=== PATIENT | male | born 1955 | race Caucasian/White ===

== ENCOUNTER → 2018-02-26 06:16 | Outpatient (CLI) | payer BC, SELFPAY ==
[2018-02-26 08:04] LABS: ALB/GLOB Ratio 1.1 RATIO (0.9-2.4); AST(SGOT) 101 U/L (15-37); Alanine Aminotransfer ALT/SGPT 134 U/L (16-61); Albumin, Serum 3.7 g/dL (3.2-5.0); Alkaline Phosphatase 145 U/L (45-117); Anion Gap 8 (5-15); BUN 26 mg/dL (7-18); BUN/Creat Ratio 21.5 RATIO (10-20); Calcium,Total 8.5 mg/dL (8.5-10.1); Chloride 105 mmol/L (98-107); Cholesterol 123 mg/dL (200); Creatinine, Serum 1.21 mg/dL (0.70-1.30); EST Glomerular Filtration Rate 64 mL/min (>60); Est Glom Filt Rate - Afr Amer 78 mL/min (>60); Free T3 2.9 pg/mL (2.18-3.98); Globulin 3.3 g/dL (2.2-4.2); Glucose 131 mg/dL (74-106); High Density Lipoprotein 30 mg/dL; Potassium 3.7 mmol/L (3.5-5.1); Sodium Level 140 mmol/L (136-145); T4 Free Direct 0.97 ng/dL (0.76-1.46); Thyroid Stim Hormone (TSH) 6.21 uIU/mL (0.358-3.74); Triglycerides 94 mg/dL; Very Low Density Lipoprotein 19 mg/dL (5-40)
[2018-02-26 10:02] LABS: Hemoglobin A1c 8.6 % (4.2-6.3)
[2018-02-27 15:15] LABS: Thyroid Peroxidase AB 10 IU/mL (0-34)
== END ==
PROVIDERS: Family Provider Family Medicine; PCP Family Medicine; Visit Provider Internal Medicine Endocrinology, Diabetes & Metabolism
DX: E11.65 Type 2 diabetes mellitus with hyperglycemia (principal); R94.6 Abnormal results of thyroid function studies
CPT/HCPCS: 36415; 80053; 80061; 83036; 84439; 84443; 84481; 86376

== ENCOUNTER → 2018-03-03 09:52 | Outpatient (CLI) | payer BC, SELFPAY ==
[2018-03-03 11:04] LABS: AST(SGOT) 95 U/L (15-37); Alanine Aminotransfer ALT/SGPT 141 U/L (16-61); Albumin, Serum 3.7 g/dL (3.2-5.0); Alkaline Phosphatase 139 U/L (45-117); Bilirubin, Direct 0.15 mg/dL (0.00-0.30); GGTP 39 U/L (15-85); Globulin 3.5 g/dL (2.2-4.2); Protein, Total 7.2 g/dL (6.4-8.2)
[2018-03-04 09:36] LABS: HEPATITIS B SURFACE AG Negative (Negative); Hepatitis A AB, Total Positive (Negative); Hepatitis A IgM Antibody Negative (Negative); Hepatitis B Core AB IgM Negative (Negative); Hepatitis B Core Ab Total Negative (Negative); Hepatitis C Ab 0.1 s/co ratio (0.0-0.9)
[2018-03-04 10:15] LABS: Hep B Surface Antibodies Non Reactive (.); Thyroid Peroxidase AB 11 IU/mL (0-34)
== END ==
PROVIDERS: Family Provider Family Medicine; PCP Family Medicine; Visit Provider Internal Medicine Endocrinology, Diabetes & Metabolism
DX: R79.89 Other specified abnormal findings of blood chemistry (principal)
CPT/HCPCS: 36415; 80076; 82977; 86376; 86704; 86705; 86706; 86708; 86709; 86803; 87340

== ENCOUNTER → 2018-04-07 07:37 | Outpatient (CLI) | payer BC, SELFPAY ==
[2018-04-07 08:59] LABS: Free T3 2.7 pg/mL (2.18-3.98); T4 Free Direct 1.13 ng/dL (0.76-1.46); Thyroid Stim Hormone (TSH) 3.15 uIU/mL (0.358-3.74)
== END ==
PROVIDERS: Family Provider Family Medicine; PCP Family Medicine; Visit Provider Internal Medicine Endocrinology, Diabetes & Metabolism
DX: R79.89 Other specified abnormal findings of blood chemistry (principal)
CPT/HCPCS: 36415; 84439; 84443; 84481

== ENCOUNTER → 2018-07-13 07:26 | Outpatient (CLI) | payer BC, SELFPAY ==
[2018-07-13 09:23] LABS: Hemoglobin A1c 6.8 % (4.2-6.3)
[2018-07-13 09:26] LABS: ALB/GLOB Ratio 0.8 RATIO (0.9-2.4); AST(SGOT) 147 U/L (15-37); Alanine Aminotransfer ALT/SGPT 199 U/L (16-61); Albumin, Serum 3.2 g/dL (3.2-5.0); Alkaline Phosphatase 141 U/L (45-117); Anion Gap 7 (5-15); BUN 18 mg/dL (7-18); BUN/Creat Ratio 15.7 RATIO (10-20); Calcium,Total 8.8 mg/dL (8.5-10.1); Chloride 106 mmol/L (98-107); Cholesterol 105 mg/dL (200); Creatinine, Serum 1.15 mg/dL (0.70-1.30); EST Glomerular Filtration Rate 68 mL/min (>60); Est Glom Filt Rate - Afr Amer 83 mL/min (>60); Globulin 4.2 g/dL (2.2-4.2); Glucose 128 mg/dL (74-106); High Density Lipoprotein 25 mg/dL; Protein, Total 7.4 g/dL (6.4-8.2); Sodium Level 142 mmol/L (136-145); Thyroid Stim Hormone (TSH) 2.81 uIU/mL (0.358-3.74); Triglycerides 89 mg/dL; Very Low Density Lipoprotein 18 mg/dL (5-40)
== END ==
PROVIDERS: Family Provider Family Medicine; PCP Family Medicine; Visit Provider Internal Medicine Endocrinology, Diabetes & Metabolism
DX: E11.65 Type 2 diabetes mellitus with hyperglycemia (principal); E03.9 Hypothyroidism, unspecified
CPT/HCPCS: 36415; 80053; 80061; 83036; 84443

== ENCOUNTER → 2018-10-12 07:51 | Outpatient (CLI) | payer BC, SELFPAY ==
[2018-06-11 15:32] VITALS: BMI 31.0
[2018-10-12 08:53] LABS: Microalbumin,Random Urine 12.7 mg/L (NO RANGE EST.); Microalbumin:Creatinine Ratio 9.4 mg/g CRE (<30 mg/g CRE)
[2018-10-12 09:12] LABS: ALB/GLOB Ratio 0.7 RATIO (0.9-2.4); AST(SGOT) 244 U/L (15-37); Alanine Aminotransfer ALT/SGPT 295 U/L (16-61); Albumin, Serum 3.3 g/dL (3.2-5.0); Alkaline Phosphatase 150 U/L (45-117); Anion Gap 7 (5-15); BUN 26 mg/dL (7-18); BUN/Creat Ratio 20.5 RATIO (10-20); Calcium,Total 8.9 mg/dL (8.5-10.1); Chloride 105 mmol/L (98-107); Creatinine, Serum 1.27 mg/dL (0.70-1.30); EST Glomerular Filtration Rate 61 mL/min (>60); Est Glom Filt Rate - Afr Amer 74 mL/min (>60); Globulin 4.8 g/dL (2.2-4.2); Glucose 163 mg/dL (74-106); Hemoglobin A1c 7.6 % (4.2-6.3); Potassium 3.8 mmol/L (3.5-5.1); Protein, Total 8.1 g/dL (6.4-8.2); Sodium Level 141 mmol/L (136-145); Thyroid Stim Hormone (TSH) 1.85 uIU/mL (0.358-3.74)
== END ==
PROVIDERS: Family Provider Family Medicine; PCP Family Medicine; Referring Provider Internal Medicine Endocrinology, Diabetes & Metabolism; Visit Provider Internal Medicine Endocrinology, Diabetes & Metabolism
DX: E11.65 Type 2 diabetes mellitus with hyperglycemia (principal)
CPT/HCPCS: 36415; 80053; 82043; 82570; 83036; 84443

== ENCOUNTER → 2018-12-03 14:15 | Outpatient (CLI) | payer BC, SELFPAY ==
[2018-06-11 15:32] VITALS: BMI 31.0
== END ==
PROVIDERS: Family Provider Family Medicine; PCP Family Medicine; Visit Provider Nurse Practitioner Family
DX: L97.521 Non-pressure chronic ulcer of other part of left foot limited to breakdown of skin (principal)
CPT/HCPCS: 87070; 87077; 87186; 87205

== ENCOUNTER 2018-12-25 09:42 | Inpatient (IN) | payer BC, SELFPAY ==
[2018-12-21 14:10] VITALS: BMI 28.4
[2018-12-25 09:56] VITALS: BMI 28.6; BMI 28.7
[2018-12-25 09:57] VITALS: BP 115/73; PULSE 66; RESP 18; TEMP 36.6
--- NOTE | 2018-12-25 10:15 | PCM.HP.STD ---
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 Arnold: 07/31/2015: CABG X 4: RUIZ to left anterior descending bridge diagonal, SVG to first DX, radial artery to the lateral CX. Done @ [place] per Dr. Randall (5) History of coronary artery bypass graft Status: Chronic Comment: 07/31/2015: CABG X 4: RUIZ to left anterior descending bridge diagonal, SVG to first DX, radial artery to the lateral CX. Done @ [place] per Dr. Randall (6) History of left heart catheterization Status: Chronic Comment: Left heart cath 07/30/2015 @ [facility] per Dr. Arnold (7) Right-sided extracranial carotid artery stenosis Status: Chronic (8) Hypertension Status: Chronic (9) Hyperlipidemia Status: Chronic (10) Diabetes mellitus type II, controlled Status: Chronic (11) Interstitial lung disease Status: Chronic (12) Osteomyelitis of toe of left foot Status: Suspected Comment: left Hallux (13) Left leg cellulitis Status: Acute (14) Hyponatremia Status: Acute (15) Acute renal failure Status: Acute (16) Abnormal LFTs Status: Acute (17) Peripheral neuropathy Status: Chronic (18) Autoimmune disease Status: Chronic Comment: he is followed at the [facility].......not otherwise classified (19) Dropfoot Status: Chronic Qualifiers: Laterality: left Qualified Code(s): M21.372 - Foot drop, left foot (20) History of nonmelanoma skin cancer Status: Chronic History of Present Illness Date of Admission: 12/25/18 Chief Complaint: sent to the hospital by Dr. Castle for cellulitis and suspected osteomyelitis of the left hallux, cellulitis left foot and distal lower extremity The patient is a 63 year old M with a past medical history of diabetes mellitus type 2, hypertension, hyperlipidemia, coronary artery disease with history of CABG in 2014, autoimmune disease-not otherwise classified and followed at [facility], interstitial lung disease, paroxysmal atrial fibrillation, superficial DVT of the lower extremity, nonmelanoma skin cancer, hypothyroidism, peripheral neuropathy and drop foot on the left who was seen in the office by Dr. Castle today and sent to the hospital as a direct admit for cellulitis of the left foot and distal LE and suspected osteomyelitis of the Left hallux. A culture was done in the office of CT from the Wound on the left hallux and will be sent to the lab by Dr. Castle. The wound on the distal left hallux has been present since early October. The patient denies pain but has a history of peripheral neuropathy. Denies fever, chills, sweats. He was being treated by Dr. Goldberg in the office and had been using peroxide and a wrap on his toe. He has no prior history of diabetic foot ulcers. XRAYS at Dr. Castle's office show osteolysis of the distal phalanx of the left hallux. He denies any hx of claudication or PVD. He is being admitted for IV antibiotics, MRI of the left foot. He has a hx of an autoimmune disorder for the past few years and is followed at the [facility]. Initially presented with fatigue and wt loss. Started initially on Prednisone and then transitioned to Cellcept but, LFT's increased with the Cellcept and this was discontinued. He tells me that his blood sugars are controlled at home. 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 Arnold: 07/31/2015: CABG X 4: RUIZ to left anterior descending bridge diagonal, SVG to first DX, radial artery to the lateral CX. Done @ [place] per Dr. Randall History of coronary artery bypass graft (Chronic 07/31/15) 07/31/2015: CABG X 4: RUIZ to left anterior descending bridge diagonal, SVG to first DX, radial artery to the lateral CX. Done @ [place] per Dr. Randall History of left heart catheterization (Chronic 07/30/15) Left heart cath 07/30/2015 @ [facility] per Dr. Arnold Right-sided extracranial carotid artery stenosis (Chronic) Hypertension (Chronic) Hyperlipidemia (Chronic) Diabetes mellitus type II, controlled (Chronic) Interstitial lung disease (Chronic) Medical History: Medical History (Last Updated 12/21/18 @ 14:14 by Melissa Porras) Hypothyroid (Chronic) E03.9 Paroxysmal atrial fibrillation (Chronic) I48.0 detention current use of anticoagulant (Chronic) Z79.01 Atherosclerotic heart disease of [place] coronary artery without angina pectoris (Chronic) I25.10 Left heart cath 07/30/2015 @ [facility] per Dr. Arnold: 07/31/2015: CABG X 4: RUIZ to left anterior descending bridge diagonal, SVG to first DX, radial artery to the lateral CX. Done @ [place] per Dr. 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) Allergies adhesive tape Allergy (Verified 12/19/18 09:55) Rash Home Medications: Ambulatory Orders Medication Instructions Recorded aspirin 81 mg tablet,delayed 81 mg PO QDAY 12/08/17 release metformin 1,000 mg tablet 1,000 mg PO BIDCM 12/08/17 dulaglutide 1.5 mg/0.5 mL 1.5 mg SC QWEEK 12/21/18 subcutaneous pen injector empagliflozin 25 mg tablet 25 mg PO DAILY 12/21/18 levothyroxine 25 mcg tablet 25 mcg PO DAILY 12/21/18 Apixaban [Eliquis] 5 mg PO BID 12/25/18 Atorvastatin Calcium [Lipitor] 40 mg PO QDAY 12/25/18 Cholecalciferol (VIT D3) [Vitamin 1,000 unit PO DAILY 12/25/18 D] Cholecalciferol (Vitamin D3) 5,000 unit PO DAILY 12/25/18 [Vitamin D3] Ferrous Fumarate [Ferretts] 325 mg PO DAILY 12/25/18 Hydrochlorothiazide [Hctz] 25 mg PO QDAY 12/25/18 Insulin Detemir [Levemir Flextouch] 14 unit SQ BID 12/25/18 Insulin Lispro [Humalog KwikPen] 17 units SC DINNER 12/25/18 Insulin Lispro [Humalog Kwikpen] 14 unit SQ BREAKFAST 12/25/18 Losartan Potassium 100 mg PO QDAY 12/25/18 Metoprolol Succinate [Toprol Xl] 100 mg PO DAILY 12/25/18 Mycophenolate Mofetil [Cellcept] 1,000 mg PO BID 12/25/18 Potassium Chloride 10 meq PO QDAY 12/25/18 Smz/Tmp Ds [Bactrim Ds] 1 tablet PO BID 12/25/18 Surgical History: Surgical History (Last Reviewed 12/21/18 @ 14:09 by Melissa Porras) History of coronary artery bypass graft (Chronic) Onset Date: 07/31/15 Z95.1 07/31/2015: CABG X 4: RUIZ to left anterior descending bridge diagonal, SVG to first DX, radial artery to the lateral CX. Done @ [place] per Dr. Randall History of left heart catheterization (Chronic) Onset Date: 07/30/15 Z98.890 Left heart cath 07/30/2015 @ [facility] per Dr. Arnold thoracoscopy with lung biopsy Surgical History: coronary bypass surgery - 2014 0r 2016, - Psychiatric History: No pertinent psych hx Lives: Spouse/ Significant Other - 's name is Tessa Smoking Status: Never smoker Tobacco Use: Non-smoker Alcohol: Rare Drugs: None - *Family History Paternal Family History: Family History (Last Reviewed 12/21/18 @ 14:09 by Melissa Porras) Father Lupus COPD (chronic obstructive pulmonary disease) CAD (coronary artery disease) S/P CABG x 3, Onset Age: 68 Congestive heart failure Mother Alzheimers disease History Items: High Cholesterol, Heart Disease Review of Systems Constitutional: Denies: Anorexia, Chills, Fever, Malaise Eyes: Denies: Blurred vision HEENT: Denies: Head Aches, Sinus Congestion, Sinus Drainage Cardiovascular: Denies: Chest Pain, Light Headedness, Palpitations Respiratory: Denies: Cough, Shortness of breath at rest, Sputum production Gastrointestinal: Denies: Abdominal Pain, Nausea, Vomiting Genitourinary: Denies: Dysuria Musculoskeletal: Denies: Foot Pain, Joint Pain, Joint Tenderness Skin: Reports: Wounds - on the Left Hallux with fat layer exposed. Denies: Rash Neurological: Reports: Numbness - BL feet, - - drop foot on the left - used to wear a brace but he no longer does this although he continues to have persistent foot drop. Denies: Focal weakness, Tingling Psychiatric: Denies: Anxiety, Depression, Homicidal Ideations, Suicidal Ideations Endocrine: Denies: Change in Body Habitus Hematologic/ Lymphatic: Reports: Hx of blood clot - superficial LE. Denies: Easy Bruising, Easy Bleeding VTE Information - Inpt Only VTE Present on Admission: No VTE Mechan Device Prophylaxis: Knee High DENNIS Hose VTE Pharm Prophylaxis ordered?: No Reason prophylaxis not ordered:: Medical Contraindication - he is on Eliquis for AF Patient Problems: Active and Suspected Problems (Last Updated 12/21/18 @ 14:14 by Melissa Porras) Osteomyelitis of toe of left foot (Suspected) left Hallux Left leg cellulitis (Acute) Hyponatremia (Acute) Acute renal failure (Acute) Abnormal LFTs (Acute) - Physical Exam General: Alert, Oriented x3, Cooperative, No apparent distress, Well developed, Well nourished HEENT: Atraumatic, PERRLA, EOMI, Normocephalic Oral: Dry Mucosa Neck: Supple, No JVD, Negative Carotid Bruits, No Nodes, Trachea Midline Lungs: Clear to auscultation, Normal air movement, No rhonchi, No wheeze, No rales Cardiovascular: Regular rate, Regular Rhythm, Normal S1, Normal S2, No murmurs, No rub noted, No Gallop Abdomen: Bowel Sounds Present, Soft, Non Tender, Non-Distended, - - No abdominal bruits Extremities: No clubbing, No cyanosis, Capillary Refill Less than 3 Seconds, No Calf Tenderness, Diminished Peripheral Pulses - The popliteal on the left is decreased as well as the DP and PT. The right popliteal is 3/3 and the DP is 2/3, Edema - mild of the left hallux and the left ankle Skin: No rashes, No breakdown Musculoskeletal: No Tenderness to Palpation of Joints or Extremities, No Muscle Wasting Neurological: Cranial nerves II-XII grossly intact, Neuro grossly intact - except for the Left foot drop and the peripheral neuropathy due to DM II Psych/Mental Status: Normal Affect, Appropriate Vital Signs Temp Pulse Resp BP 97.8 F 66 18 115/73 12/25/18 09:57 12/25/18 09:57 12/25/18 09:57 12/25/18 09:57 Oxygen Delivery Method Room Air Weight: 241 lb 10.026 oz Body Mass Index (BMI) 28.6 Assessment/Plan All Active Problems (Last Updated 12/21/18 @ 14:14 by Melissa Porras) Left leg cellulitis (Acute) Hyponatremia (Acute) Acute renal failure (Acute) Abnormal LFTs (Acute) Abnormal nuclear stress test (Resolved) Unstable angina pectoris (Resolved) Impressions 1. cellulitis of the Left hallux, foot and the distal LE with non-healing diabetic ulcer with fat layer exposed at the tip of the plantar surface of the hallux and the mid toe on the dorsal surface 2. suspected osteomyelitis of the Left hallux - osteolysis on films done at podiatry office 3. drop foot left 4. diabetic peripheral polyneuropathy 5. autoimmune disease - on prednisone and Cellcept in the past - Cellcept stopped due to increased LFT's 6. ARF 7. ILD 8. abnormal LFT's 9. CAD with history of CABG in 2014 or 2015 10. Hypothyroidism 11. Paroxysmal atrial fibrillation 12. Chronic anticoagulation with Eliquis 13. Suspected peripheral vascular disease left lower extremity 14. Diabetes mellitus type 2 15. Hyperlipidemia 16. Hypertension 17. Right-sided extracranial carotid artery stenosis arterial studies LE's DC the Eliquis and start Lovenox - in the event that he needs surgery MRI of the Left foot CMP, CBCD, ESR, CRP, wound culture, HGBA1C Accuchecks and SSI Continue his home insulin regimen Cardiac calorie controlled diet Start Ceftriaxone and Flagyl - no hx of MRSA infection and cultures done as OP 12/04 did not grow MRSA ID consult when MRI is done and the results of the culture are available........whether or not he has an amputation will affect the duration of the treatment and also IV vs PO and how long Recheck the lab in the AM Consult Dr. Castle to participate in management Code Visit Inpatient E&M: [id number] Init Hosp L3
--- NOTE | 2018-12-25 11:42 | ART_ITS ---
Reason For Study: diabetic foot nfection Left Segmental Pressures The left dorsalis pedis waveforms are biphasic. The left posterior tibial artery waveforms are monophasic. Left posterior tibial artery = 98mmHg. Left dorsalis pedis artery = 107mmHg. Right Segmental Pressures The right dorsalis pedis waveforms are triphasic. The right posterior tibial artery waveforms are triphasic. Right brachial= 106mmHg. Right posterior tibial artery = 152mmHg. Right dorsalis pedis artery = 129mmHg. Right digit = 60 mmHg. Indices The right ankle brachial index by the dorsalis pedis is 1.22. The right ankle brachial index by the posterior tibial artery is 1.43. The right digital-brachial index is .57. The left ankle brachial index by the posterior tibial artery is .92. The left ankle brachial index by the dorsalis pedis is 1.01. Interpretation Summary Triphasic Doppler waveforms are noted at ankle level on the right. Biphasic and monophasic Doppler waveforms are noted at ankle level on the left. Pulse-volume recordings demonstrate satisfactory waveform amplitudes at all levels bilaterally, though were not obtained at digital level of the left foot due to the presence of a wound. The resting right ankle-brachial index is supra-normal. The resting left ankle-brachial index is normal. The right digital-brachial index is is mildly diminished. The left digital-brachial index was not obtained due to the presence of a left foot wound. There appears to be relatively normal arterial flow to ankle level bilaterally, though there appears to be evidence of arterial calcification involving the arterial tree at ankle level on the right. There appears to be mild impairment of digital flow at digital level on the right. Left digital flow was not assessed due to the presence of a wound. Ordering Physician: Lisbet Geiger Performed By: LU SIM T
[2018-12-25 12:41] LABS: Erythrocyte Sedimentation Rate 49 mm/hr (0-20)
[2018-12-25 12:43] LABS: Absolute Lymphocyte Count 1.29 X10^3/ul (0.83-4.51); Absolute Neutrophil Count 7.8 X10^3/uL (2.0-7.7); Basophil# 0.03 X10^3/uL; Basophil% 0.3 % (0-1); Eosinophil# 0.35 X10^3/uL; Eosinophils% 3.4 % (0-5); Hematocrit 41.1 % (40-54); Hemoglobin 13.5 g/dl (13.0-16.5); Lymphocyte # 1.29 X10^3/ul (4.0); Lymphocyte % 12.5 % (19-41); Mean Corp Hgb Conc 32.8 g/gl (32-36); Mean Corpuscular Hgb 31.5 pg (27.0-32.0); Mean Platelet Vol. 9.8 fl (6.2-12.0); Monocyte# 0.83 X10^3/uL; Neutrophil # 7.79 X10^3/uL (2.7-7.7); Neutrophil % 75.5 % (47-70); Platelet Count 256 K/mm3 (150-450); RBC Distribution Width CV 13.8 % (11.6-14.6); RBC Distribution Width SD 48.8 fl (35.1-43.9); Red Blood Count 4.28 M/mm3 (4.6-6.2); White Blood Count 10.3 K/mm3 (4.4-11.0)
[2018-12-25 12:45] LABS: POSITIVE COUNT NO; POSITIVE DIFFERENTIAL NO; POSITIVE MORPHOLOGY NO
[2018-12-25 12:50] LABS: Bedside Glucose 92 mg/dL (70-110)
[2018-12-25 12:55] LABS: Hemoglobin A1c 8.3 % (4.2-6.3)
[2018-12-25 13:01] LABS: ALB/GLOB Ratio 0.5 RATIO (0.9-2.4); AST(SGOT) 178 U/L (15-37); Alanine Aminotransfer ALT/SGPT 167 U/L (16-61); Albumin, Serum 2.8 g/dL (3.2-5.0); Alkaline Phosphatase 159 U/L (45-117); Anion Gap 8 (5-15); BUN 29 mg/dL (7-18); BUN/Creat Ratio 18.2 RATIO (10-20); Calcium,Total 8.8 mg/dL (8.5-10.1); Chloride 103 mmol/L (98-107); Creatinine, Serum 1.59 mg/dL (0.70-1.30); EST Glomerular Filtration Rate 47 mL/min (>60); Est Glom Filt Rate - Afr Amer 57 mL/min (>60); Estimated Creatinine Clearance 59.93 ml/min; Globulin 5.7 g/dL (2.2-4.2); Glucose 90 mg/dL (74-106); Phosphorus 3.7 mg/dL (2.5-4.9); Potassium 3.9 mmol/L (3.5-5.1); Protein, Total 8.5 g/dL (6.4-8.2); Sodium Level 134 mmol/L (136-145)
[2018-12-25] MEDS: Docusate Sodium 100 MG Capsule 200 MG PO (13:15)
[2018-12-25] MEDS: Ceftriaxone 1 GM/50 ML BAG IV (13:15)
[2018-12-25 14:22] VITALS: BP 138/99; PULSE 73; RESP 18; TEMP 36.8; O2SAT 98
--- NOTE | 2018-12-25 14:24 | PCM.CONS.GEN ---
Problem List (1) Type 2 diabetes mellitus with diabetic polyneuropathy Status: Chronic (2) Hallux malleus of left foot Status: Chronic (3) Chronic ulcer of left foot with necrosis of bone Status: Chronic (4) Osteomyelitis of toe of left foot Status: Suspected Comment: left Hallux Reason for Consult Date of Consultation: 12/25/18 Reason for Consultation: [facility] for an infected left great toe ulcer with worsening status the past week. Full note will be faxed and placed in the paper chart. 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 Arnold: 07/31/2015: CABG X 4: RUIZ to left anterior descending bridge diagonal, SVG to first DX, radial artery to the lateral CX. Done @ [place] per Dr. Randall History of coronary artery bypass graft (Chronic 07/31/15) 07/31/2015: CABG X 4: RUIZ to left anterior descending bridge diagonal, SVG to first DX, radial artery to the lateral CX. Done @ [place] per Dr. Randall History of left heart catheterization (Chronic 07/30/15) Left heart cath 07/30/2015 @ [facility] per Dr. Arnold Right-sided extracranial carotid artery stenosis (Chronic) Hypertension (Chronic) Hyperlipidemia (Chronic) Diabetes mellitus type II, controlled (Chronic) Interstitial lung disease (Chronic) Medical History: Medical History (Last Updated 12/21/18 @ 14:14 by Melissa Porras) Hypothyroid (Chronic) E03.9 Paroxysmal atrial fibrillation (Chronic) I48.0 alf current use of anticoagulant (Chronic) Z79.01 Atherosclerotic heart disease of [place] coronary artery without angina pectoris (Chronic) I25.10 Left heart cath 07/30/2015 @ [facility] per Dr. Arnold: 07/31/2015: CABG X 4: RUIZ to left anterior descending bridge diagonal, SVG to first DX, radial artery to the lateral CX. Done @ [place] per Dr. 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) Allergies adhesive tape Allergy (Verified 12/19/18 09:55) Rash Home Medications: Ambulatory Orders Medication Instructions Recorded aspirin 81 mg tablet,delayed 81 mg PO QDAY 12/08/17 release metformin 1,000 mg tablet 1,000 mg PO BIDCM 12/08/17 dulaglutide 1.5 mg/0.5 mL 1.5 mg SC QWEEK 12/21/18 subcutaneous pen injector empagliflozin 25 mg tablet 25 mg PO DAILY 12/21/18 levothyroxine 25 mcg tablet 25 mcg PO DAILY 12/21/18 Apixaban [Eliquis] 5 mg PO BID 12/25/18 Atorvastatin Calcium [Lipitor] 40 mg PO QDAY 12/25/18 Cholecalciferol (VIT D3) [Vitamin 1,000 unit PO DAILY 12/25/18 D] Cholecalciferol (Vitamin D3) 5,000 unit PO DAILY 12/25/18 [Vitamin D3] Ferrous Fumarate [Ferretts] 325 mg PO DAILY 12/25/18 Hydrochlorothiazide [Hctz] 25 mg PO QDAY 12/25/18 Insulin Detemir [Levemir Flextouch] 14 unit SQ BID 12/25/18 Insulin Lispro [Humalog KwikPen] 17 units SC DINNER 12/25/18 Insulin Lispro [Humalog Kwikpen] 14 unit SQ BREAKFAST 12/25/18 Losartan Potassium 100 mg PO QDAY 12/25/18 Metoprolol Succinate [Toprol Xl] 100 mg PO DAILY 12/25/18 Mycophenolate Mofetil [Cellcept] 1,000 mg PO BID 12/25/18 Potassium Chloride 10 meq PO QDAY 12/25/18 Smz/Tmp Ds [Bactrim Ds] 1 tablet PO BID 12/25/18 Surgical History: Surgical History (Last Reviewed 12/21/18 @ 14:09 by Melissa Porras) History of coronary artery bypass graft (Chronic) Onset Date: 07/31/15 Z95.1 07/31/2015: CABG X 4: RUIZ to left anterior descending bridge diagonal, SVG to first DX, radial artery to the lateral CX. Done @ [place] per Dr. Randall History of left heart catheterization (Chronic) Onset Date: 07/30/15 Z98.890 Left heart cath 07/30/2015 @ [facility] per Dr. Arnold thoracoscopy with lung biopsy Surgical History: no surgical history, - - CABG first surgery. Smoking Status: Never smoker - *Family History Paternal Family History: Family History (Last Reviewed 12/21/18 @ 14:09 by Melissa Porras) Father Lupus COPD (chronic obstructive pulmonary disease) CAD (coronary artery disease) S/P CABG x 3, Onset Age: 68 Congestive heart failure Mother Alzheimers disease History Items: High Cholesterol, Heart Disease Patient Problems: Active and Suspected Problems (Last Updated 12/21/18 @ 14:14 by Melissa Porras) Osteomyelitis of toe of left foot (Suspected) left Hallux - Physical Exam Vital Signs Temp Pulse Resp BP Pulse Ox 98.2 F 73 18 138/99 H 98 12/25/18 14:22 12/25/18 14:22 12/25/18 14:22 12/25/18 14:22 12/25/18 14:22 Oxygen Delivery Method Room Air Weight: 109.6 kg Body Mass Index (BMI) 28.6 Laboratory Tests Past 24 Hrs 12/25/18 12/25/18 12/25/18 12:20 12:20 12:20 WBC 10.3 RBC 4.28 L Hgb 13.5 Hct 41.1 MCV 96.0 H MCH 31.5 MCHC 32.8 RDW 13.8 RDW Differential 48.8 H Plt Count 256 MPV 9.8 Immature Gran % (Auto) 0.300 Neut % (Auto) 75.5 H Lymph % (Auto) 12.5 L [place] % (Auto) 8.0 Eos % (Auto) 3.4 Baso % (Auto) 0.3 Absolute Neuts (auto) 7.8 H Absolute Lymphs (auto) 1.29 Total Counted Not Reportable ESR 49 H Sodium 134 L Potassium 3.9 Chloride 103 Carbon Dioxide 23.0 Anion Gap 8 BUN 29 H Creatinine 1.59 H Estim Creat Clear Calc 59.93 Est GFR (MDRD) Af Amer 57 L Est GFR (MDRD) Non-Af 47 L BUN/Creatinine Ratio 18.2 Glucose 90 Hemoglobin A1c 8.3 H Calcium 8.8 Phosphorus 3.7 Magnesium 2.0 Total Bilirubin 0.60 AST 178 H ALT 167 H Alkaline Phosphatase 159 H C-React Prot Ext Range 74.90 H Total Protein 8.5 H Albumin 2.8 L Globulin 5.7 H Albumin/Globulin Ratio 0.5 L POC Glucose 12/25/18 12:43 POC Glucose 92 Assessment/Plan All Active Problems (Last Updated 12/21/18 @ 14:14 by Melissa Porras) Abnormal nuclear stress test (Resolved) Unstable angina pectoris (Resolved) I reviewed the condition, etiology, and treatment options with the patient today. We reviewed and discussed the radiographs. Deep wound cultures were taken (and sent to [facility]) after ulcer debridement was performed. I educated the patient on systemic and local signs of infection. I recommend hospital admission due to his streaking and cellulitis extending to the leg level. I recommend broad spectrum antibiotics and an infectious disease consultation. He is moderate risk due to his diabetes status, probe to bone, and foot deformity status. I discussed the case with the admitting hospitalist and recommend antibiotics, noninvasive vascular studies, and labs (CBC, hemoglobin A1C, CMP, ESR, CRP). Xrays were already obtained and [facility]. He understands he may require a hallux amputation pending his response. He is at risk for limb loss due to the noted tissue deterioration, infection, and hallux malleus deformity. An MRI will be considered if this will change his treatment plan. Osteomyelitis is suspected and it is noted there is a significant loss of soft tissue of this hallux regardless. A fifteen blade was used to perform excisional debridement including the subcutaneous layer of the aforementioned ulcer(s) to remove non viable, fibrous, hyperkeratotic, slough, and biofilm tissue. Hemostasis controlled with pressure. This was tolerated.A gauze dressing was applied today. To continue offloading to optimize healing. To monitor for local and systemic signs of illness. To continue with proper nutrition and medical management to further optimize healing. left distal plantar hallux and left dorsal hallux The podiatry team will continue to follow close while in house. Please do not hesitate to call if you have any questions. Renee Sorenson DPM, FACFAS [facility] [phone]
--- NOTE | 2018-12-25 14:28 | CON.PCM_ITS ---
Problem List (1) Type 2 diabetes mellitus with diabetic polyneuropathy Status: Chronic (2) Hallux malleus of left foot Status: Chronic (3) Chronic ulcer of left foot with necrosis of bone Status: Chronic (4) Osteomyelitis of toe of left foot Status: Suspected Comment: left Hallux Reason for Consult Date of Consultation: 12/25/18 Reason for Consultation: [facility] for an infected left great toe ulcer with worsening status the past week. Full note will be faxed and placed in the paper chart. 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 Arnold: 07/31/2015: CABG X 4: RUIZ to left anterior descending bridge diagonal, SVG to first DX, radial artery to the lateral CX. Done @ [facility] per Dr. Randall History of coronary artery bypass graft (Chronic 07/31/15) 07/31/2015: CABG X 4: RUIZ to left anterior descending bridge diagonal, SVG to first DX, radial artery to the lateral CX. Done @ [facility] per Dr. Randall History of left heart catheterization (Chronic 07/30/15) Left heart cath 07/30/2015 @ [facility] per Dr. Arnold Right-sided extracranial carotid artery stenosis (Chronic) Hypertension (Chronic) Hyperlipidemia (Chronic) Diabetes mellitus type II, controlled (Chronic) Interstitial lung disease (Chronic) Medical History: Medical History (Last Updated 12/21/18 @ 14:14 by Melissa Porras) Hypothyroid (Chronic) E03.9 Paroxysmal atrial fibrillation (Chronic) I48.0 long-term current use of anticoagulant (Chronic) Z79.01 Atherosclerotic heart disease of [place] coronary artery without angina pectoris (Chronic) I25.10 Left heart cath 07/30/2015 @ [facility] per Dr. Arnold: 07/31/2015: CABG X 4: RUIZ to left anterior descending bridge diagonal, SVG to first DX, radial artery to the lateral CX. Done @ [facility] per Dr. 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) Allergies adhesive tape Allergy (Verified 12/19/18 09:55) Rash Home Medications: Ambulatory Orders Medication Instructions Recorded aspirin 81 mg tablet,delayed 81 mg PO QDAY 12/08/17 release metformin 1,000 mg tablet 1,000 mg PO BIDCM 12/08/17 dulaglutide 1.5 mg/0.5 mL 1.5 mg SC QWEEK 12/21/18 subcutaneous pen injector empagliflozin 25 mg tablet 25 mg PO DAILY 12/21/18 levothyroxine 25 mcg tablet 25 mcg PO DAILY 12/21/18 Apixaban [Eliquis] 5 mg PO BID 12/25/18 Atorvastatin Calcium [Lipitor] 40 mg PO QDAY 12/25/18 Cholecalciferol (VIT D3) [Vitamin 1,000 unit PO DAILY 12/25/18 D] Cholecalciferol (Vitamin D3) 5,000 unit PO DAILY 12/25/18 [Vitamin D3] Ferrous Fumarate [Ferretts] 325 mg PO DAILY 12/25/18 Hydrochlorothiazide [Hctz] 25 mg PO QDAY 12/25/18 Insulin Detemir [Levemir Flextouch] 14 unit SQ BID 12/25/18 Insulin Lispro [Humalog KwikPen] 17 units SC DINNER 12/25/18 Insulin Lispro [Humalog Kwikpen] 14 unit SQ BREAKFAST 12/25/18 Losartan Potassium 100 mg PO QDAY 12/25/18 Metoprolol Succinate [Toprol Xl] 100 mg PO DAILY 12/25/18 Mycophenolate Mofetil [Cellcept] 1,000 mg PO BID 12/25/18 Potassium Chloride 10 meq PO QDAY 12/25/18 Smz/Tmp Ds [Bactrim Ds] 1 tablet PO BID 12/25/18 Surgical History: Surgical History (Last Reviewed 12/21/18 @ 14:09 by Melissa Porras) History of coronary artery bypass graft (Chronic) Onset Date: 07/31/15 Z95.1 07/31/2015: CABG X 4: RUIZ to left anterior descending bridge diagonal, SVG to first DX, radial artery to the lateral CX. Done @ [facility] per Dr. Randall History of left heart catheterization (Chronic) Onset Date: 07/30/15 Z98.890 Left heart cath 07/30/2015 @ [facility] per Dr. Arnold thoracoscopy with lung biopsy Surgical History: no surgical history, - - CABG first surgery. Smoking Status: Never smoker - *Family History Paternal Family History: Family History (Last Reviewed 12/21/18 @ 14:09 by Melissa Porras) Father Lupus COPD (chronic obstructive pulmonary disease) CAD (coronary artery disease) S/P CABG x 3, Onset Age: 68 Congestive heart failure Mother Alzheimers disease History Items: High Cholesterol, Heart Disease Patient Problems: Active and Suspected Problems (Last Updated 12/21/18 @ 14:14 by Melissa Porras) Osteomyelitis of toe of left foot (Suspected) left Hallux - Physical Exam Vital Signs Temp Pulse Resp BP Pulse Ox 98.2 F 73 18 138/99 H 98 12/25/18 14:22 12/25/18 14:22 12/25/18 14:22 12/25/18 14:22 12/25/18 14:22 Oxygen Delivery Method Room Air Weight: 109.6 kg Body Mass Index (BMI) 28.6 Laboratory Tests Past 24 Hrs 12/25/18 12/25/18 12/25/18 12:20 12:20 12:20 WBC 10.3 RBC 4.28 L Hgb 13.5 Hct 41.1 MCV 96.0 H MCH 31.5 MCHC 32.8 RDW 13.8 RDW Differential 48.8 H Plt Count 256 MPV 9.8 Immature Gran % (Auto) 0.300 Neut % (Auto) 75.5 H Lymph % (Auto) 12.5 L [place] % (Auto) 8.0 Eos % (Auto) 3.4 Baso % (Auto) 0.3 Absolute Neuts (auto) 7.8 H Absolute Lymphs (auto) 1.29 Total Counted Not Reportable ESR 49 H Sodium 134 L Potassium 3.9 Chloride 103 Carbon Dioxide 23.0 Anion Gap 8 BUN 29 H Creatinine 1.59 H Estim Creat Clear Calc 59.93 Est GFR (MDRD) Af Amer 57 L Est GFR (MDRD) Non-Af 47 L BUN/Creatinine Ratio 18.2 Glucose 90 Hemoglobin A1c 8.3 H Calcium 8.8 Phosphorus 3.7 Magnesium 2.0 Total Bilirubin 0.60 AST 178 H ALT 167 H Alkaline Phosphatase 159 H C-React Prot Ext Range 74.90 H Total Protein 8.5 H Albumin 2.8 L Globulin 5.7 H Albumin/Globulin Ratio 0.5 L POC Glucose 12/25/18 12:43 POC Glucose 92 Assessment/Plan All Active Problems (Last Updated 12/21/18 @ 14:14 by Melissa Porras) Abnormal nuclear stress test (Resolved) Unstable angina pectoris (Resolved) I reviewed the condition, etiology, and treatment options with the patient today. We reviewed and discussed the radiographs. Deep wound cultures were taken (and sent to [facility]) after ulcer debridement was performed. I educated the patient on systemic and local signs of infection. I recommend hospital admission due to his streaking and cellulitis extending to the leg level. I recommend broad spectrum antibiotics and an infectious disease con sultation. He is moderate risk due to his diabetes status, probe to bone, and foot deformity status. I discussed the case with the admitting hospitalist and recommend antibiotics, noninvasive vascular studies, and labs (CBC, hemoglobin A1C, CMP, ESR, CRP). Xrays were already obtained and [facility]. He understands he may require a hallux amputation pending his response. He is at risk for limb loss due to the noted tissue deterioration, infection, and hallux malleus deformity. An MRI will be considered if this will change his treatment plan. Osteomyelitis is suspected and it is noted there is a significant loss of soft tissue of this hallux regardless. A fifteen blade was used to perform excisional debridement including the subcutaneous layer of the aforementioned ulcer(s) to remove non viable, fibrous, hyperkeratotic, slough, and biofilm tissue. Hemostasis controlled with pressure. This was tolerated.A gauze dressing was applied today. To continue offloading to optimize healing. To monitor for local and systemic signs of illness. To continue with proper nutrition and medical management to further optimize healing. left distal plantar hallux and left dorsal hallux The podiatry team will continue to follow close while in house. Please do not hesitate to call if you have any questions. Renee Sorenson DPM, [facility] [phone]
[2018-12-25] MEDS: Glucerna Shake 120 ML LIQUID PO (14:30)
[2018-12-25] MEDS: Enoxaparin 100 MG/ML Syringe SC ×2 (14:31→21:43)
--- NOTE | 2018-12-25 14:49 | CASEMGMT ---
RN CM HEADER UP CM to room to meet with patient for initial transition planning/care coordination assessment. RN ZAIN introduced self and role at [facility]. Pt voices understanding and consents to assessment at this time. Pt resting in bed in no distress at this time. Pt is A/O at this time and answers all questions appropriately. Care providers, pharmacy, and demographics verified at this time. PCP: Mk Goldberg Specialists: Dr Youngblood Endocrinology. Dr Rob: [facility]. Dr Arnold Cardiology. Dr Barraza Pulmonology. Preferred Pharmacy: [facility] Insurance: [employer] Prescription Benefit: Yes Living Will/HPOA: does not have LW or HCPOA . Interested in more information but states does not want to talk with SW at this time to complete paperwork. States wants to talk it over with his first. Provided information on advanced directives and given Social Service rac card with number to call if chooses in the future to utilize [facility] social work for advanced directive completion. Educated patient that, if patient so chooses, can come back to [facility] and meet with a SW as an outpatient to complete health care advanced directives. Patient expresses understanding. LNOK: Living Arrangements: Lives at home with his in a 2-story home. First floor set up. 1 step to enter. Independent Transportation: Pt states drives self and states no transportation concerns at this time. DME: Denies using any DME and denies needs. HHC/SNF: Has never been to a SNF or used HHC. States has went to [facility] for therapy in the past. Pt wishes to return home and states has no concerns with going home at time of discharge. CM to follow for any further discharge planning/needs. Pt voices no further concerns/needs at this time. Advised pt to ask for CM if any further questions/concerns/needs arise. Voices understanding. PLAN: Home. CM to follow. Undetermined plan at this time if pt will go home on PO vs IV antibiotics. Keith SCHWAB RN, CM
--- NOTE | 2018-12-25 15:02 | NURSING ---
Wound Consult pt was seen 12/25/18. Dressing was just placed by RN. The dressing was clean, dry and intact. Photo and measurements will be taken 12/26/2018.
[2018-12-25 16:50] LABS: Bedside Glucose 166 mg/dL (70-110)
[2018-12-25] MEDS: Insulin Lispro 100 UNIT/ML INSULN.PEN 17 UNIT SC (16:58)
[2018-12-25] MEDS: Insulin Lispro 100 UNIT/ML INSULN.PEN SC (16:59)
--- NOTE | 2018-12-25 17:45 | MRI_ITS ---
STUDY: MRI LEFT FOREFOOT WITHOUT CONTRAST REASON FOR EXAM: Wound on dorsal and plantar aspects of the great toe for 6 weeks, evaluate osteomyelitis. TECHNIQUE: Standardized fat and water weighted pulse sequences were obtained in all 3 orthogonal planes. COMPARISON: None. FINDINGS: Normal metatarsophalangeal joint of the hallux. There is deformity of the fibular sesamoid suggestive of remote fracture with arthrosis of the fibular sesamoid-first metatarsal articulation (T1 sagittal images 9-11). There is flexion deformity at the interphalangeal joint of the hallux. There is bone edema of the distal and proximal phalanges of the first digit (inversion recovery sagittal images 6-9) with corresponding decreased T1 bone marrow signal in the ungual tuft of the distal phalanx and in the distal half of the proximal phalanx (T1 sagittal image 8) suggestive of osteomyelitis. Normal medial and lateral heads of the flexor hallucis brevis tendons. Normal flexor and extensor hallucis longus tendons. Normal second through fifth metatarsophalangeal (MTP) joints. Normal interphalangeal joints of the second through fifth toes. Normal proximal, middle and distal phalanges of the second through fifth toes. There are hammertoe deformities of the lesser toes. There is soft tissue fullness at the plantar aspect of the second webspace (T1 series 7 image 17) measuring 0.35 cm in AP dimension suggestive of a small intermetatarsal neuroma. Normal flexor and extensor tendons of the second through fifth toes. Normal visualized metatarsi. There is atrophy with fat replacement of the intrinsic muscles of the forefoot (T1 sagittal images 11-25) suggestive of peripheral neuropathy. There are ulcers at the plantar and dorsal aspects of the great toe and mild edema in the subcutis adipose space without demonstrated soft tissue abscess. MRI/Lower Ext/No Jt/w/o IMPRESSION: Osteomyelitis of the proximal and distal phalanges of the great toe. Arthrosis of the fibular sesamoid-first metatarsal articulation. Small intermetatarsal neuroma of the second webspace. Atrophy of the intrinsic muscles of the forefoot suggestive of peripheral neuropathy. Electronically Signed: Leo Momin MD at 8:26 EST Tel , Service support ,
[2018-12-25] MEDS: 0.9% Normal Saline 1,000 ML 100 ML IV (18:38)
[2018-12-25 21:22] VITALS: BP 131/62; PULSE 74; RESP 18; TEMP 37.1; O2SAT 97
[2018-12-25 21:40] LABS: Bedside Glucose 90 mg/dL (70-110)
[2018-12-25] MEDS: Atorvastatin Calcium 40 MG Tablet PO (21:43)
[2018-12-25] MEDS: metFORMIN HCl 1,000 MG Tablet 1000 MG PO (21:43)
[2018-12-26] MEDS: Acetaminophen 325 MG Tablet 650 MG PO (00:13)
[2018-12-26 02:24] VITALS: BP 119/54; PULSE 71; RESP 16; TEMP 36.9; O2SAT 96
[2018-12-26] MEDS: Levothyroxine 25 MCG TABLET PO (05:59)
--- NOTE | 2018-12-26 06:26 | PN_ITS ---
Patient Problems: Active and Suspected Problems (Last Reviewed 12/26/18 @ 12:51 by Suhdir Singh MD) Osteomyelitis of toe of left foot (Suspected) left Hallux Left leg cellulitis (Acute) Hyponatremia (Acute) Acute renal failure (Acute) Abnormal LFTs (Acute) Subjective: Day #2 antibiotics-Rocephin and metronidazole All events the past 24 hours been reviewed. MRI of the left foot was completed but no report yet. ABIs of the lower extremities have been completed but have no report yet. MICHAEL at the left ankle is 0.92 over the posterior tibial and 1.01 at the dorsalis pedis. No digit MICHAEL could be obtained. Posterior tibial wave is monophasic and the dorsalis pedis is biphasic. Afebrile since admission. Vital signs are stable. He is 96-97% saturated on room air. 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 Creatinine has improved with hydration and is down to 1.18 with a BUN of 24. Electrolytes are within normal limits. MRI shows osteomyelitis of the proximal and distal phalanges of the left hallux. Objective: PHYSICAL EXAM: GENERAL: alert, oriented X 3, Cooperative, NAD ORAL: moist mucosa, no mucosal lesions NECK: No JVD, supple, trachea midline LUNGS: CTA, symmetric chest expansion HEART: RRR, Normal S1 and S2, no rub, no gallop ABDOMEN: soft, NT, ND, BS present, no guarding with palpation EXTREMITIES: no edema, no cyanosis, no calf tenderness SKIN: No rashes, pleases see Dr. Estrada's wound description from today.......I did not examine as it was just examined and redressed by Dr. Estrada NEUROLOGIC: Left foot drop PSYCH: appropriate, normal affect, pleasant - Physical Exam Vital Signs Temp Pulse Resp BP Pulse Ox 98.4 F 71 16 119/54 L 96 12/26/18 02:24 12/26/18 02:24 12/26/18 02:24 12/26/18 02:24 12/26/18 02:24 Oxygen Delivery Method Room Air Weight: 241 lb 10.026 oz Body Mass Index (BMI) 28.6 Intake and Output for Last 24 Hours 12/24/18 12/25/18 12/26/18 23:59 23:59 23:59 Intake Total 230 / 230 1427 / 1427 Output Total 700 / 700 800 / 800 Balance -470 / -470 627 / 627 Laboratory Tests Past 24 Hrs 12/25/18 12/25/18 12/25/18 12:20 12:20 12:20 WBC 10.3 RBC 4.28 L Hgb 13.5 Hct 41.1 MCV 96.0 H MCH 31.5 MCHC 32.8 RDW 13.8 RDW Differential 48.8 H Plt Count 256 MPV 9.8 Immature Gran % (Auto) 0.300 Neut % (Auto) 75.5 H Lymph % (Auto) 12.[address] [place] % (Auto) 8.0 Eos % (Auto) 3.4 Baso % (Auto) 0.3 Absolute Neuts (auto) 7.8 H Absolute Lymphs (auto) 1.29 Total Counted Not Reportable ESR 49 H Sodium 134 L Potassium 3.9 Chloride 103 Carbon Dioxide 23.0 Anion Gap 8 BUN 29 H Creatinine 1.59 H Estim Creat Clear Calc 59.93 Est GFR (MDRD) Af Amer 57 L Est GFR (MDRD) Non-Af 47 L BUN/Creatinine Ratio 18.2 Glucose 90 Hemoglobin A1c 8.3 H Calcium 8.8 Phosphorus 3.7 Magnesium 2.0 Total Bilirubin 0.60 AST 178 H ALT 167 H Alkaline Phosphatase 159 H C-React Prot Ext Range 74.90 H Total Protein 8.5 H Albumin 2.8 L Globulin 5.7 H Albumin/Globulin Ratio 0.5 L POC Glucose 12/25/18 12/25/18 12/25/18 21:33 16:46 12:43 POC Glucose 90 166 H 92 Medical Necessity - Tobacco Use Smoking Status: Never smoker Tobacco Use: Non-smoker Assessment/Plan All Active Problems (Last Reviewed 12/26/18 @ 12:51 by Sudhir Singh MD) Left leg cellulitis (Acute) Hyponatremia (Acute) Acute renal failure (Acute) Abnormal LFTs (Acute) Abnormal nuclear stress test (Resolved) Unstable angina pectoris (Resolved) Impressions 1. cellulitis of the Left hallux, foot and the distal LE with non-healing diabetic ulcer with fat layer exposed at the tip of the plantar surface of the hallux and the mid toe on the dorsal surface 2. osteomyelitis of the Left hallux - proximal and distal phalanx 3. drop foot left 4. diabetic peripheral polyneuropathy 5. autoimmune disease - on prednisone and Cellcept in the past - Cellcept stopped in August of 2018 due to elevation in LFT's 6. ARF - resolved with hydration 7. ILD 8. abnormal LFT's - due to autoimmune hepatitis? 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 CAD with history of CABG in 2014 or 2016 10. Hypothyroidism 11. Paroxysmal atrial fibrillation 12. Chronic anticoagulation with Eliquis 13. Suspected peripheral vascular disease left lower extremity - seen by Dr. Singh today in consult and he does not feel there is any need for intervention at this time 14. Diabetes mellitus type 2 - not adequately controlled, HGBA1C is 8.3% 15. Hyperlipidemia 16. Hypertension 17. Right-sided extracranial carotid artery stenosis D/W Dr. Estrada - he plans amputation of the left great toe tomorrow Will be non-weight bearing post-op - will look into a knee walker DC the Rocephin and the Flagyl and start Vanco and Levaquin Consult Dr. Servin Hold Lovenox after midnight tonight Decrease maintenance IV to 75 cc Lipid panel in the a.m. Education regarding diet and blood sugar control.....ideally would like the HGBA1C 7 or less Code Visit Inpatient E&M: 36095 Subs Hosp L2
[2018-12-26 07:24] LABS: Anion Gap 10 (5-15); BUN 24 mg/dL (7-18); BUN/Creat Ratio 20.3 RATIO (10-20); Calcium,Total 8.5 mg/dL (8.5-10.1); Chloride 107 mmol/L (98-107); Creatinine, Serum 1.18 mg/dL (0.70-1.30); EST Glomerular Filtration Rate 66 mL/min (>60); Est Glom Filt Rate - Afr Amer 80 mL/min (>60); Estimated Creatinine Clearance 80.75 ml/min; Glucose 133 mg/dL (74-106); Potassium 3.8 mmol/L (3.5-5.1); Sodium Level 139 mmol/L (136-145)
[2018-12-26] MEDS: 0.9% Normal Saline 1,000 ML 100 ML IV (08:22)
[2018-12-26] MEDS: Insulin Lispro 100 UNIT/ML INSULN.PEN 14 UNIT SC (08:29)
[2018-12-26] MEDS: metFORMIN HCl 1,000 MG Tablet 1000 MG PO ×2 (08:29→17:07)
[2018-12-26 08:30] VITALS: BP 130/75; PULSE 73; RESP 16; TEMP 37.1; O2SAT 96
[2018-12-26] MEDS: Aspirin E.C. 81 MG Tablet PO (08:34)
[2018-12-26] MEDS: Losartan Potassium 100 MG Tablet PO (08:34)
[2018-12-26 08:36] VITALS: BP 130/75; PULSE 73
[2018-12-26] MEDS: Metoprolol(XL)Succ 100 MG Tablet PO (08:36)
[2018-12-26] MEDS: Empagliflozin 25 MG Tablet PO (08:36)
[2018-12-26 08:51] LABS: Bedside Glucose 150 mg/dL (70-110)
[2018-12-26] MEDS: Ceftriaxone 1 GM/50 ML BAG IV (11:41)
[2018-12-26] MEDS: Enoxaparin 100 MG/ML Syringe SC (11:42)
[2018-12-26] MEDS: Glucerna Shake 120 ML LIQUID PO ×2 (11:42→14:05)
[2018-12-26] MEDS: Insulin Lispro 100 UNIT/ML INSULN.PEN SC ×2 (12:03→17:06)
[2018-12-26 12:11] LABS: Bedside Glucose 231 mg/dL (70-110)
--- NOTE | 2018-12-26 12:49 | PCM.CONS.GEN ---
Problem List (1) Osteomyelitis of toe of left foot Status: Suspected Comment: left Hallux Reason for Consult Date of Consultation: 12/26/18 Reason for Consultation: PAD with ulcer left great toe History of Present Illness: The patient is a 63 year old M with hammertoes and ulcer on the left great toe. He had ABIs and some concern about the ability to heal through this ulcer. Looks like he may have some ostial into the great toe as well. Vascular surgery consulted for evaluation of this. He did have ABIs in the posterior tibial was 1.43 on the right 0.92 on the left but appeared more of a monophasic flow. Dorsalis pedis is 1.22 on the right and 1.0 on the left and both these appear to be more triphasic flow. Digit brachial index 0.57 on the right not done on the left. Of note he did have good waveforms and PVRs all the way out through the ankle. Appears he does have adequate flow through here. No significant rest pain prior to this. He does have neuropathy noted. No claudication symptoms noted. No prior peripheral vascular interventions. Patient had a CABG in 2014. Hypertension on meds. Diabetic since 2002. Hyperlipidemia on a statin. Patient is a non-smoker. [] Past Medical History Past Medical History (Chronic Problems): Chronic Problems (Last Updated 12/21/18 @ 14:14 by Melissa Porras) Type 2 diabetes mellitus with diabetic polyneuropathy (Chronic) Hallux malleus of left foot (Chronic) Chronic ulcer of left foot with necrosis of bone (Chronic) Peripheral neuropathy (Chronic) Autoimmune disease (Chronic) he is followed at the [facility].......not otherwise classified Dropfoot (Chronic) History of nonmelanoma skin cancer (Chronic) Hypothyroid (Chronic) Paroxysmal atrial fibrillation (Chronic) [facility] current use of anticoagulant (Chronic) Eliquis Atherosclerotic heart disease of [place] coronary artery without angina pectoris (Chronic) Left heart cath 07/30/2015 @ [facility] per Dr. Arnold: 07/31/2015: CABG X 4: RUIZ to left anterior descending bridge diagonal, SVG to first DX, radial artery to the lateral CX. Done @ [place] per Dr. Randall History of coronary artery bypass graft (Chronic 07/31/15) 07/31/2015: CABG X 4: RUIZ to left anterior descending bridge diagonal, SVG to first DX, radial artery to the lateral CX. Done @ [place] per Dr. Randall History of left heart catheterization (Chronic 07/30/15) Left heart cath 07/30/2015 @ [facility] per Dr. Arnold Right-sided extracranial carotid artery stenosis (Chronic) Hypertension (Chronic) Hyperlipidemia (Chronic) Diabetes mellitus type II, controlled (Chronic) Interstitial lung disease (Chronic) Medical History: Medical History (Last Reviewed 12/26/18 @ 12:51 by Sudhir Singh MD) Hypothyroid (Chronic) E03.9 Paroxysmal atrial fibrillation (Chronic) I48.0 [facility]FP current use of anticoagulant (Chronic) Z79.01 Eliquis Atherosclerotic heart disease of [place] coronary artery without angina pectoris (Chronic) I25.10 Left heart cath 07/30/2015 @ [facility] per Dr. Arnold: 07/31/2015: CABG X 4: RUIZ to left anterior descending bridge diagonal, SVG to first DX, radial artery to the lateral CX. Done @ [place] per Dr. 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) Allergies adhesive tape Allergy (Verified 12/19/18 09:55) Rash Home Medications: Ambulatory Orders Medication Instructions Recorded aspirin 81 mg tablet,delayed 81 mg PO QDAY 12/08/17 release metformin 1,000 mg tablet 1,000 mg PO BIDCM 12/08/17 dulaglutide 1.5 mg/0.5 mL 1.5 mg SC QWEEK 12/21/18 subcutaneous pen injector empagliflozin 25 mg tablet 25 mg PO DAILY 12/21/18 levothyroxine 25 mcg tablet 25 mcg PO DAILY 12/21/18 Apixaban [Eliquis] 5 mg PO BID 12/25/18 Atorvastatin Calcium [Lipitor] 40 mg PO QDAY 12/25/18 Cholecalciferol (VIT D3) [Vitamin 1,000 unit PO DAILY 12/25/18 D] Cholecalciferol (Vitamin D3) 5,000 unit PO DAILY 12/25/18 [Vitamin D3] Ferrous Fumarate [Ferretts] 325 mg PO DAILY 12/25/18 Hydrochlorothiazide [Hctz] 25 mg PO QDAY 12/25/18 Insulin Detemir [Levemir Flextouch] 14 unit SQ BID 12/25/18 Insulin Lispro [Humalog KwikPen] 17 units SC DINNER 12/25/18 Insulin Lispro [Humalog Kwikpen] 14 unit SQ BREAKFAST 12/25/18 Losartan Potassium 100 mg PO QDAY 12/25/18 Metoprolol Succinate [Toprol Xl] 100 mg PO DAILY 12/25/18 Mycophenolate Mofetil [Cellcept] 1,000 mg PO BID 12/25/18 Potassium Chloride 10 meq PO QDAY 12/25/18 Smz/Tmp Ds [Bactrim Ds] 1 tablet PO BID 12/25/18 Surgical History: Surgical History (Last Reviewed 12/26/18 @ 12:51 by Sudhir Singh MD) History of coronary artery bypass graft (Chronic) Onset Date: 07/31/15 Z95.1 07/31/2015: CABG X 4: RUIZ to left anterior descending bridge diagonal, SVG to first DX, radial artery to the lateral CX. Done @ [place] per Dr. Randall History of left heart catheterization (Chronic) Onset Date: 07/30/15 Z98.890 Left heart cath 07/30/2015 @ [facility] per Dr. Arnold thoracoscopy with lung biopsy Surgical History: coronary bypass surgery - 2014 0r 2016, - Psychiatric History: No pertinent psych hx Lives: Spouse/ Significant Other - 's name is Tessa Smoking Status: Never smoker Tobacco Use: Non-smoker Alcohol: Rare Drugs: None - *Family History Paternal Family History: Family History (Last Reviewed 12/26/18 @ 12:51 by Sudhir Singh MD) Father Lupus COPD (chronic obstructive pulmonary disease) CAD (coronary artery disease) S/P CABG x 3, Onset Age: 68 Congestive heart failure Mother Alzheimers disease History Items: High Cholesterol, Heart Disease Review of Systems HEENT: Denies: Head Aches, Sinus Congestion, Sinus Drainage Cardiovascular: Denies: Chest Pain, Palpitations Respiratory: Denies: Cough, Shortness of breath at rest, Sputum production Gastrointestinal: Denies: Abdominal Pain, Nausea, Vomiting Genitourinary: Denies: Dysuria Musculoskeletal: Denies: Joint Pain, Joint Tenderness Skin: Denies: Rash, Wounds - Wounds on the left great toe Patient Problems: Active and Suspected Problems (Last Updated 12/21/18 @ 14:14 by Melissa Porras) Osteomyelitis of toe of left foot (Suspected) left Hallux Left leg cellulitis (Acute) Hyponatremia (Acute) Acute renal failure (Acute) Abnormal LFTs (Acute) - Physical Exam General: Alert, Oriented x3 HEENT: Atraumatic, PERRLA Neck: Supple Lungs: Clear to auscultation Cardiovascular: Regular rate Abdomen: Soft, Non Tender Extremities: - - Strong signals in the posterior tibial and dorsalis pedis. Also has a adequate digital signal noted. Ulceration on the tip of the great toe on the left. 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 Staphylococcus species Laboratory Tests Past 24 Hrs 12/25/18 12/25/18 12/26/18 12:20 12:20 06:28 Sodium 134 L 139 Potassium 3.9 3.8 Chloride 103 107 Carbon Dioxide 23.0 22.0 Anion Gap 8 10 BUN 29 H 24 H Creatinine 1.59 H 1.18 Estim Creat Clear Calc 59.93 80.75 Est GFR (MDRD) Af Amer 57 L 80 Est GFR (MDRD) Non-Af 47 L 66 BUN/Creatinine Ratio 18.2 20.3 H Glucose 90 133 H Hemoglobin A1c 8.3 H Calcium 8.8 8.5 Phosphorus 3.7 Magnesium 2.0 Total Bilirubin 0.60 AST 178 H ALT 167 H Alkaline Phosphatase 159 H C-React Prot Ext Range 74.90 H Total Protein 8.5 H Albumin 2.8 L Globulin 5.7 H Albumin/Globulin Ratio 0.5 L POC Glucose 12/26/18 12/26/18 12/25/18 12:01 08:26 21:33 POC Glucose 231 H 150 H 90 12/25/18 12/25/18 16:46 12:43 POC Glucose 166 H 92 Assessment/Plan All Active Problems (Last Updated 12/21/18 @ 14:14 by Melissa Porras) Left leg cellulitis (Acute) Hyponatremia (Acute) Acute renal failure (Acute) Abnormal LFTs (Acute) Abnormal nuclear stress test (Resolved) Unstable angina pectoris (Resolved) Patient with long-standing diabetes neuropathy hammertoes and now ulceration on the left great toe. PAD. He appears to have adequate perfusion into the foot not through the digital vessel with good signals noted. It appears to be a near triphasic waveform on my review of the dorsalis pedis. He should be able to heal any intervention done to the toe. If there is any difficulty with healing we would then do an angiogram to better evaluate his tibial vessels. Otherwise we will just plan on seeing him back in 1-2 months and proceed from there thank you for the consult
--- NOTE | 2018-12-26 12:53 | CON.PCM_ITS ---
Problem List (1) Osteomyelitis of toe of left foot Status: Suspected Comment: left Hallux Reason for Consult Date of Consultation: 12/26/18 Reason for Consultation: PAD with ulcer left great toe History of Present Illness: The patient is a 63 year old M with hammertoes and ulcer on the left great toe. He had ABIs and some concern about the ability to heal through this ulcer. Looks like he may have some ostial into the great toe as well. Vascular surgery consulted for evaluation of this. He did have ABIs in the posterior tibial was 1.43 on the right 0.92 on the left but appeared more of a monophasic flow. Dorsalis pedis is 1.22 on the right and 1.0 on the left and both these appear to be more triphasic flow. Digit brachial index 0.57 on the right not done on the left. Of note he did have good waveforms and PVRs all the way out through the ankle. Appears he does have adequate flow through here. No significant rest pain prior to this. He does have neuropathy noted. No claudication symptoms noted. No prior peripheral vascular interventions. Patient had a CABG in 2014. Hypertension on meds. Diabetic since 2002. Hyperlipidemia on a statin. Patient is a non-smoker. [] Past Medical History Past Medical History (Chronic Problems): Chronic Problems (Last Updated 12/21/18 @ 14:14 by Melissa Porras) Type 2 diabetes mellitus with diabetic polyneuropathy (Chronic) Hallux malleus of left foot (Chronic) Chronic ulcer of left foot with necrosis of bone (Chronic) Peripheral neuropathy (Chronic) Autoimmune disease (Chronic) he is followed at the [facility].......not otherwise classified Dropfoot (Chronic) History of nonmelanoma skin cancer (Chronic) Hypothyroid (Chronic) Paroxysmal atrial fibrillation (Chronic) retirement current use of anticoagulant (Chronic) Eliquis Atherosclerotic heart disease of [place] coronary artery without angina pectoris (Chronic) Left heart cath 07/30/2015 @ [facility] per Dr. Arnold: 07/31/2015: CABG X 4: RUIZ to left anterior descending bridge diagonal, SVG to first DX, radial artery to the lateral CX. Done @ [place] per Dr. Randall History of coronary artery bypass graft (Chronic 07/31/15) 07/31/2015: CABG X 4: RUIZ to left anterior descending bridge diagonal, SVG to first DX, radial artery to the lateral CX. Done @ [place] per Dr. Randall History of left heart catheterization (Chronic 07/30/15) Left heart cath 07/30/2015 @ [facility] per Dr. Arnold Right-sided extracranial carotid artery stenosis (Chronic) Hypertension (Chronic) Hyperlipidemia (Chronic) Diabetes mellitus type II, controlled (Chronic) Interstitial lung disease (Chronic) Medical History: Medical History (Last Reviewed 12/26/18 @ 12:51 by Sudhir Singh MD) Hypothyroid (Chronic) E03.9 Paroxysmal atrial fibrillation (Chronic) I48.0 retirement current use of anticoagulant (Chronic) Z79.01 Eliquis Atherosclerotic heart disease of [place] coronary artery without angina pectoris (Chronic) I25.10 Left heart cath 07/30/2015 @ [facility] per Dr. Arnold: 07/31/2015: CABG X 4: RUIZ to left anterior descending bridge diagonal, SVG to first DX, radial artery to the lateral CX. Done @ [place] per Dr. 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) Allergies adhesive tape Allergy (Verified 12/19/18 09:55) Rash Home Medications: Ambulatory Orders Medication Instructions Recorded aspirin 81 mg tablet,delayed 81 mg PO QDAY 12/08/17 release metformin 1,000 mg tablet 1,000 mg PO BIDCM 12/08/17 dulaglutide 1.5 mg/0.5 mL 1.5 mg SC QWEEK 12/21/18 subcutaneous pen injector empagliflozin 25 mg tablet 25 mg PO DAILY 12/21/18 levothyroxine 25 mcg tablet 25 mcg PO DAILY 12/21/18 Apixaban [Eliquis] 5 mg PO BID 12/25/18 Atorvastatin Calcium [Lipitor] 40 mg PO QDAY 12/25/18 Cholecalciferol (VIT D3) [Vitamin 1,000 unit PO DAILY 12/25/18 D] Cholecalciferol (Vitamin D3) 5,000 unit PO DAILY 12/25/18 [Vitamin D3] Ferrous Fumarate [Ferretts] 325 mg PO DAILY 12/25/18 Hydrochlorothiazide [Hctz] 25 mg PO QDAY 12/25/18 Insulin Detemir [Levemir Flextouch] 14 unit SQ BID 12/25/18 Insulin Lispro [Humalog KwikPen] 17 units SC DINNER 12/25/18 Insulin Lispro [Humalog Kwikpen] 14 unit SQ BREAKFAST 12/25/18 Losartan Potassium 100 mg PO QDAY 12/25/18 Metoprolol Succinate [Toprol Xl] 100 mg PO DAILY 12/25/18 Mycophenolate Mofetil [Cellcept] 1,000 mg PO BID 12/25/18 Potassium Chloride 10 meq PO QDAY 12/25/18 Smz/Tmp Ds [Bactrim Ds] 1 tablet PO BID 12/25/18 Surgical History: Surgical History (Last Reviewed 12/26/18 @ 12:51 by Sudhir Singh MD) History of coronary artery bypass graft (Chronic) Onset Date: 07/31/15 Z95.1 07/31/2015: CABG X 4: RUIZ to left anterior descending bridge diagonal, SVG to first DX, radial artery to the lateral CX. Done @ [place] per Dr. Randall History of left heart catheterization (Chronic) Onset Date: 07/30/15 Z98.890 Left heart cath 07/30/2015 @ [facility] per Dr. Arnold thoracoscopy with lung biopsy Surgical History: coronary bypass surgery - 2014 0r 2016, - Psychiatric History: No pertinent psych hx Lives: Spouse/ Significant Other - 's name is Tessa Smoking Status: Never smoker Tobacco Use: Non-smoker Alcohol: Rare Drugs: None - *Family History Paternal Family History: Family History (Last Reviewed 12/26/18 @ 12:51 by Sudhir Singh MD) Father Lupus COPD (chronic obstructive pulmonary disease) CAD (coronary artery disease) S/P CABG x 3, Onset Age: 68 Congestive heart failure Mother Alzheimers disease History Items: High Cholesterol, Heart Disease Review of Systems HEENT: Denies: Head Aches, Sinus Congestion, Sinus Drainage Cardiovascular: Denies: Chest Pain, Palpitations Respiratory: Denies: Cough, Shortness of breath at rest, Sputum production Gastrointestinal: Denies: Abdominal Pain, Nausea, Vomiting Genitourinary: Denies: Dysuria Musculoskeletal: Denies: Joint Pain, Joint Tenderness Skin: Denies: Rash, Wounds - Wounds on the left great toe Patient Problems: Active and Suspected Problems (Last Updated 12/21/18 @ 14:14 by Melissa Porras) Osteomyelitis of toe of left foot (Suspected) left Hallux Left leg cellulitis (Acute) Hyponatremia (Acute) Acute renal failure (Acute) Abnormal LFTs (Acute) - Physical Exam General: Alert, Oriented x3 HEENT: Atraumatic, PERRLA Neck: Supple Lungs: Clear to auscultation Cardiovascular: Regular rate Abdomen: Soft, Non Tender Extremities: - - Strong signals in the posterior tibial and dorsalis pedis. Also has a adequate digital signal noted. Ulceration on the tip of the great toe on the left. 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 Staphylococcus species Laboratory Tests Past 24 Hrs 12/25/18 12/25/18 12/26/18 12:20 12:20 06:28 Sodium 134 L 139 Potassium 3.9 3.8 Chloride 103 107 Carbon Dioxide 23.0 22.0 Anion Gap 8 10 BUN 29 H 24 H Creatinine 1.59 H 1.18 Estim Creat Clear Calc 59.93 80.75 Est GFR (MDRD) Af Amer 57 L 80 Est GFR (MDRD) Non-Af 47 L 66 BUN/Creatinine Ratio 18.2 20.3 H Glucose 90 133 H Hemoglobin A1c 8.3 H Calcium 8.8 8.5 Phosphorus 3.7 Magnesium 2.0 Total Bilirubin 0.60 AST 178 H ALT 167 H Alkaline Phosphatase 159 H C-React Prot Ext Range 74.90 H Total Protein 8.5 H Albumin 2.8 L Globulin 5.7 H Albumin/Globulin Ratio 0.5 L POC Glucose 12/26/18 12/26/18 12/25/18 12:01 08:26 21:33 POC Glucose 231 H 150 H 90 12/25/18 12/25/18 16:46 12:43 POC Glucose 166 H 92 Assessment/Plan All Active Problems (Last Updated 12/21/18 @ 14:14 by Melissa Porras) Left leg cellulitis (Acute) Hyponatremia (Acute) Acute renal failure (Acute) Abnormal LFTs (Acute) Abnormal nuclear stress test (Resolved) Unstable angina pectoris (Resolved) Patient with long-standing diabetes neuropathy hammertoes and now ulceration on the left great toe. PAD. He appears to have adequate perfusion into the foot not through the digital vessel with good signals noted. It appears to be a near triphasic waveform on my review of the dorsalis pedis. He should be able to heal any intervention done to the toe. If there is any difficulty with healing we would then do an angiogram to better evaluate his tibial vessels. Otherwise we will just plan on seeing him back in 1-2 months and proceed from there thank you for the consult
--- NOTE | 2018-12-26 13:11 | PCM.PROGNOTE ---
Patient Problems: Active and Suspected Problems (Last Reviewed 12/26/18 @ 12:51 by Sudhir Singh MD) Osteomyelitis of toe of left foot (Suspected) left Hallux Left leg cellulitis (Acute) Hyponatremia (Acute) Acute renal failure (Acute) Abnormal LFTs (Acute) Subjective: 63 year old diabetic male was examined and evaluated this afternoon resting comfortably bedside with his . Patient says he feels well and has an appetite currently. Patient seen again today for necrotic ulcers to dorsal and distoplantar left hallux with suspected osteomyelitis following MRI evaluation. Patient has had the ulcers for approximately two months and they have slowly continued to get worse. Patient denies pain currently due to neuropathy. Patient currently denies any feelings of nausea, vomiting, fever, or chills. - Physical Exam General: Alert, Oriented x3, Cooperative Extremities: Capillary Refill Less than 3 Seconds - less than 3 seconds to all distal digits, No Calf Tenderness - negative cami and rene sign, Diminished Peripheral Pulses - DP faintly palpable and PT non palpable to the left lower extremity, Edema - Edema to left hallux Skin: Ulcer/ Wound - ulcers to distal plantar hallux and dorsal hallux of left foot with fibrous necrotic eschar and postivie probe to bone with peripheral erythema. Erythema improving since yesterday. Skin is atrophic. Ulcer dorsally measured approximately 1.5 x 1.5 x 0.3 cm and Ulcer distoplantar measured approximately 3.0 x 3.0 x 0.3 cm. Serosanguinous drainage appreciated. No purulence expressed. No significant malodor. Musculoskeletal: No Tenderness to Palpation of Joints or Extremities, - - No pain with manipulation of ulcer sites to left hallux. Patient has left hallux malleus deformity as well as hammer toe deformities of digits 2-5. Neurological: - - Decreased epicritic sensation to lower extremity Psych/Mental Status: Normal Affect, Appropriate Vital Signs Temp Pulse Resp BP Pulse Ox 98.7 F 73 16 130/75 H 96 12/26/18 08:30 12/26/18 08:36 12/26/18 08:30 12/26/18 08:36 12/26/18 08:30 Oxygen Delivery Method Room Air Weight: 109.6 kg Body Mass Index (BMI) 28.6 Intake and Output for Last 24 Hours 12/24/18 12/25/18 12/26/18 23:59 23:59 23:59 Intake Total 230 / 230 2288 / 2288 Output Total 700 / 700 1200 / 1200 Balance -470 / -470 1088 / 1088 Microbiology Past 72 Hours 12/25/18 08:45 Gram Stain - Final Wound Abcess - Toe Wound Culture - Preliminary GNR lactose septic tank cleaner Staphylococcus species Laboratory Tests Past 24 Hrs 12/26/18 06:28 Sodium 139 Potassium 3.8 Chloride 107 Carbon Dioxide 22.0 Anion Gap 10 BUN 24 H Creatinine 1.18 Estim Creat Clear Calc 80.75 Est GFR (MDRD) Af Amer 80 Est GFR (MDRD) Non-Af 66 BUN/Creatinine Ratio 20.3 H Glucose 133 H Calcium 8.5 POC Glucose 12/26/18 12/26/18 12/25/18 12:01 08:26 21:33 POC Glucose 231 H 150 H 90 12/25/18 16:46 POC Glucose 166 H Medical Necessity - Tobacco Use Smoking Status: Never smoker Tobacco Use: Non-smoker Assessment/Plan All Active Problems (Last Reviewed 12/26/18 @ 12:51 by Sudhir Singh MD) Left leg cellulitis (Acute) Hyponatremia (Acute) Acute renal failure (Acute) Abnormal LFTs (Acute) Abnormal nuclear stress test (Resolved) Unstable angina pectoris (Resolved) Ulcer to left hallux with osteomyelitis Cellulitis left lower extremity DM with neuropathy Hallux malleus left foot Hammer toes 2-5 left foot Other comorbidities Patient was carefully examined and evaluated in detail this afternoon with his present in the room. Patient's vital signs are currently stable. His wbc yesterday on admission was 10.3. Preliminary wound cultures from left hallux are showing gnr lactose septic tank cleaner and staph species. Will continue to monitor these results. ID will be consulted. [facility] and showed some osteolysis of the hallux suspicious for osteomyelitis. MRI was obtained while at hospital and was read as showing bone edema of the distal and proximal phalanx of the left hallux suggestive of osteomyelitis. There is no abscess noted. Patient's dressing was taken down again today and the foot and hallux were carefully evaluated. Due to the clinical appearance as well as the reports from the MRI, I discussed the patient's options going forward in detail with both he and his . After reviewing all possible options and potential outcomes, the patient agrees to proceed tomorrow with surgical procedure for debridement of all necrotic, non viable, infected soft tissue and bone of the left foot with hallux amputation and possible partial first ray amputation open vs. closed. I again discussed all of the risks, benefits, and possible outcomes of this procedure. No guarantees were given. They agree to proceed with planned procedure. Orders placed to obtain consent for said procedure. Patient will be NPO after 6AM tomorrow. Patient's procedure is scheduled for 3 PM 12/27/18. All questions were carefully answered to the patient's satisfaction. I discussed the case with Dr. Geiger and she is in agreement with the plan. Podiatry will continue to follow the patient closely. Please contact with any questions.
--- NOTE | 2018-12-26 13:37 | NURSING ---
wound photo: Posterior Left Great Toe
--- NOTE | 2018-12-26 13:39 | NURSING ---
Wound Photo: Anterior Left Great Toe
[2018-12-26 13:59] VITALS: BP 101/55; PULSE 69; RESP 18; TEMP 36.7; O2SAT 94
--- NOTE | 2018-12-26 14:15 | PCM.HP.ID ---
Problem List (1) Osteomyelitis of toe of left foot Status: Suspected Comment: left Hallux Reason for Consult: osteo Consulted by: Dr. Geiger History of Present Illness: The patient is a 63 year old M with DM neuropathy who presented with several weeks of worsening L 1st toe swelling, ulceration/necrosis, purulent drainage, and surrounding erythema. Mild pain associated with this. Had a longstanding callus which came off and underlying wound steadily worsened. No fever or chills. Was given 10-14 day course of bactrim after recent cx with CoNS x2, but did not show improvement. Admitted to hospital, started on vanc/ceftriaxone/flagyl. Imaging showed likely osteo. Amputation of toe planned for tomorrow. Full ROS performed and neg except as noted above. - Medical History Past Medical History (Chronic Problems): Chronic Problems (Last Reviewed 12/26/18 @ 12:51 by Sudhir Singh MD) Type 2 diabetes mellitus with diabetic polyneuropathy (Chronic) Hallux malleus of left foot (Chronic) Chronic ulcer of left foot with necrosis of bone (Chronic) Peripheral neuropathy (Chronic) Autoimmune disease (Chronic) he is followed at the [facility].......not otherwise classified Dropfoot (Chronic) History of nonmelanoma skin cancer (Chronic) Hypothyroid (Chronic) Paroxysmal atrial fibrillation (Chronic) care home current use of anticoagulant (Chronic) Eliquis Atherosclerotic heart disease of [place] coronary artery without angina pectoris (Chronic) Left heart cath 07/30/2015 @ [facility] per Dr. Arnold: 07/31/2015: CABG X 4: RUIZ to left anterior descending bridge diagonal, SVG to first DX, radial artery to the lateral CX. Done @ [facility] per Dr. Randall History of coronary artery bypass graft (Chronic 07/31/15) 07/31/2015: CABG X 4: RUIZ to left anterior descending bridge diagonal, SVG to first DX, radial artery to the lateral CX. Done @ [facility] per Dr. Randall History of left heart catheterization (Chronic 07/30/15) Left heart cath 07/30/2015 @ [facility] per Dr. Arnold Right-sided extracranial carotid artery stenosis (Chronic) Hypertension (Chronic) Hyperlipidemia (Chronic) Diabetes mellitus type II, controlled (Chronic) Interstitial lung disease (Chronic) Allergies/Adverse Reactions: Allergies adhesive tape Allergy (Verified 12/19/18 09:55) Rash Home Medications: Ambulatory Orders Medication Instructions Recorded aspirin 81 mg tablet,delayed 81 mg PO QDAY 12/08/17 release metformin 1,000 mg tablet 1,000 mg PO BIDCM 12/08/17 dulaglutide 1.5 mg/0.5 mL 1.5 mg SC QWEEK 12/21/18 subcutaneous pen injector empagliflozin 25 mg tablet 25 mg PO DAILY 12/21/18 levothyroxine 25 mcg tablet 25 mcg PO DAILY 12/21/18 Apixaban [Eliquis] 5 mg PO BID 12/25/18 Atorvastatin Calcium [Lipitor] 40 mg PO QDAY 12/25/18 Cholecalciferol (VIT D3) [Vitamin 1,000 unit PO DAILY 12/25/18 D] Cholecalciferol (Vitamin D3) 5,000 unit PO DAILY 12/25/18 [Vitamin D3] Ferrous Fumarate [Ferretts] 325 mg PO DAILY 12/25/18 Hydrochlorothiazide [Hctz] 25 mg PO QDAY 12/25/18 Insulin Detemir [Levemir Flextouch] 14 unit SQ BID 12/25/18 Insulin Lispro [Humalog KwikPen] 17 units SC DINNER 12/25/18 Insulin Lispro [Humalog Kwikpen] 14 unit SQ BREAKFAST 12/25/18 Losartan Potassium 100 mg PO QDAY 12/25/18 Metoprolol Succinate [Toprol Xl] 100 mg PO DAILY 12/25/18 Mycophenolate Mofetil [Cellcept] 1,000 mg PO BID 12/25/18 Potassium Chloride 10 meq PO QDAY 12/25/18 Smz/Tmp Ds [Bactrim Ds] 1 tablet PO BID 12/25/18 - Social History Tobacco Use: non-smoker Vital Signs Temp Pulse Resp BP Pulse Ox 98.0 F 69 18 101/55 L 94 12/26/18 13:59 12/26/18 13:59 12/26/18 13:59 12/26/18 13:59 12/26/18 13:59 Oxygen Delivery Method Room Air Weight: 109.6 kg Body Mass Index (BMI) 28.6 Microbiology Past 72 Hours 12/25/18 08:45 Gram Stain - Final Wound Abcess - Toe Wound Culture - 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 Staphylococcus species Laboratory Tests Past 24 Hrs 12/26/18 06:28 Sodium 139 Potassium 3.8 Chloride 107 Carbon Dioxide 22.0 Anion Gap 10 BUN 24 H Creatinine 1.18 Estim Creat Clear Calc 80.75 Est GFR (MDRD) Af Amer 80 Est GFR (MDRD) Non-Af 66 BUN/Creatinine Ratio 20.3 H Glucose 133 H Calcium 8.5 - Other Studies Radiology: [] reviewed Other Studies: [] Route of nutrition/ use of supplements: [] Nutritional Intake: [] IV Site: [] Fish Catheter: [] - Physical Exam General: Alert, Oriented x3, Cooperative, No apparent distress HEENT: Atraumatic, PERRLA, EOMI Neck: Supple, No Nodes Lungs: Clear to auscultation, Normal air movement Cardiovascular: Regular rate, Regular Rhythm Abdomen: Soft, Non Tender, Non-Distended Extremities: Edema Skin: Ulcer/ Wound - L 1st toe with necrotic ulcer and surrounding redness, swelling, tenderness IV Site: Peripheral, without redness Musculoskeletal: No Tenderness to Palpation of Joints or Extremities Neurological: Cranial nerves II-XII grossly intact - Assessment/Plan Antibiotics: [] Assessment/Plan: [] Active and Suspected Problems (Last Reviewed 12/26/18 @ 12:51 by Sudhir Singh MD) Osteomyelitis of toe of left foot (Suspected) left Hallux Left leg cellulitis (Acute) Hyponatremia (Acute) Acute renal failure (Acute) Abnormal LFTs (Acute) L 1st toe osteomyelitis with DM neuropathy - cx 12/03/18 with MSSE and MS Staph lugdunensis, he was given bactrim as an outpt but susceptibility to that drug is not listed. Cx here with staph and GNR. Amputation planned; will cover with vanc/zosyn in the meantime, then plan on short course of abx if surgery shows clear margins. Will follow, thank you.
--- NOTE | 2018-12-26 14:22 | CON.PCM_ITS ---
Problem List (1) Osteomyelitis of toe of left foot Status: Suspected Comment: left Hallux Reason for Consult: osteo Consulted by: Dr. Geiger History of Present Illness: The patient is a 63 year old M with DM neuropathy who presented with several weeks of worsening L 1st toe swelling, ulceration/necrosis, purulent drainage, and surrounding erythema. Mild pain associated with this. Had a longstanding callus which came off and underlying wound steadily worsened. No fever or chills. Was given 10-14 day course of bactrim after recent cx with CoNS x2, but did not show improvement. Admitted to hospital, started on vanc/ceftriaxone/flagyl. Imaging showed likely osteo. Amputation of toe planned for tomorrow. Full ROS performed and neg except as noted above. - Medical History Past Medical History (Chronic Problems): Chronic Problems (Last Reviewed 12/26/18 @ 12:51 by Sudhir Singh MD) Type 2 diabetes mellitus with diabetic polyneuropathy (Chronic) Hallux malleus of left foot (Chronic) Chronic ulcer of left foot with necrosis of bone (Chronic) Peripheral neuropathy (Chronic) Autoimmune disease (Chronic) he is followed at the [facility].......not otherwise classified Dropfoot (Chronic) History of nonmelanoma skin cancer (Chronic) Hypothyroid (Chronic) Paroxysmal atrial fibrillation (Chronic) skilled nursing current use of anticoagulant (Chronic) Eliquis Atherosclerotic heart disease of [place] coronary artery without angina pectoris (Chronic) Left heart cath 07/30/2015 @ [facility] per Dr. Arnold: 07/31/2015: CABG X 4: RUIZ to left anterior descending bridge diagonal, SVG to first DX, radial artery to the lateral CX. Done @ [facility] per Dr. Randall History of coronary artery bypass graft (Chronic 07/31/15) 07/31/2015: CABG X 4: RUIZ to left anterior descending bridge diagonal, SVG to first DX, radial artery to the lateral CX. Done @ [facility] per Dr. Randall History of left heart catheterization (Chronic 07/30/15) Left heart cath 07/30/2015 @ [facility] per Dr. Arnold Right-sided extracranial carotid artery stenosis (Chronic) Hypertension (Chronic) Hyperlipidemia (Chronic) Diabetes mellitus type II, controlled (Chronic) Interstitial lung disease (Chronic) Allergies/Adverse Reactions: Allergies adhesive tape Allergy (Verified 12/19/18 09:55) Rash Home Medications: Ambulatory Orders Medication Instructions Recorded aspirin 81 mg tablet,delayed 81 mg PO QDAY 12/08/17 release metformin 1,000 mg tablet 1,000 mg PO BIDCM 12/08/17 dulaglutide 1.5 mg/0.5 mL 1.5 mg SC QWEEK 12/21/18 subcutaneous pen injector empagliflozin 25 mg tablet 25 mg PO DAILY 12/21/18 levothyroxine 25 mcg tablet 25 mcg PO DAILY 12/21/18 Apixaban [Eliquis] 5 mg PO BID 12/25/18 Atorvastatin Calcium [Lipitor] 40 mg PO QDAY 12/25/18 Cholecalciferol (VIT D3) [Vitamin 1,000 unit PO DAILY 12/25/18 D] Cholecalciferol (Vitamin D3) 5,000 unit PO DAILY 12/25/18 [Vitamin D3] Ferrous Fumarate [Ferretts] 325 mg PO DAILY 12/25/18 Hydrochlorothiazide [Hctz] 25 mg PO QDAY 12/25/18 Insulin Detemir [Levemir Flextouch] 14 unit SQ BID 12/25/18 Insulin Lispro [Humalog KwikPen] 17 units SC DINNER 12/25/18 Insulin Lispro [Humalog Kwikpen] 14 unit SQ BREAKFAST 12/25/18 Losartan Potassium 100 mg PO QDAY 12/25/18 Metoprolol Succinate [Toprol Xl] 100 mg PO DAILY 12/25/18 Mycophenolate Mofetil [Cellcept] 1,000 mg PO BID 12/25/18 Potassium Chloride 10 meq PO QDAY 12/25/18 Smz/Tmp Ds [Bactrim Ds] 1 tablet PO BID 12/25/18 - Social History Tobacco Use: non-smoker Vital Signs Temp Pulse Resp BP Pulse Ox 98.0 F 69 18 101/55 L 94 12/26/18 13:59 12/26/18 13:59 12/26/18 13:59 12/26/18 13:59 12/26/18 13:59 Oxygen Delivery Method Room Air Weight: 109.6 kg Body Mass Index (BMI) 28.6 Microbiology Past 72 Hours 12/25/18 08:45 Gram Stain - Final Wound Abcess - Toe Wound Culture - 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 Staphylococcus species Laboratory Tests Past 24 Hrs 12/26/18 06:28 Sodium 139 Potassium 3.8 Chloride 107 Carbon Dioxide 22.0 Anion Gap 10 BUN 24 H Creatinine 1.18 Estim Creat Clear Calc 80.75 Est GFR (MDRD) Af Amer 80 Est GFR (MDRD) Non-Af 66 BUN/Creatinine Ratio 20.3 H Glucose 133 H Calcium 8.5 - Other Studies Radiology: [] reviewed Other Studies: [] Route of nutrition/ use of supplements: [] Nutritional Intake: [] IV Site: [] Fish Catheter: [] - Physical Exam General: Alert, Oriented x3, Cooperative, No apparent distress HEENT: Atraumatic, PERRLA, EOMI Neck: Supple, No Nodes Lungs: Clear to auscultation, Normal air movement Cardiovascular: Regular rate, Regular Rhythm Abdomen: Soft, Non Tender, Non-Distended Extremities: Edema Skin: Ulcer/ Wound - L 1st toe with necrotic ulcer and surrounding redness, swelling, tenderness IV Site: Peripheral, without redness Musculoskeletal: No Tenderness to Palpation of Joints or Extremities Neurological: Cranial nerves II-XII grossly intact - Assessment/Plan Antibiotics: [] Assessment/Plan: [] Active and Suspected Problems (Last Reviewed 12/26/18 @ 12:51 by Sudhir Singh MD) Osteomyelitis of toe of left foot (Suspected) left Hallux Left leg cellulitis (Acute) Hyponatremia (Acute) Acute renal failure (Acute) Abnormal LFTs (Acute) L 1st toe osteomyelitis with DM neuropathy - cx 12/03/18 with MSSE and MS Staph lugdunensis, he was given bactrim as an outpt but susceptibility to that drug is not listed. Cx here with staph and GNR. Amputation planned; will cover with vanc/zosyn in the meantime, then plan on short course of abx if surgery shows clear margins. Will follow, thank you.
--- NOTE | 2018-12-26 14:29 | CASEMGMT ---
LAURA CM NOTE: Per Dr Geiger, pt is requesting a knee walker. LAURA PITTMAN to room to talk with pt. Pt states he would like to get from [facility] if possible. Call placed to [facility] and they state they do not carry knee walkers. Pt made aware and is agreeable to [facility]. Call placed to [facility]. They do carry knee walkers and are able to bill through insurance. Script obtained for knee walker from Dr Geiger and faxed to [employer] @ [phone], along with copy of insurance card and demographics. Keith VARELAN RN CM
--- NOTE | 2018-12-26 16:31 | PCM.RX.CS ---
Consult Pharmacy has been consulted to manage selected antiobiotic: Vancomycin Type of Consult: New start Suspected Infection: Skin/Soft tissue, Osteomyelitis Labs: Sodium 139 mmol/L (136-145) 12/26/18 06:28 Potassium 3.8 mmol/L (3.5-5.1) 12/26/18 06:28 Chloride 107 mmol/L (98-107) 12/26/18 06:28 Carbon Dioxide 22.0 mmol/L (21.0-32.0) 12/26/18 06:28 Anion Gap 10 (5-15) 12/26/18 06:28 BUN 24 mg/dL (7-18) H 12/26/18 06:28 Creatinine 1.18 mg/dL (0.70-1.30) 12/26/18 06:28 Est GFR (MDRD) Af Amer 80 mL/min (>60) 12/26/18 06:28 Est GFR (MDRD) Non-Af 66 mL/min (>60) 12/26/18 06:28 BUN/Creatinine Ratio 20.3 RATIO (10-20) H 12/26/18 06:28 Glucose 133 mg/dL (74-106) H 12/26/18 06:28 Microbiology: Microbiology 12/25/18 08:45 Wound Abcess - Toe Gram Stain - Final 12/25/18 08:45 Wound Abcess - Toe Wound Culture - 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 Obtain a trough before the 4th dose. Pharmacy Service will continue to monitor and adjust dosing as required. Follow-Up Labs: Trough Vancomycin Labs to be done on [date and time ordered]: 12/28/18 at 03:30
--- NOTE | 2018-12-26 16:35 | PHA.PHARE_ITS ---
Consult Pharmacy has been consulted to manage selected antiobiotic: Vancomycin Type of Consult: New start Suspected Infection: Skin/Soft tissue, Osteomyelitis Labs: Sodium 139 mmol/L (136-145) 12/26/18 06:28 Potassium 3.8 mmol/L (3.5-5.1) 12/26/18 06:28 Chloride 107 mmol/L (98-107) 12/26/18 06:28 Carbon Dioxide 22.0 mmol/L (21.0-32.0) 12/26/18 06:28 Anion Gap 10 (5-15) 12/26/18 06:28 BUN 24 mg/dL (7-18) H 12/26/18 06:28 Creatinine 1.18 mg/dL (0.70-1.30) 12/26/18 06:28 Est GFR (MDRD) Af Amer 80 mL/min (>60) 12/26/18 06:28 Est GFR (MDRD) Non-Af 66 mL/min (>60) 12/26/18 06:28 BUN/Creatinine Ratio 20.3 RATIO (10-20) H 12/26/18 06:28 Glucose 133 mg/dL (74-106) H 12/26/18 06:28 Microbiology: Microbiology 12/25/18 08:45 Wound Abcess - Toe Gram Stain - Final 12/25/18 08:45 Wound Abcess - Toe Wound Culture - 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 Obtain a trough before the 4th dose. Pharmacy Service will continue to monitor and adjust dosing as required. Follow-Up Labs: Trough Vancomycin Labs to be done on [date and time ordered]: 12/28/18 at 03:30
[2018-12-26 17:06] LABS: Bedside Glucose 176 mg/dL (70-110)
[2018-12-26] MEDS: Insulin Lispro 100 UNIT/ML INSULN.PEN 17 UNIT SC (17:07)
[2018-12-26] MEDS: DULAGLUTIDE 1.5 MG/0.5 ML PEN.INJCTR SQ (17:28)
[2018-12-26 20:30] VITALS: BP 126/54; PULSE 73; RESP 16; TEMP 37; O2SAT 96
[2018-12-26] MEDS: 0.9% Normal Saline 1,000 ML 75 ML IV (20:41)
[2018-12-26] MEDS: Atorvastatin Calcium 40 MG Tablet PO (21:20)
[2018-12-26] MEDS: Piperacil/Tazobactam 3.375 GM/50 ML ML IV (21:22)
[2018-12-26 21:26] LABS: Bedside Glucose 118 mg/dL (70-110)
[2018-12-27] VITALS (13 sets, daily range): BP systolic 98–139; BP diastolic 56–78; PULSE 60–79; RESP 16–18; TEMP 36.1–37.3; O2SAT 95–99; BMI 28.6
--- NOTE | 2018-12-27 | BON_PTH ---
PATIENT: AZEB BAKER LOC: MS2 U#:[id number] AGE/SX: 63/M ROOM: [id number] RE12/25/[address]: Dr. Danish Mart DO : 1955 BED: 1 DIS: 01/01/2019 SPEC #: [id number] RECD: 12/28/18 07:15 STATUS: LIZZ REQ #: [id number] FLORECITA: 12/27/18 00:[address]: Dwain Estrada DEPT: SURGICAL PATHOLOGY RECD BY: Doug Michel ENTERED: 12/28/18 09:09 SP TYPE: Bone OTHR DR: MD Dr. Cammy Saleh DO Dr. Jeanna Fascione, DPM MD Dr. Juan José Freeman MD John K Miller, MD Tissues: A - Toe, NOS B - Bone of foot, NOS Procedures: Decalcification bone/plaque Special Stain Group I Surgery Specimen Level III Surgery Specimen Level IV AFB Stain (control) GMS Stain (control) Comments: @ Ordering doctor for DEC edited from to @ by KIKE at 12/28/18 1028 @ Ordering doctor for SUIII edited from to @ by KIKE at 12/28/18 1028 @ Ordering doctor for SUIV edited from to @ by KIKE at 12/28/18 1028 @ Submitting doctor edited from to @ by RGOOD at 12/28/18 1028 HEADER OPERATION: Debridement necrotic nonviable infected soft tissue and bone PRE-OP DIAGNOSIS: Suspected osteomyelitis of left hallux TISSUE SUBMITTED: A - Left great toe, B - Clearance fragment left great toe MICROSCOPIC DIAGNOSIS A. Left great toe: Focal area of ulceration, acute and chronic inflammation and abscess formation. Underlying bone with acute osteomyelitis. Special stains for acid fast bacilli and fungi are negative for organisms; matched controls are appropriate. B. Clearance fragment bone, left great toe: Fragments of bone, negative for acute osteomyelitis. SJ:ashly 01/02/19 MICROSCOPIC DESCRIPTION Slides are reviewed. GROSS DESCRIPTION A - Received in fixative is one container labeled with the patient's name and designated left great toe (hallux). The specimen consists of a fragment of distal toe measuring 4.5 cm in length and approximately 3.5 cm in diameter. The nail is present. Three areas of ulcerations/mummification are identified. Lateral to the nailbed is an area of discoloration measuring 1.5 x 1 cm. Proximal to the nail is an area of ulceration measuring 2.2 x 2 x 0.5 cm. The plantar surface contains a firm area of induration that is black-vazquez in color measuring 2.5 x 2.2 cm in greatest dimension. Optomechanical Engineer sections are submitted in three cassettes after decalcification as follows: 1 - bone, skin and soft tissue at discoloration adjacent to nailbed, 2 - bone, skin and soft tissue from discolored area from dorsal of foot, 3 - area of ulcer with skin, soft tissue and underlying bone, proximal to nailbed with bony margin inked. B - Received in fixative is one container labeled with the patient's name and designated clearance fragment left great toe. The specimen consists of multiple minute fragments of light kaminski bony tissue that in aggregate measure 1 x 0.5 x <0.1 cm. The specimen is totally submitted in one cassette after decalcification. / AM:ashly 12/28/18 TC:2 CPT: 87153, 98684, 59893 x2, 92258 x2
--- NOTE | 2018-12-27 06:00 | EKG12_ITS ---
Test Reason : AM EKG Blood Pressure : / mmHG Vent. Rate : 077 BPM Atrial Rate : 077 BPM P-R Int : 176 ms QRS Dur : 136 ms QT Int : 418 ms P-R-T Axes : 027 -58 068 degrees QTc Int : 473 ms Normal sinus rhythm Left axis deviation Left ventricular hypertrophy with QRS widening and repolarization abnormality Abnormal ECG Confirmed by EARLENE KHALIL, BELIA ([id number]), publications editor JOSH HULL ([id number]) on 01/02/2019 2:38:01 PM Referred By: Sanjana Geiger Confirmed By:BELIA HENAO MD
[2018-12-27] MEDS: Levothyroxine 25 MCG TABLET PO (06:41)
[2018-12-27] MEDS: Piperacil/Tazobactam 3.375 GM/50 ML ML IV (06:41)
[2018-12-27 06:42] LABS: ALB/GLOB Ratio 0.4 RATIO (0.9-2.4); AST(SGOT) 137 U/L (15-37); Alanine Aminotransfer ALT/SGPT 114 U/L (16-61); Alkaline Phosphatase 116 U/L (45-117); Anion Gap 10 (5-15); BUN 21 mg/dL (7-18); BUN/Creat Ratio 19.4 RATIO (10-20); Calcium,Total 7.5 mg/dL (8.5-10.1); Chloride 108 mmol/L (98-107); Cholesterol 59 mg/dL (200); Creatinine, Serum 1.08 mg/dL (0.70-1.30); EST Glomerular Filtration Rate 73 mL/min (>60); Est Glom Filt Rate - Afr Amer 89 mL/min (>60); Estimated Creatinine Clearance 88.23 ml/min; Globulin 4.5 g/dL (2.2-4.2); Glucose 115 mg/dL (74-106); High Density Lipoprotein 17 mg/dL; Potassium 3.4 mmol/L (3.5-5.1); Protein, Total 6.5 g/dL (6.4-8.2); Sodium Level 138 mmol/L (136-145); Thyroid Stim Hormone (TSH) 1.24 uIU/mL (0.358-3.74); Triglycerides 80 mg/dL; Very Low Density Lipoprotein 16 mg/dL (5-40)
[2018-12-27 07:00] LABS: Bedside Glucose 117 mg/dL (70-110)
--- NOTE | 2018-12-27 08:57 | PN_ITS ---
Patient Problems: Active and Suspected Problems (Last Reviewed 12/26/18 @ 12:51 by Sudhir Singh MD) Osteomyelitis of toe of left foot (Suspected) left Hallux Left leg cellulitis (Acute) Hyponatremia (Acute) Acute renal failure (Acute) Abnormal LFTs (Acute) Subjective: Day #3 antibiotics-Zosyn/vancomycin All events of the past 24 hours been reviewed. Afebrile since admission. Vital signs stable. All lab was personally reviewed. Potassium is low at 3.4 today and the serum bicarb is 20. BUN is 20 with a stable creatinine at 1.08, down from 1.59 at admission. Blood sugars are well controlled. Transaminases are trending down and bilirubin and alkaline phosphatase are within normal limits. HDL is low at 17 and the LDL is well controlled at 26. TSH is normal at 1.24. Cultures from the left hallux are growing 1+ E. coli and 3+ Staphylococcus epidermidis. E. coli is resistant to ampicillin and Bactrim. Staph epi is also resistant to Bactrim. The staph epi is also resistant to oxacillin and ertapenem. Objective: PHYSICAL EXAM: GENERAL: alert, oriented X 3, Cooperative, NAD ORAL: moist mucosa, no mucosal lesions NECK: No JVD, supple, trachea midline LUNGS: CTA, symmetric chest expansion HEART: RRR, Normal S1 and S2, no rub, no gallop ABDOMEN: soft, NT, ND, BS present, no guarding with palpation EXTREMITIES: no edema For the left hallux., no cyanosis, no calf tenderness SKIN: The redness and warmth over the distal LLE is much better and there is no increased warmth today. Denies pain. Necrotic eschar persists. There is no odor to the wounds on the left hallux. Erythema is improving. Swelling is decreased somewhat. No purulent discharge. NEUROLOGIC: Left foot drop PSYCH: appropriate, normal affect, pleasant - Physical Exam Vital Signs Temp Pulse Resp BP Pulse Ox 98.7 F 79 16 120/59 L 96 12/27/18 02:00 12/27/18 02:00 12/27/18 02:00 12/27/18 02:00 12/27/18 02:00 Oxygen Delivery Method Room Air Weight: 241 lb 10.026 oz Body Mass Index (BMI) 28.6 Intake and Output for Last 24 Hours 0112/26/18 12/27/18 23:59 23:59 23:59 Intake Total 230 / 230 3384 / 3384 2468 / 2468 Output Total 700 / 700 1900 / 1900 650 / 650 Balance -470 / -470 1484 / 1484 1818 / 1818 Microbiology Past 72 Hours 12/25/18 08:45 Gram Stain - Final Wound Abcess - Toe Wound Culture - Final Escherichia coli Staphylococcus epidermidis Laboratory Tests Past 24 Hrs 12/27/18 06:00 Sodium 138 Potassium 3.4 L Chloride 108 H Carbon Dioxide 20.0 L Anion Gap 10 BUN 21 H Creatinine 1.08 Estim Creat Clear Calc 88.23 Est GFR (MDRD) Af Amer 89 Est GFR (MDRD) Non-Af 73 BUN/Creatinine Ratio 19.4 Glucose 115 H Calcium 7.5 L Total Bilirubin 0.60 AST 137 H ALT 114 H Alkaline Phosphatase 116 Total Protein 6.5 Albumin 2.0 L Globulin 4.5 H Albumin/Globulin Ratio 0.4 L Triglycerides 80 Cholesterol 59 LDL Cholesterol 26 VLDL Cholesterol 16 HDL Cholesterol 17 L TSH 1.24 POC Glucose 12/27/18 12/26/18 12/26/18 06:47 21:18 16:54 POC Glucose 117 H 118 H 176 H 12/26/18 12:01 POC Glucose 231 H Medical Necessity - Tobacco Use Smoking Status: Never smoker Tobacco Use: Non-smoker Assessment/Plan All Active Problems (Last Reviewed 12/26/18 @ 12:51 by Sudhir Singh MD) Left leg cellulitis (Acute) Hyponatremia (Acute) Acute renal failure (Acute) Abnormal LFTs (Acute) Abnormal nuclear stress test (Resolved) Unstable angina pectoris (Resolved) Impressions 1. cellulitis of the Left hallux, foot and the distal LE with non-healing diabetic ulcer with fat layer exposed at the tip of the plantar surface of the hallux and the mid toe on the dorsal surface -wound cultures are growing E. coli and methicillin-resistant staph epidermidis. E. coli and staph are both resistant to Bactrim and he has been taking Bactrim as an outpatient. 2. osteomyelitis of the Left hallux - proximal and distal phalanx 3. drop foot left 4. diabetic peripheral polyneuropathy 5. autoimmune disease - on prednisone and Cellcept in the past - Cellcept stopped in August of 2018 due to elevation in LFT's 6. ARF - resolved with hydration 7. ILD 8. abnormal LFT's - due to autoimmune hepatitis? his office support specialist is aware 9. CAD with history of CABG in 2015 or 2016 10. Hypothyroidism 11. Paroxysmal atrial fibrillation 12. Chronic anticoagulation with Eliquis 13. Suspected peripheral vascular disease left lower extremity - seen by Dr. Singh today in consult and he does not feel there is any need for intervention at this time 14. Diabetes mellitus type 2 - not adequately controlled, HGBA1C is 8.3% 15. Hyperlipidemia 16. Hypertension 17. Right-sided extracranial carotid artery stenosis Did not get breakfast this AM.....FBS only 117........will add Dextrose to the IV to prevent hypoglycemia Surgery this afternoon Add a probiotic Continue Levaquin and Zosyn -defer antibiotic management to Dr. Servin and appreciate his input. Recommended he follow-up with the dietitians post discharge for diet education. He tells me he has been to this before and he was real good for a while but he got busy and then fell off the wagon and has been eating out and eating fast food. I re-stressed the need to keep his hemoglobin A1c under 7.5, under 7 if possible, in light of the fact that he is now having an amputation, has peripheral vascular disease and has known coronary disease and right carotid stenosis. He is agreeable SW checking on knee walker Code Visit Inpatient E&M: 91934 Subs Hosp L2
--- NOTE | 2018-12-27 09:23 | CASEMGMT ---
RN ZIAN Note: Call to [facility]. Knee walker has been submitted to insurance. Copay of $60 will be billed to patient. Can be picked up by family by 10:30 am. Intro role of CM to daughter in room. Pt is on phone and daughter able to pick knee walker up and will bring to hospital. Tere SCHWAB RN ACM
[2018-12-27] MEDS: Potassium Chloride 10 MEQ in Dext 5%-0.45% NS 1,000 ML 100 MEQ IV ×2 (10:04→23:42)
[2018-12-27] MEDS: Metoprolol(XL)Succ 100 MG Tablet PO (10:05)
--- NOTE | 2018-12-27 10:35 | PCM.PN.ID ---
Patient Problems: Active and Suspected Problems (Last Reviewed 12/26/18 @ 12:51 by Sudhir Singh MD) Osteomyelitis of toe of left foot (Suspected) left Hallux Left leg cellulitis (Acute) Hyponatremia (Acute) Acute renal failure (Acute) Abnormal LFTs (Acute) Subjective: Feeling ok, OR this afternoon, no fever, no n/v/d on iv abx. - Physical Exam General: Alert, Cooperative, No apparent distress Lungs: Clear to auscultation, Normal air movement Cardiovascular: Regular rate, Regular Rhythm Abdomen: Soft, Non Tender, Non-Distended Skin: Ulcer/ Wound - foot wrapped Vital Signs Temp Pulse Resp BP Pulse Ox 98.3 F 72 18 139/68 H 96 12/27/18 09:46 12/27/18 10:05 12/27/18 09:46 12/27/18 09:46 12/27/18 09:46 Oxygen Delivery Method Room Air Weight: 109.6 kg Body Mass Index (BMI) 28.6 Intake and Output for Last 24 Hours 12/25/18 12/26/18 12/27/18 23:59 23:59 23:59 Intake Total 230 / 230 3384 / 3384 2468 / 2468 Output Total 700 / 700 1900 / 1900 650 / 650 Balance -470 / -470 1484 / 1484 1818 / 1818 Microbiology Past 72 Hours 12/25/18 08:45 Gram Stain - Final Wound Abcess - Toe Wound Culture - Final Escherichia coli Staphylococcus epidermidis Laboratory Tests Past 24 Hrs 12/27/18 06:00 Sodium 138 Potassium 3.4 L Chloride 108 H Carbon Dioxide 20.0 L Anion Gap 10 BUN 21 H Creatinine 1.08 Estim Creat Clear Calc 88.23 Est GFR (MDRD) Af Amer 89 Est GFR (MDRD) Non-Af 73 BUN/Creatinine Ratio 19.4 Glucose 115 H Calcium 7.5 L Total Bilirubin 0.60 AST 137 H ALT 114 H Alkaline Phosphatase 116 Total Protein 6.5 Albumin 2.0 L Globulin 4.5 H Albumin/Globulin Ratio 0.4 L Triglycerides 80 Cholesterol 59 LDL Cholesterol 26 VLDL Cholesterol 16 HDL Cholesterol 17 L TSH 1.24 POC Glucose 12/27/18 12/26/18 12/26/18 06:47 21:18 16:54 POC Glucose 117 H 118 H 176 H 12/26/18 12:01 POC Glucose 231 H Medical Necessity - Tobacco Use Smoking Status: Never smoker Tobacco Use: Non-smoker Route of nutrition/ use of supplements: [] Nutritional Intake: [] IV Site: [] Fish Catheter: [] - Assessment/Plan Antibiotics: [] Assessment/Plan: [] Active and Suspected Problems (Last Reviewed 12/26/18 @ 12:51 by Sudhir Singh MD) Osteomyelitis of toe of left foot (Suspected) left Hallux Left leg cellulitis (Acute) Hyponatremia (Acute) Acute renal failure (Acute) Abnormal LFTs (Acute) L 1st toe osteomyelitis with DM neuropathy - cx 12/03/18 with MSSE and MS Staph lugdunensis, he was given bactrim as an outpt but susceptibility to that drug is not listed. Cx here with MSSE and ecoli. Amputation planned; will narrow vanc/zosyn to unasyn, then plan on short course of abx if surgery shows clear margins. Will follow
[2018-12-27 11:25] LABS: Bedside Glucose 113 mg/dL (70-110)
[2018-12-27 14:10] LABS: Bedside Glucose 149 mg/dL (70-110)
[2018-12-27] MEDS: Bupivacaine Mpf 0.5% 30 ML VIAL (15:03)
--- NOTE | 2018-12-27 17:20 | RAD_ITS ---
STUDY: X-RAY - LEFT FOOT CLINICAL: Male, 63 years old. Postop first toe amputation. TECHNIQUE: 3 view(s) of the foot. COMPARISON: MRI left foot May 25, 2019. FINDINGS: There is a small plantar calcaneal spur. Normal talus and remaining tarsal bones. Normal visualized subtalar, talonavicular, calcaneocuboid, tarsal and tarsometatarsal articulations. Normal metatarsi. Normal metatarsophalangeal joint of the great toe. Normal tibial sesamoid bone. There is stable old healed fracture deformity of the fibular sesamoid. The great toe has been amputated at the metatarsophalangeal joint level. Normal second through fifth metatarsophalangeal joints. Normal interphalangeal joints and phalanges of the lesser toes. Calcification noted in the Achilles tendon of the distal lower leg. Small curvilinear metallic structure is seen in the medial soft tissues of the ankle. There is posterior amputation deformity and overlying dressing at the base of the right toe. RAD/Foot min 3 Views IMPRESSION: Status post amputation of the left great toe. Electronically Signed: Joel Sánchez MD at 19:54 EST , Service support ,
--- NOTE | 2018-12-27 17:51 | PCM.OPRPT ---
Problem List (1) Diabetic ulcer of left foot Status: Acute (2) Type 2 diabetes mellitus with diabetic polyneuropathy Status: Acute (3) Osteomyelitis of left foot Status: Acute (4) Cellulitis of left toe Status: Acute Report of Operation Date of Procedure: 12/27/18 Pre-Operative Diagnosis: Ulcer to dorsal left hallux and distal left hallux with cellulitis and osteomyelitis Post-Operative Diagnosis: same Surgery/Procedure Performed:: Debridement of all necrotic, non-viable, infected soft tissue and bone of the left foot with open hallux amputation Description of Surgical Findings:: Hemostasis: well padded left ankle tourniquet Type of Anesthesia:: Local MAC - Preoperative mark block around proximal 1st metatarsal consisting of 10 mL of 0.5% marcaine plain Specimen's removed: Necrotic and infected soft tissue and bone sent to pathology and microbiology for further evaluation. Clearance fragment from the 1st metatarsal head also sent to pathology and microbiology for further evaluation. Estimated Blood Loss (mL): 20 mL Description of Procedure: Indications: This 63-year-old diabetic male patient with type 2 diabetes with neuropathy, some PAD, as well as other comorbidities was admitted to the hospital earlier this week after seeing Dr. Sorenson at the foot and ankle [facility] earlier that same day. The patient was admitted for ulcers to the distal and dorsal left hallux measuring approximately 3 cm x 3 cm and 1.5 cm x 1.5cm respectively with positive probe to bone and cellulitis. Patient relates that the ulcers started to slowly develop about 2 months ago, and says that they have continued to slowly get worse. He relates that he was originally following his primary care physician before being referred to podiatry. He had been keeping the areas bandaged, but he had not been receiving any significant wound care per patient. The patient has remained afebrile. Upon admission, his WBC was 10.3. ESR was 49. CRP was 74.9. Deep wound cultures taken earlier this week are growing E. coli and staph epidermidis. Patient is currently being followed by ID who has the patient on Unasyn. Three-view x-rays of the patient's left foot were taken at the foot and ankle [facility] on Monday prior to admission and showed some possible ostial lysis of the hallux suspicious for osteomyelitis. An MRI was obtained while at the hospital and was read as showing bone edema of the distal and proximal phalanx of the left hallux suggestive of osteomyelitis. There is no abscess noted. The patient also had LEAS studies performed. I discussed the case with Dr. Singh with vascular surgery, and he stated that in his note that ABIs in the posterior tibial was 1.43 on the right 0.92 on the left but appeared more of a monophasic flow. Digital brachial index of 0.57 on the right and was not done on the left due to ulceration. He goes on to say, of note the patient did have good waveforms and PVRs all the way out through the ankle. He states that the patient appears that he does have adequate flow through here. No significant rest pain. He states the patient should be able to heal any intervention done to the toe and is not planning on any intervention prior to any surgical procedure at this time. He states that if there is any difficulty with healing then he would do an angiogram to better evaluate his tibial vessels. I also discussed this case with Dr. Geiger, the patient's hospitalist, and she agrees with the planned procedure. At this time, the planned surgical procedure was discussed in great detail with the patient as well as the patient's family members with the patient's consent. This was done to the patient and his family's satisfaction. The patient agrees to proceed with the planned procedure and operation at this time. All of the risks and potential complications were reviewed to the patient and his family. They understand the importance of proper compliance following this procedure to optimize the potential for healing, but no guarantees were given. He is advised that the complications and risks include, but are not limited to, further infection, need for further surgeries, recurrence of ulcer, transfer lesions, increased deformity of foot and toes, weakness, loss of strength, loss of function, the potential for further transfer ulcerations or lesions, nonhealing, delayed healing, blood clots, chronic swelling, Charcot foot/ankle, nerve damage, inability to walk, inability to wear shoes, severe pain, complex regional pain syndrome, need for more proximal or extensive amputations such as a TMA or BKA, loss of complete limb, or even loss of life. All of the patient's questions were answered to his satisfaction as well as the satisfaction of his family members. It was then agreed upon to proceed with the debridement of all infected, necrotic, nonviable soft tissue and bone of the left foot with left hallux amputation. The consent form was reviewed with the patient and was freely signed. Again, no guarantees were given. Description of procedure: The patient was brought into the operating room and placed on the table in the supine position. The patient was already on IV antibiotics per hospitalist and ID. The patient received MAC anesthesia with local anesthetic. A local anesthetic block was then performed in Mark block fashion to the proximal first metatarsal consisting of 10 mL of 0.5% Marcaine plain. A well-padded ankle tourniquet was then applied to the patient's left ankle. The left foot and ankle were then scrubbed prepped and draped in the usual aseptic manner. A timeout was then performed and the patient was properly identified and the surgical plan was confirmed. Next attention was directed to the medial aspect of the distal first metatarsal. Using a #15 scalpel blade, a horizontal fishmouth incision was made distal to the 1st MPJ trying to leave enough healthy tissue in order to close the incision in a staged manner at a later date. Due to there being good blood flow, The ankle tourniquet was then inflated to 250 mmHg. The incision and dissection was carefully carried down to the level of bone making sure to avoid any vital neurovascular structures. Next, dissection was carefully carried out, freeing the hallux of any soft tissue attachments and then disarticulating the entire hallux and the 1st MPJ and . No purulence was encountered. The hallux was then passed from the operating table. Part of the hallux bone was then sent to microbiology for aerobic, anaerobic, acid-fast, and fungal evaluation, and then the remaining hallux bone and soft tissue was sent to pathology for further evaluation. All and any visible remaining necrotic, non-viable appearing soft tissue was carefully debrided and passed from the operating table. Any remaining visible tendons were then transected back as far as possible and passed from the operating table. The surgical site was then flushed with copious amounts of normal sterile saline. Once complete, the head of the first metatarsal appeared healthy in appearance. A thomas biopsy needle was then used to biopsy the head of the first metatarsal as a clearance fragment. Half of this sample was sent to microbiology for aerobic, anaerobic, acid-fast, and fungal evaluation and the rest was then sent to pathology for further evaluation. Currently there is just enough skin to close the surgical site without too much tension across the incision site when the area is deemed appropriate for closure in the future. All remaining soft tissue and bone appeared healthy at this time. Surgical site was then again flushed with copious amounts of normal sterile saline. The left ankle tourniquet was then deflated and any significant bleeders were cauterized. Blood flow noted to surgical site upon deflation as well as hyperemic response to remaining digits of the left foot. Once complete, the surgical site was packed with 1/4'' iodoform packing, followed by 4x4's, ABDs, kerlix, and an LUIZA bandage. After Procedure: The patient tolerated the procedure and anesthesia well. He was transferred to PACU with vital signs stable and vascular status intact. He will be transferred back to the medical surgical floor upon continued stability. He and his family members were advised to continue with strict nonweightbearing to left lower extremity and to keep the dressing clean dry and intact. Patient is to continue with IV antibiotics under the management of infectious disease. To continue DVT prophylaxis and medical management per primary team. He is to elevate the left foot for postop pain and inflammation management. Three-view left foot postop x-rays ordered. I will continue to follow this patient while in house.
[2018-12-27 18:06] LABS: Bedside Glucose 112 mg/dL (70-110)
[2018-12-27] MEDS: Glucerna Shake 120 ML LIQUID PO ×2 (18:12→21:53)
[2018-12-27] MEDS: Atorvastatin Calcium 40 MG Tablet PO (21:54)
[2018-12-27 22:11] LABS: Bedside Glucose 147 mg/dL (70-110)
[2018-12-28 02:44] VITALS: BP 144/77; PULSE 88; RESP 18; TEMP 36.8; O2SAT 96
[2018-12-28] MEDS: Levothyroxine 25 MCG TABLET PO (06:04)
--- NOTE | 2018-12-28 06:51 | PN_ITS ---
Patient Problems: Active and Suspected Problems (Last Reviewed 12/26/18 @ 12:51 by Sudhir Singh MD) Osteomyelitis of toe of left foot (Suspected) left Hallux Left leg cellulitis (Acute) Hyponatremia (Acute) Acute renal failure (Acute) Abnormal LFTs (Acute) Diabetic ulcer of left foot (Acute) Type 2 diabetes mellitus with diabetic polyneuropathy (Acute) Osteomyelitis of left foot (Acute) Cellulitis of left toe (Acute) Subjective: Postop day #1 open left hallux amputation Antibiotics day #4-vancomycin was discontinued by Dr. Servin on 12/27/2018 and the patient continues on Unasyn All events of the past 24 hours have been reviewed. Afebrile since admission. Vital signs stable. 96-98% on room air. Blood sugars are well controlled No complaints today Dr. Estrada plans on closing the wound on Monday in the ER. Doxy added by Dr. Servin today to cover the MRSE in the wound Path on the clearance fragment is pending Objective: GENERAL: alert, oriented X 3, Cooperative, NAD ORAL: moist mucosa, no mucosal lesions NECK: No JVD, supple, trachea midline LUNGS: CTA, symmetric chest expansion HEART: RRR, Normal S1 and S2, no rub, no gallop ABDOMEN: soft, NT, ND, BS present, no guarding with palpation EXTREMITIES: there is no increased warmth of the distal LLE today and the erythema is resolved. I did not take the surgical dressing down....please see Dr. Estrada's dictation NEUROLOGIC: Left foot drop PSYCH: appropriate, normal affect, pleasant - Physical Exam Vital Signs Temp Pulse Resp BP Pulse Ox 98.3 F 88 18 144/77 H 96 12/28/18 02:44 12/28/18 02:44 12/28/18 02:44 12/28/18 02:44 12/28/18 02:44 Oxygen Delivery Method Room Air Weight: 241 lb 10.026 oz Body Mass Index (BMI) 28.6 Intake and Output for Last 24 Hours 12/26/18 12/27/18 12/28/18 23:59 23:59 23:59 Intake Total 3384 / 3384 6694 / 6694 695 / 695 Output Total 1900 / 1900 2550 / 2550 775 / 775 Balance 1484 / 1484 4144 / 4144 -80 / -80 Microbiology Past 72 Hours 12/25/18 08:45 Gram Stain - Final Wound Abcess - Toe Wound Culture - Final Escherichia coli Staphylococcus epidermidis POC Glucose 12/27/18 12/27/18 12/27/18 21:51 18:00 13:55 POC Glucose 147 H 112 H 149 H 12/27/18 12/27/18 11:18 06:47 POC Glucose 113 H 117 H Medical Necessity - Tobacco Use Smoking Status: Never smoker Tobacco Use: Non-smoker Assessment/Plan All Active Problems (Last Reviewed 12/26/18 @ 12:51 by Sudhir Singh MD) Left leg cellulitis (Acute) Hyponatremia (Acute) Acute renal failure (Acute) Abnormal LFTs (Acute) Diabetic ulcer of left foot (Acute) Type 2 diabetes mellitus with diabetic polyneuropathy (Acute) Osteomyelitis of left foot (Acute) Cellulitis of left toe (Acute) Abnormal nuclear stress test (Resolved) Unstable angina pectoris (Resolved) POD #1 status post amputation left hallux Antibiotics #4 Unasyn and doxycycline Impressions 1. cellulitis of the Left hallux, foot and the distal LE with non-healing diabetic ulcer with fat layer exposed at the tip of the plantar surface of the hallux and the mid toe on the dorsal surface -wound cultures are growing E. coli and methicillin-resistant staph epidermidis. E. coli and staph are both resistant to Bactrim and he has been taking Bactrim as an outpatient. 2. osteomyelitis of the Left hallux - proximal and distal phalanx 3. drop foot left 4. diabetic peripheral polyneuropathy 5. autoimmune disease - on prednisone and Cellcept in the past - Cellcept stopped in August of 2018 due to elevation in LFT's 6. ARF - resolved with hydration 7. ILD 8. abnormal LFT's - due to autoimmune hepatitis? 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 CAD with history of CABG in 2015 or 2016 10. Hypothyroidism 11. Paroxysmal atrial fibrillation 12. Chronic anticoagulation with Eliquis 13. Suspected peripheral vascular disease left lower extremity - seen by Dr. Singh today in consult and he does not feel there is any need for intervention at this time 14. Diabetes mellitus type 2 - not adequately controlled, HGBA1C is 8.3% 15. Hyperlipidemia 16. Hypertension 17. Right-sided extracranial carotid artery stenosis 18. Status post left hallux amputation on 12/27/2018 D/W Dr. Estrada anticoagulation for hx of PAF....there is a small amount of bleeding today and the Heart is regular so will re-evaluate in the AM.....Lovenox for DVT prophylaxis only for now Blood sugars are very well controlled Recheck CMP in the a.m. And a CBC Code Visit Inpatient E&M: 31253 Subs Hosp L2
[2018-12-28 08:14] VITALS: BP 128/63; PULSE 70; RESP 16; TEMP 36.9; O2SAT 95
[2018-12-28] MEDS: metFORMIN HCl 1,000 MG Tablet 1000 MG PO ×2 (08:29→17:21)
[2018-12-28 08:30] VITALS: PULSE 70
[2018-12-28] MEDS: Metoprolol(XL)Succ 100 MG Tablet PO (08:30)
[2018-12-28] MEDS: Aspirin E.C. 81 MG Tablet PO (08:30)
[2018-12-28] MEDS: Losartan Potassium 100 MG Tablet PO (08:30)
[2018-12-28] MEDS: Insulin Lispro 100 UNIT/ML INSULN.PEN 14 UNIT SC (08:33)
[2018-12-28] MEDS: Empagliflozin 25 MG Tablet PO (08:34)
[2018-12-28 08:51] LABS: Bedside Glucose 139 mg/dL (70-110)
[2018-12-28] MEDS: Glucerna Shake 120 ML LIQUID PO ×4 (11:44→21:26)
[2018-12-28 12:00] LABS: Bedside Glucose 125 mg/dL (70-110)
--- NOTE | 2018-12-28 13:45 | PCM.PN.ID ---
Patient Problems: Active and Suspected Problems (Last Reviewed 12/26/18 @ 12:51 by Sudhir Singh MD) Osteomyelitis of toe of left foot (Suspected) left Hallux Left leg cellulitis (Acute) Hyponatremia (Acute) Acute renal failure (Acute) Abnormal LFTs (Acute) Diabetic ulcer of left foot (Acute) Type 2 diabetes mellitus with diabetic polyneuropathy (Acute) Osteomyelitis of left foot (Acute) Cellulitis of left toe (Acute) Subjective: Feeling well, no fever, no pain in foot. Some loose stool. - Physical Exam General: Alert, Cooperative, No apparent distress Lungs: Clear to auscultation, Normal air movement Cardiovascular: Regular rate, Regular Rhythm Abdomen: Soft, Non Tender, Non-Distended Vital Signs Temp Pulse Resp BP Pulse Ox 98.4 F 70 16 128/63 H 95 12/28/18 08:14 12/28/18 08:30 12/28/18 08:14 12/28/18 08:14 12/28/18 08:14 Oxygen Delivery Method Room Air Weight: 109.6 kg Body Mass Index (BMI) 28.6 Intake and Output for Last 24 Hours 12/26/18 12/27/18 12/28/18 23:59 23:59 23:59 Intake Total 3384 / 3384 6694 / 6694 695 / 695 Output Total 1900 / 1900 2550 / 2550 775 / 775 Balance 1484 / 1484 4144 / 4144 -80 / -80 Microbiology Past 72 Hours 12/27/18 16:45 Gram Stain - Final Tissue - Toe Wound Culture - Preliminary No growth-Final to follow 12/27/18 16:45 Gram Stain - Final Tissue - Left Foot 12/25/18 08:45 Gram Stain - Final Wound Abcess - Toe Wound Culture - Final Escherichia coli Staphylococcus epidermidis POC Glucose 12/28/18 12/28/18 12/27/18 11:43 08:18 21:51 POC Glucose 125 H 139 H 147 H 12/27/18 12/27/18 18:00 13:55 POC Glucose 112 H 149 H Medical Necessity - Tobacco Use Smoking Status: Never smoker Tobacco Use: Non-smoker Route of nutrition/ use of supplements: [] Nutritional Intake: [] IV Site: [] Fish Catheter: [] - Assessment/Plan Antibiotics: [] Assessment/Plan: [] Active and Suspected Problems (Last Reviewed 12/26/18 @ 12:51 by Sudhir Singh MD) Osteomyelitis of toe of left foot (Suspected) left Hallux Left leg cellulitis (Acute) Hyponatremia (Acute) Acute renal failure (Acute) Abnormal LFTs (Acute) L 1st toe osteomyelitis with DM neuropathy - cx 12/03/18 with MSSE and MS Staph lugdunensis, he was given bactrim as an outpt but susceptibility to that drug is not listed. Cx here with MRSE and ecoli. Amputation done 12/27, continue unasyn and po doxy, then plan on short course of abx if surgery shows clear margins. Will follow
[2018-12-28 14:15] VITALS: BP 120/65; PULSE 72; RESP 16; TEMP 36.8; O2SAT 95
[2018-12-28] MEDS: Doxycycline 100 MG CAPSULE PO ×2 (14:55→21:26)
--- NOTE | 2018-12-28 16:17 | PCM.PROGNOTE ---
Patient Problems: Active and Suspected Problems (Last Reviewed 12/26/18 @ 12:51 by Sudhir Singh MD) Osteomyelitis of toe of left foot (Suspected) left Hallux Left leg cellulitis (Acute) Hyponatremia (Acute) Acute renal failure (Acute) Abnormal LFTs (Acute) Diabetic ulcer of left foot (Acute) Type 2 diabetes mellitus with diabetic polyneuropathy (Acute) Osteomyelitis of left foot (Acute) Cellulitis of left toe (Acute) Subjective: Patient was carefully examined and evaluated today POD #1 S/P open left hallux amputation. Patient was resting comfortably bedside with in the room. Patient states he is not having any pain currently and feels well. He has not noticed any bleeding through his post op dressing. He has an appetite and denies any feelings of nausea, vomiting, fever, or chills. - Physical Exam General: Alert, Oriented x3, Cooperative Extremities: Capillary Refill Less than 3 Seconds - to distal digits 2-5 as well as to skin at distal end of amputation site., No Calf Tenderness - negative cami and rene sign, Diminished Peripheral Pulses, Edema - slight lower extremity edema Skin: - - Open surgical site following left hallux amputation. No strikethough post op dressing. No areas of necrosis appreciated at this time. Tissue appears healthy. Some bleeding appreciated. No purulence, malodor, or excessive warmth. Erythema continues to subside. Musculoskeletal: No Tenderness to Palpation of Joints or Extremities, - - Slight left dropfoot deformity. Contracted hammer toes of digits 2-5 of the left foot. Neurological: - - Decreased epicritic sensation to lower extremity Psych/Mental Status: Normal Affect, Appropriate Vital Signs Temp Pulse Resp BP Pulse Ox 98.3 F 72 16 120/65 95 12/28/18 14:15 12/28/18 14:15 12/28/18 14:15 12/28/18 14:15 12/28/18 14:15 Oxygen Delivery Method Room Air Weight: 109.6 kg Body Mass Index (BMI) 28.6 Intake and Output for Last 24 Hours 12/26/18 12/27/18 12/28/18 23:59 23:59 23:59 Intake Total 3384 / 3384 6694 / 6694 1461 / 1461 Output Total 1900 / 1900 2550 / 2550 1175 / 1175 Balance 1484 / 1484 4144 / 4144 286 / 286 Microbiology Past 72 Hours 12/27/18 16:45 Gram Stain - Final Tissue - Toe Wound Culture - Preliminary No growth-Final to follow 12/27/18 16:45 Gram Stain - Final Tissue - Left Foot 12/25/18 08:45 Gram Stain - Final Wound Abcess - Toe Wound Culture - Final Escherichia coli Staphylococcus epidermidis POC Glucose 12/28/18 12/28/18 12/27/18 11:43 08:18 21:51 POC Glucose 125 H 139 H 147 H 12/27/18 18:00 POC Glucose 112 H Medical Necessity - Tobacco Use Smoking Status: Never smoker Tobacco Use: Non-smoker Assessment/Plan All Active Problems (Last Reviewed 12/26/18 @ 12:51 by Sudhir Singh MD) Left leg cellulitis (Acute) Hyponatremia (Acute) Acute renal failure (Acute) Abnormal LFTs (Acute) Diabetic ulcer of left foot (Acute) Type 2 diabetes mellitus with diabetic polyneuropathy (Acute) Osteomyelitis of left foot (Acute) Cellulitis of left toe (Acute) Abnormal nuclear stress test (Resolved) Unstable angina pectoris (Resolved) POD #1 S/P open left hallux amputation Cellulitis left lower extremity-improving DM with neuropathy Hammer toes 2-5 left foot Other comorbidities Patient was carefully examined and evaluated today resting bedside with present in the room. Patient is post op day #1 s/p open left hallux amputation. Patient had no events over night or during the day today. He denies any pain to the area and denies any feelings of nausea, vomiting, fever, or chills. Patient's vital signs are stable. No strikethrough appreciated to post op dressing. Sanguinous drainage to lower dressing levels. Dressing was taken down today and the open surgical site was carefully inspected. No areas of necrosis currently appreciated and tissue is appearing healthy. The surgical site was carefully flushed with sterile saline. Once complete, the surgical site was again packed with 1/4'' iodoform packing, followed by dressing consisting of 4x4s, ABDs, Kerlix and LUIZA bandage. Nursing can reinforce dressing should they notice strikethrough. Micro and path results from surgery are still pending. Will continue to monitor for these. Tentative plan is to take patient for delayed primary closure on Monday morning at approximately 11 am. Appreciate continued care from medical team as well as ID. Podiatry will continue to follow this patient. Please contact with any questions.
[2018-12-28] MEDS: Insulin Lispro 100 UNIT/ML INSULN.PEN 17 UNIT SC (17:19)
[2018-12-28 17:26] LABS: Bedside Glucose 143 mg/dL (70-110)
--- NOTE | 2018-12-28 17:46 | NURSING ---
Sitting in chair, eating dinner. Denies need for pain medication. Recently used urinal.
[2018-12-28] MEDS: Enoxaparin 40 MG/0.4 ML Syringe SC (19:22)
[2018-12-28 20:21] VITALS: BP 102/70; PULSE 78; RESP 16; TEMP 37.4; O2SAT 95
[2018-12-28] MEDS: Atorvastatin Calcium 40 MG Tablet PO (21:26)
[2018-12-28 21:31] LABS: Bedside Glucose 84 mg/dL (70-110)
[2018-12-28] MEDS: 0.9% NaCl Peripheral Flush Adult/Peds IV (23:53)
[2018-12-29 02:25] VITALS: BP 114/71; PULSE 95; RESP 18; TEMP 37.1; O2SAT 95
[2018-12-29] MEDS: Enoxaparin 40 MG/0.4 ML Syringe SC (06:16)
[2018-12-29] MEDS: Levothyroxine 25 MCG TABLET PO (06:16)
[2018-12-29 06:53] LABS: Absolute Lymphocyte Count 1.13 X10^3/ul (0.83-4.51); Absolute Neutrophil Count 4.4 X10^3/uL (2.0-7.7); Basophil# 0.03 X10^3/uL; Basophil% 0.5 % (0-1); Eosinophil# 0.42 X10^3/uL; Eosinophils% 6.5 % (0-5); Hematocrit 36.6 % (40-54); Hemoglobin 11.9 g/dl (13.0-16.5); Lymphocyte # 1.13 X10^3/ul (4.0); Lymphocyte % 17.5 % (19-41); Mean Corp Hgb Conc 32.5 g/gl (32-36); Mean Corpuscular Hgb 31.2 pg (27.0-32.0); Mean Corpuscular Volume 95.8 fL (80-94); Mean Platelet Vol. 9.7 fl (6.2-12.0); Monocyte% 7.7 % (0-10); Neutrophil # 4.35 X10^3/uL (2.7-7.7); Neutrophil % 67.3 % (47-70); Platelet Count 202 K/mm3 (150-450); RBC Distribution Width SD 48.8 fl (35.1-43.9); Red Blood Count 3.82 M/mm3 (4.6-6.2); White Blood Count 6.5 K/mm3 (4.4-11.0)
[2018-12-29 06:57] LABS: POSITIVE COUNT NO; POSITIVE DIFFERENTIAL NO; POSITIVE MORPHOLOGY NO
[2018-12-29 07:31] LABS: ALB/GLOB Ratio 0.4 RATIO (0.9-2.4); AST(SGOT) 100 U/L (15-37); Alanine Aminotransfer ALT/SGPT 85 U/L (16-61); Albumin, Serum 1.9 g/dL (3.2-5.0); Alkaline Phosphatase 117 U/L (45-117); Anion Gap 11 (5-15); BUN 14 mg/dL (7-18); BUN/Creat Ratio 15.9 RATIO (10-20); Calcium,Total 7.8 mg/dL (8.5-10.1); Chloride 110 mmol/L (98-107); Creatinine, Serum 0.88 mg/dL (0.70-1.30); EST Glomerular Filtration Rate 93 mL/min (>60); Est Glom Filt Rate - Afr Amer 112 mL/min (>60); Estimated Creatinine Clearance 108.28 ml/min; Globulin 4.3 g/dL (2.2-4.2); Glucose 117 mg/dL (74-106); Magnesium 1.6 mg/dL (1.6-2.6); Potassium 3.5 mmol/L (3.5-5.1); Protein, Total 6.2 g/dL (6.4-8.2); Sodium Level 142 mmol/L (136-145)
[2018-12-29 08:06] VITALS: BP 119/66; PULSE 82; RESP 16; TEMP 36.9; O2SAT 96
[2018-12-29] MEDS: Doxycycline 100 MG CAPSULE PO ×2 (08:08→21:21)
[2018-12-29] MEDS: Empagliflozin 25 MG Tablet PO (08:08)
[2018-12-29 08:09] VITALS: PULSE 82
[2018-12-29] MEDS: metFORMIN HCl 1,000 MG Tablet 1000 MG PO ×2 (08:09→16:52)
[2018-12-29] MEDS: Aspirin E.C. 81 MG Tablet PO (08:09)
[2018-12-29] MEDS: Metoprolol(XL)Succ 100 MG Tablet PO (08:09)
[2018-12-29] MEDS: Losartan Potassium 100 MG Tablet PO (08:09)
[2018-12-29] MEDS: Glucerna Shake 120 ML LIQUID PO ×3 (08:10→21:21)
[2018-12-29] MEDS: Insulin Lispro 100 UNIT/ML INSULN.PEN 14 UNIT SC (08:13)
[2018-12-29 08:21] LABS: Bedside Glucose 109 mg/dL (70-110)
--- NOTE | 2018-12-29 10:19 | PCM.PROGNOTE ---
Patient Problems: Active and Suspected Problems (Last Reviewed 12/26/18 @ 12:51 by Sudhir Singh MD) Osteomyelitis of toe of left foot (Suspected) left Hallux Left leg cellulitis (Acute) Hyponatremia (Acute) Acute renal failure (Acute) Abnormal LFTs (Acute) Diabetic ulcer of left foot (Acute) Type 2 diabetes mellitus with diabetic polyneuropathy (Acute) Osteomyelitis of left foot (Acute) Cellulitis of left toe (Acute) Subjective: Patient was carefully examined and evaluated today POD #2 S/P open left hallux amputation. Patient was resting comfortably bedside again today. Patient states he is not having any pain currently and feels well. He had no issues through the evening. He has an appetite and continues to deny any feelings of nausea, vomiting, fever, or chills. - Physical Exam General: Alert, Oriented x3, Cooperative Extremities: Capillary Refill Less than 3 Seconds - to distal digits 2-5 as well as to skin at distal end of amputation site., No Calf Tenderness - negative cami and rene sign, Diminished Peripheral Pulses, Edema - slight lower extremity edema Skin: - - Open surgical site following left hallux amputation. No strikethough to outside dressing. No areas of necrosis appreciated at this time. Tissue continues to appear healthy. No purulence, malodor, or excessive warmth. Erythema continues to subside. Musculoskeletal: No Tenderness to Palpation of Joints or Extremities, - - light left dropfoot deformity. Contracted hammer toes of digits 2-5 of the left foot. Neurological: - - Decreased epicritic sensation to lower extremity Psych/Mental Status: Normal Affect, Appropriate Vital Signs Temp Pulse Resp BP Pulse Ox 98.4 F 82 16 119/66 96 12/29/18 08:06 12/29/18 08:09 12/29/18 08:06 12/29/18 08:06 12/29/18 08:06 Oxygen Delivery Method Room Air Weight: 109.6 kg Body Mass Index (BMI) 28.6 Intake and Output for Last 24 Hours 12/27/18 12/28/18 12/29/18 23:59 23:59 23:59 Intake Total 6694 / 6694 1855 / 1855 Output Total 2550 / 2550 1850 / 1850 Balance 4144 / 4144 5 / 5 Microbiology Past 72 Hours 12/27/18 16:45 Gram Stain - Final Tissue - Left Foot Wound Culture - Preliminary No growth-Final to follow 12/27/18 16:45 Gram Stain - Final Tissue - Toe Wound Culture - Preliminary No growth-Final to follow 12/25/18 08:45 Gram Stain - Final Wound Abcess - Toe Wound Culture - Final Escherichia coli Staphylococcus epidermidis Laboratory Tests Past 24 Hrs 12/29/18 12/29/18 06:27 06:27 WBC 6.5 RBC 3.82 L Hgb 11.9 L Hct 36.6 L MCV 95.8 H MCH 31.2 MCHC 32.5 RDW 14.0 RDW Differential 48.8 H Plt Count 202 MPV 9.7 Immature Gran % (Auto) 0.500 Neut % (Auto) 67.3 Lymph % (Auto) 17.5 L [place] % (Auto) 7.7 Eos % (Auto) 6.5 H Baso % (Auto) 0.5 Absolute Neuts (auto) 4.4 Absolute Lymphs (auto) 1.13 Total Counted Not Reportable Sodium 142 Potassium 3.5 Chloride 110 H Carbon Dioxide 21.0 Anion Gap 11 BUN 14 Creatinine 0.88 Estim Creat Clear Calc 108.28 Est GFR (MDRD) Af Amer 112 Est GFR (MDRD) Non-Af 93 BUN/Creatinine Ratio 15.9 Glucose 117 H Calcium 7.8 L Magnesium 1.6 Total Bilirubin 0.50 AST 100 H ALT 85 H Alkaline Phosphatase 117 Total Protein 6.2 L Albumin 1.9 L Globulin 4.3 H Albumin/Globulin Ratio 0.4 L POC Glucose 12/29/18 12/28/18 12/28/18 08:02 21:24 17:16 POC Glucose 109 84 143 H 12/28/18 11:43 POC Glucose 125 H Medical Necessity - Tobacco Use Smoking Status: Never smoker Tobacco Use: Non-smoker Assessment/Plan All Active Problems (Last Reviewed 12/26/18 @ 12:51 by Sudhir Singh MD) Left leg cellulitis (Acute) Hyponatremia (Acute) Acute renal failure (Acute) Abnormal LFTs (Acute) Diabetic ulcer of left foot (Acute) Type 2 diabetes mellitus with diabetic polyneuropathy (Acute) Osteomyelitis of left foot (Acute) Cellulitis of left toe (Acute) Abnormal nuclear stress test (Resolved) Unstable angina pectoris (Resolved) POD #2 S/P open left hallux amputation Cellulitis left lower extremity-improving DM with neuropathy Hammer toes 2-5 left foot Other comorbidities Patient was carefully examined and evaluated today resting bedside with present in the room. Patient is post op day #2 s/p open left hallux amputation. Patient had no events over night again. He denies any pain to the area and denies any feelings of nausea, vomiting, fever, or chills. Patient's vital signs are stable. WBC is 6.5 today. No strikethrough appreciated to outer dressing. Sanguinous drainage to lower dressing levels. Dressing was taken down today and the open surgical site was carefully inspected. No areas of necrosis currently appreciated and tissue is appearing healthy. The surgical site was carefully flushed with sterile saline. Once complete, the surgical site was again packed with saline soaked 2x2, followed by dressing consisting of 4x4s, ABDs, Kerlix and LUIZA bandage. Nursing can reinforce dressing if needed. Following for final micro and path results. Tentative plan is to take patient for delayed primary closure on Monday morning at approximately 11 am. Appreciate continued care from medical team as well as ID. Podiatry will continue to follow this patient. Please contact with any questions.
[2018-12-29 12:41] LABS: Bedside Glucose 124 mg/dL (70-110)
--- NOTE | 2018-12-29 15:28 | PCM.PROGNOTE ---
Patient Problems: Active and Suspected Problems (Last Reviewed 12/26/18 @ 12:51 by Sudhir Singh MD) Osteomyelitis of toe of left foot (Suspected) left Hallux Left leg cellulitis (Acute) Hyponatremia (Acute) Acute renal failure (Acute) Abnormal LFTs (Acute) Diabetic ulcer of left foot (Acute) Type 2 diabetes mellitus with diabetic polyneuropathy (Acute) Osteomyelitis of left foot (Acute) Cellulitis of left toe (Acute) Subjective: Day #5 antibiotics All events of the past 24 hours been reviewed. Patient remains afebrile. Vital signs are stable. Denies pain in his left foot Denies nausea, vomiting, diarrhea All lab was personally reviewed. White blood cell count today is 6.5 with an unremarkable differential other than the eos are increased to 6.5% today. denies rash or pruritus. Creatinine today is 0.88, down from 1.59 at admission. Blood sugars are very well controlled. AST and ALT continue to improve. The AST today is 100 and the ALT is 85. Bilirubin and alkaline phosphatase are within normal limits. Path report on the clearance fragment is still pending - Physical Exam General: Alert, Oriented x3, Cooperative, No apparent distress Oral: Moist Mucosa Lungs: Clear to auscultation Cardiovascular: Regular rate, Regular Rhythm Abdomen: Bowel Sounds Present, Soft, Non Tender, Non-Distended Extremities: - - no bleeding on the outside of the dressing. No edema of the Left ankle and no evidence of cellulitis of the distal LLE Skin: - Vital Signs Temp Pulse Resp BP Pulse Ox 98.4 F 82 16 119/66 96 12/29/18 08:06 12/29/18 08:09 12/29/18 08:06 12/29/18 08:06 12/29/18 08:06 Oxygen Delivery Method Room Air Weight: 241 lb 10.026 oz Body Mass Index (BMI) 28.6 Intake and Output for Last 24 Hours 12/27/18 12/28/18 12/29/18 23:59 23:59 23:59 Intake Total 6694 / 6694 1855 / 1855 Output Total 2550 / 2550 1850 / 1850 Balance 4144 / 4144 Microbiology Past 72 Hours 12/27/18 16:45 Gram Stain - Final Tissue - Left Foot Wound Culture - Preliminary No growth-Final to follow Anaerobic Culture - Preliminary No growth in 48 hours. 12/27/18 16:45 Gram Stain - Final Tissue - Toe Wound Culture - Preliminary No growth-Final to follow Anaerobic Culture - Preliminary No growth in 48 hours. 12/25/18 08:45 Gram Stain - Final Wound Abcess - Toe Wound Culture - Final Escherichia coli Staphylococcus epidermidis Anaerobic Culture - Preliminary Checking for anaerobes, further studies to follow. Laboratory Tests Past 24 Hrs 12/29/18 12/29/18 06:27 06:27 WBC 6.5 RBC 3.82 L Hgb 11.9 L Hct 36.6 L MCV 95.8 H MCH 31.2 MCHC 32.5 RDW 14.0 RDW Differential 48.8 H Plt Count 202 MPV 9.7 Immature Gran % (Auto) 0.500 Neut % (Auto) 67.3 Lymph % (Auto) 17.5 L [place] % (Auto) 7.7 Eos % (Auto) 6.5 H Baso % (Auto) 0.5 Absolute Neuts (auto) 4.4 Absolute Lymphs (auto) 1.13 Total Counted Not Reportable Sodium 142 Potassium 3.5 Chloride 110 H Carbon Dioxide 21.0 Anion Gap 11 BUN 14 Creatinine 0.88 Estim Creat Clear Calc 108.28 Est GFR (MDRD) Af Amer 112 Est GFR (MDRD) Non-Af 93 BUN/Creatinine Ratio 15.9 Glucose 117 H Calcium 7.8 L Magnesium 1.6 Total Bilirubin 0.50 AST 100 H ALT 85 H Alkaline Phosphatase 117 Total Protein 6.2 L Albumin 1.9 L Globulin 4.3 H Albumin/Globulin Ratio 0.4 L POC Glucose 12/29/18 12/29/18 12/28/18 11:28 08:02 21:24 POC Glucose 124 H 109 84 12/28/18 17:16 POC Glucose 143 H Medical Necessity - Tobacco Use Smoking Status: Never smoker Tobacco Use: Non-smoker Assessment/Plan All Active Problems (Last Reviewed 12/26/18 @ 12:51 by Sudhir Singh MD) Left leg cellulitis (Acute) Hyponatremia (Acute) Acute renal failure (Acute) Abnormal LFTs (Acute) Diabetic ulcer of left foot (Acute) Type 2 diabetes mellitus with diabetic polyneuropathy (Acute) Osteomyelitis of left foot (Acute) Cellulitis of left toe (Acute) Abnormal nuclear stress test (Resolved) Unstable angina pectoris (Resolved) POD #2 status post amputation left hallux Antibiotics #4 Unasyn and doxycycline Impressions 1. cellulitis of the Left hallux, foot and the distal LE with non-healing diabetic ulcer with fat layer exposed at the tip of the plantar surface of the hallux and the mid toe on the dorsal surface -wound cultures are growing E. coli and methicillin-resistant staph epidermidis. E. coli and staph are both resistant to Bactrim and he has been taking Bactrim as an outpatient. 2. osteomyelitis of the Left hallux - proximal and distal phalanx 3. drop foot left 4. diabetic peripheral polyneuropathy 5. autoimmune disease - on prednisone and Cellcept in the past - Cellcept stopped in August of 2018 due to elevation in LFT's 6. ARF - resolved with hydration 7. ILD 8. abnormal LFT's - due to autoimmune hepatitis? his aluminum polisher is aware 9. CAD with history of CABG in 2014 or 2015 10. Hypothyroidism 11. Paroxysmal atrial fibrillation 12. Chronic anticoagulation with Eliquis 13. Suspected peripheral vascular disease left lower extremity - seen by Dr. Singh today in consult and he does not feel there is any need for intervention at this time 14. Diabetes mellitus type 2 - not adequately controlled, HGBA1C is 8.3% 15. Hyperlipidemia 16. Hypertension 17. Right-sided extracranial carotid artery stenosis 18. Status post left hallux amputation on 12/27/2018 Continue the Lovenox for DVT prophylaxis Pt is in a regular rhythm Restart Eliquis post op on Monday continue the current antibiotics Code Visit Inpatient E&M: [id number] [facility] L1
[2018-12-29 17:45] VITALS: BP 125/62; PULSE 74; RESP 18; TEMP 36.8; O2SAT 95
[2018-12-29] MEDS: Insulin Lispro 100 UNIT/ML INSULN.PEN 17 UNIT SC (18:01)
[2018-12-29 18:11] LABS: Bedside Glucose 155 mg/dL (70-110)
[2018-12-29 18:16] LABS: Bedside Glucose 128 mg/dL (70-110)
[2018-12-29 20:46] LABS: Bedside Glucose 78 mg/dL (70-110)
[2018-12-29] MEDS: Atorvastatin Calcium 40 MG Tablet PO (21:21)
[2018-12-29 22:24] VITALS: BP 115/67; PULSE 75; RESP 16; TEMP 37; O2SAT 97
[2018-12-30 04:24] VITALS: BP 147/70; PULSE 89; RESP 16; TEMP 37.4; O2SAT 98
[2018-12-30] MEDS: Levothyroxine 25 MCG TABLET PO (05:24)
[2018-12-30] MEDS: Enoxaparin 40 MG/0.4 ML Syringe SC (05:25)
[2018-12-30] MEDS: metFORMIN HCl 1,000 MG Tablet 1000 MG PO ×2 (08:19→17:08)
[2018-12-30] MEDS: Aspirin E.C. 81 MG Tablet PO (08:19)
[2018-12-30] MEDS: Doxycycline 100 MG CAPSULE PO ×2 (08:19→21:17)
[2018-12-30 08:20] VITALS: PULSE 87
[2018-12-30] MEDS: Metoprolol(XL)Succ 100 MG Tablet PO (08:20)
[2018-12-30] MEDS: Empagliflozin 25 MG Tablet PO (08:20)
[2018-12-30] MEDS: Losartan Potassium 100 MG Tablet PO (08:20)
[2018-12-30] MEDS: Glucerna Shake 120 ML LIQUID PO ×3 (08:21→21:17)
[2018-12-30 08:30] VITALS: BP 151/67; PULSE 87; RESP 18; TEMP 37.2; O2SAT 96
[2018-12-30 08:41] LABS: Bedside Glucose 125 mg/dL (70-110)
--- NOTE | 2018-12-30 09:02 | PCM.PROGNOTE ---
Patient Problems: Active and Suspected Problems (Last Reviewed 12/26/18 @ 12:51 by Sudhir Singh MD) Osteomyelitis of toe of left foot (Suspected) left Hallux Left leg cellulitis (Acute) Hyponatremia (Acute) Acute renal failure (Acute) Abnormal LFTs (Acute) Diabetic ulcer of left foot (Acute) Type 2 diabetes mellitus with diabetic polyneuropathy (Acute) Osteomyelitis of left foot (Acute) Cellulitis of left toe (Acute) Subjective: Patient was carefully examined and evaluated today POD #3 S/P open left hallux amputation. Patient was resting comfortably bedside again today with and daughter in room. Patient states he is not having any pain currently and feels well. He had no issues through the evening again. He has an appetite and continues to deny any feelings of nausea, vomiting, fever, or chills. - Physical Exam General: Alert, Oriented x3, Cooperative Extremities: Capillary Refill Less than 3 Seconds - to distal digits 2-5 as well as to skin at distal end of amputation site., No Calf Tenderness - negative cami and rene sign, Diminished Peripheral Pulses, Edema - slight lower extremity edema Skin: - - Open surgical site following left hallux amputation. No strikethough to outside dressing. No areas of necrosis appreciated at this time. Tissue continues to appear healthy. No purulence, malodor, or excessive warmth. Musculoskeletal: No Tenderness to Palpation of Joints or Extremities, - - slight left dropfoot deformity. Contracted hammer toes of digits 2-5 of the left foot. Neurological: - - Decreased epicritic sensation to lower extremity Psych/Mental Status: Normal Affect, Appropriate Vital Signs Temp Pulse Resp BP Pulse Ox 99.0 F 87 18 151/67 H 96 12/30/18 08:30 12/30/18 08:30 12/30/18 08:30 12/30/18 08:30 12/30/18 08:30 Oxygen Delivery Method Room Air Weight: 109.6 kg Body Mass Index (BMI) 28.6 Intake and Output for Last 24 Hours 12/28/18 12/29/18 12/30/18 23:59 23:59 23:59 Intake Total 1855 / 1855 820 / 820 666 / 666 Output Total 1850 / 1850 775 / 775 600 / 600 Balance / 5 45 / 45 66 / 66 Microbiology Past 72 Hours 12/27/18 16:45 Gram Stain - Final Tissue - Toe Wound Culture - Final No growth aerobically. Anaerobic Culture - Preliminary No growth in 48 hours. 12/27/18 16:45 Gram Stain - Final Tissue - Left Foot Wound Culture - Final No growth aerobically. Anaerobic Culture - Preliminary No growth in 48 hours. 12/25/18 08:45 Gram Stain - Final Wound Abcess - Toe Wound Culture - Final Escherichia coli Staphylococcus epidermidis Anaerobic Culture - Preliminary Checking for anaerobes, further studies to follow. POC Glucose 12/30/18 12/29/18 12/29/18 08:11 20:39 17:58 POC Glucose 125 H 78 155 H 12/29/18 12/29/18 16:49 11:28 POC Glucose 128 H 124 H Medical Necessity - Tobacco Use Smoking Status: Never smoker Tobacco Use: Non-smoker Assessment/Plan All Active Problems (Last Reviewed 12/26/18 @ 12:51 by Sudhir Singh MD) Left leg cellulitis (Acute) Hyponatremia (Acute) Acute renal failure (Acute) Abnormal LFTs (Acute) Diabetic ulcer of left foot (Acute) Type 2 diabetes mellitus with diabetic polyneuropathy (Acute) Osteomyelitis of left foot (Acute) Cellulitis of left toe (Acute) Abnormal nuclear stress test (Resolved) Unstable angina pectoris (Resolved) POD #3 S/P open left hallux amputation Cellulitis left lower extremity-improving DM with neuropathy Hammer toes 2-5 left foot Other comorbidities Patient was carefully examined and evaluated today resting bedside with and daughter present in the room. Patient is post op day #3 s/p open left hallux amputation. Patient had no events over night again. He denies any pain to the area and denies any feelings of nausea, vomiting, fever, or chills. Patient's vital signs are stable. Last WBC is 6.5. No strikethrough appreciated to outer dressing. Slight sanguinous drainage to lower dressing levels. Dressing was taken down today and the open surgical site was carefully inspected. No areas of necrosis currently appreciated and tissue is appearing healthy. The surgical site was carefully flushed with sterile saline. Once complete, the surgical site was again packed with saline soaked 2x2, followed by dressing consisting of 4x4s, ABDs, Kerlix and LUIZA bandage. Nursing can reinforce dressing if needed. Following for final micro and path results. Patient to go back for delayed primary closure on Monday at approximately 11 am. Planned procedure was discussed with patient and his family as well as all of the risks, benefits, and alternative options. No guarantees given. All questions answered to patient's satisfaction. Agree to go ahead with planned procedure at this time. Consent orders and NPO orders will be placed. Surgical clearance per primary team appreciated. Appreciate continued care from medical team as well as ID. Podiatry will continue to follow this patient. Please contact with any questions.
[2018-12-30] MEDS: Insulin Lispro 100 UNIT/ML INSULN.PEN 14 UNIT SC (09:23)
[2018-12-30 11:51] LABS: Bedside Glucose 112 mg/dL (70-110)
--- NOTE | 2018-12-30 13:51 | PCM.PROGNOTE ---
Patient Problems: Active and Suspected Problems (Last Reviewed 12/26/18 @ 12:51 by Sudhir Singh MD) Osteomyelitis of toe of left foot (Suspected) left Hallux Left leg cellulitis (Acute) Hyponatremia (Acute) Acute renal failure (Acute) Abnormal LFTs (Acute) Diabetic ulcer of left foot (Acute) Type 2 diabetes mellitus with diabetic polyneuropathy (Acute) Osteomyelitis of left foot (Acute) Cellulitis of left toe (Acute) Subjective: 63-year-old male diabetic admitted to the hospital with osteomyelitis of the left hallux secondary to E. coli and methicillin-resistant staph epidermidis. Underwent amputation of the left hallux and is scheduled for closure of the wound on 12/31/2018. Currently on Unasyn and doxycycline. Being followed by Dr. Servin. All events the past 24 hours been reviewed. Patient is afebrile and vital signs are stable. Blood sugars are very well controlled Objective: - Physical Exam General: Alert, Oriented x3, Cooperative, No apparent distress Oral: Moist Mucosa Lungs: Clear to auscultation Cardiovascular: Regular rate, Regular Rhythm Abdomen: Bowel Sounds Present, Soft, Non Tender, Non-Distended Extremities: - - no bleeding on the outside of the dressing. No edema of the Left ankle and no evidence of cellulitis of the distal LLE has been using the knee walker with PT - Physical Exam Vital Signs Temp Pulse Resp BP Pulse Ox 99.0 F 87 18 151/67 H 96 12/30/18 08:30 12/30/18 08:30 12/30/18 08:30 12/30/18 08:30 12/30/18 08:30 Oxygen Delivery Method Room Air Weight: 241 lb 10.026 oz Body Mass Index (BMI) 28.6 Intake and Output for Last 24 Hours 12/28/18 12/29/18 12/30/18 23:59 23:59 23:59 Intake Total 1855 / 1855 820 / 820 666 / 666 Output Total 1850 / 1850 775 / 775 600 / 600 Balance 5 / 5 45 / 45 66 / 66 Microbiology Past 72 Hours 12/27/18 16:45 Gram Stain - Final Tissue - Toe Wound Culture - Final No growth aerobically. Anaerobic Culture - Preliminary No growth in 48 hours. 12/27/18 16:45 Gram Stain - Final Tissue - Left Foot Wound Culture - Final No growth aerobically. Anaerobic Culture - Preliminary No growth in 48 hours. 12/25/18 08:45 Gram Stain - Final Wound Abcess - Toe Wound Culture - Final Escherichia coli Staphylococcus epidermidis Anaerobic Culture - Preliminary Checking for anaerobes, further studies to follow. POC Glucose 12/30/18 12/30/18 12/29/18 11:45 08:11 20:39 POC Glucose 112 H 125 H 78 12/29/18 12/29/18 17:58 16:49 POC Glucose 155 H 128 H Medical Necessity - Tobacco Use Smoking Status: Never smoker Tobacco Use: Non-smoker Assessment/Plan All Active Problems (Last Reviewed 12/26/18 @ 12:51 by Sudhir Singh MD) Left leg cellulitis (Acute) Hyponatremia (Acute) Acute renal failure (Acute) Abnormal LFTs (Acute) Diabetic ulcer of left foot (Acute) Type 2 diabetes mellitus with diabetic polyneuropathy (Acute) Osteomyelitis of left foot (Acute) Cellulitis of left toe (Acute) Abnormal nuclear stress test (Resolved) Unstable angina pectoris (Resolved) POD #3 status post amputation left hallux Antibiotics #5 Unasyn and doxycycline Impressions 1. cellulitis of the Left hallux, foot and the distal LE with non-healing diabetic ulcer with fat layer exposed at the tip of the plantar surface of the hallux and the mid toe on the dorsal surface -wound cultures are growing E. coli and methicillin-resistant staph epidermidis. E. coli and staph are both resistant to Bactrim and he has been taking Bactrim as an outpatient. 2. osteomyelitis of the Left hallux - proximal and distal phalanx 3. drop foot left 4. diabetic peripheral polyneuropathy 5. autoimmune disease - on prednisone and Cellcept in the past - Cellcept stopped in August of 2018 due to elevation in LFT's 6. ARF - resolved with hydration 7. ILD 8. abnormal LFT's - due to autoimmune hepatitis? his occupational therapy specialist is aware 9. CAD with history of CABG in 2015 or 2016 10. Hypothyroidism 11. Paroxysmal atrial fibrillation 12. Chronic anticoagulation with Eliquis 13. Suspected peripheral vascular disease left lower extremity - seen by Dr. Singh today in consult and he does not feel there is any need for intervention at this time 14. Diabetes mellitus type 2 - not adequately controlled, HGBA1C is 8.3% 15. Hyperlipidemia 16. Hypertension 17. Right-sided extracranial carotid artery stenosis 18. Status post left hallux amputation on 12/27/2018 Continue the Lovenox for DVT prophylaxis Pt is in a regular rhythm Restart Eliquis post op on Monday continue the current antibiotics knee walker at [place] Will follow up with Dr. Estrada Should follow up with Dr. Singh in 1-2 months for PAD LLE Code Visit Inpatient E&M: [id number] [facility] L1
[2018-12-30 17:16] LABS: Bedside Glucose 101 mg/dL (70-110)
[2018-12-30 17:51] VITALS: BP 122/69; PULSE 88; RESP 18; TEMP 36.7; O2SAT 99
[2018-12-30] MEDS: 0.9% NaCl Peripheral Flush Adult/Peds IV (17:54)
[2018-12-30] MEDS: Insulin Lispro 100 UNIT/ML INSULN.PEN 17 UNIT SC (18:12)
[2018-12-30 18:37] LABS: Bedside Glucose 201 mg/dL (70-110)
[2018-12-30 21:12] VITALS: BP 121/71; PULSE 97; RESP 16; TEMP 36.9; O2SAT 98
[2018-12-30] MEDS: Atorvastatin Calcium 40 MG Tablet PO (21:17)
[2018-12-30 21:56] LABS: Bedside Glucose 78 mg/dL (70-110)
[2018-12-30 21:56] LABS: Bedside Glucose 55 mg/dL (70-110)
[2018-12-31] VITALS (12 sets, daily range): BP systolic 81–136; BP diastolic 53–81; PULSE 62–102; RESP 16–18; TEMP 36.2–37.3; O2SAT 92–99; BMI 28.6
[2018-12-31] MEDS: Levothyroxine 25 MCG TABLET PO (06:06)
[2018-12-31 07:11] LABS: Bedside Glucose 121 mg/dL (70-110)
[2018-12-31] MEDS: Metoprolol(XL)Succ 100 MG Tablet PO (09:12)
--- NOTE | 2018-12-31 10:11 | NURSING ---
pt off unit via bed. report called to edie in ac.
--- NOTE | 2018-12-31 10:24 | PCM.PN.HOSP ---
Patient Problems: Active and Suspected Problems (Last Reviewed 12/26/18 @ 12:51 by Sudhir Singh MD) Osteomyelitis of toe of left foot (Suspected) left Hallux Left leg cellulitis (Acute) Hyponatremia (Acute) Acute renal failure (Acute) Abnormal LFTs (Acute) Diabetic ulcer of left foot (Acute) Type 2 diabetes mellitus with diabetic polyneuropathy (Acute) Osteomyelitis of left foot (Acute) Cellulitis of left toe (Acute) Subjective: No new complaints. Plan for closure this AM. Vitals/I&O's: Vital Signs Temp Pulse Resp BP Pulse Ox 36.8 C 98 16 128/81 H 97 12/31/18 09:00 12/31/18 09:12 12/31/18 09:00 12/31/18 09:00 12/31/18 09:00 Oxygen Delivery Method Room Air Weight: 109.6 kg Body Mass Index (BMI) 28.6 Intake and Output for Last 24 Hours 12/29/18 12/30/18 12/31/18 23:59 23:59 23:59 Intake Total 820 / 820 1594 / 1594 873 / 873 Output Total 775 / 775 1300 / 1300 600 / 600 Balance 45 / 45 294 / 294 273 / 273 General: Alert, Cooperative, No apparent distress HEENT: Atraumatic, Normocephalic Oral: Moist Mucosa, No Gingival or Mucosal Lesions/ Ulcerations Neck: No Nodes, Thyroid Normal Size and Texture Lungs: Clear to auscultation, Normal air movement, No rhonchi, No wheeze Cardiovascular: Regular rate, Regular Rhythm, Normal S1, Normal S2, No murmurs Abdomen: Bowel Sounds Present, Soft, Non Tender, Non-Distended Extremities: No edema, No Calf Tenderness Skin: No rashes, No breakdown Psych/Mental Status: Normal Affect, Appropriate Microbiology Past 72 Hours 12/25/18 08:45 Wound Abcess - Toe Gram Stain - Final 12/25/18 08:45 Wound Abcess - Toe Wound Culture - Final Escherichia coli Staphylococcus epidermidis 12/25/18 08:45 Wound Abcess - Toe Anaerobic Culture - Final Anaerobic cocci 12/25/18 12:20 Blood Culture (Wb) - Anticubital Right Blood Culture - Final No growth in 5 days. 12/27/18 16:45 Tissue - Toe Gram Stain - Final 12/27/18 16:45 Tissue - Toe Wound Culture - Final No growth aerobically. 12/27/18 16:45 Tissue - Toe Anaerobic Culture - Preliminary No growth in 48 hours. 12/27/18 16:45 Tissue - Left Foot Gram Stain - Final 12/27/18 16:45 Tissue - Left Foot Wound Culture - Final No growth aerobically. 12/27/18 16:45 Tissue - Left Foot Anaerobic Culture - Preliminary No growth in 48 hours. Laboratory Results 12/30/18 11:45: POC Glucose 112 H 12/30/18 17:03: POC Glucose 101 12/30/18 18:11: POC Glucose 201 H 12/30/18 21:15: POC Glucose 55 L 12/30/18 21:51: POC Glucose 78 12/31/18 06:58: POC Glucose 121 H Current Medications Acetaminophen (Tylenol) 650 mg PO Q6H PRN PRN PRN Reason: Mild Pain (scale 0-3)/T>100.7 Last Admin: 12/26/18 00:13 Dose: 650 mg Aspirin (Ecotrin) 81 mg PO DAILY [facility] Last Admin: 12/30/18 08:19 Dose: 81 mg Atorvastatin Calcium (Lipitor) 40 mg PO QHS [facility] Last Admin: 12/30/18 21:17 Dose: 40 mg Bisacodyl (Dulcolax) 10 mg PO DAILY PRN PRN PRN Reason: Constipation Docusate Sodium (Colace) 200 mg PO BID PRN PRN PRN Reason: Constipation Last Admin: 12/25/18 13:15 Dose: 200 mg Doxycycline Monohydrate (Doxycycline) 100 mg PO BID [facility] Last Admin: 12/30/18 21:17 Dose: 100 mg Enoxaparin Sodium (Lovenox) 40 mg SC DAILY@0600 [facility] Last Admin: 12/30/18 23:02 Dose: Not Given Ampicillin Sodium/Sulbactam (Sodium 3 gm/ Sodium Chloride) 112 mls @ 150 mls/hr IV Q6 [facility] Last Admin: 12/31/18 06:04 Dose: 150 mls/hr Insulin Glargine (Lantus (Bk)) 14 units SC 1100,2200 [facility] Last Admin: 12/30/18 22:32 Dose: Not Given Insulin Human Lispro (Humalog Kwikpen (Bk)) 0 unit SC ACHS [facility]; Protocol Last Admin: 12/31/18 07:07 Dose: Not Given Insulin Human Lispro (Humalog Kwikpen (Bkc)) 17 unit SC DINNER [facility] Last Admin: 12/30/18 18:12 Dose: 17 units Insulin Human Lispro (Humalog Kwikpen (Bkc)) 14 unit SC BREAKFAST [facility] Last Admin: 12/31/18 09:00 Dose: Not Given Levothyroxine Sodium (Synthroid) 25 mcg PO DAILY@0600 [facility] Last Admin: 12/31/18 06:06 Dose: 25 mcg Losartan Potassium (Cozaar) 100 mg PO DAILY [facility] Last Admin: 12/30/18 08:20 Dose: 100 mg Magnesium Hydroxide (Milk Of Magnesia) 30 ml PO DAILY PRN PRN PRN Reason: Constipation Metformin HCl (Glucophage) 1,000 mg PO BIDCM [facility] Last Admin: 12/31/18 09:00 Dose: Not Given Metoprolol Succinate (Toprol Xl (Beta Vel)) 100 mg PO DAILY [facility] Last Admin: 12/31/18 09:12 Dose: 100 mg Nutritional Formula (Lactose Free) (Glucerna Shake) 120 ml PO 4X/DAY [facility] Last Admin: 12/31/18 09:01 Dose: Not Given Oxycodone HCl (Oxyir) 5 mg PO Q4H PRN PRN PRN Reason: Moderate Pain (pain scale 4-5) Potassium Chloride (K-Dur) 10 meq PO DAILY [facility] Last Admin: 12/30/18 08:21 Dose: 10 meq Prochlorperazine Edisylate (Compazine Iv) 10 mg IV Q6H PRN PRN PRN Reason: Nausea/Vomiting Sodium Chloride () 5 - 15 ml IV UD PRN PRN Reason: SALINE FLUSH Last Admin: 12/30/18 17:54 Dose: 10 ml Medical Necessity - Tobacco Use Smoking Status: Never smoker Tobacco Use: Non-smoker Assessment/Plan All Active Problems (Last Reviewed 12/26/18 @ 12:51 by Sudhir Singh MD) Left leg cellulitis (Acute) Hyponatremia (Acute) Acute renal failure (Acute) Abnormal LFTs (Acute) Diabetic ulcer of left foot (Acute) Type 2 diabetes mellitus with diabetic polyneuropathy (Acute) Osteomyelitis of left foot (Acute) Cellulitis of left toe (Acute) Abnormal nuclear stress test (Resolved) Unstable angina pectoris (Resolved) 1. Left great toe osteomyelitis w/p amputation 12/27 Cx positive for E. coli, S. epi, Aneraobic cocci On Doxycycline and Unasyn for delayed closure today 2. Left foot cellulitis as above 3. DM2 fair control continue Basal and prandial insulins 4. DVT proph: LMWH 5. Disposition: anticipate home in 24-48h DW patient's at bedside. Code Visit Inpatient E&M: 22229 Subs Hosp L2
[2018-12-31] MEDS: 0.9% NaCl Peripheral Flush Adult/Peds IV ×2 (10:26→17:37)
--- NOTE | 2018-12-31 10:31 | PN_ITS ---
Patient Problems: Active and Suspected Problems (Last Reviewed 12/26/18 @ 12:51 by Sudhir Singh MD) Osteomyelitis of toe of left foot (Suspected) left Hallux Left leg cellulitis (Acute) Hyponatremia (Acute) Acute renal failure (Acute) Abnormal LFTs (Acute) Diabetic ulcer of left foot (Acute) Type 2 diabetes mellitus with diabetic polyneuropathy (Acute) Osteomyelitis of left foot (Acute) Cellulitis of left toe (Acute) Subjective: No new complaints. Plan for closure this AM. Vitals/I&O's: Vital Signs Temp Pulse Resp BP Pulse Ox 36.8 C 98 16 128/81 H 97 12/31/18 09:00 12/31/18 09:12 12/31/18 09:00 12/31/18 09:00 12/31/18 09:00 Oxygen Delivery Method Room Air Weight: 109.6 kg Body Mass Index (BMI) 28.6 Intake and Output for Last 24 Hours 12/29/18 12/30/18 12/31/18 23:59 23:59 23:59 Intake Total 820 / 820 1594 / 1594 873 / 873 Output Total 775 / 775 1300 / 1300 600 / 600 Balance 45 / 45 294 / 294 273 / 273 General: Alert, Cooperative, No apparent distress HEENT: Atraumatic, Normocephalic Oral: Moist Mucosa, No Gingival or Mucosal Lesions/ Ulcerations Neck: No Nodes, Thyroid Normal Size and Texture Lungs: Clear to auscultation, Normal air movement, No rhonchi, No wheeze Cardiovascular: Regular rate, Regular Rhythm, Normal S1, Normal S2, No murmurs Abdomen: Bowel Sounds Present, Soft, Non Tender, Non-Distended Extremities: No edema, No Calf Tenderness Skin: No rashes, No breakdown Psych/Mental Status: Normal Affect, Appropriate Microbiology Past 72 Hours 12/25/18 08:45 Wound Abcess - Toe Gram Stain - Final 12/25/18 08:45 Wound Abcess - Toe Wound Culture - Final Escherichia coli Staphylococcus epidermidis 12/25/18 08:45 Wound Abcess - Toe Anaerobic Culture - Final Anaerobic cocci 12/25/18 12:20 Blood Culture (Wb) - Anticubital Right Blood Culture - Final No growth in 5 days. 12/27/18 16:45 Tissue - Toe Gram Stain - Final 12/27/18 16:45 Tissue - Toe Wound Culture - Final No growth aerobically. 12/27/18 16:45 Tissue - Toe Anaerobic Culture - Preliminary No growth in 48 hours. 12/27/18 16:45 Tissue - Left Foot Gram Stain - Final 12/27/18 16:45 Tissue - Left Foot Wound Culture - Final No growth aerobically. 12/27/18 16:45 Tissue - Left Foot Anaerobic Culture - Preliminary No growth in 48 hours. Laboratory Results 12/30/18 11:45: POC Glucose 112 H 12/30/18 17:03: POC Glucose 101 12/30/18 18:11: POC Glucose 201 H 12/30/18 21:15: POC Glucose 55 L 12/30/18 21:51: POC Glucose 78 12/31/18 06:58: POC Glucose 121 H Current Medications Acetaminophen (Tylenol) 650 mg PO Q6H PRN PRN PRN Reason: Mild Pain (scale 0-3)/T>100.7 Last Admin: 12/26/18 00:13 Dose: 650 mg Aspirin (Ecotrin) 81 mg PO DAILY [facility] Last Admin: 12/30/18 08:19 Dose: 81 mg Atorvastatin Calcium (Lipitor) 40 mg PO QHS [facility] Last Admin: 12/30/18 21:17 Dose: 40 mg Bisacodyl (Dulcolax) 10 mg PO DAILY PRN PRN PRN Reason: Constipation Docusate Sodium (Colace) 200 mg PO BID PRN PRN PRN Reason: Constipation Last Admin: 12/25/18 13:15 Dose: 200 mg Doxycycline Monohydrate (Doxycycline) 100 mg PO BID [facility] Last Admin: 12/30/18 21:17 Dose: 100 mg Enoxaparin Sodium (Lovenox) 40 mg SC DAILY@0600 [facility] Last Admin: 12/30/18 23:02 Dose: Not Given Ampicillin Sodium/Sulbactam (Sodium 3 gm/ Sodium Chloride) 112 mls @ 150 mls/hr IV Q6 [facility] Last Admin: 12/31/18 06:04 Dose: 150 mls/hr Insulin Glargine (Lantus (Bk)) 14 units SC 1100,2200 [facility] Last Admin: 12/30/18 22:32 Dose: Not Given Insulin Human Lispro (Humalog Kwikpen (Bk)) 0 unit SC ACHS [facility]; Protocol Last Admin: 12/31/18 07:07 Dose: Not Given Insulin Human Lispro (Humalog Kwikpen (Bkc)) 17 unit SC DINNER [facility] Last Admin: 12/30/18 18:12 Dose: 17 units Insulin Human Lispro (Humalog Kwikpen (Bkc)) 14 unit SC BREAKFAST [facility] Last Admin: 12/31/18 09:00 Dose: Not Given Levothyroxine Sodium (Synthroid) 25 mcg PO DAILY@0600 [facility] Last Admin: 12/31/18 06:06 Dose: 25 mcg Losartan Potassium (Cozaar) 100 mg PO DAILY [facility] Last Admin: 12/30/18 08:20 Dose: 100 mg Magnesium Hydroxide (Milk Of Magnesia) 30 ml PO DAILY PRN PRN PRN Reason: Constipation Metformin HCl (Glucophage) 1,000 mg PO BIDCM [facility] Last Admin: 12/31/18 09:00 Dose: Not Given Metoprolol Succinate (Toprol Xl (Beta Vel)) 100 mg PO DAILY [facility] Last Admin: 12/31/18 09:12 Dose: 100 mg Nutritional Formula (Lactose Free) (Glucerna Shake) 120 ml PO 4X/DAY [facility] Last Admin: 12/31/18 09:01 Dose: Not Given Oxycodone HCl (Oxyir) 5 mg PO Q4H PRN PRN PRN Reason: Moderate Pain (pain scale 4-5) Potassium Chloride (K-Dur) 10 meq PO DAILY [facility] Last Admin: 12/30/18 08:21 Dose: 10 meq Prochlorperazine Edisylate (Compazine Iv) 10 mg IV Q6H PRN PRN PRN Reason: Nausea/Vomiting Sodium Chloride () 5 - 15 ml IV UD PRN PRN Reason: SALINE FLUSH Last Admin: 12/30/18 17:54 Dose: 10 ml Medical Necessity - Tobacco Use Smoking Status: Never smoker Tobacco Use: Non-smoker Assessment/Plan All Active Problems (Last Reviewed 12/26/18 @ 12:51 by Sudhir Singh MD) Left leg cellulitis (Acute) Hyponatremia (Acute) Acute renal failure (Acute) Abnormal LFTs (Acute) Diabetic ulcer of left foot (Acute) Type 2 diabetes mellitus with diabetic polyneuropathy (Acute) Osteomyelitis of left foot (Acute) Cellulitis of left toe (Acute) Abnormal nuclear stress test (Resolved) Unstable angina pectoris (Resolved) 1. Left great toe osteomyelitis w/p amputation 12/27 Cx positive for E. coli, S. epi, Aneraobic cocci On Doxycycline and Unasyn for delayed closure today 2. Left foot cellulitis as above 3. DM2 fair control continue Basal and prandial insulins 4. DVT proph: LMWH 5. Disposition: anticipate home in 24-48h DW patient's at bedside. Code Visit Inpatient E&M: 91037 Subs Hosp L2
[2018-12-31 10:47] LABS: Bedside Glucose 121 mg/dL (70-110)
[2018-12-31] MEDS: Bupivacaine Mpf 0.5% 30 ML VIAL (11:15)
--- NOTE | 2018-12-31 12:01 | OP.PCM_ITS ---
Problem List (1) Diabetic ulcer of left foot Status: Acute (2) Type 2 diabetes mellitus with diabetic polyneuropathy Status: Acute (3) Osteomyelitis of left foot Status: Acute (4) Cellulitis of left toe Status: Acute Report of Operation Date of Procedure: 12/31/18 Pre-Operative Diagnosis: Open hallux amputation left foot Post-Operative Diagnosis: same Surgery/Procedure Performed:: Debridement of soft tissue with delayed primary closure of left open hallux amputation site Description of Surgical Findings:: 3-0 Nylon sutures Hemostasis: well padded left ankle tourniquet Type of Anesthesia:: Local MAC - Preoperative wells block around proximal 1st metatarsal consisting of 10 mL of 0.5% marcaine plain Specimen's removed: Small amount of soft tissue while preparing skin edges for reapproximation Estimated Blood Loss (mL): 10 mL Description of Procedure: Indications: This 63 year-old diabetic male with type 2 diabetes with neuropathy, PVD, as well as other comorbidities is currently POD #4 from initial procedure of debridement of all infected, nonviable, necrotic soft tissue and bone of the left foot with open hallux amputation. Patient has shown progress each day since the procedure. Patient's WBC down to 6.5 after procedure and his vital signs have remained stable each day. Clinically, the patient's cellulitis has resolved and the surgical site has shown no new necrotic tissue formation and there continues to be no purulence or any other new signs of infection to the site. Due to the patient's continued improvement since initial procedure, we plan for delayed primary closure of the open hallux amputation site today. At this time, the planned surgical procedure was discussed in great detail with the patient and his again today. The patient agrees to proceed with planned procedure at this time. Again, I discussed all of the risks and potential complications with the patient and his today, as I did prior to his procedure 4 days ago. Patient was again advised that complications and risks include, but are not limited to further infection, need for further surgeries, recurrence of ulcers, transfer lesions/ulcers, increased deformity of foot and toes, weakness, loss of strength, loss of function, non healing, delayed healing, blood clots, chronic swelling, Charcot foot/ankle, nerve damage, inability to walk, inability to wear shoes, severe pain, crps, need for more proximal amputations such as TMA, BKA, loss of complete limb, or even loss of life. All of the patient's questions were answered to his and his 's sati sfaction. It was then agreed upon to proceed with the planned procedure. The consent form was reviewed with the patient and was freely signed. No guarantees were given. Description of procedure: The patient was brought into the operating room and placed on the table in the supine position. The patient was already on IV antibiotics per hospitalist and ID team. The patient received MAC anesthesia w ith local anesthetic. A local anesthetic block was then performed in a wells block fashion to the proximal first metatarsal consisting of 10 mL of 0.5 % marcaine plain. A well padded ankle tourniquet was then applied to the patient's left ankle. The left foot and ankle were then scrubbed, prepped, and draped in the usual aseptic manner. A timeout was then performed and the patient was properly identified and the surgical plan was performed. Next, attention was directed to the open hallux amputation site. Using a #15 scalpel blade, the edges surrounding entire surgical site of open hallux amp utation were carefully freshened in order to stimulate bleeding. Some of the tissue inside of the surgical site was also stimulated as well. There were no new areas of necrotic tissue currently appreciated during this procedure. At this time, the surgical site was again flushed with copious amounts of normal sterile saline. Next, the open surgical site was carefully reapproximated using 3-0 nylon suture in a simple interrupted fashion. Once complete, the left foot was carefully cleansed, and the surgical site was then dressed with betadine soaked adaptic, 4x4s, ABDs, kerlix, and an LUIZA bandage. Ankle tourniquet was never inflated during this procedure. Ankle tourniquet was carefully removed. After procedure: The patient tolerated the procedure and anesthesia well. He was transferred back to PACU with vital signs stable and vascular status intact. He will be transferred back to the medical surgical floor upon continued stability. He and were advised that the patient is to continue strict nonweightbearing to the left lower extremity and to keep the dressing clean dry and intact. Patient is to continue antibiotics as prescribed under the management of infectious disease. To continue DVT prophylaxis and medical management per primary team. He is to elevate the left foot for post op pain and inflammation management. Podiatry will continue to follow this patient while in house. He will follow up with me in office for further management at the [facility] upon discharge.
[2018-12-31 12:06] LABS: Bedside Glucose 97 mg/dL (70-110)
--- NOTE | 2018-12-31 13:45 | PCM.PN.ID ---
Patient Problems: Active and Suspected Problems (Last Reviewed 12/26/18 @ 12:51 by Sudhir Singh MD) Osteomyelitis of toe of left foot (Suspected) left Hallux Left leg cellulitis (Acute) Hyponatremia (Acute) Acute renal failure (Acute) Abnormal LFTs (Acute) Diabetic ulcer of left foot (Acute) Type 2 diabetes mellitus with diabetic polyneuropathy (Acute) Osteomyelitis of left foot (Acute) Cellulitis of left toe (Acute) Subjective: Just got back from OR closure. No pain, no fever, no n/v/d. - Physical Exam General: Alert, Cooperative, No apparent distress Lungs: Clear to auscultation, Normal air movement Cardiovascular: Regular rate, Regular Rhythm Abdomen: Soft, Non Tender, Non-Distended Skin: Ulcer/ Wound - foot wrapped Vital Signs Temp Pulse Resp BP Pulse Ox 98.6 F 69 18 98/57 L 96 12/31/18 13:00 12/31/18 13:00 12/31/18 13:00 12/31/18 13:00 12/31/18 13:00 Oxygen Delivery Method Room Air Weight: 109.6 kg Body Mass Index (BMI) 28.6 Finger Stick Blood Glucose 97 Intake and Output for Last 24 Hours 12/29/18 12/30/18 12/31/18 23:59 23:59 23:59 Intake Total 820 / 820 1594 / 1594 2273 / 2273 Output Total 775 / 775 1300 / 1300 600 / 600 Balance 45 / 45 294 / 294 1673 / 1673 Microbiology Past 72 Hours 12/25/18 08:45 Gram Stain - Final Wound Abcess - Toe Wound Culture - Final Escherichia coli Staphylococcus epidermidis Anaerobic Culture - Final Anaerobic cocci 12/25/18 12:20 Blood Culture - Final Blood Culture (Wb) - Anticubital Right No growth in 5 days. 12/27/18 16:45 Gram Stain - Final Tissue - Toe Wound Culture - Final No growth aerobically. Anaerobic Culture - Preliminary No growth in 48 hours. 12/27/18 16:45 Gram Stain - Final Tissue - Left Foot Wound Culture - Final No growth aerobically. Anaerobic Culture - Preliminary No growth in 48 hours. POC Glucose 12/31/18 12/31/18 12/31/18 12:01 10:38 06:58 POC Glucose 97 121 H 121 H 12/30/18 12/30/18 12/30/18 21:51 21:15 18:11 POC Glucose 78 55 L 201 H 12/30/18 17:03 POC Glucose 101 Medical Necessity - Tobacco Use Smoking Status: Never smoker Tobacco Use: Non-smoker Route of nutrition/ use of supplements: [] Nutritional Intake: [] IV Site: [] Fish Catheter: [] - Assessment/Plan Antibiotics: [] Assessment/Plan: [] Active and Suspected Problems (Last Reviewed 12/26/18 @ 12:51 by Sudhir Singh MD) Osteomyelitis of toe of left foot (Suspected) left Hallux Left leg cellulitis (Acute) Hyponatremia (Acute) Acute renal failure (Acute) Abnormal LFTs (Acute) L 1st toe osteomyelitis with DM neuropathy - cx 12/03/18 with MSSE and MS Staph lugdunensis, he was given bactrim as an outpt but susceptibility to that drug is not listed. Cx here with MRSE and ecoli. Amputation done 12/27, continue unasyn and po doxy, then plan on short course of abx if surgery shows clear margins or be able to stop prior to discharge if he's here much longer. Closure done today 12/31, reportedly no signs of remaining purulence. Will follow
[2018-12-31] MEDS: Doxycycline 100 MG CAPSULE PO ×2 (14:23→21:59)
[2018-12-31] MEDS: Aspirin E.C. 81 MG Tablet PO (14:23)
[2018-12-31] MEDS: DULAGLUTIDE 1.5 MG/0.5 ML PEN.INJCTR SQ (14:24)
[2018-12-31] MEDS: Empagliflozin 25 MG Tablet PO (14:24)
[2018-12-31] MEDS: Glucerna Shake 120 ML LIQUID PO ×3 (14:28→21:59)
[2018-12-31 17:01] LABS: Bedside Glucose 109 mg/dL (70-110)
[2018-12-31] MEDS: Insulin Lispro 100 UNIT/ML INSULN.PEN 17 UNIT SC (17:35)
[2018-12-31] MEDS: metFORMIN HCl 1,000 MG Tablet 1000 MG PO (17:35)
[2018-12-31] MEDS: Atorvastatin Calcium 40 MG Tablet PO (21:59)
[2018-12-31 22:11] LABS: Bedside Glucose 95 mg/dL (70-110)
[2019-01-01 01:55] VITALS: BP 119/61; PULSE 80; RESP 16; TEMP 37.6; O2SAT 96
[2019-01-01] MEDS: Levothyroxine 25 MCG TABLET PO (06:00)
[2019-01-01] MEDS: Enoxaparin 40 MG/0.4 ML Syringe SC (06:00)
[2019-01-01 07:32] VITALS: BP 113/63; PULSE 76; RESP 16; TEMP 36.8; O2SAT 98
[2019-01-01] MEDS: metFORMIN HCl 1,000 MG Tablet 1000 MG PO (07:35)
[2019-01-01 07:41] LABS: Bedside Glucose 90 mg/dL (70-110)
--- NOTE | 2019-01-01 09:00 | PCM.PROGNOTE ---
Subjective: Patient was seen at bedside, s/p amputation of the 1st toe and closure by Dr. Estrada. He relates he is doing well and ready to go home. He has no complaints, no complaints of fever, chills, nausea or vomiting. His is at bedside. - Physical Exam General: Alert, Oriented x3, Cooperative, No apparent distress Extremities: Capillary Refill Less than 3 Seconds, No Calf Tenderness, - - Left foot s/p hallux amputation and closure - site doing very well, sutures intact, no dehiscence, no drainage, no necrosis, no maloder, no visible abscess, no fluctuance, no blistering, no crepitus, no pain - cellulitis to the foot significant improved, no evidence of complications at this time, no evidence of ischemia. Vascular status intact to the left foot. Psych/Mental Status: Normal Affect, Appropriate, Alert and oriented to time, place, person, mood and affect Vital Signs Temp Pulse Resp BP Pulse Ox 98.3 F 68 18 125/64 H 98 01/01/19 13:18 01/01/19 13:18 01/01/19 13:18 01/01/19 13:18 01/01/19 13:18 Oxygen Delivery Method Room Air Weight: 109.6 kg Body Mass Index (BMI) 28.6 Finger Stick Blood Glucose 97 Medical Necessity - Tobacco Use Smoking Status: Never smoker Tobacco Use: Non-smoker Assessment/Plan All Active Problems (Last Reviewed 12/26/18 @ 12:51 by Sudhir Singh MD) Left leg cellulitis (Acute) Hyponatremia (Acute) Acute renal failure (Acute) Abnormal LFTs (Acute) Diabetic ulcer of left foot (Acute) Type 2 diabetes mellitus with diabetic polyneuropathy (Acute) Osteomyelitis of left foot (Acute) Cellulitis of left toe (Acute) Abnormal nuclear stress test (Resolved) Unstable angina pectoris (Resolved) S/P open left hallux amputation, and now s/p closure Cellulitis left lower extremity- practically resolved DM with neuropathy Hammer toes 2-5 left foot Other comorbidities The left foot is doing very well, no evidence of complication at this time. Ok for patient to go home from foot standpoint. Painted incision line with betadine solution and applied gauze, kerlix and darrell dressing. Educated patient and his how to do this, this to be changed daily. Ok to put weight on the left heel only for transitions using surgical shoe, otherwise he is to use his knee walker, and keep foot elevated. Antibiotic per Infectious Disease. Patient to follow up wtih Dr. Estrada this Monday01[facility]04[facility], sooner if needed. Patient and his agreed with this plan. Reviewed with Dr. Mart.
--- NOTE | 2019-01-01 09:13 | PCM.DC.POD ---
Weight Bearing Status: No weight bearing - No weightbearing on left forefoot/toes/ball of foot, ok to put weight on left heel only for transitions. Otherwise use knee walker to stay off of the left foot. Call your doctor if your incision/area has: Continuous Slow Oozing, Sudden Increased Bleeding, Increased Pain/ Swelling, Foul Smelling Discharge Call your doctor if you observe: Fever of 101 or Higher, Shortness of breath, Chest pain, Calf discomfort, Uncontrolled pain Cleanse incision/area with: - - Wound care left foot: Change dressing daily. Cleanse incision site with normal saline solution. [place] incision site with betadine solution. Apply overlying gauze and darrell dressing. Additional Instructions: Medications at discharge per hospitalist/medicine team. Allergies/Adverse Reactions: Allergies adhesive tape Allergy (Verified 12/19/18 09:55) Rash Medications to take at Discharge aspirin 81 mg tablet,delayed release 81 mg PO QDAY 12/08/17 metformin 1,000 mg tablet 1,000 mg PO BIDCM 12/08/17 dulaglutide 1.5 mg/0.5 mL subcutaneous pen injector 1.5 mg SC QWEEK 12/21/18 empagliflozin 25 mg tablet 25 mg PO DAILY 12/21/18 levothyroxine 25 mcg tablet 25 mcg PO DAILY 12/21/18 Apixaban [Eliquis] 5 mg PO BID 12/25/18 Atorvastatin Calcium [Lipitor] 40 mg PO QDAY 12/25/18 Cholecalciferol (VIT D3) [Vitamin D3] 1,000 unit PO DAILY 12/25/18 Cholecalciferol (Vitamin D3) [Vitamin D3] 5,000 unit PO DAILY 12/25/18 Ferrous Fumarate [Ferretts] 325 mg PO DAILY 12/25/18 Hydrochlorothiazide [Hctz] 25 mg PO QDAY 12/25/18 Insulin Detemir [Levemir Flextouch] 14 unit SQ BID 12/25/18 Insulin Lispro [Humalog KwikPen] 17 units SC DINNER 12/25/18 Insulin Lispro [Humalog Kwikpen] 14 unit SQ BREAKFAST 12/25/18 Losartan Potassium 100 mg PO QDAY 12/25/18 Metoprolol Succinate [Toprol Xl] 100 mg PO DAILY 12/25/18 Potassium Chloride 10 meq PO QDAY 12/25/18 Acetaminophen [Tylenol Tablet] 1,000 mg PO TID PRN tablet 02/05/19 Docusate Sodium [Colace] 200 mg PO BID PRN PRN capsule 01/01/19 Mycophenolate Mofetil [Cellcept] 1,000 mg PO BID #0 01/01/19 Primary Care Physician: Mk Goldberg MD [Primary Care Provider] - Test Results: Test results from this visit will be discussed in further detail at your follow-up appointment, if applicable. Please Follow Up With: Dwain Estrada DPM - Office number is [phone]. Address is [address] [place] [address] When: On Monday01/04/19 at [facility]
[2019-01-01] MEDS: Insulin Lispro 100 UNIT/ML INSULN.PEN 14 UNIT SC (09:42)
[2019-01-01 09:43] VITALS: PULSE 88
[2019-01-01] MEDS: Aspirin E.C. 81 MG Tablet PO (09:43)
[2019-01-01] MEDS: Empagliflozin 25 MG Tablet PO (09:43)
[2019-01-01] MEDS: Doxycycline 100 MG CAPSULE PO (09:43)
[2019-01-01] MEDS: Metoprolol(XL)Succ 100 MG Tablet PO (09:43)
[2019-01-01] MEDS: Losartan Potassium 100 MG Tablet PO (09:44)
[2019-01-01] MEDS: Glucerna Shake 120 ML LIQUID PO (09:48)
[2019-01-01 09:51] LABS: Bedside Glucose 175 mg/dL (70-110)
--- NOTE | 2019-01-01 10:07 | PCM.PN.ID ---
Patient Problems: Active and Suspected Problems (Last Reviewed 12/26/18 @ 12:51 by Sudhir Singh MD) Osteomyelitis of toe of left foot (Suspected) left Hallux Left leg cellulitis (Acute) Hyponatremia (Acute) Acute renal failure (Acute) Abnormal LFTs (Acute) Diabetic ulcer of left foot (Acute) Type 2 diabetes mellitus with diabetic polyneuropathy (Acute) Osteomyelitis of left foot (Acute) Cellulitis of left toe (Acute) Subjective: Feeling well, foot is good, no fever. Home today. - Physical Exam General: Alert, Cooperative, No apparent distress Lungs: Clear to auscultation, Normal air movement Cardiovascular: Regular rate, Regular Rhythm Abdomen: Soft, Non Tender, Non-Distended Skin: No rashes, Incision - foot wrapped Vital Signs Temp Pulse Resp BP Pulse Ox 98.2 F 88 16 113/63 98 01/01/19 07:32 01/01/19 09:43 01/01/19 07:32 01/01/19 07:32 01/01/19 07:32 Oxygen Delivery Method Room Air Weight: 109.6 kg Body Mass Index (BMI) 28.6 Finger Stick Blood Glucose 97 Intake and Output for Last 24 Hours 12/30/18 12/31/18 01/01/19 23:59 23:59 23:59 Intake Total 1594 / 1594 3023 / 3023 726 / 726 Output Total 1300 / 1300 1100 / 1100 700 / 700 Balance 294 / 294 1923 / 1923 / Microbiology Past 72 Hours 12/27/18 16:45 Gram Stain - Final Tissue - Toe Wound Culture - Final No growth aerobically. Anaerobic Culture - Final No growth in 5 days. 12/27/18 16:45 Gram Stain - Final Tissue - Left Foot Wound Culture - Final No growth aerobically. Anaerobic Culture - Final No growth in 5 days. 12/25/18 08:45 Gram Stain - Final Wound Abcess - Toe Wound Culture - Final Escherichia coli Staphylococcus epidermidis Anaerobic Culture - Final Anaerobic cocci 12/25/18 12:20 Blood Culture - Final Blood Culture (Wb) - Anticubital Right No growth in 5 days. POC Glucose 01/01/19 01/01/19 12/31/18 09:40 07:28 21:57 POC Glucose 175 H 90 95 02/04/19 02/04/19 02/04/19 16:54 12:01 10:38 POC Glucose 109 97 121 H Medical Necessity - Tobacco Use Smoking Status: Never smoker Tobacco Use: Non-smoker Route of nutrition/ use of supplements: [] Nutritional Intake: [] IV Site: [] Fish Catheter: [] - Assessment/Plan Antibiotics: [] Assessment/Plan: [] Active and Suspected Problems (Last Reviewed 12/26/18 @ 12:51 by Sudhir Singh MD) Osteomyelitis of toe of left foot (Suspected) left Hallux Left leg cellulitis (Acute) Hyponatremia (Acute) Acute renal failure (Acute) Abnormal LFTs (Acute) L 1st toe osteomyelitis with DM neuropathy - cx 12/03/18 with MSSE and MS Staph lugdunensis, he was given bactrim as an outpt but susceptibility to that drug is not listed. Cx here with MRSE and ecoli. Amputation done 12/27, on unasyn and po doxy. Closure done today 12/31, reportedly no signs of remaining purulence. Ok for d/c home off of abx with podiatry followup. Will follow, d/w primary team
--- NOTE | 2019-01-01 10:13 | PCM.DC ---
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) Left leg cellulitis (Acute) Hyponatremia (Acute) Acute renal failure (Acute) Abnormal LFTs (Acute) Peripheral neuropathy (Chronic) Autoimmune disease (Chronic) he is followed at the [facility].......not otherwise classified Dropfoot (Chronic) History of nonmelanoma skin cancer (Chronic) Diabetic ulcer of left foot (Acute) Type 2 diabetes mellitus with diabetic polyneuropathy (Acute) Osteomyelitis of left foot (Acute) Cellulitis of left toe (Acute) You will use the following diet at home:: Calorie/Carbohydrate Controlled (specify 1200, 1400, etc) - 1800 calories/day Your food should be the consistency of: Regular Your liquids should be the consistency of: Regular/Thin Weight Bearing Status: No weight bearing - No weightbearing on left forefoot/toes/ball of foot, ok to put weight on left heel only for transitions. Otherwise use knee walker to stay off of the left foot. Call your doctor if your incision/area has: Continuous Slow Oozing, Sudden Increased Bleeding, Increased Pain/ Swelling, Foul Smelling Discharge Call your doctor if you observe: Fever of 101 or Higher, Shortness of breath, Chest pain, Calf discomfort, Uncontrolled pain Cleanse incision/area with: - - Wound care left foot: Change dressing daily. Cleanse incision site with normal saline solution. [place] incision site with betadine solution. Apply overlying gauze and darrell dressing. Allergies/Adverse Reactions: Allergies adhesive tape Allergy (Verified 12/19/18 09:55) Rash Medications to take at Discharge aspirin 81 mg tablet,delayed release 81 mg PO QDAY 12/08/17 metformin 1,000 mg tablet 1,000 mg PO BIDCM 12/08/17 dulaglutide 1.5 mg/0.5 mL subcutaneous pen injector 1.5 mg SC QWEEK 12/21/18 empagliflozin 25 mg tablet 25 mg PO DAILY 12/21/18 levothyroxine 25 mcg tablet 25 mcg PO DAILY 12/21/18 Apixaban [Eliquis] 5 mg PO BID 12/25/18 Atorvastatin Calcium [Lipitor] 40 mg PO QDAY 12/25/18 Cholecalciferol (VIT D3) [Vitamin D3] 1,000 unit PO DAILY 12/25/18 Cholecalciferol (Vitamin D3) [Vitamin D3] 5,000 unit PO DAILY 12/25/18 Ferrous Fumarate [Ferretts] 325 mg PO DAILY 12/25/18 Hydrochlorothiazide [Hctz] 25 mg PO QDAY 12/25/18 Insulin Detemir [Levemir Flextouch] 14 unit SQ BID 12/25/18 Insulin Lispro [Humalog KwikPen] 17 units SC DINNER 12/25/18 Insulin Lispro [Humalog Kwikpen] 14 unit SQ BREAKFAST 12/25/18 Losartan Potassium 100 mg PO QDAY 12/25/18 Metoprolol Succinate [Toprol Xl] 100 mg PO DAILY 12/25/18 Potassium Chloride 10 meq PO QDAY 12/25/18 Acetaminophen [Tylenol Tablet] 1,000 mg PO TID PRN tablet 01/01/19 Docusate Sodium [Colace] 200 mg PO BID PRN PRN capsule 01/01/19 Mycophenolate Mofetil [Cellcept] 1,000 mg PO BID #0 01/01/19 Oxycodone [Oxyir] 5 mg PO Q6H PRN 3 Days #12 tablet 01/01/19 The following prescriptions were given: Oxycodone [Oxyir] 5 mg PO Q6H PRN 3 Days #12 tablet PRN Reason: Moderate Pain (pain scale 4-5) Primary Care Physician: Mk Goldberg MD [Primary Care Provider] - Test Results: Test results from this visit will be discussed in further detail at your follow-up appointment, if applicable. Please Follow Up With: Dwain Estrada DPM - Office number is [phone]. Address is [address] [place] [address] When: On Monday01/04/19 at [facility] Proposed Discharge Date: 01/01/19
--- NOTE | 2019-01-01 10:14 | PCM.DC.SUM ---
Discharge Date and Diagnosis - Problem List Patient Problems: Active and Suspected Problems (Last Reviewed 12/26/18 @ 12:51 by Sudhir Singh MD) Osteomyelitis of toe of left foot (Suspected) left Hallux Left leg cellulitis (Acute) Hyponatremia (Acute) Acute renal failure (Acute) Abnormal LFTs (Acute) Diabetic ulcer of left foot (Acute) Type 2 diabetes mellitus with diabetic polyneuropathy (Acute) Osteomyelitis of left foot (Acute) Cellulitis of left toe (Acute) Date of Admission: 12/25/18 Date of Discharge: 01/01/19 - Primary Discharge Diagnosis Active and Suspected Problems (Last Reviewed 12/26/18 @ 12:51 by Sudhir Singh MD) Osteomyelitis of toe of left foot (Suspected) left Hallux Left leg cellulitis (Acute) Hyponatremia (Acute) Acute renal failure (Acute) Abnormal LFTs (Acute) Diabetic ulcer of left foot (Acute) Type 2 diabetes mellitus with diabetic polyneuropathy (Acute) Osteomyelitis of left foot (Acute) Cellulitis of left toe (Acute) - Secondary Discharge Diagnosis Chronic Problems (Last Reviewed 12/26/18 @ 12:51 by Sudhir Singh MD) Type 2 diabetes mellitus with diabetic polyneuropathy (Chronic) Hallux malleus of left foot (Chronic) 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 Arnold: 07/31/2015: CABG X 4: RUIZ to left anterior descending bridge diagonal, SVG to first DX, radial artery to the lateral CX. Done @ [facility] per Dr. Randall History of coronary artery bypass graft (Chronic 07/31/15) 07/31/2015: CABG X 4: RUIZ to left anterior descending bridge diagonal, SVG to first DX, radial artery to the lateral CX. Done @ [facility] per Dr. Randall History of left heart catheterization (Chronic 07/30/15) Left heart cath 07/30/2015 @ [facility] per Dr. Arnold Right-sided extracranial carotid artery stenosis (Chronic) Hypertension (Chronic) Hyperlipidemia (Chronic) Diabetes mellitus type II, controlled (Chronic) Interstitial lung disease (Chronic) Hospital Course and Treatment Imaging Results: Clinical Impression(s) from Imaging Studies Lower Extremity MRI 12/25/18 17:45 IMPRESSION: Osteomyelitis of the proximal and distal phalanges of the great toe. Arthrosis of the fibular sesamoid-first metatarsal articulation. Small intermetatarsal neuroma of the second webspace. Atrophy of the intrinsic muscles of the forefoot suggestive of peripheral neuropathy. Electronically Signed: Leo Momin MD at 8:26 EST Tel , Service support , Foot X-Ray 12/27/18 17:20 IMPRESSION: Status post amputation of the left great toe. Electronically Signed: Joel Sánchez MD at 19:54 EST , Service support , Consultations 12/25/18 11:42 Consult: Onc/Wound/size marker Routine Comment: Billy Mcguire DPM: Podiatry Juan José Servin MD: ID Operations: - - 12/27: Debridement of all necrotic, non-viable, infected soft tissue and bone of the left foot with open hallux amputation. 12/31:Debridement of soft tissue with delayed primary closure of left open hallux amputation site Summary of Care Provided: The patient is a 63 year old M was sent to the hospital by podiatry for cellulitis and ice mellitus of the left hallux. Patient also had some acute kidney injury with a creatinine of 1.5, elevated LFTs. Patient was started on ceftriaxone and Flagyl. Diuretics were held given acute kidney injury. Patient's acute kidney injury did resolve. Patient was taken for incision of the left hallux on the and then underwent delayed closure on the . Cultures of the wound showed E. coli as well as Staphylococcus epidermidis. Patient was seen in consultation by infectious disease and continued on antibiotics. Today, the antibiotics are being discontinued at the recommendations of infectious disease. Patient will follow up with podiatry on the eighth. Patient be nonweightbearing to the left lower extremity until further cleared by podiatry. Patient did have some mild hypoglycemia while he was here but patient is on a more strict diet here than he typically does at home. Advised patient continue with his home insulin regimen and continue with his typical diet at home within reason. Kelli with the patient's at bedside. [] Patient Problems: Active and Suspected Problems (Last Reviewed 12/26/18 @ 12:51 by Sudhir Singh MD) Osteomyelitis of toe of left foot (Suspected) left Hallux Left leg cellulitis (Acute) Hyponatremia (Acute) Acute renal failure (Acute) Abnormal LFTs (Acute) Diabetic ulcer of left foot (Acute) Type 2 diabetes mellitus with diabetic polyneuropathy (Acute) Osteomyelitis of left foot (Acute) Cellulitis of left toe (Acute) - Physical Exam General: Alert, No apparent distress HEENT: Atraumatic, Normocephalic Extremities: - - Left foot bandaged, did not remove. Psych/Mental Status: Normal Affect, Appropriate Vital Signs Temp Pulse Resp BP Pulse Ox 36.8 C 88 16 113/63 98 01/01/19 07:32 01/01/19 09:43 01/01/19 07:32 01/01/19 07:32 01/01/19 07:32 Oxygen Delivery Method Room Air Weight: 109.6 kg Body Mass Index (BMI) 28.6 Finger Stick Blood Glucose 97 Intake and Output for Last 24 Hours 12/30/18 12/31/18 01/01/19 23:59 23:59 23:59 Intake Total 1594 / 1594 3023 / 3023 726 / 726 Output Total 1300 / 1300 1100 / 1100 700 / 700 Balance 294 / 294 1923 / 1923 26 / 26 Microbiology Past 72 Hours 12/27/18 16:45 Gram Stain - Final Tissue - Toe Wound Culture - Final No growth aerobically. Anaerobic Culture - Final No growth in 5 days. 12/27/18 16:45 Gram Stain - Final Tissue - Left Foot Wound Culture - Final No growth aerobically. Anaerobic Culture - Final No growth in 5 days. 12/25/18 08:45 Gram Stain - Final Wound Abcess - Toe Wound Culture - Final Escherichia coli Staphylococcus epidermidis Anaerobic Culture - Final Anaerobic cocci 12/25/18 12:20 Blood Culture - Final Blood Culture (Wb) - Anticubital Right No growth in 5 days. POC Glucose 01/01/19 01/01/19 12/31/18 09:40 07:28 21:57 POC Glucose 175 H 90 95 12/31/18 12/31/18 12/31/18 16:54 12:01 10:38 POC Glucose 109 97 121 H Discharge Diet: 1800 Calorie Control Diet Weight Bearing Status: No weight bearing - No weightbearing on left forefoot/toes/ball of foot, ok to put weight on left heel only for transitions. Otherwise use knee walker to stay off of the left foot. Call your doctor if your incision/area has: Continuous Slow Oozing, Sudden Increased Bleeding, Increased Pain/ Swelling, Foul Smelling Discharge Call your doctor if you observe: Fever of 101 or Higher, Shortness of breath, Chest pain, Calf discomfort, Uncontrolled pain Cleanse incision/area with: - - Wound care left foot: Change dressing daily. Cleanse incision site with normal saline solution. [place] incision site with betadine solution. Apply overlying gauze and darrell dressing. Home Medications: Medications to take at Discharge aspirin 81 mg tablet,delayed release 81 mg PO QDAY 12/08/17 metformin 1,000 mg tablet 1,000 mg PO BIDCM 12/08/17 dulaglutide 1.5 mg/0.5 mL subcutaneous pen injector 1.5 mg SC QWEEK 12/21/18 empagliflozin 25 mg tablet 25 mg PO DAILY 12/21/18 levothyroxine 25 mcg tablet 25 mcg PO DAILY 12/21/18 Apixaban [Eliquis] 5 mg PO BID 12/25/18 Atorvastatin Calcium [Lipitor] 40 mg PO QDAY 12/25/18 Cholecalciferol (VIT D3) [Vitamin D3] 1,000 unit PO DAILY 12/25/18 Cholecalciferol (Vitamin D3) [Vitamin D3] 5,000 unit PO DAILY 12/25/18 Ferrous Fumarate [Ferretts] 325 mg PO DAILY 12/25/18 Hydrochlorothiazide [Hctz] 25 mg PO QDAY 12/25/18 Insulin Detemir [Levemir Flextouch] 14 unit SQ BID 12/25/18 Insulin Lispro [Humalog KwikPen] 17 units SC DINNER 12/25/18 Insulin Lispro [Humalog Kwikpen] 14 unit SQ BREAKFAST 12/25/18 Losartan Potassium 100 mg PO QDAY 12/25/18 Metoprolol Succinate [Toprol Xl] 100 mg PO DAILY 12/25/18 Potassium Chloride 10 meq PO QDAY 12/25/18 Acetaminophen [Tylenol Tablet] 1,000 mg PO TID PRN tablet 01/01/19 Docusate Sodium [Colace] 200 mg PO BID PRN PRN capsule 01/01/19 Mycophenolate Mofetil [Cellcept] 1,000 mg PO BID #0 01/01/19 Oxycodone [Oxyir] 5 mg PO Q6H PRN 3 Days #12 tablet 01/01/19 Following Prescrptions Were Given to Patient: Oxycodone [Oxyir] 5 mg PO Q6H PRN 3 Days #12 tablet PRN Reason: Moderate Pain (pain scale 4-5) Primary Care Physician: Mk Goldberg MD [Primary Care Provider] - Please Follow Up With: Dwain Estrada DPM - Office number is [phone]. Address is [address] [place] [address] When: On Monday01/04/19 at [facility] Disposition: Home Minutes spent on discharge:: 35 Patient Condition:: Good Medical Necessity - Tobacco Use Smoking Status: Never smoker Tobacco Use: Non-smoker Meaningful Use Info Meaningful Use Diagnoses (Choose all that apply): None applicable Code Visit Inpatient E&M: 25821 Disch Hosp
--- NOTE | 2019-01-01 10:19 | DS.PCM_ITS ---
Discharge Date and Diagnosis - Problem List Patient Problems: Active and Suspected Problems (Last Reviewed 12/26/18 @ 12:51 by Sudhir Singh MD) Osteomyelitis of toe of left foot (Suspected) left Hallux Left leg cellulitis (Acute) Hyponatremia (Acute) Acute renal failure (Acute) Abnormal LFTs (Acute) Diabetic ulcer of left foot (Acute) Type 2 diabetes mellitus with diabetic polyneuropathy (Acute) Osteomyelitis of left foot (Acute) Cellulitis of left toe (Acute) Date of Admission: 12/25/18 Date of Discharge: 01/01/19 - Primary Discharge Diagnosis Active and Suspected Problems (Last Reviewed 12/26/18 @ 12:51 by Sudhir Singh MD) Osteomyelitis of toe of left foot (Suspected) left Hallux Left leg cellulitis (Acute) Hyponatremia (Acute) Acute renal failure (Acute) Abnormal LFTs (Acute) Diabetic ulcer of left foot (Acute) Type 2 diabetes mellitus with diabetic polyneuropathy (Acute) Osteomyelitis of left foot (Acute) Cellulitis of left toe (Acute) - Secondary Discharge Diagnosis Chronic Problems (Last Reviewed 12/26/18 @ 12:51 by Sudhir Singh MD) Type 2 diabetes mellitus with diabetic polyneuropathy (Chronic) Hallux malleus of left foot (Chronic) Chronic ulcer of left foot with necrosis of bone (Chronic) Peripheral neuropathy (Chronic) Autoimmune disease (Chronic) he is followed at the [facility].......not otherwise classified Dropfoot (Chronic) History of nonmelanoma skin cancer (Chronic) Hypothyroid (Chronic) Paroxysmal atrial fibrillation (Chronic) 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 Arnold: 07/31/2015: CABG X 4: RUIZ to left anterior descending bridge diagonal, SVG to first DX, radial artery to the lateral CX. Done @ [facility] per Dr. Randall History of coronary artery bypass graft (Chronic 07/31/15) 07/31/2015: CABG X 4: RUIZ to left anterior descending bridge diagonal, SVG to first DX, radial artery to the lateral CX. Done @ [facility] per Dr. Randall History of left heart catheterization (Chronic 07/30/15) Left heart cath 07/30/2015 @ [facility] per Dr. Arnold Right-sided extracranial carotid artery stenosis (Chronic) Hypertension (Chronic) Hyperlipidemia (Chronic) Diabetes mellitus type II, controlled (Chronic) Interstitial lung disease (Chronic) Hospital Course and Treatment Imaging Results: Clinical Impression(s) from Imaging Studies Lower Extremity MRI 12/25/18 17:45 IMPRESSION: Osteomyelitis of the proximal and distal phalanges of the great toe. Arthrosis of the fibular sesamoid-first metatarsal articulation. Small intermetatarsal neuroma of the second webspace. Atrophy of the intrinsic muscles of the forefoot suggestive of peripheral neuropathy. Electronically Signed: Leo Momin MD at 8:26 EST Tel , Service support , Foot X-Ray 12/27/18 17:20 IMPRESSION: Status post amputation of the left great toe. Electronically Signed: Joel Sánchez MD at 19:54 EST , Service support , Consultations 12/25/18 11:42 Consult: Onc/Wound/accounts receivable representative Routine Comment: Billy Mcguire DPM: Podiatry Juan José Servin MD: ID Operations: - - 12/27: Debridement of all necrotic, non-viable, infected soft tissue and bone of the left foot with open hallux amputation. 12/31:Debridement of soft tissue with delayed primary closure of left open hallux amputation site Summary of Care Provided: The patient is a 63 year old M was sent to the hospital by podiatry for cellulitis and ice mellitus of the left hallux. Patient also had some acute kidney injury with a creatinine of 1.5, elevated LFTs. Patient was started on ceftriaxone and Flagyl. Diuretics were held given acute kidney injury. Patient's acute kidney injury did resolve. Patient was taken for incision of the left hallux on the and then underwent delayed closure on the . Cultures of the wound showed E. coli as well as Staphylococcus epidermidis. Patient was seen in consultation by infectious disease and continued on antibiotics. Today, the antibiotics are being discontinued at the recommendations of infectious disease. Patient will follow up with podiatry on the eighth. Patient be nonweightbearing to the left lower extremity until further cleared by podiatry. Patient did have some mild hypoglycemia while he was here but patient is on a more strict diet here than he typically does at home. Advised patient continue with his home insulin regimen and continue with his typical diet at home within reason. Kelli with the patient's at bedside. [] Patient Problems: Active and Suspected Problems (Last Reviewed 12/26/18 @ 12:51 by Sudhir Singh MD) Osteomyelitis of toe of left foot (Suspected) left Hallux Left leg cellulitis (Acute) Hyponatremia (Acute) Acute renal failure (Acute) Abnormal LFTs (Acute) Diabetic ulcer of left foot (Acute) Type 2 diabetes mellitus with diabetic polyneuropathy (Acute) Osteomyelitis of left foot (Acute) Cellulitis of left toe (Acute) - Physical Exam General: Alert, No apparent distress HEENT: Atraumatic, Normocephalic Extremities: - - Left foot bandaged, did not remove. Psych/Mental Status: Normal Affect, Appropriate Vital Signs Temp Pulse Resp BP Pulse Ox 36.8 C 88 16 113/63 98 01/01/19 07:32 01/01/19 09:43 01/01/19 07:32 01/01/19 07:32 01/01/19 07:32 Oxygen Delivery Method Room Air Weight: 109.6 kg Body Mass Index (BMI) 28.6 Finger Stick Blood Glucose 97 Intake and Output for Last 24 Hours 12/30/18 12/31/18 01/01/19 23:59 23:59 23:59 Intake Total 1594 / 1594 3023 / 3023 726 / 726 Output Total 1300 / 1300 1100 / 1100 700 / 700 Balance 294 / 294 1923 / 1923 26 / 26 Microbiology Past 72 Hours 12/27/18 16:45 Gram Stain - Final Tissue - Toe Wound Culture - Final No growth aerobically. Anaerobic Culture - Final No growth in 5 days. 12/27/18 16:45 Gram Stain - Final Tissue - Left Foot Wound Culture - Final No growth aerobically. Anaerobic Culture - Final No growth in 5 days. 12/25/18 08:45 Gram Stain - Final Wound Abcess - Toe Wound Culture - Final Escherichia coli Staphylococcus epidermidis Anaerobic Culture - Final Anaerobic cocci 12/25/18 12:20 Blood Culture - Final Blood Culture (Wb) - Anticubital Right No growth in 5 days. POC Glucose 01/01/19 01/01/19 12/31/18 09:40 07:28 21:57 POC Glucose 175 H 90 95 12/31/18 12/31/18 12/31/18 16:54 12:01 10:38 POC Glucose 109 97 121 H Discharge Diet: 1800 Calorie Control Diet Weight Bearing Status: No weight bearing - No weightbearing on left forefoot/toes/ball of foot, ok to put weight on left heel only for transitions. Otherwise use knee walker to stay off of the left foot. Call your doctor if your incision/area has: Continuous Slow Oozing, Sudden Increased Bleeding, Increased Pain/ Swelling, Foul Smelling Discharge Call your doctor if you observe: Fever of 101 or Higher, Shortness of breath, Chest pain, Calf discomfort, Uncontrolled pain Cleanse incision/area with: - - Wound care left foot: Change dressing daily. Cleanse incision site with normal saline solution. [place] incision site with betadine solution. Apply overlying gauze and darrell dressing. Home Medications: Medications to take at Discharge aspirin 81 mg tablet,delayed release 81 mg PO QDAY 12/08/17 metformin 1,000 mg tablet 1,000 mg PO BIDCM 12/08/17 dulaglutide 1.5 mg/0.5 mL subcutaneous pen injector 1.5 mg SC QWEEK 12/21/18 empagliflozin 25 mg tablet 25 mg PO DAILY 12/21/18 levothyroxine 25 mcg tablet 25 mcg PO DAILY 12/21/18 Apixaban [Eliquis] 5 mg PO BID 12/25/18 Atorvastatin Calcium [Lipitor] 40 mg PO QDAY 12/25/18 Cholecalciferol (VIT D3) [Vitamin D3] 1,000 unit PO DAILY 12/25/18 Cholecalciferol (Vitamin D3) [Vitamin D3] 5,000 unit PO DAILY 12/25/18 Ferrous Fumarate [Ferretts] 325 mg PO DAILY 12/25/18 Hydrochlorothiazide [Hctz] 25 mg PO QDAY 12/25/18 Insulin Detemir [Levemir Flextouch] 14 unit SQ BID 12/25/18 Insulin Lispro [Humalog KwikPen] 17 units SC DINNER 12/25/18 Insulin Lispro [Humalog Kwikpen] 14 unit SQ BREAKFAST 12/25/18 Losartan Potassium 100 mg PO QDAY 12/25/18 Metoprolol Succinate [Toprol Xl] 100 mg PO DAILY 12/25/18 Potassium Chloride 10 meq PO QDAY 12/25/18 Acetaminophen [Tylenol Tablet] 1,000 mg PO TID PRN tablet 01/01/19 Docusate Sodium [Colace] 200 mg PO BID PRN PRN capsule 01/01/19 Mycophenolate Mofetil [Cellcept] 1,000 mg PO BID #0 01/01/19 Oxycodone [Oxyir] 5 mg PO Q6H PRN 3 Days #12 tablet 01/01/19 Following Prescrptions Were Given to Patient: Oxycodone [Oxyir] 5 mg PO Q6H PRN 3 Days #12 tablet PRN Reason: Moderate Pain (pain scale 4-5) Primary Care Physician: Mk Goldberg MD [Primary Care Provider] - Please Follow Up With: Dwain Estrada DPM - Office number is [phone]. Address is [address] [place] [address] When: On Monday01/04/19 at [facility] Disposition: Home Minutes spent on discharge:: 35 Patient Condition:: Good Medical Necessity - Tobacco Use Smoking Status: Never smoker Tobacco Use: Non-smoker Meaningful Use Info Meaningful Use Diagnoses (Choose all that apply): None applicable Code Visit Inpatient E&M: 19552 Disch Hosp
[2019-01-01] MEDS: Amox/Clavulanate 875 MG Tablet PO (11:36)
[2019-01-01 11:46] LABS: Bedside Glucose 77 mg/dL (70-110)
[2019-01-01 13:18] VITALS: BP 125/64; PULSE 68; RESP 18; TEMP 36.8; O2SAT 98
--- NOTE | 2019-01-03 17:19 | CASEMGMT ---
LAURA PITTMAN Discharge Follow-up Phone Call: LETTY: Raffi Strata: 3 Call Date: 01/03/19 Discharge Date: 01/01/19 Time of Call: 0839 Duration: 4 minutes ? Admitting Diagnosis: Osteomyelitis of left foot This RN CM contacted pt via phone in regard to discharge follow-up. Pt states he has been doing well and has been staying non-weightbearing to his left foot. States his pain has been controlled. Is aware of his dr's appointment tomorrow with Dr. Estrada. Denies any questions or concerns. Lidia Lin RN
== END 2019-01-01 13:50 | disposition home or self-care (01) | DRG 617 ==
PROVIDERS: Podiatrist; Admitting Provider Internal Medicine; Family Provider Family Medicine; PCP Family Medicine; Referring Provider Internal Medicine
PROC: 0Y6Q0Z0 Detachment at Left 1st Toe, Complete, Open Approach (ICD-10-PCS; principal; 2018-12-27 14:45)
PROC: 0YQN0ZZ Repair Left Foot, Open Approach (ICD-10-PCS; principal; 2018-12-31 10:45)
DX: E11.69 Type 2 diabetes mellitus with other specified complication (principal); E87.1 Hypo-osmolality and hyponatremia; L03.116 Cellulitis of left lower limb; M86.8X7 Other osteomyelitis, ankle and foot; D89.89 Other specified disorders involving the immune mechanism, not elsewhere classified; E11.621 Type 2 diabetes mellitus with foot ulcer; L97.522 Non-pressure chronic ulcer of other part of left foot with fat layer exposed; N17.9 Acute kidney failure, unspecified; E78.5 Hyperlipidemia, unspecified; I25.10 Atherosclerotic heart disease of native coronary artery without angina pectoris; E03.9 Hypothyroidism, unspecified; E11.42 Type 2 diabetes mellitus with diabetic polyneuropathy; M21.372 Foot drop, left foot; I48.0 Paroxysmal atrial fibrillation; I65.21 Occlusion and stenosis of right carotid artery; L03.032 Cellulitis of left toe; M20.42 Other hammer toe(s) (acquired), left foot; B95.7 Other staphylococcus as the cause of diseases classified elsewhere; I10 Essential (primary) hypertension; B96.20 Unspecified Escherichia coli [E. coli] as the cause of diseases classified elsewhere; Z16.11 Resistance to penicillins; Z79.01 Long term (current) use of anticoagulants; Z95.1 Presence of aortocoronary bypass graft; Z79.4 Long term (current) use of insulin; Z85.828 Personal history of other malignant neoplasm of skin
CPT/HCPCS: 36415; 73630; 73718; 80048; 80053; 80061; 82962; 83036; 83735; 84100; 84443; 85025; 85652; 86140; 87015; 87040; 87070; 87075; 87077; 87102; 87116; 87186; 87205; 87206; 88304; 88305; 88311; 88312; 93005; 93923; 97116; 97162; 97530; 97802; J7030; J7040; J7120; A4216; J0295; J2405; J7799

== ENCOUNTER → 2019-01-11 08:06 | Outpatient (CLI) | payer BC, SELFPAY ==
[2018-12-31 10:27] VITALS: BMI 28.6
[2019-01-11 10:01] LABS: ALB/GLOB Ratio 0.5 RATIO (0.9-2.4); AST(SGOT) 190 U/L (15-37); Alanine Aminotransfer ALT/SGPT 120 U/L (16-61); Albumin, Serum 2.7 g/dL (3.2-5.0); Alkaline Phosphatase 127 U/L (45-117); Anion Gap 11 (5-15); BUN 24 mg/dL (7-18); BUN/Creat Ratio 19.7 RATIO (10-20); Calcium,Total 9.2 mg/dL (8.5-10.1); Chloride 99 mmol/L (98-107); Cholesterol 96 mg/dL (200); Creatinine, Serum 1.22 mg/dL (0.70-1.30); EST Glomerular Filtration Rate 64 mL/min (>60); Est Glom Filt Rate - Afr Amer 77 mL/min (>60); Globulin 5.5 g/dL (2.2-4.2); Glucose 136 mg/dL (74-106); High Density Lipoprotein 22 mg/dL; Potassium 3.8 mmol/L (3.5-5.1); Protein, Total 8.2 g/dL (6.4-8.2); Sodium Level 136 mmol/L (136-145); Thyroid Stim Hormone (TSH) 2.46 uIU/mL (0.358-3.74); Triglycerides 132 mg/dL; Very Low Density Lipoprotein 26 mg/dL (5-40)
[2019-01-11 10:25] LABS: Hemoglobin A1c 7.4 % (4.2-6.3)
== END ==
PROVIDERS: Family Provider Family Medicine; PCP Family Medicine; Referring Provider Internal Medicine Endocrinology, Diabetes & Metabolism; Visit Provider Internal Medicine Endocrinology, Diabetes & Metabolism
DX: E11.65 Type 2 diabetes mellitus with hyperglycemia (principal)
CPT/HCPCS: 36415; 80053; 80061; 83036; 84443

== ENCOUNTER → 2019-01-18 14:33 | Outpatient (CLI) | payer BC, SELFPAY ==
[2018-12-31 10:27] VITALS: BMI 28.6
[2019-01-18 14:37] LABS: Bacteria 0 SEEN /hpf (None Seen); Mucous, Urine 0 SEEN /hpf (<or=2+); Squamous Epithelial Cells - UA 0 SEEN /hpf (0-5); White Blood Cells 0 SEEN /hpf (0-5)
[2019-01-18 15:27] LABS: Color, Urine Yellow (Yellow); Glucose, Dipstick 1000 mg/dl (Normal); Ketone-Dipstick 5 mg/dl (Negative); Leukocyte Esterase-Dipstick Negative /ul (Negative); Nitrite-Dipstick Negative (Negative); Occult Blood-Urine 25 /ul (Negative); Protein-Dipstick 15 mg/dl (Negative); Specific Gravity, Urine 1.015 (1.002-1.030); Urine Bilirubin Dipstick Negative (Negative); Urine Clarity Clear (Clear); Urine Urobilinogen Normal (Normal)
[2019-01-18 15:32] LABS: Anion Gap 9 (5-15); BUN 32 mg/dL (7-18); BUN/Creat Ratio 19.6 RATIO (10-20); Calcium,Total 9.5 mg/dL (8.5-10.1); Chloride 100 mmol/L (98-107); Creatinine, Serum 1.63 mg/dL (0.70-1.30); EST Glomerular Filtration Rate 46 mL/min (>60); Est Glom Filt Rate - Afr Amer 55 mL/min (>60); Glucose 226 mg/dL (74-106); Potassium 3.7 mmol/L (3.5-5.1); Sodium Level 133 mmol/L (136-145)
[2019-01-18 15:38] LABS: Red Blood Cells-Urine 0-5 SEEN /hpf (0-5)
[2019-01-20 11:37] LABS: C-Peptide 5.8 ng/mL (1.1-4.4)
== END ==
PROVIDERS: Family Provider Family Medicine; PCP Family Medicine; Referring Provider Internal Medicine Endocrinology, Diabetes & Metabolism; Visit Provider Internal Medicine Endocrinology, Diabetes & Metabolism
DX: R35.0 Frequency of micturition (principal)
CPT/HCPCS: 80048; 81001; 84681

== ENCOUNTER → 2019-02-11 07:59 | Outpatient (CLI) | payer BC, SELFPAY ==
[2018-12-31 10:27] VITALS: BMI 28.6
--- NOTE | 2019-02-11 08:03 | CT_ITS ---
STUDY: CT BRAIN WITHOUT CONTRAST REASON FOR EXAM: Male, 63 years old. HEMORRHAGIC STROKE F/U, PREV IMAGES FROM [facility] ATTACHED, NEW ONSET OF RT DROP FOOT, HX-HTN, DB RADIATION DOSAGE (If Supplied By Facility): CTDIvol = ( 60.81 ) mGy, DLP = ( 1067.08 ) mGycm TECHNIQUE: Transaxial CT imaging of the brain was performed without administration of intravenous contrast material. Individualized dose optimization techniques were used for this CT. COMPARISON: None. FINDINGS: Normal soft tissue structures. Normal calvarium. Normal size ventricles and extra-axial spaces for the patient's age. Normal white matter tracts of the cerebral hemispheres. Normal basal ganglia and thalami. Normal brainstem. Normal cerebellum. Resolving right basal ganglia hemorrhage. There are no findings of an acute ischemic infarction. Normal visualized paranasal sinuses. CT/Brain/Head without Contrast IMPRESSION: Resolving right basal ganglia hemorrhage. Electronically Signed: Eligio Stock, at 12:19 EDT Tel , Service support ,
== END ==
PROVIDERS: Family Provider Family Medicine; PCP Family Medicine
DX: Z86.73 Personal history of transient ischemic attack (TIA), and cerebral infarction without residual deficits (principal)
CPT/HCPCS: 70450

== ENCOUNTER → 2019-02-12 14:56 | Outpatient (CLI) | payer BC, SELFPAY ==
[2018-12-31 10:27] VITALS: BMI 28.6
--- NOTE | 2019-02-12 14:58 | VDLE_ITS ---
Reason For Study: LEG PAIN RIGHT LEFT GSV is normal. CFV is compressible, spontaneous, phasic, CFV is compressible, spontaneous, phasic, competent, and demonstrates normal competent and demonstrates normal augmentation. augmentation. FV is compressible, spontaneous, phasic, competent and demonstrates normal augmentation. POP V is compressible, spontaneous, phasic, competent and demonstrates normal augmentation. T/P Trunk is compressible. PTV is compressible. RT PerV is compressible. Procedure Exam performed in department. A preliminary report was called and/or faxed to Dr. Joaquin Goldberg. Interpretation Summary Deep veins of the right lower extremity are patent and compressible segmentally. There is no evidence of right lower extremity deep vein thrombosis. Valvular competence appears intact within the proximal deep venous system on the right . The right greater saphenous vein appears patent and compressible segmentally. Ordering Physician: Mk Goldberg Referring Physician: Mk Goldberg Performed By: Padmini Buchanan RVT
== END ==
PROVIDERS: Family Provider Family Medicine; PCP Family Medicine; Referring Provider Family Medicine; Visit Provider Family Medicine
DX: M79.604 Pain in right leg (principal)
CPT/HCPCS: 93971

== ENCOUNTER → 2019-03-20 | Outpatient (CLI) | payer BC, SELFPAY ==
[2018-12-31 10:27] VITALS: BMI 28.6
[2019-03-20 09:25] LABS: Hemoglobin A1c 7.1 % (4.2-6.3)
[2019-03-20 09:36] LABS: ALB/GLOB Ratio 0.9 RATIO (0.9-2.4); AST(SGOT) 35 U/L (15-37); Alanine Aminotransfer ALT/SGPT 55 U/L (16-61); Albumin, Serum 3.2 g/dL (3.2-5.0); Alkaline Phosphatase 136 U/L (45-117); Anion Gap 5 (5-15); BUN 30 mg/dL (7-18); BUN/Creat Ratio 25.9 RATIO (10-20); Calcium,Total 8.6 mg/dL (8.5-10.1); Chloride 104 mmol/L (98-107); Cholesterol 159 mg/dL (200); Creatinine, Serum 1.16 mg/dL (0.70-1.30); EST Glomerular Filtration Rate 67 mL/min (>60); Est Glom Filt Rate - Afr Amer 82 mL/min (>60); Globulin 3.4 g/dL (2.2-4.2); Glucose 152 mg/dL (74-106); High Density Lipoprotein 50 mg/dL; Potassium 3.9 mmol/L (3.5-5.1); Protein, Total 6.6 g/dL (6.4-8.2); Sodium Level 138 mmol/L (136-145); Thyroid Stim Hormone (TSH) 2.98 uIU/mL (0.358-3.74); Triglycerides 105 mg/dL; Very Low Density Lipoprotein 21 mg/dL (5-40)
== END | disposition home or self-care (01) ==
PROVIDERS: Family Provider Family Medicine; PCP Family Medicine; Referring Provider Internal Medicine Endocrinology, Diabetes & Metabolism; Visit Provider Internal Medicine Endocrinology, Diabetes & Metabolism
DX: E11.65 Type 2 diabetes mellitus with hyperglycemia (principal)
CPT/HCPCS: 36415; 80053; 80061; 83036; 84443

== ENCOUNTER 2019-05-17 08:00 | Outpatient (RCR) | payer BC, SELFPAY ==
[2018-12-31 10:27] VITALS: BMI 28.6
--- NOTE | 2019-03-04 14:19 | HP.PTEVAL ---
Patient's Visit Information AZEB BAKER is a 63 year old M referred to Physical Therapy by MYRIAM VELOZ with a diagnosis of nontraumatic subcortical hemorrhage of R cerebral hemisphere/stroke. Date of Evaluation: 03/04/19 Physical Therapist: SALENA Michele - Visit Plan Frequency: 2-3x /Week Duration: 6 Weeks Plan: 2-3X/ week for 4-6 weeks for R gastroc and soleus stretching, AROm/PROM, R ankle strengthening, balance activities and progressing to gait training with possible AFO once L foot is cleared by surgeon for great toe amputation with HEP - Subjective Findings: At the end of Nov pt had his L foot big toe amputated and he had an infection due to DM. Four weeks ago last Mon he had a hemorragic stroke while he was at home and was flown to [facility] and released 2 days later without any resuidual effects. It did affected his L side while he was in the hospital. Two to Three days later his R foot dropped and they are not sure why. He knows that he has an autoimmune disease but not sure what. They were not blood clots. He got back into [facility] (Rhumatology Dept) and spent 11 days in [facility]. They did an EMG and skin biopsies and all came back inconclusive. 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 He reports that he is here for 2 reasons.... 1. To walk again withoug his big toe, 2. Get his T drop foot to back to normal, and 3. make sure no residual effects of the stroke. Pt is in his walking boot and has ordered a shoe and pt will bring in an order when he is allowed to walk without his walking boot. Pt is also using a 1 legged scooter. He feels that he has no residual issues from the stroke. He is able to out weight down through the L foot from the surgery with the walking boot so he uses his scooter to get around. He is not stable walking because of the drop foot on the R. ( Dr Nomi Estrada is the surgeon at [facility]). He has a follow up with them this Monday. Pt has had no falls. 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 He lives on the first floor of his home. He has not tried the stairs. He is able to get in and out of the shower as he has grab bars with his helping him. - Objective Gait: Uses a knee support scooter and uses R LE to propel the scooter. LE MMT: B hip flex 4-/5, B knee flex 4-/5, B knee ext 4-/5, R ankle DF 2-/5, R ankle PF, EV and IN 4-/5. Sit to stand: I. L ankle MMT was not tested due to surgical procedure. R ankle AROM: DF - 30 degrees from neutral, PF 40 degrees, INV 10 degrees and EV 3 degrees. L ankle AROM not performed due to surgical procedure. R gastroc extremely tight. B HS extremely tight. Balance was not tested due to walking boot on the L foot and drop foot. - Goals Goal 1:: I HEP Goal Time Frame: 4-6 Weeks Goal 2:: Increase R ankle PROM to neutral DF Goal Time Frame: 4-6 Weeks Goal 3:: Increase R ankle AROM to neutal DF Goal Time Frame: 4-6 Weeks - Rehabilitation Potential Rehabilitation Potential: Good - Anticipated Interventions Patient/Client Instruction: Educate patient on: Condition, Plan of Care For the Purpose of:: To increase ROM, To improve nutrient delivery to tissue, To improve muscle performance and motor function, To improve ability to perform ADL's, To increase tolerance to activity/condition/position, To improve performance and independence with ADL's, To improve ability of physical actions for home/community/work/leisure, To improve gait and locomotor functions, To improve health of tissue, To decrease soft tissue restriction, To increase flexibility/ROM, To improve balance Therapeutic Exercise to Include: Strength training, Balance training, Flexibilty training, Gait and locomotor training, Passive ROM, Active ROM For the Purpose of:: To improve muscle performance and motor function, To improve ability to perform ADL's, To improve performance and independence with ADL's, To improve gait and locomotor functions, To improve health of tissue, To decrease soft tissue restriction, To increase flexibility/ROM, To improve balance Functional Training to Include: Gait training For the Purpose of:: To improve gait and locomotor functions, To improve safety with gait Thank you for the opportunity to evaluate your patient. For Medicare and Medicare HMO plans, please review the plan of care and approve it. It will need to be FAXED BACK to us at [phone] for Medicare purposes. For Medicare only, by signing this I certify the plan of care. Please let me know if there are questions or concerns regarding this plan of care. Physician Signature: Date:
--- NOTE | 2019-03-05 07:55 | HP.OTEVAL ---
Patient's Visit Information AZEB BAKER is a 63 year old M, referred to Occupational Therapy by MYRIAM VELOZ, with a diagnosis of Stroke. Date of Evaluation: 03/04/19 Occupational Therapist: Ernestina Altman, BRUNA/Caitlin, CHT - Subjective Subjective: This 63 year old male had initial stroke in early part of January 30 2019. pt states his left side was affected with curled hand, lip drop. pts felt pt was having a stroke and called EMS. Pt was sent to [facility] for about three days and felt most of his symptoms have been resoloved. pt states he was ind. with fasteners and manipilating zippers. states he can not open a water bottle. - ADLs Kitchen: Open jars, Open bottle caps Miscellaneous: Handle money (change), Hold change Comments: pt states he was ind with using computer mouse without difficulty. pt states he is doing well with his lab top. pt states he is having diffiulty with twisting a bottle cap. - Strength Ammonia Box Operator: right 50# left 45# Lateral Pinch: right 16# left 14# Tripod Pinch: right 16# left 15# - Sensation Thumb: right/left 3.22 Index: right/left 3.22 Middle: right/left 3.22 Ring: right/left 3.22 Little: right/left 3.22 - Nine Hole Peg Right: 26.39 Left: 37.72 - In-Hand Manipulation Finger to Palm Translation: Normal - Right, Mild - Left Palm to Finger Translation: Normal - Right, Mild - Left Shift: Normal - Right, Mild - Left Rotation: Normal - Right, Mild - Left - Quick DASH-Disab of Arm,Shoulder& Hand Quick DASH Score: 41.6650 - Goals Goal:: pt will demo a increase in left regional account director strength by 10# or greater to increase pts ind with IADLs and ADLs. by d/c. pt will demo a increase in left pinch by 2# to increase ind with opening bottle tops by d/c. Goal:: pt will demo a reduction in 9-hole peg test to less than 30 sec. indicating a increase in FMS for ADls and IADLs by d/c - Rehabilitation General Assessment: pt demo a decline in left FMS and strength decreasing pts ind with ADLs and IADLS. pt would benefit from skilled OT services 3x week for 4 weeks to challenge pts FMS and functional strength to return pt to PLOF. Today pt was ed. on distal finger contorl activities and coin manipulation FMS. pt demo understanding and agree to POC. Rehabilitation Potential: Good - Anticipated Interventions Anticipated Interventions: Strengthening, Fine Motor Coord/Juan F - Visit Plan Frequency: 3x /Week Duration: 4 Weeks TEXT: Thank you for the opportunity to evaluate your patient. For Medicare and Medicare HMO plans, please review the plan of care and approve it. It will need to be FAXED BACK to us at [phone] for Medicare purposes. Please let me know if there are questions or concerns regarding this plan of care. Physician Signature: Date:
--- NOTE | 2019-03-18 12:14 | HP.OTDCSUM_ITS ---
HP - OT D/C Summary It has been my pleasure to treat AZEB BAKER under orders from MYRIAM VELOZ, for the diagnosis of Stroke for a total of 4 visit(s). Please see the following information for a summary of their discharge status. - Overall Improvement % Improvement: 90 - Objective Objective/Function: right 60#. left 65#. right lateral pinch 18#. left lateral pinch 18#. right tripod pinch 18#. left tripoid pinch 16#. 9-hole peg test left 34.04. pt demo a increase in overal senior it project manager/pinch strength. - Goals Patient Goals: Regain Strength, Improve Fine Motor Skills, Use Hand/Wrist/Arm Normally Again Goal:: pt will demo a increase in left senior it project manager strength by 10# or greater to increase pts ind with IADLs and ADLs. by d/c. pt will demo a increase in left pinch by 2# to increase ind with opening bottle tops by d/c. Goal:: pt will demo a reduction in 9-hole peg test to less than 30 sec. indicating a increase in FMS for ADls and IADLs by d/c - Plan Plan: D/C - D/C Information Discharge Comments: Pt was seen for 4 OT visits to challenge pts FMS and strength to return pt to PLOF. pt reports he is now IND. with all ADLs and IADLS. Pt has met all OT goals and is now D/C at this time. If there are questions or concerns regarding this patient's occupational therapy, please fell free to call me at [phone]. Thank you for the referral of this patient. Sincerely, Ernestina Altman, OTR/L, CHT
--- NOTE | 2019-05-17 08:33 | HP.PTREVAL ---
MYRIAM VELOZ, It has been my pleasure to treat AZEB BAKER over the last 17 visits for nontraumatic subcortical hemorrhage of R cerebral hemisphere/stroke. Please see the progress note below for an update on the physical therapy plan of care! Subjective: Pt has AFO appointment today at 4:00. He has no pain. Pt will schedule another appointment with us after he actually gets his braces. Pt late for appointment. Objective/Function: R ankle AROM: DF -20 degrees from neutral Plan Plan: Pt will be on hold until after he gets his AFO and then re-check balance and work on walking without the cane with his new brace. Goals Goal 1:: I HEP Goal Time Frame: 4-6 Weeks Goal Progress: Goal Met Goal 2:: Increase R ankle PROM to neutral DF Goal Time Frame: 4-6 Weeks Goal Progress: Progressing Goal 3:: Increase R ankle AROM to neutal DF Goal Time Frame: 4-6 Weeks Anticipated Interventions Patient/Client Instruction: Educate patient on: Condition, Plan of Care For the Purpose of:: To increase ROM, To improve nutrient delivery to tissue, To improve muscle performance and motor function, To improve ability to perform ADL's, To increase tolerance to activity/condition/position, To improve performance and independence with ADL's, To improve ability of physical actions for home/community/work/leisure, To improve gait and locomotor functions, To improve health of tissue, To decrease soft tissue restriction, To increase flexibility/ROM, To improve balance Therapeutic Exercise to Include: Strength training, Balance training, Flexibilty training, Gait and locomotor training, Passive ROM, Active ROM For the Purpose of:: To improve muscle performance and motor function, To improve ability to perform ADL's, To improve performance and independence with ADL's, To improve gait and locomotor functions, To improve health of tissue, To decrease soft tissue restriction, To increase flexibility/ROM, To improve balance Functional Training to Include: Gait training For the Purpose of:: To improve gait and locomotor functions, To improve safety with gait Please do not hesitate to contact me at [phone] by phone or if you have questions or concerns regarding this new plan of care! Sincerely, Promise Adams, MPT
== END 2019-05-17 19:00 | disposition home or self-care (01) ==
LOC: PT 08:00
PROVIDERS: Family Provider Family Medicine; PCP Family Medicine
DX: I61.0 Nontraumatic intracerebral hemorrhage in hemisphere, subcortical (principal); Z86.73 Personal history of transient ischemic attack (TIA), and cerebral infarction without residual deficits
CPT/HCPCS: 97110; 97162; 97166; 97168; 97530

== ENCOUNTER → 2019-06-17 | Outpatient (CLI) | payer BC, SELFPAY ==
[2018-12-31 10:27] VITALS: BMI 28.6
[2019-06-17 09:41] LABS: ALB/GLOB Ratio 1.1 RATIO (0.9-2.4); AST(SGOT) 30 U/L (15-37); Alanine Aminotransfer ALT/SGPT 39 U/L (16-61); Albumin, Serum 3.5 g/dL (3.2-5.0); Alkaline Phosphatase 86 U/L (45-117); Anion Gap 9 (5-15); BUN 21 mg/dL (7-18); BUN/Creat Ratio 19.1 RATIO (10-20); Chloride 104 mmol/L (98-107); Cholesterol 143 mg/dL (200); EST Glomerular Filtration Rate 72 mL/min (>60); Est Glom Filt Rate - Afr Amer 87 mL/min (>60); Globulin 3.2 g/dL (2.2-4.2); Glucose 130 mg/dL (74-106); Hemoglobin A1c 8.1 % (4.2-6.3); High Density Lipoprotein 48 mg/dL; Protein, Total 6.7 g/dL (6.4-8.2); Sodium Level 144 mmol/L (136-145); T4 Free Direct 0.99 ng/dL (0.76-1.46); Thyroid Stim Hormone (TSH) 2.67 uIU/mL (0.358-3.74); Triglycerides 141 mg/dL; Very Low Density Lipoprotein 28 mg/dL (5-40)
== END | disposition home or self-care (01) ==
LOC: LAB 08:02
PROVIDERS: Family Provider Family Medicine; PCP Family Medicine; Referring Provider Internal Medicine Endocrinology, Diabetes & Metabolism; Visit Provider Internal Medicine Endocrinology, Diabetes & Metabolism
DX: E11.65 Type 2 diabetes mellitus with hyperglycemia (principal)
CPT/HCPCS: 36415; 80053; 80061; 83036; 84439; 84443

== ENCOUNTER → 2019-07-17 | Outpatient (CLI) | payer BC, SELFPAY ==
[2019-07-15 14:59] VITALS: BMI 28.7
[2019-07-17 19:01] LABS: M R Staph aureus DNA By PCR Negative (Negative); Probe Check PASS; Specimen Processing Control PASS; Staph aureus DNA By PCR POSITIVE (Negative)
== END | disposition home or self-care (01) ==
PROVIDERS: Family Provider Family Medicine; PCP Family Medicine; Referring Provider Podiatrist; Visit Provider Podiatrist
DX: L97.512 Non-pressure chronic ulcer of other part of right foot with fat layer exposed (principal)
CPT/HCPCS: 87070; 87075; 87077; 87186; 87205; 87640

== ENCOUNTER → 2019-10-05 07:41 | Outpatient (CLI) | payer BC, SELFPAY ==
[2019-07-25 15:04] VITALS: BMI 28.2
[2019-10-05 08:42] LABS: Hemoglobin A1c 7.4 % (4.2-6.3)
[2019-10-05 08:54] LABS: ALB/GLOB Ratio 1.1 RATIO (0.9-2.4); AST(SGOT) 30 U/L (15-37); Alanine Aminotransfer ALT/SGPT 29 U/L (16-61); Albumin, Serum 3.6 g/dL (3.2-5.0); Alkaline Phosphatase 110 U/L (45-117); Anion Gap 7 (5-15); BUN 28 mg/dL (7-18); BUN/Creat Ratio 23.1 RATIO (10-20); Calcium,Total 9.1 mg/dL (8.5-10.1); Chloride 105 mmol/L (98-107); Creatinine, Serum 1.21 mg/dL (0.70-1.30); EST Glomerular Filtration Rate 64 mL/min (>60); Est Glom Filt Rate - Afr Amer 78 mL/min (>60); Globulin 3.4 g/dL (2.2-4.2); Glucose 100 mg/dL (74-106); Potassium 3.6 mmol/L (3.5-5.1); Sodium Level 142 mmol/L (136-145); T4 Free Direct 1.04 ng/dL (0.76-1.46); Thyroid Stim Hormone (TSH) 1.91 uIU/mL (0.358-3.74)
== END ==
PROVIDERS: Family Provider Family Medicine; PCP Family Medicine; Referring Provider Internal Medicine Endocrinology, Diabetes & Metabolism; Visit Provider Internal Medicine Endocrinology, Diabetes & Metabolism
DX: E03.9 Hypothyroidism, unspecified (principal); E11.65 Type 2 diabetes mellitus with hyperglycemia
CPT/HCPCS: 36415; 80053; 83036; 84439; 84443

== ENCOUNTER → 2020-01-13 07:42 | Outpatient (CLI) | payer BC, SELFPAY ==
[2019-07-25 15:04] VITALS: BMI 28.2
[2020-01-13 09:29] LABS: Hemoglobin A1c 6.7 % (4.2-6.3)
[2020-01-13 09:30] LABS: Vitamin D,25 Hydroxy 49.7 ng/mL (29.95-100.01)
[2020-01-13 09:37] LABS: ALB/GLOB Ratio 1.1 RATIO (0.9-2.4); AST(SGOT) 28 U/L (15-37); Alanine Aminotransfer ALT/SGPT 30 U/L (16-61); Albumin, Serum 3.9 g/dL (3.2-5.0); Alkaline Phosphatase 123 U/L (45-117); Anion Gap 6 (5-15); BUN 25 mg/dL (7-18); BUN/Creat Ratio 17.9 RATIO (10-20); Calcium,Total 9.7 mg/dL (8.5-10.1); Chloride 105 mmol/L (98-107); Cholesterol 145 mg/dL (200); EST Glomerular Filtration Rate 54 mL/min (>60); Est Glom Filt Rate - Afr Amer 66 mL/min (>60); Globulin 3.5 g/dL (2.2-4.2); Glucose 127 mg/dL (74-106); High Density Lipoprotein 35 mg/dL; Potassium 3.9 mmol/L (3.5-5.1); Protein, Total 7.4 g/dL (6.4-8.2); Sodium Level 141 mmol/L (136-145); T4 Free Direct 0.93 ng/dL (0.76-1.46); Triglycerides 116 mg/dL; Very Low Density Lipoprotein 23 mg/dL (5-40)
== END ==
PROVIDERS: PCP Family Medicine; Referring Provider Internal Medicine Endocrinology, Diabetes & Metabolism; Visit Provider Internal Medicine Endocrinology, Diabetes & Metabolism
DX: M30.0 Polyarteritis nodosa (principal)
CPT/HCPCS: 36415; 80053; 80061; 82306; 83036; 84439; 84443

== ENCOUNTER → 2020-01-28 | Outpatient (CLI) | payer BC, SELFPAY ==
[2020-01-16 11:09] VITALS: BMI 31.4
[2020-01-28 19:29] LABS: M R Staph aureus DNA By PCR Negative (Negative); Probe Check PASS; Staph aureus DNA By PCR POSITIVE (Negative)
== END | disposition home or self-care (01) ==
LOC: LABSPEC 17:34
PROVIDERS: PCP Family Medicine; Visit Provider Podiatrist
DX: L97.512 Non-pressure chronic ulcer of other part of right foot with fat layer exposed (principal)
CPT/HCPCS: 87070; 87077; 87186; 87205; 87640

== ENCOUNTER → 2020-02-06 10:54 | Outpatient (CLI) | payer BC, SELFPAY ==
[2020-01-16 11:09] VITALS: BMI 31.4
--- NOTE | 2020-02-06 10:56 | ECHOCS_ITS ---
Reason For Study: S/P CABG Procedure This was a 2D Doppler, Color Flow transthoracic echocardiogram. Exam performed in department. Left Ventricle Normal size and thickness. The estimated ejection fraction is 60 %. Stage 1 diastolic dysfunction. Septal motion consistent with IVCD. No regional wall motion abnormalities noted. Right Ventricle Normal size and thickness. Normal systolic function. Atria The left atrium is mildly enlarged. Normal right atrium. Normal atrial septum. Mitral Valve The mitral valve is structurally normal. No prolapse or stenosis seen. Tricuspid Valve Normal tricuspid valve. Trivial tricuspid valve insufficiency. Right ventricular systolic pressure estimated to be 23 mmHg. Aortic Valve Trisinus/trileaflet aortic valve. Mild focal aortic valve thickening. There is no aortic stenosis. Pulmonic Valve Normal pulmonic valve. Great Vessels Normal aortic root. Normal arch. Normal inferior vena cava. Inferior vena cava collapse with sniff. Pericardium/Pleural No pericardial effusion. Medication 22 gauge I.V. with prn adaptor inserted into right arm. Diluted definity 3.0ml given slow IV push to enhance endocardial definition. MMode/2D Measurements & Calculations RVDd: 3.4 cm LVOT diam: 2.0 cm Ao root diam: 3.7 cm LVOT area: 3.2 cm2 LAV(MOD-bp): 57.8 ml SV(MOD-sp4): 74.6 ml LVAd ap4: 35.2 cm2 LAV(MOD-bp) Indexed: 23.1 ml/m2 EDV(MOD-sp4): 108.8 ml LAV(MOD-sp2): 49.1 ml EDV(sp4-el): 115.2 ml LAV(MOD-sp4): 65.2 ml LVAs ap4: 17.6 cm2 ESV(MOD-sp4): 34.2 ml ESV(sp4-el): 35.2 ml EF(MOD-sp4): 68.6 % EF(sp4-el): 69.5 % SV(sp4-el): 80.0 ml LA dimension(2D): 4.2 cm LA A4 area: 22.2 cm2 Time Measurements MV dec time: 0.31 sec Doppler Measurements & Calculations MV E max hans: 63.1 cm/sec Lat Peak E' Hans: 11.2 cm/sec Med Peak E' Hans: 5.2 cm/sec MV A max hans: 87.2 cm/sec E/E' lat: 5.6 E/E' med: 12.1 MV E/A: 0.72 Ao V2 max: 122.6 cm/sec LV V1 max: 107.5 cm/sec PA V2 max: 107.9 cm/sec Ao max P.0 mmHg LV V1 max P.6 mmHg CLIVE(V,D): 2.8 cm2 PI end-d hans: 121.1 cm/sec TR max hans: 211.5 cm/sec TR max P.9 mmHg Interpretation Summary The estimated ejection fraction is 60 %. Stage 1 diastolic dysfunction. The left atrium is mildly enlarged. Trivial tricuspid valve insufficiency. Right ventricular systolic pressure estimated to be 23 mmHg. Compared to echo report dated 04/05/2017, no appreciable changes noted. The study was technically difficult. Contrast injection was performed. Ordering Physician: Zane Arnold Referring Physician: XIOMARA DEY Performed By: Ginette Gtz RDCS, RVT
== END ==
PROVIDERS: PCP Family Medicine; Referring Provider Internal Medicine Cardiovascular Disease; Visit Provider Internal Medicine Cardiovascular Disease
DX: I25.10 Atherosclerotic heart disease of native coronary artery without angina pectoris (principal); Z95.1 Presence of aortocoronary bypass graft; I10 Essential (primary) hypertension; E78.5 Hyperlipidemia, unspecified; E11.9 Type 2 diabetes mellitus without complications; I48.0 Paroxysmal atrial fibrillation
CPT/HCPCS: 93306; Q9957; A4216; C8929

== ENCOUNTER → 2020-03-25 08:36 | Outpatient (CLI) | payer BC, SELFPAY ==
[2020-01-16 11:09] VITALS: BMI 31.4
--- NOTE | 2020-03-25 08:40 | STEWCON_ITS ---
Reason For Study: S/P CABG Stress Results Protocol: Dobutamine Stress Echo With Definiity Maximum Predicted HR: 156 bpm Target HR: 133 bpm % Maximum Predicted HR: 85 % DurationHeart Rate Stage (mm:ss) (bpm) BP Dose Comment BASELINE 72 151/83 1 CC DEFINITY STAGE 1 3:00 80 / 10.000.4 CC DEFINITY STAGE 2 3:00 101 176/7520.00 STAGE 3 3:00 123 176/7330.00 STAGE 4 2:54 132 143/8940.001 CC DEEFINITY RECOVERY 99 134/78 0.6 CC DEFINITY Stress Duration: 11:54 mm:ss Maximum Stress HR: 132 bpm Baseline Echocardiogram Findings The estimated ejection fraction is 65 %. Stress Echo Wall motion Data Resting WM Intermediate WM Stress WM Resting Wall Motion Wall Motion Stress No regional wall motion No regional wall motion abnormalities noted. abnormalities noted. EKG Data The baseline ECG displays normal sinus rhythm. The patient was titrated from 10 mcg to a maximum of 40 mcg of dobutamine during the stress. The maximum heart rate attained was 133 beats per minute. This was 85% of maximum predicted heart rate. During dobutamine infusion, there were no ST or T wave changes noted to suggest ischemia. No clinical angina was noted. No arrhythmias noted. Interpretation Summary The estimated ejection fraction is 65 %. Normal, adequate, dobutamine echocardiogram. Negative for ischemia by EKG and echocardiographic criteria. No anginal symptoms noted. Test terminated due to attainment of target heart rate. No arrhythmias noted. Final LVEF of 75%. Decrease sensitivity due to poor echo windows requiring Definity agent. Patient tolerated the procedure well. No complications. The study was technically difficult. Contrast injection was performed. Ordering Physician: Zane Arnold Referring Physician: Zane Arnold Performed By: Colleen Cunningham, ADRIAN, RVT
== END ==
PROVIDERS: PCP Family Medicine; Referring Provider Internal Medicine Cardiovascular Disease; Visit Provider Internal Medicine Cardiovascular Disease
DX: I25.10 Atherosclerotic heart disease of native coronary artery without angina pectoris (principal); Z95.1 Presence of aortocoronary bypass graft; I48.0 Paroxysmal atrial fibrillation; E78.5 Hyperlipidemia, unspecified; I10 Essential (primary) hypertension; E11.9 Type 2 diabetes mellitus without complications
CPT/HCPCS: 93017; 93350; J7040; Q9957; A4216; C8928

== ENCOUNTER → 2020-04-06 08:29 | Outpatient (CLI) | payer BC, SELFPAY ==
[2020-01-16 11:09] VITALS: BMI 31.4
[2020-04-06 09:41] LABS: ALB/GLOB Ratio 1.2 RATIO (0.9-2.4); AST(SGOT) 24 U/L (15-37); Alanine Aminotransfer ALT/SGPT 27 U/L (16-61); Alkaline Phosphatase 119 U/L (45-117); Anion Gap 7 (5-15); BUN 30 mg/dL (7-18); BUN/Creat Ratio 19.9 RATIO (10-20); Calcium,Total 9.5 mg/dL (8.5-10.1); Chloride 102 mmol/L (98-107); Creatinine, Serum 1.51 mg/dL (0.70-1.30); EST Glomerular Filtration Rate 50 mL/min (>60); Est Glom Filt Rate - Afr Amer 60 mL/min (>60); Globulin 3.3 g/dL (2.2-4.2); Glucose 172 mg/dL (74-106); Potassium 4.1 mmol/L (3.5-5.1); Protein, Total 7.3 g/dL (6.4-8.2); Sodium Level 138 mmol/L (136-145)
[2020-04-06 09:42] LABS: Microalbumin,Random Urine 10.2 mg/L (NO RANGE EST.)
== END ==
PROVIDERS: PCP Family Medicine; Referring Provider Internal Medicine Endocrinology, Diabetes & Metabolism; Visit Provider Internal Medicine Endocrinology, Diabetes & Metabolism
DX: E11.65 Type 2 diabetes mellitus with hyperglycemia (principal)
CPT/HCPCS: 36415; 80053; 82043; 82570; 83036

== ENCOUNTER 2020-04-12 15:06 | Emergency (ER) | payer BC, SELFPAY ==
[2020-01-16 11:09] VITALS: BMI 31.4
[2020-04-12 15:07] VITALS: BP 120/73; PULSE 68; RESP 16; TEMP 35.9; O2SAT 97; BMI 29.9
--- NOTE | 2020-04-12 16:16 | RAD_ITS ---
STUDY: X-RAY - RIGHT FOOT CLINICAL: Male, 64 years old. WOUND BOTTOM OF FOOT TECHNIQUE: 3 view(s) of the foot. COMPARISON: None. FINDINGS: Normal talus, calcaneus, and tarsal bones. Normal visualized subtalar, talonavicular, calcaneocuboid, tarsal and tarsometatarsal articulations. Normal metatarsi. No visualized acute fracture. There is soft tissue prominence in the forefoot region. No demonstrated cortical erosion. Scattered degenerative changes are present. RAD/Foot min 3 Views IMPRESSION: Mild soft tissue swelling of the forefoot Electronically Signed: Jamey Amezcua MD at 17:37 EDT , Service support ,
--- NOTE | 2020-04-12 16:19 | ED.VISSUMM ---
- ER Visit Summary Date of Service: 04/12/20 Chief Complaint: [Wound to right foot] History of Present Illness: The patient is a 64 M [presents the emergency department with a wound to the right foot that has been chronic since last June. Patient states that he has been following up with podiatry and the wound had done really well up until about a week ago he developed a blister to the same area. The blister then deroofed and he developed some erythema around it and today noticed some redness to the dorsum of the foot. He denies any fevers. Patient is a diabetic and also has history of autoimmune disorder and is immune compromised. Patient states that he could not get in last week with podiatry.] Physical Examination: [HEENT-PERRLA, EOMI. Cranial nerves II through XII grossly intact. TMs clear. Mucous membranes moist. No adenopathy. Cardiovascular-regular rate and rhythm without murmur or ectopy Lungs-clear to auscultation, chest wall stable without crepitus or subcu emphysema Abdomen-normoactive bowel sounds, soft, nontender, no rebound or rigidity, no peritoneal signs. Extremities-intact ?4, normal range of motion, normal pulses, atraumatic. Right foot-patient has small deroofed now dry blister to the lateral aspect of the fifth MTP joint with some faint surrounding erythema. Small amount of lymphangitic streaking to the dorsum of the foot noted. The lymphangitis does not reach the ankle. Neurovascularly intact otherwise.] Test Results: [X-rays of the right foot obtained showed some mild soft tissue swelling of the forefoot without any evidence of osteomyelitis or gas in the tissues.] Emergency Department Course and Treatment: [Patient received Unasyn 1 g IV. Patient received a dose of Bactrim p.o.] Treatment Plan: [She will be treated with Keflex and Bactrim. Patient advised to follow-up with his design drafter chief within the next 2 to 3 days. Patient advised return if increasing pain, redness, swelling, fever, or condition should worsen anyway.] Disposition: Discharged home in stable condition [] Impression: [Cellulitis right foot Chronic diabetic foot wound] This note was generated with [employer] software. It may contain incorrect words, spelling, and punctuation that were not noted in review of the chart prior to signing ED Disposition - Plan for ED Patient: Referrals: Mk Ding MD [Primary Care Provider] -
--- NOTE | 2020-04-12 17:40 | ED.DEP ---
ED Disposition - Plan for ED Patient: Instructions: Diabetic Foot Ulcers, ED Cellulitis Prescriptions: Smz/Tmp Ds [Bactrim Ds] 1 tab PO BID #20 tab Prescription Printed Cephalexin [Keflex] 500 mg PO Q6 #40 cap Prescription Printed Referrals: Mk Ding MD [Primary Care Provider] - Renee Sorenson DPM [STAFF PHYSICIAN] - 2 Days for wound check
[2020-04-12 17:46] VITALS: BP 149/89; PULSE 61; RESP 16; O2SAT 99
[2020-04-12] MEDS: Smz/Tmp Ds Tablet 1 TABLET PO (17:46)
== END 2020-04-12 17:50 | disposition home or self-care (01) ==
LOC: ED 17:09
PROVIDERS: Emergency Provider Emergency Medicine; PCP Family Medicine
DX: L03.115 Cellulitis of right lower limb (principal); S90.821A Blister (nonthermal), right foot, initial encounter; X58.XXXA Exposure to other specified factors, initial encounter; Y93.9 Activity, unspecified; Y92.9 Unspecified place or not applicable; E11.9 Type 2 diabetes mellitus without complications; I10 Essential (primary) hypertension; I25.10 Atherosclerotic heart disease of native coronary artery without angina pectoris; M35.9 Systemic involvement of connective tissue, unspecified; Z95.1 Presence of aortocoronary bypass graft; Z79.4 Long term (current) use of insulin; Z79.01 Long term (current) use of anticoagulants; Z79.82 Long term (current) use of aspirin; Z79.84 Long term (current) use of oral hypoglycemic drugs; Z79.899 Other long term (current) drug therapy
CPT/HCPCS: 73630; 96365; 99284; J7050; A4216; J0295

== ENCOUNTER → 2020-07-03 08:00 | Outpatient (CLI) | payer MEDICARE, SELFPAY ==
[2020-07-03 09:37] LABS: ALB/GLOB Ratio 1.2 RATIO (0.9-2.4); AST(SGOT) 21 U/L (15-37); Alanine Aminotransfer ALT/SGPT 23 U/L (16-61); Albumin, Serum 4.2 g/dL (3.2-5.0); Alkaline Phosphatase 132 U/L (45-117); Anion Gap 5 (5-15); BUN 35 mg/dL (7-18); BUN/Creat Ratio 18.7 RATIO (10-20); Calcium,Total 9.6 mg/dL (8.5-10.1); Chloride 106 mmol/L (98-107); Cholesterol 139 mg/dL (200); Creatinine, Serum 1.87 mg/dL (0.70-1.30); EST Glomerular Filtration Rate 39 mL/min (>60); Est Glom Filt Rate - Afr Amer 47 mL/min (>60); Globulin 3.6 g/dL (2.2-4.2); Glucose 129 mg/dL (74-106); High Density Lipoprotein 35 mg/dL; Potassium 4.1 mmol/L (3.5-5.1); Protein, Total 7.8 g/dL (6.4-8.2); Sodium Level 140 mmol/L (136-145); Thyroid Stim Hormone (TSH) 2.31 uIU/mL (0.358-3.74); Triglycerides 135 mg/dL; Very Low Density Lipoprotein 27 mg/dL (5-40)
[2020-07-03 10:12] LABS: Hemoglobin A1c 6.2 % (3.8-5.6); Vitamin D,25 Hydroxy 75.1 ng/mL
== END ==
PROVIDERS: PCP Family Medicine; Visit Provider Internal Medicine Endocrinology, Diabetes & Metabolism
DX: M30.0 Polyarteritis nodosa (principal); E55.9 Vitamin D deficiency, unspecified
CPT/HCPCS: 36415; 80053; 80061; 82306; 83036; 84443

== ENCOUNTER → 2020-10-05 08:14 | Outpatient (CLI) | payer MEDICARE, SELFPAY ==
[2020-07-27 09:17] VITALS: BMI 29.5
[2020-10-05 09:37] LABS: Hemoglobin A1c 6.5 % (3.8-5.6)
[2020-10-05 09:52] LABS: ALB/GLOB Ratio 1.1 RATIO (0.9-2.4); AST(SGOT) 21 U/L (15-37); Alanine Aminotransfer ALT/SGPT 22 U/L (16-61); Albumin, Serum 3.8 g/dL (3.2-5.0); Alkaline Phosphatase 144 U/L (45-117); Anion Gap 8 (5-15); BUN 27 mg/dL (7-18); Calcium,Total 9.6 mg/dL (8.5-10.1); Chloride 106 mmol/L (98-107); Creatinine, Serum 1.42 mg/dL (0.70-1.30); EST Glomerular Filtration Rate 53 mL/min (>60); Est Glom Filt Rate - Afr Amer 64 mL/min (>60); Globulin 3.6 g/dL (2.2-4.2); Glucose 136 mg/dL (74-106); Potassium 4.1 mmol/L (3.5-5.1); Protein, Total 7.4 g/dL (6.4-8.2); Sodium Level 141 mmol/L (136-145); T4 Free Direct 1.03 ng/dL (0.76-1.46); Thyroid Stim Hormone (TSH) 1.35 uIU/mL (0.358-3.74)
== END ==
PROVIDERS: PCP Family Medicine; Referring Provider Internal Medicine Endocrinology, Diabetes & Metabolism; Visit Provider Internal Medicine Endocrinology, Diabetes & Metabolism
DX: E11.65 Type 2 diabetes mellitus with hyperglycemia (principal); E03.9 Hypothyroidism, unspecified; E11.319 Type 2 diabetes mellitus with unspecified diabetic retinopathy without macular edema; I77.6 Arteritis, unspecified; E16.2 Hypoglycemia, unspecified
CPT/HCPCS: 36415; 80053; 82043; 83036; 84439; 84443

== ENCOUNTER → 2020-12-31 18:06 | Outpatient (CLI) | payer MEDICARE, SELFPAY ==
[2020-12-30 10:55] VITALS: BMI 29.9
[2020-12-31 19:41] LABS: M R Staph aureus DNA By PCR Negative (Negative); Staph aureus DNA By PCR NEGATIVE (Negative)
[2020-12-31 19:42] LABS: Probe Check PASS; Specimen Processing Control PASS
== END ==
PROVIDERS: PCP Family Medicine; Referring Provider Podiatrist; Visit Provider Podiatrist
DX: L03.90 Cellulitis, unspecified (principal)
CPT/HCPCS: 87070; 87075; 87077; 87186; 87205; 87640

== ENCOUNTER → 2021-01-08 07:48 | Outpatient (CLI) | payer MEDICARE, SELFPAY ==
[2020-12-30 10:55] VITALS: BMI 29.9
[2021-01-08 09:07] LABS: Hemoglobin A1c 6.4 % (3.8-5.6)
[2021-01-08 09:25] LABS: Vitamin D,25 Hydroxy 64.8 ng/mL
[2021-01-08 09:33] LABS: ALB/GLOB Ratio 1.2 RATIO (0.9-2.4); AST(SGOT) 21 U/L (15-37); Alanine Aminotransfer ALT/SGPT 23 U/L (16-61); Alkaline Phosphatase 152 U/L (45-117); Anion Gap 6 (5-15); BUN 29 mg/dL (7-18); BUN/Creat Ratio 17.8 RATIO (10-20); Calcium,Total 9.3 mg/dL (8.5-10.1); Chloride 101 mmol/L (98-107); Creatinine, Serum 1.63 mg/dL (0.70-1.30); EST Glomerular Filtration Rate 45 mL/min (>60); Est Glom Filt Rate - Afr Amer 55 mL/min (>60); Globulin 3.4 g/dL (2.2-4.2); Glucose 137 mg/dL (74-106); Potassium 4.1 mmol/L (3.5-5.1); Protein, Total 7.4 g/dL (6.4-8.2); Sodium Level 137 mmol/L (136-145)
== END ==
PROVIDERS: PCP Family Medicine; Referring Provider Internal Medicine Endocrinology, Diabetes & Metabolism; Visit Provider Internal Medicine Endocrinology, Diabetes & Metabolism
DX: E11.319 Type 2 diabetes mellitus with unspecified diabetic retinopathy without macular edema (principal); I77.6 Arteritis, unspecified; E03.9 Hypothyroidism, unspecified; E16.2 Hypoglycemia, unspecified; E11.65 Type 2 diabetes mellitus with hyperglycemia
CPT/HCPCS: 36415; 80053; 82306; 83036; 84439; 84443

== ENCOUNTER 2021-01-18 18:01 | Emergency (ER) | payer MEDICARE, SELFPAY ==
[2020-12-30 10:55] VITALS: BMI 29.9
[2021-01-18 18:02] VITALS: BP 152/83; PULSE 71; RESP 18; TEMP 36; O2SAT 96; BMI 29.0
--- NOTE | 2021-01-18 18:34 | ED.DCSUM_ITS ---
History of Present Illness Chief Complaint: Wound Check Informant: Patient, Significant Other Onset: Weeks - 1 Context: Gradual Onset - Gradually worse in the past week, the wound has been present for about 1 month Timing: Continuous Quality: Red, swollen, draining Location: Left second toe Current Severity: Moderate Maximum Severity: Moderate Worsened by: Nothing in particular Relieved by: Improved with antibiotics, but they ran out about a week ago Associated Symptoms: Chronic numbness in both feet/toes, no acute symptoms otherwise Narrative: Patient has been following with podiatry Dr. Dobson on for the past month for an infected hammertoe on his left foot, he was on a couple rounds of antibiotics and finished those about a week ago, he did help some of the redness and swelling which is gradually been worsening but being limited to the toe still since then. Today, he noticed a significant increased amount of drainage from the wound and became concerned so he called his aerial photogrammetrist who referred him to the emergency department since he called as the office was closing. He denies any fevers, chills, or any other new systemic symptoms. Patient had a remote similar infection of his left great toe which developed osteomyelitis and required amputation. - Past Medical History (1) History of coronary artery bypass graft Status: Chronic Comment: 07/31/2015: CABG X 4: RUIZ to left anterior descending bridge diagonal, SVG to first DX, radial artery to the lateral CX. Done @ [place] per Dr. Randall (2) History of nonmelanoma skin cancer Status: Chronic (3) Hyperlipidemia Status: Chronic (4) Hypertension Status: Chronic (5) Hypothyroid Status: Chronic (6) Interstitial lung disease Status: Chronic (7) Paroxysmal atrial fibrillation Status: Chronic (8) Right-sided extracranial carotid artery stenosis Status: Chronic (9) Type 2 diabetes mellitus with diabetic polyneuropathy Status: Chronic (10) Vasculitis Status: Chronic (11) Intracerebral hemorrhage Status: Resolved Past Medical History - Allergies and Home Meds Allergies/Adverse Reactions: Allergies adhesive tape Allergy (Verified 01/18/21 18:01) Rash mycophenolate mofetil [From CellCept] Adverse Reaction (Severe, Verified 01/18/21 18:01) elevated liver enzymes Primary Care Physician: Mk Ding MD [Primary Care Provider] - Surgical History: coronary bypass surgery - 2014 0r 2015, - Lives: Spouse/ Significant Other Smoking Status: Never smoker - Family History Paternal Family History: Family History (Last Reviewed 07/27/20 @ 09:51 by Ernestina Parra PA, PA) Father Lupus COPD (chronic obstructive pulmonary disease) CAD (coronary artery disease) S/P CABG x 3, Onset Age: 68 Congestive heart failure Mother Alzheimers disease Family History: Reports: High Cholesterol, Heart Disease Review of Systems General: Denies: Chills, Fever, Sweats Eyes: Denies: Visual changes - bilaterally, Diplopia ENT: Denies: Rhinorrhea, Sore throat Cardiovascular: Denies: Chest pain, Palpitations Respiratory: Denies: Dyspnea, Cough, Dyspnea on exertion Gastrointestinal: Denies: Abdominal pain, Nausea, Vomiting, Diarrhea, Melena, Hematochezia Genitourinary: Denies: Dysuria, Hematuria, Frequency Musculoskeletal: Denies: Back pain, Extremity Pain Skin: Reports: Wounds. Denies: Rash Neurological: Reports: Numbness - Both feet, chronic. Denies: Headache, Weakness Physical Exam Vital Signs/Narrative: Vital Signs Temp Pulse Resp BP Pulse Ox 01/18/21 18:02 96.8 F L 71 18 152/83 H 96 Inital Vital Signs reviewed: Yes General: Well nourished, Well developed, No Acute Distress - Well-appearing no distress Head: Normocephalic, Atraumatic Eyes: Perrl, EOMI ENT: Moist mucous membranes, No rhinorrhea Neck: Supple, Nontender Cardiovascular: Regular rate, Regular rhythm, No murmurs. Negative for: Tachycardia Respiratory: No distress, CTA bilaterally, Chest nontender Abdomen: Soft, Nontender, Nondistended, Normal bowel sounds Back: Nontender, Normal Inspection Extremities: Nontender - Left infected toe is nontender due to peripheral neuropathy, the rest of his foot is benign and nontender without lymphangitis, No edema Skin: Normal color, Rash - Erythematous swollen left second toe with dorsal DIPJ ulcerative wound with a scant amount of discharge, and scab overlying. Nail is intact. Deformity consistent with hammertoe. Neurological: Alert, Oriented x3, Cranial nerves II-XII grossly intact, Normal Strength, Parasthesia - Numbness throughout both forefeet Psychological: Normal affect, Normal Mood Diagnostic/Tx/Re-eval Impressions Foot X-Ray 01/18/21 19:23 IMPRESSION: No acute findings. Electronically Signed: Tiffany Davila MD at 20:03 EST Tel , Service support , 01/18/21 19:23 Foot min 3 Views [RAD] Stat Laboratory Results 01/18/21 01/18/21 18:50 18:50 WBC 12.5 H RBC 5.36 Hgb 17.1 H Hct 50.7 MCV 94.6 H MCH 31.9 MCHC 33.7 RDW Std Deviation 43.9 RDW Coeff of Nenita 12.6 Plt Count 202 MPV 10.3 Immature Gran % (Auto) 0.500 Neut % (Auto) 83.3 H Lymph % (Auto) 6.5 L [place] % (Auto) 8.6 Eos % (Auto) 0.8 Baso % (Auto) 0.3 Absolute Neuts (auto) 10.4 H Absolute Lymphs (auto) 0.82 L Nucleated RBC % 0 ESR 9 Sodium 136 Potassium 3.9 Chloride 100 Carbon Dioxide 30.0 Anion Gap 6 BUN 28 H Creatinine 1.58 H Estim Creat Clear Calc 58.74 Est GFR (MDRD) Af Amer 57 L Est GFR (MDRD) Non-Af 47 L BUN/Creatinine Ratio 17.7 Glucose 165 H Calcium 9.6 C-React Prot Ext Range 54.00 H - Medical Decision Making Patient has an elevated CRP but negative ESR, his x-ray shows no evidence of acute osteomyelitis, and he has a mild leukocytosis. Discussed these findings in the clinical findings with Dr. Dobson, she agrees with the IV vancomycin that we gave him, and advised that he would be stable for discharge home and close outpatient follow-up this week with an antibiotic. We reviewed his culture together that was from the beginning of this month and decided in addition to the Vanco dose, he will be placed on Augmentin at home, I did have a repeat culture done as well. ED Disposition - Plan for ED Patient: Disposition: Home or Assisted Living Diagnosis: Infection of toe, Diabetic ulcer of left foot Instructions: ED Wound Check (Infection) Prescriptions: Amox/Clavulanate Tablet [Augmentin Tablet] 1 tab PO Q8H #30 tab Transmission Status: Pending to [facility]/pharmacy #[id number] Referrals: Fascione,Renee, DPM [STAFF PHYSICIAN] - (this week -- you should get a call)
[2021-01-18 19:06] LABS: Absolute Lymphocyte Count 0.82 X10^3/uL (0.83-4.51); Absolute Neutrophil Count 10.4 X10^3/uL (2.0-7.7); Basophil# 0.04 X10^3/uL; Basophil% 0.3 % (0-1); Eosinophils% 0.8 % (0-5); Hematocrit 50.7 % (40-54); Hemoglobin 17.1 g/dL (13.0-16.5); Lymphocyte # 0.82 X10^3/ul (4.0); Lymphocyte % 6.5 % (19-41); Mean Corp Hgb Conc 33.7 g/dL (32-36); Mean Corpuscular Hgb 31.9 pg (27.0-32.0); Mean Corpuscular Volume 94.6 fL (80-94); Mean Platelet Vol. 10.3 fl (6.2-12.0); Monocyte# 1.08 X10^3/uL; Monocyte% 8.6 % (0-10); NRBC Flagged by Analyzer 0 % (0-5); Neutrophil # 10.43 X10^3/uL (2.7-7.7); Neutrophil % 83.3 % (47-70); Platelet Count 202 K/mm3 (150-450); RBC Distribution Width CV 12.6 % (11.6-14.6); RBC Distribution Width SD 43.9 fl (35.1-43.9); Red Blood Count 5.36 M/mm3 (4.6-6.2); White Blood Count 12.5 K/mm3 (4.4-11.0)
[2021-01-18 19:11] LABS: Erythrocyte Sedimentation Rate 9 mm/hr (0-20)
[2021-01-18 19:21] LABS: Anion Gap 6 (5-15); BUN 28 mg/dL (7-18); BUN/Creat Ratio 17.7 RATIO (10-20); Calcium,Total 9.6 mg/dL (8.5-10.1); Chloride 100 mmol/L (98-107); Creatinine, Serum 1.58 mg/dL (0.70-1.30); EST Glomerular Filtration Rate 47 mL/min (>60); Est Glom Filt Rate - Afr Amer 57 mL/min (>60); Estimated Creatinine Clearance 58.74 ml/min; Glucose 165 mg/dL (74-106); Potassium 3.9 mmol/L (3.5-5.1); Sodium Level 136 mmol/L (136-145)
--- NOTE | 2021-01-18 19:23 | RAD_ITS ---
STUDY: X-RAY - LEFT FOOT CLINICAL: Male, 65 years old. PT WITH LEFT FOOT WOUND. CONCERNED FOR INCREASED DRAINAGE FROM WOUND TODAY. REDNESS/SWELLING OVER DISTAL 1ST AND 2ND METATRSALS AND 2ND TOE AREA TECHNIQUE: 3 view(s) of the foot. COMPARISON: 12/27/2018. FINDINGS: Prior amputation of the first digit at the metatarsophalangeal joint. No acute fracture or dislocation. No destructive bone changes. Narrowing of the first through third tarsometatarsal joints. Hammertoe deformities of the second through fourth digits. Soft tissues and bony structures are otherwise unremarkable. RAD/Foot min 3 Views IMPRESSION: No acute findings. Electronically Signed: Tiffany Davila MD at 20:03 EST Tel , Service support ,
[2021-01-18] MEDS: Amox/Clavulanate 875 MG Tablet PO (21:30)
[2021-01-18 21:32] VITALS: BP 123/80; PULSE 67; RESP 18; O2SAT 94
== END 2021-01-18 22:00 | disposition home or self-care (01) ==
PROVIDERS: Emergency Provider Emergency Medicine; PCP Family Medicine
DX: E11.621 Type 2 diabetes mellitus with foot ulcer (principal); L97.529 Non-pressure chronic ulcer of other part of left foot with unspecified severity; L08.9 Local infection of the skin and subcutaneous tissue, unspecified; I10 Essential (primary) hypertension; E03.9 Hypothyroidism, unspecified; E78.5 Hyperlipidemia, unspecified; I48.0 Paroxysmal atrial fibrillation; E11.42 Type 2 diabetes mellitus with diabetic polyneuropathy; Z85.828 Personal history of other malignant neoplasm of skin; Z95.1 Presence of aortocoronary bypass graft; Z79.4 Long term (current) use of insulin; Z79.01 Long term (current) use of anticoagulants; Z79.899 Other long term (current) drug therapy
CPT/HCPCS: 73630; 80048; 85025; 85652; 86140; 87070; 87077; 87186; 87205; 96365; 96366; 99284; J7030; J7040; A4216

== ENCOUNTER 2021-01-21 10:49 | Inpatient (IN) | payer MEDICARE, SELFPAY ==
[2021-01-21 09:37] VITALS: BMI 28.9
[2021-01-21 10:03] VITALS: BMI 28.9
[2021-01-21 10:10] VITALS: BP 112/63; PULSE 69; RESP 14; TEMP 36.7; O2SAT 97
--- NOTE | 2021-01-21 10:50 | RAD_ITS ---
STUDY: X-RAY - LEFT FOOT CLINICAL: Infection of the second toe. TECHNIQUE: 3 view(s) of the foot. COMPARISON: Radiographs 02/15/2021. FINDINGS: There is a small plantar calcaneal enthesophyte. Otherwise, unremarkable talus, calcaneus, and tarsal bones. Normal visualized subtalar, talonavicular, calcaneocuboid, tarsal and tarsometatarsal articulations. Normal metatarsi. There is amputation of the first digit at the level of the metatarsophalangeal joint. Normal second through fifth metatarsophalangeal joints. Normal phalanges of the lesser toes. There are claw deformities of the lesser toes. There is an ossification in the distal Achilles tendon. RAD/Foot min 3 Views IMPRESSION: Amputation of the first digit. No demonstrated active bone destruction. Electronically Signed: Leo Momin MD at 14:38 EST Tel , Service support ,
--- NOTE | 2021-01-21 10:50 | ART_ITS ---
Reason For Study: Ulcer Procedure A bilateral lower extremity continuous wave Doppler with analog waveform analysis,segmental pressures,and ankle brachial indexes without exercise. Left Segmental Pressures Left brachial= 118mmHg. Left posterior tibial artery = 128mmHg. Left dorsalis pedis artery = 127mmHg. The left dorsalis pedis waveforms are biphasic. The left posterior tibial artery waveforms are biphasic. Right Segmental Pressures Right posterior tibial artery = 158mmHg. Right dorsalis pedis artery = 144mmHg. Right digit = 70 mmHg. The right dorsalis pedis waveforms are triphasic. The right posterior tibial artery waveforms are triphasic. Indices The right ankle brachial index by the dorsalis pedis is 1.22. The right ankle brachial index by the posterior tibial artery is 1.34. The right digital-brachial index is 0.59. The left ankle brachial index by the dorsalis pedis is 1.08. The left ankle brachial index by the posterior tibial artery is 1.08. Interpretation Summary Triphasic Doppler waveforms are noted at ankle level on the right. Biphasic Doppler waveforms are noted at ankle level on the left. Pulse-volume recordings appear satisfactory at all levels bilaterally, though not obtained at digital level on the left due to the presence of bandages. Resting ankle-brachial indices are normal bilaterally. The right digital-brachial index is mildly diminished. The left digital-brachial index was not determined due to the presence of bandages. Arterial flow appears normal at ankle level bilaterally. There is evidence of mild, distal, small- vessel arterial occlusive disease at digital level on the right. Arterial flow at digital level on the left was not assessed due to the presence of bandages. Clinical correlation is advised. Ordering Physician: Renee Sorenson Referring Physician: Mk Ding Performed By: Renita Singleton RVT
--- NOTE | 2021-01-21 10:50 | EKG12_ITS ---
Test Reason : UNKNOWN Blood Pressure : / mmHG Vent. Rate : 078 BPM Atrial Rate : 394 BPM P-R Int : 000 ms QRS Dur : 132 ms QT Int : 404 ms P-R-T Axes : 000 -62 047 degrees QTc Int : 460 ms Atrial fibrillation Left axis deviation Left ventricular hypertrophy with QRS widening Abnormal ECG When compared with ECG of 27-DEC-2018 04:59, Atrial fibrillation has replaced Sinus rhythm Confirmed by EARLENE KHALIL, BELIA ([id number]), design editor RICH AMATO ([id number]) on 01/26/2021 1:11:54 PM Referred By: Son DAMON Confirmed By:BELIA HENAO MD
--- NOTE | 2021-01-21 10:57 | HP.PCM_ITS ---
Problem List (1) Cellulitis of left lower limb Status: Acute (2) Ulcer of left foot with necrosis of muscle Status: Acute (3) Osteomyelitis of left foot Status: Suspected (4) Hammer toe of left foot Status: Chronic (5) Other specified peripheral vascular diseases Status: Suspected (6) Type 2 diabetes mellitus with diabetic polyneuropathy Status: Chronic History of Present Illness Date of Admission: 01/21/21 Chief Complaint: Left foot infection with ulcer The patient is a 65 year old M with significant past medical history of diabetes with neuropathy, foot deformities, prior left foot hallux amputation, renal disease, hypothyroidism, atrial fibrillation on long-term anticoagulation, coronary artery disease, hypertension, hyperlipidemia has worsening status of left foot second toe ulcer. The onset of this ulcer was a little over 1 month ago and has been treated in outpatient setting with local wound care, offloading, and glycemic management. He also subsequently developed an infection approximately 2 weeks ago which did improve on a course of oral antibiotics (Augmentin). After this session was completed his infection returned and he was recently seen in the emergency room in which screening labs and x-rays were performed and he was restarted on oral antibiotics. He presented to the clinic this morning for follow-up and noted his foot status has significantly worsened the past day now with redness extending onto the foot and devitalized ulcer appearance. He denies fever, chill, nausea, vomiting, or foot odor. He was with his and was prepared for hospital admission due to the worsening status. Past Medical History Past Medical History (Chronic Problems): Chronic Problems (Last Reviewed 07/27/20 @ 09:51 by Ernestina SEXTON, PA) Hammer toe of left foot (Chronic) Vasculitis (Chronic) Type 2 diabetes mellitus with diabetic polyneuropathy (Chronic) Hallux malleus of left foot (Chronic) Chronic ulcer of left foot with necrosis of bone (Chronic) Peripheral neuropathy (Chronic) Autoimmune disease (Chronic) he is followed at the [facility].......not otherwise classified Dropfoot (Chronic) History of nonmelanoma skin cancer (Chronic) Hypothyroid (Chronic) Paroxysmal atrial fibrillation (Chronic) jail current use of anticoagulant (Chronic) Eliquis Atherosclerotic heart disease of [place] coronary artery without angina pectoris (Chronic) Left heart cath 07/30/2015 @ [facility] per Dr. Arnold: 07/31/2015: CABG X 4: RUIZ to left anterior descending bridge diagonal, SVG to first DX, radial artery to the lateral CX. Done @ [facility] per Dr. Randall History of coronary artery bypass graft (Chronic 07/31/15) 07/31/2015: CABG X 4: RUIZ to left anterior descending bridge diagonal, SVG to first DX, radial artery to the lateral CX. Done @ [place] per Dr. Randall History of left heart catheterization (Chronic 07/30/15) Left heart cath 07/30/2015 @ [facility] per Dr. Arnold Right-sided extracranial carotid artery stenosis (Chronic) Hypertension (Chronic) Hyperlipidemia (Chronic) Diabetes mellitus type II, controlled (Chronic) Interstitial lung disease (Chronic) Medical History: Medical History (Last Reviewed 07/27/20 @ 09:51 by Ernestina Parra PA, PA) Vasculitis (Chronic) I77.6 Intracerebral hemorrhage (Resolved) Onset Date: 01/30/19 I61.9 Type 2 diabetes mellitus with diabetic polyneuropathy (Chronic) E11.42 Hypothyroid (Chronic) E03.9 Paroxysmal atrial fibrillation (Chronic) I48.0 jail current use of anticoagulant (Chronic) Z79.01 Eliquis Atherosclerotic heart disease of [place] coronary artery without angina pectoris (Chronic) I25.10 Left heart cath 07/30/2015 @ [facility] per Dr. Arnold: 07/31/2015: CABG X 4: RUIZ to left anterior descending bridge diagonal, SVG to first DX, radial artery to the lateral CX. Done @ [facility] per Dr. 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) Allergies adhesive tape Allergy (Verified 01/18/21 18:01) Rash mycophenolate mofetil [From CellCept] Adverse Reaction (Severe, Verified 01/18/21 18:01) elevated liver enzymes Home Medications: Ambulatory Orders Medication Instructions Recorded aspirin 81 mg tablet,delayed 81 mg PO QDAY 12/08/17 release dulaglutide 1.5 mg/0.5 mL 1.5 mg SC SA 12/21/18 subcutaneous pen injector levothyroxine 25 mcg tablet 25 mcg PO DAILY 12/21/18 Ferrous Fumarate [Ferretts] 325 mg PO DAILY 12/25/18 Potassium Chloride 10 meq PO QDAY 12/25/18 cholecalciferol (vitamin D3) 1,250 25 mcg PO DAILY 07/15/19 mcg (50,000 unit) capsule apixaban 2.5 mg tablet 2.5 mg PO BID #60 tab 07/27/20 insulin lispro 100 unit/mL See Rx Instructions SC .COMPLEX 07/27/20 subcutaneous pen losartan 100 mg tablet 100 mg PO QDAY #30 tab 07/27/20 metformin 1,000 mg tablet 500 mg PO BIDCM tab 07/27/20 metoprolol succinate 100 mg 150 mg PO DAILY #45 tab 07/27/20 tablet,extended release 24 hr hydrochlorothiazide 25 mg tablet 25 mg PO QDAY #90 tab 12/30/20 Amox/Clavulanate Tablet [Augmentin 1 tab PO Q8H #30 tab 01/18/21 Tablet] Atorvastatin Calcium [Lipitor] 40 mg PO QHS 01/21/21 Rituximab-Arrx [Riabni] 10 mg IV QMONTH 01/21/21 Tylenol Pm Ex-Strength Caplet 2 tab PO QHS 01/21/21 Surgical History: Surgical History (Last Reviewed 07/27/20 @ 09:51 by Ernestina SEXTON, PA) History of coronary artery bypass graft (Chronic) Onset Date: 07/31/15 Z95.1 07/31/2015: CABG X 4: RUIZ to left anterior descending bridge diagonal, SVG to first DX, radial artery to the lateral CX. Done @ [place] per Dr. Randall History of left heart catheterization (Chronic) Onset Date: 07/30/15 Z98.890 Left heart cath 07/30/2015 @ [facility] per Dr. Arnold thoracoscopy with lung biopsy Surgical History: coronary bypass surgery - 2014 0r 2016, - Psychiatric History: No pertinent psych hx Smoking Status: Never smoker - *Family History Paternal Family History: Family History (Last Reviewed 07/27/20 @ 09:51 by Ernestina SEXTON, PA) Father Lupus COPD (chronic obstructive pulmonary disease) CAD (coronary artery disease) S/P CABG x 3, Onset Age: 68 Congestive heart failure Mother Alzheimers disease History Items: High Cholesterol, Heart Disease Review of Systems Constitutional: Denies: Chills, Fever, Fatigue Cardiovascular: Reports: Edema. Denies: Chest Pain, Claudication Respiratory: Denies: Cough, Shortness of Breath Gastrointestinal: Denies: Diarrhea, Nausea, Vomiting Musculoskeletal: Denies: Foot Pain, Leg Pain Skin: Reports: Skin Changes, Wounds Neurological: Reports: Numbness Psychiatric: Denies: Anxiety Endocrine: Denies: Change in Body Habitus VTE Information - Inpt Only VTE Present on Admission: No VTE Mechan Device Prophylaxis: SCD's VTE Pharm Prophylaxis ordered?: Yes Patient Problems: Active and Suspected Problems (Last Reviewed 07/27/20 @ 09:51 by Ernestina Parra PA, PA) Cellulitis of left lower limb (Acute) Ulcer of left foot with necrosis of muscle (Acute) Osteomyelitis of left foot (Suspected) Other specified peripheral vascular diseases (Suspected) Objective: [facility] - Physical Exam Vitals/I&O's: Vital Signs Temp Pulse Resp BP Pulse Ox 98.1 F 69 14 112/63 97 01/21/21 10:10 01/21/21 10:10 01/21/21 10:10 01/21/21 10:10 01/21/21 10:10 Oxygen Delivery Method Room Air Weight: 110.7 kg Body Mass Index (BMI) 28.9 Finger Stick Blood Glucose 97 General: Alert, Oriented x3, Cooperative HEENT: Atraumatic Extremities: No cyanosis, Capillary Refill Less than 3 Seconds - Digits 3, 4, 5 left foot and difficult to evaluate capillary refill time to distal second toe due to tissue devitalized status, No Calf Tenderness - Negative Ron and Jacobo sign bilateral, Diminished Peripheral Pulses, Edema - Left second toe and fo refoot, - - Hallux amputation left with rigid dorsal contraction of digits 2, 3, 4, 5 Skin: Ulcer/ Wound - Dorsal second toe ulcer with exposed tendon and intense erythema to the entire second toe with diffuse erythema extending to the dorsal midfoot (marked), - - His skin is hairless and atrophic. There is no purulence on expression or odor. The adjacent ulcer skin also appears to be devitalized skin peeling discoloration Musculoskeletal: No Tenderness to Palpation of Joints or Extremities, Muscle Wasting, - - No bogginess or fluctuance on palpation to the second toe or forefoot. Compartments remain soft to palpate left foot Neurological: - - Lack of epicritic sensation is consistent with neuropathic status Psych/Mental Status: Normal Affect, Appropriate Current Medications Docusate Sodium (Docusate Sodium 100 Mg Capsule) 100 mg PO BID PRN PRN PRN Reason: Constipation Melatonin (Melatonin 3 Mg Tablet) 3 mg PO QHS PRN PRN PRN Reason: INSOMNIA Morphine Sulfate (Morphine 2 Mg/Ml Syringe) 2 mg IV Q3H PRN PRN PRN Reason: Pain Score 6-10 Ondansetron HCl (Ondansetron 4 Mg/2 Ml Vial) 4 mg IV Q8H PRN PRN PRN Reason: NAUSEA/VOMITING Oxycodone HCl (Oxycodone 5 Mg Tablet) 5 mg PO Q4H PRN PRN PRN Reason: Pain Score 4-5 Sodium Chloride (0.9% Saline Lock 10 Ml Syringe) 10 - 40 ml IV UD PRN PRN Reason: SALINE FLUSH Assessment/Plan All Active Problems (Last Reviewed 07/27/20 @ 09:51 by Ernestina SEXTON, PA) Cellulitis of left lower limb (Acute) Ulcer of left foot with necrosis of muscle (Acute) Intracerebral hemorrhage (Resolved 01/30/19) Left leg cellulitis (Acute) Hyponatremia (Acute) Acute renal failure (Acute) Abnormal LFTs (Acute) Diabetic ulcer of left foot (Acute) Osteomyelitis of left foot (Acute) Cellulitis of left toe (Acute) Abnormal nuclear stress test (Resolved) Unstable angina pectoris (Resolved) Left second toe ulcer with necrotic tendon Osteomyelitis is suspected Cellulitis left foot Diabetes with neuropathy 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 [facility]. He has failed outpatient ulcer and infection management including oral antibiotics and local wound care. He was advised to come for admission for improved antibiotic management and surgical intervention. Due to the amount of tissue loss and rapid deterioration of his left second toe I recommend an amputation. This will also address his chronic deformity. We discussed surgical options including second toe amputation versus more curative type transmetatarsal amputation. It is pertinent to proceed forward with the toe amputation at this time to address infection at that level. A TMA will be considered if he has additional transfer lesions ulcers or infections to give him a more functional foot shape. The preoperative indication, planned procedure, possible benefits, risk, complications, anticipated healing time and management were reviewed in detail. He understands elects to proceed with surgery at this time. He understands risk and complications include but are not limited to following: pain, swelling, scarring, transfer lesion or ulcer, delayed or nonhealing, continued infection, further limb loss, allergic reaction, blood clot, loss of limb, function, life. Informed surgical consent will be obtained. Preoperative orders will be electronically entered. The anticipated surgery is scheduled for tomorrow at 9:00 under MAC and local anesthesia. Betadine dry dressing was applied. Continue surgical shoe to offload. It is noted he had recent cultures done in outpatient setting including labs and foot x-rays. These were reviewed. Updated labs were ordered at the time of admission including CBC, CMP, ESR, C- reactive protein, foot updated x-ray. WBC 9.3. Other data pending. He was started on renally dosed vancomycin based off of his prior culture results. His previous cultures from 12/31 were MRSA PCR negative however his final culture and sensitivities from earlier this month suggest MRSA. This should also cover his Enterococcus. Updated cultures from ER visit on 01/18 w/ staph growth so far. Infectious disease was asked to be in consultation and input is greatly appreciated. He is high risk for continued infection and further limb loss. Kidney function is noted and monitored close with serial labs. He was previously scheduled for outpatient lower extremity arterial studies given his recent ulcer finding. This was not completed yet and will be ordered for in house including segmental leg and thigh pressures, MICHAEL and waveforms. I discussed this case with hospitalist Dr. Delarosa who is consultation for medical management and preoperative screening. Management is greatly appreciated. Please not hesitate to call if you have any questions. Renee Sorenson DPM, [facility] [phone] Procedure Criteria COVID Risk Discussion: Non elective surgery for infection treatment and limb salvage: The surgeon and patient have discussed in detail the risk of exposure to and/or potential harm posed by the COVID-19 virus with having a surgery/procedure at this time versus the risk of delaying the surgery/procedure. It is not possible to know either the risk of delaying the surgery or procedure or chance of getting an infection with perfect accuracy, but a joint decision was made between the patient and the surgeon to proceed at this time with the scheduled surgery/procedure as indicated on the consent form.
[2021-01-21 11:16] LABS: Absolute Lymphocyte Count 0.78 X10^3/uL (0.83-4.51); Absolute Neutrophil Count 7.5 X10^3/uL (2.0-7.7); Basophil# 0.03 X10^3/uL; Basophil% 0.3 % (0-1); Eosinophil# 0.11 X10^3/uL; Eosinophils% 1.2 % (0-5); Hemoglobin 15.9 g/dL (13.0-16.5); Lymphocyte # 0.78 X10^3/ul (4.0); Lymphocyte % 8.4 % (19-41); Mean Corp Hgb Conc 33.8 g/dL (32-36); Mean Corpuscular Hgb 32.1 pg (27.0-32.0); Mean Corpuscular Volume 94.8 fL (80-94); Monocyte% 8.6 % (0-10); NRBC Flagged by Analyzer 0 % (0-5); Neutrophil # 7.51 X10^3/uL (2.7-7.7); Neutrophil % 81.2 % (47-70); Platelet Count 207 K/mm3 (150-450); RBC Distribution Width CV 12.4 % (11.6-14.6); RBC Distribution Width SD 42.6 fl (35.1-43.9); Red Blood Count 4.96 M/mm3 (4.6-6.2); White Blood Count 9.3 K/mm3 (4.4-11.0)
[2021-01-21 11:33] LABS: ALB/GLOB Ratio 0.9 RATIO (0.9-2.4); AST(SGOT) 15 U/L (15-37); Alanine Aminotransfer ALT/SGPT 16 U/L (16-61); Albumin, Serum 3.4 g/dL (3.2-5.0); Alkaline Phosphatase 159 U/L (45-117); Anion Gap 6 (5-15); BUN 31 mg/dL (7-18); BUN/Creat Ratio 19.1 RATIO (10-20); Calcium,Total 9.4 mg/dL (8.5-10.1); Chloride 105 mmol/L (98-107); Creatinine, Serum 1.62 mg/dL (0.70-1.30); EST Glomerular Filtration Rate 46 mL/min (>60); Est Glom Filt Rate - Afr Amer 55 mL/min (>60); Estimated Creatinine Clearance 57.29 ml/min; Globulin 3.9 g/dL (2.2-4.2); Glucose 139 mg/dL (74-106); Potassium 3.9 mmol/L (3.5-5.1); Protein, Total 7.3 g/dL (6.4-8.2); Sodium Level 138 mmol/L (136-145)
--- NOTE | 2021-01-21 11:50 | PCM.CONS.GEN ---
Reason for Consult Date of Consultation: 01/21/21 Reason for Consultation: Left foot ulcer with cellulitis History of Present Illness: The patient is a 65 year old M with history of diabetic neuropathy, left foot hallux amputation is being admitted for left foot infection. Patient developed left second toe ulcer about a month ago. He developed infection about 2 weeks ago which improved course of oral antibiotic Augmentin. After that, infection return upon completion of antibiotic and he came to ED where he was given a dose of vancomycin and restarted on Augmentin. At that time x-ray did not show osteomyelitis. 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 Patient was seen in the clinic of flooring machine feeder where infection was found to have worsened with redness and subsequently got admitted directly in PCU. Patient got 1 dose of IV vancomycin. Afebrile in ED and now. Vitals shows heart rate and blood pressure are in normal range. Basic lab does not show leukocytosis. BUN/creatinine elevated 31/1.62. It was normal 1.2 in July 2015 but elevated 28/1.58 on 01/18/2021. Patient history of coronary artery disease status post four-vessel CABG in 2014 in [facility]. Patient also on Eliquis, baby aspirin, metoprolol and losartan as he has history of A. fib. Patient stated he also has UIP/interstitial lung disease and follows Dr. Serna in [facility]. 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 Arnold: 07/31/2015: CABG X 4: RUIZ to left anterior descending bridge diagonal, SVG to first DX, radial artery to the lateral CX. Done @ [facility] per Dr. Randall History of coronary artery bypass graft (Chronic 07/31/15) 07/31/2015: CABG X 4: RUIZ to left anterior descending bridge diagonal, SVG to first DX, radial artery to the lateral CX. Done @ [place] per Dr. Randall History of left heart catheterization (Chronic 07/30/15) Left heart cath 07/30/2015 @ [facility] per Dr. Arnold Right-sided extracranial carotid artery stenosis (Chronic) Hypertension (Chronic) Hyperlipidemia (Chronic) Diabetes mellitus type II, controlled (Chronic) Interstitial lung disease (Chronic) Medical History: Medical History (Last Reviewed 07/27/20 @ 09:51 by Ernestina Parra PA, PA) Vasculitis (Chronic) I77.6 Intracerebral hemorrhage (Resolved) Onset Date: 01/30/19 I61.9 Type 2 diabetes mellitus with diabetic polyneuropathy (Chronic) E11.42 Hypothyroid (Chronic) E03.9 Paroxysmal atrial fibrillation (Chronic) I48.0 [facility] current use of anticoagulant (Chronic) Z79.01 Eliquis Atherosclerotic heart disease of blackfeet coronary artery without angina pectoris (Chronic) I25.10 Left heart cath 07/30/2015 @ [facility] per Dr. Arnold: 07/31/2015: CABG X 4: RUIZ to left anterior descending bridge diagonal, SVG to first DX, radial artery to the lateral CX. Done @ [facility] per Dr. 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) Allergies adhesive tape Allergy (Verified 01/18/21 18:01) Rash mycophenolate mofetil [From CellCept] Adverse Reaction (Severe, Verified 01/18/21 18:01) elevated liver enzymes Home Medications: Ambulatory Orders Medication Instructions Recorded aspirin 81 mg tablet,delayed 81 mg PO QDAY 12/08/17 release dulaglutide 1.5 mg/0.5 mL 1.5 mg SC SA 12/21/18 subcutaneous pen injector levothyroxine 25 mcg tablet 25 mcg PO DAILY 12/21/18 Ferrous Fumarate [Ferretts] 325 mg PO DAILY 12/25/18 Potassium Chloride 10 meq PO QDAY 12/25/18 cholecalciferol (vitamin D3) 1,250 25 mcg PO DAILY 07/15/19 mcg (50,000 unit) capsule apixaban 2.5 mg tablet 2.5 mg PO BID #60 tab 07/27/20 insulin lispro 100 unit/mL See Rx Instructions SC .COMPLEX 07/27/20 subcutaneous pen losartan 100 mg tablet 100 mg PO QDAY #30 tab 07/27/20 metformin 1,000 mg tablet 500 mg PO BIDCM tab 07/27/20 metoprolol succinate 100 mg 150 mg PO DAILY #45 tab 07/27/20 tablet,extended release 24 hr hydrochlorothiazide 25 mg tablet 25 mg PO QDAY #90 tab 12/30/20 Amox/Clavulanate Tablet [Augmentin 1 tab PO Q8H #30 tab 01/18/21 Tablet] Atorvastatin Calcium [Lipitor] 40 mg PO QHS 01/21/21 Rituximab-Arrx [Riabni] 10 mg IV QMONTH 01/21/21 Tylenol Pm Ex-Strength Caplet 2 tab PO QHS 01/21/21 Surgical History: Surgical History (Last Reviewed 07/27/20 @ 09:51 by Ernestina Parra PA, PA) History of coronary artery bypass graft (Chronic) Onset Date: 07/31/15 Z95.1 07/31/2015: CABG X 4: RUIZ to left anterior descending bridge diagonal, SVG to first DX, radial artery to the lateral CX. Done @ [facility] per Dr. Randall History of left heart catheterization (Chronic) Onset Date: 07/30/15 Z98.890 Left heart cath 07/30/2015 @ [facility] per Dr. Arnold thoracoscopy with lung biopsy Surgical History: coronary bypass surgery - 2014 0r 2016, - Psychiatric History: No pertinent psych hx Smoking Status: Never smoker - *Family History Paternal Family History: Family History (Last Reviewed 07/27/20 @ 09:51 by Ernestina Parra PA, PA) Father Lupus COPD (chronic obstructive pulmonary disease) CAD (coronary artery disease) S/P CABG x 3, Onset Age: 68 Congestive heart failure Mother Alzheimers disease History Items: High Cholesterol, Heart Disease Review of Systems Constitutional: Denies: Chills, Fever, Weight Change HEENT: Denies: Head Aches, Sinus Congestion, Sinus Drainage Cardiovascular: Denies: Chest Pain, Palpitations Respiratory: Denies: Cough, Shortness of breath at rest, Sputum production Gastrointestinal: Denies: Abdominal Pain, Nausea, Vomiting Genitourinary: Denies: Dysuria, Frequency, Hematuria, Retention, Urgency Musculoskeletal: Reports: Joint Pain. Denies: Joint Tenderness Skin: Denies: Rash, Wounds Neurological: Denies: Focal weakness, Numbness, Tingling Psychiatric: Denies: Anxiety, Depression, Homicidal Ideations, Suicidal Ideations Hematologic/ Lymphatic: Denies: Easy Bruising, Easy Bleeding Patient Problems: Active and Suspected Problems (Last Reviewed 07/27/20 @ 09:51 by Ernestina Parra PA, PA) Cellulitis of left lower limb (Acute) Ulcer of left foot with necrosis of muscle (Acute) Osteomyelitis of left foot (Suspected) Other specified peripheral vascular diseases (Suspected) Objective: Physical exam General: Alert, Oriented x3, Cooperative HEENT: Atraumatic, PERRLA, EOMI, Normocephalic Oral: No Gingival or Mucosal Lesions/ Ulcerations Neck: Supple, No JVD, Negative Carotid Bruits Lungs: Air entry diminished in bilateral lung bases. No crepitation/rhonchi/crepitations Cardiovascular: A. fib, Normal S1, Normal S2, No murmurs, four-vessel CABG scar Abdomen: Bowel Sounds Present, Soft, Non Tender, Non-Distended : No renal angle tenderness. No suprapubic tenderness. Extremities: No edema, Capillary Refill Less than 3 Seconds Skin: Ulcer over left second toe. Dressing is dry. Mild localized redness and edema in left foot. Musculoskeletal: No Tenderness to Palpation of Joints or Extremities Neurological: Cranial nerves II-XII grossly intact, Deep Tendon Reflexes 2+/4 and Symmetrical, Neuro grossly intact Psych/Mental Status: Normal Affect, Appropriate. - Physical Exam Vitals/I&O's: Vital Signs Temp Pulse Resp BP Pulse Ox 98.1 F 69 14 112/63 97 01/21/21 10:10 01/21/21 10:10 01/21/21 10:10 01/21/21 10:10 01/21/21 10:10 Oxygen Delivery Method Room Air Weight: 244 lb 0.827 oz Body Mass Index (BMI) 28.9 Finger Stick Blood Glucose 97 Laboratory Results 01/21/21 11:08: WBC 9.3, RBC 4.96, Hgb 15.9, Hct 47.0, MCV 94.8 H, MCH 32.1 H, MCHC 33.8, RDW Std Deviation 42.6, RDW Coeff of Nenita 12.4, Plt Count 207, MPV 10.0, Immature Gran % (Auto) 0.300, Neut % (Auto) 81.2 H, Lymph % (Auto) 8.4 L, Price % (Auto) 8.6, Eos % (Auto) 1.2, Baso % (Auto) 0.3, Absolute Neuts (auto) 7.5, Absolute Lymphs (auto) 0.78 L, Nucleated RBC % 0 01/21/21 11:08: Sodium 138, Potassium 3.9, Chloride 105, Carbon Dioxide 27.0, Anion Gap 6, BUN 31 H, Creatinine 1.62 H, Estim Creat Clear Calc 57.29, Est GFR (MDRD) Af Amer 55 L, Est GFR (MDRD) Non-Af 46 L, BUN/Creatinine Ratio 19.1, Glucose 139 H, Calcium 9.4, Total Bilirubin 0.50, AST 15, ALT 16, Alkaline Phosphatase 159 H, Total Protein 7.3, Albumin 3.4, Globulin 3.9, Albumin/Globulin Ratio 0.9 Current Medications Docusate Sodium (Docusate Sodium 100 Mg Capsule) 100 mg PO BID PRN PRN PRN Reason: Constipation Melatonin (Melatonin 3 Mg Tablet) 3 mg PO QHS PRN PRN PRN Reason: INSOMNIA Morphine Sulfate (Morphine 2 Mg/Ml Syringe) 2 mg IV Q3H PRN PRN PRN Reason: Pain Score 6-10 Ondansetron HCl (Ondansetron 4 Mg/2 Ml Vial) 4 mg IV Q8H PRN PRN PRN Reason: NAUSEA/VOMITING Oxycodone HCl (Oxycodone 5 Mg Tablet) 5 mg PO Q4H PRN PRN PRN Reason: Pain Score 4-5 Sodium Chloride (0.9% Saline Lock 10 Ml Syringe) 10 - 40 ml IV UD PRN PRN Reason: SALINE FLUSH Assessment/Plan All Active Problems (Last Reviewed 07/27/20 @ 09:51 by Ernestina Parra PA, PA) Cellulitis of left lower limb (Acute) Ulcer of left foot with necrosis of muscle (Acute) Intracerebral hemorrhage (Resolved 01/30/19) Left leg cellulitis (Acute) Hyponatremia (Acute) Acute renal failure (Acute) Abnormal LFTs (Acute) Diabetic ulcer of left foot (Acute) Osteomyelitis of left foot (Acute) Cellulitis of left toe (Acute) Abnormal nuclear stress test (Resolved) Unstable angina pectoris (Resolved) This 65-year-old gentleman with history of diabetic neuropathy admitted from podiatry clinic for left second toe ulcer with cellulitis. 1. Left second toe ulcer with localized cellulitis: Patient is being admitted in PCU. Initial Gram stain of wound culture shows 3+ staph aureus, MSSA. Patient started on Levaquin 750 mg IV every 48 hour as per sensitivity of MSSA. Patient patient did not had significant improvement with Augmentin 2 times, benzylpenicillin therefore started on fluoroquinolone. ID has been consulted. CRP and lactic acid ordered. Alkaline phosphatase 159. 2. 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 TSH 2.4. Free T4 1.1. Glucose 139. Patient on Trulicity 1.5 mcg subcutaneous on Monday weekly at home and lispro insulin scheduled at home. Home dose of insulin continued. Continue Accu-Chek insulin coverage with Humalog sliding scale. Continue home dose of levothyroxine. 3. CKD stage III due to diuretic/medication: Patient creatinine was normal 1.2 in July 2019. After that his creatinine has been elevated since December 2019 1.4 which gradually increased to 1.87 in June 2020 but he stays at 1.6. Continue losartan but hold HCTZ. 4. Coronary artery disease status post four-vessel CABG, chronic A. fib on Eliquis, hypertension and dyslipidemia: Patient on baby aspirin, Eliquis, metoprolol succinate and atorvastatin continued. Patient had last stress echo in February 2020 reported as normal, adequate and negative for ischemia. EF 75%. 5. Interstitial lung disease: Patient on 6 monthly rituximab infusion in pulmonary clinic in [facility]. Currently does not have acute cough or pulmonary symptoms. VTE prophylaxis: On Eliquis 2.5 mg twice daily. Total time of the visit including total time spent in counseling or coordination of care, (more than 50% of the total time, spent in obtaining medical information from nurses and other ancillary care providers,explaining to the patient about labs, imaging, diagnosis and management), discussion with attending, review of labs and imaging is 30 minutes. Inpatient E&M: 91589 Init Hosp L3
[2021-01-21 13:04] LABS: Erythrocyte Sedimentation Rate 27 mm/hr (0-20)
[2021-01-21] MEDS: Lactated Ringers 1,000 ML 100 ML IV (13:25)
[2021-01-21 13:34] LABS: Lactic Acid 1.8 mmol/L (0.4-1.9)
--- NOTE | 2021-01-21 13:50 | CASEMGMT ---
LAURA PITTMAN assessment: Face to Face with patient for initial transition planning/care coordination assessment. LAURA PITTMAN introduced self and role at [facility], pt voices understanding and consents to assessment. Pt is sitting up in bed in no distress. Pt is A/Ox4 and answers all questions appropriately. is at bedside during assessment. Care providers, pharmacy, and demographics verified. Presentation: Direct admit from wound center for left foot infection Admitting dx: Left foot infection PCP: [facility] Specialists: Delta, podiatry; Rylie, endocrinology; Buzz Serna, [facility]ology; [facility] Preferred Pharmacy: [facility] Insurance: AeR Prescription Benefit: AeR Living Will/HPOA: Pt states has LW/HPOA and is aware that they are not on file at [facility] at this time. Pt states his , Tessa Foreman, is HPOA. LNOK: Tessa Workman, /HPOA Living Arrangements: Pt states lives with in 1 story home and states no concerns at home. Pt states is independent with ADL's. Transportation: Pt states does most of driving and states no transportation concerns. DME/HHC: Pt states has the following DME: cane, grab bars, and knee walker. Pt states no need for any further DME. Pt states no hx of HHC or SNF in the past. Pt states no concerns with going home at time of discharge. Pt states is retired. Pt states does not smoke cigarettes but does drink ETOH, very minimally per pt. Pt states no further concerns/needs at this time. CM to follow for PT/OT evals and any further discharge planning/needs. Advised pt to ask for CM if any further questions/concerns/needs arise, voices understanding. Pt Goal: Home Plan[place] LAURA PITTMAN
[2021-01-21] MEDS: levoFLOXacin IV 750 MG/150 ML BAG 100 MG IV (14:14)
--- NOTE | 2021-01-21 14:50 | NURSING ---
wound photo: left 2nd toe
--- NOTE | 2021-01-21 14:51 | NURSING ---
skin photo: left foot/leg
[2021-01-21 15:56] LABS: M R Staph aureus DNA By PCR Negative (Negative); Probe Check PASS; Specimen Processing Control PASS; Staph aureus DNA By PCR POSITIVE (Negative)
[2021-01-21] MEDS: APIXABAN 2.5 MG TABLET PO ×2 (16:19→22:53)
[2021-01-21 16:30] VITALS: BP 147/94; PULSE 55; RESP 12; TEMP 36.3; O2SAT 99
[2021-01-21] MEDS: Insulin Lispro 100 UNIT/ML INSULN.PEN 22 UNIT SC (17:21)
[2021-01-21 17:30] LABS: Bedside Glucose 188 mg/dL (70-110)
[2021-01-21 19:26] LABS: M R Staph aureus DNA By PCR Negative (Negative); Probe Check PASS; Specimen Processing Control PASS
[2021-01-21 22:50] VITALS: BP 138/78; PULSE 71; RESP 18; TEMP 36.6; O2SAT 98
[2021-01-21] MEDS: Atorvastatin Calcium 40 MG Tablet PO (22:53)
[2021-01-21 23:20] LABS: Bedside Glucose 147 mg/dL (70-110)
[2021-01-22] VITALS (16 sets, daily range): BP systolic 93–125; BP diastolic 47–77; PULSE 60–78; RESP 14–16; TEMP 36.3–36.8; O2SAT 94–97; BMI 28.9
--- NOTE | 2021-01-22 | BON_PTH ---
PATIENT: AZEB BAKER LOC: [facility] U#:[id number] AGE/SX: 65/M ROOM: [facility] RE01/21/[address]: Dr. Gato Chowdhury MD : 1955 BED: 1 DIS: 01/25/2021 SPEC #: [id number] RECD: 01/22/21 12:35 STATUS: LIZZ MALLOY #: [id number] FLORECITA: 01/22/21 00:[address]: Renee Sorenson DEPT: SURGICAL PATHOLOGY RECD BY: Doug Michel ENTERED: 01/22/21 12:36 SP TYPE: Bone OTHR DR: MD Dr. Jesse Landa MD Dr. Robert Leininger, MD Tissues: A - Bone of foot, NOS B - Bone of foot, NOS Procedures: Decalcification bone/plaque Special Stain Group I Surgery Specimen Level III Surgery Specimen Level IV AFB Stain (control) GMS Stain (control) HEADER OPERATION: Amputation second toe PRE-OP DIAGNOSIS: Cellulitis of left lower limb, ulcer of left foot with necrosis of muscle, osteomyelitis left foot TISSUE SUBMITTED: A - Clearance fragment left second toe, B - Left second toe soft tissue and bone MICROSCOPIC DIAGNOSIS A. Clearance fragment left second toe: A piece of bone, negative for acute osteomyelitis. B. Left second toe soft tissue and bone: Focal ulceration, necrosis, associated acute inflammation and abscess formation. Underlying bone with acute osteomyelitis. See comment. SJ:ashly 01/27/2021 COMMENT B. Special stains for acid fast bacilli and fungi are negative for organisms; matched controls are appropriate. MICROSCOPIC DESCRIPTION Slides are reviewed. GROSS DESCRIPTION A - Received in fixative is one container labeled with the patient's name and designated second toe clearance fragment. The specimen consists of a piece of kaminski bone measuring 1.3 x 1 x 0.7 cm. The entire specimen is submitted in one cassette after decalcification. B - Received in fixative is one container labeled with the patient's name and designated second toe left foot. The specimen consists of a portion of toe measuring 2.5 x 1.5 x 1 cm. The skin surface shows an area of ulceration, congestion and hemorrhage. The entire specimen is submitted in two cassettes as follows: 1 - area of ulceration, 2 - area of underlying bone with adjacent portion of skin submitted after decalcification. / TALYA:rg 01/22/21 TC:2 CPT: 51255, 53037, 83421 x2, 86028 x2
[2021-01-22 06:23] LABS: Absolute Lymphocyte Count 1.03 X10^3/uL (0.83-4.51); Basophil# 0.02 X10^3/uL; Basophil% 0.2 % (0-1); Eosinophil# 0.11 X10^3/uL; Eosinophils% 1.4 % (0-5); Hematocrit 44.4 % (40-54); Lymphocyte # 1.03 X10^3/ul (4.0); Lymphocyte % 12.9 % (19-41); Mean Corp Hgb Conc 33.8 g/dL (32-36); Mean Corpuscular Hgb 32.1 pg (27.0-32.0); Mean Corpuscular Volume 95.1 fL (80-94); Mean Platelet Vol. 10.5 fl (6.2-12.0); NRBC Flagged by Analyzer 0 % (0-5); Neutrophil # 6.03 X10^3/uL (2.7-7.7); Neutrophil % 75.3 % (47-70); Platelet Count 178 K/mm3 (150-450); RBC Distribution Width CV 12.5 % (11.6-14.6); RBC Distribution Width SD 43.7 fl (35.1-43.9); Red Blood Count 4.67 M/mm3 (4.6-6.2)
[2021-01-22 07:04] LABS: ALB/GLOB Ratio 0.8 RATIO (0.9-2.4); AST(SGOT) 13 U/L (15-37); Alanine Aminotransfer ALT/SGPT 15 U/L (16-61); Alkaline Phosphatase 142 U/L (45-117); Anion Gap 8 (5-15); BUN 29 mg/dL (7-18); BUN/Creat Ratio 22.3 RATIO (10-20); Calcium,Total 8.9 mg/dL (8.5-10.1); Chloride 103 mmol/L (98-107); EST Glomerular Filtration Rate 59 mL/min (>60); Est Glom Filt Rate - Afr Amer 71 mL/min (>60); Estimated Creatinine Clearance 71.39 ml/min; Globulin 3.6 g/dL (2.2-4.2); Glucose 188 mg/dL (74-106); Potassium 3.7 mmol/L (3.5-5.1); Protein, Total 6.6 g/dL (6.4-8.2); Sodium Level 136 mmol/L (136-145); T4 Free Direct 1.19 ng/dL (0.76-1.46); Thyroid Stim Hormone (TSH) 1.38 uIU/mL (0.358-3.74)
[2021-01-22 07:27] LABS: Hemoglobin A1c 6.7 % (3.8-5.6)
--- NOTE | 2021-01-22 07:57 | PCM.PN.HOSP ---
Patient Problems: Active and Suspected Problems (Last Reviewed 07/27/20 @ 09:51 by Ernestina Parra PA, PA) Cellulitis of left lower limb (Acute) Ulcer of left foot with necrosis of muscle (Acute) Osteomyelitis of left foot (Suspected) Other specified peripheral vascular diseases (Suspected) Osteomyelitis of toe of left foot (Suspected) left Hallux Objective: No fever or chills. Heart rate and blood pressure in normal range. Patient had partial left second toe amputation for infected second toe ulcer. Vitals/I&O's: Vital Signs Temp Pulse Resp BP Pulse Ox 97.3 F L 78 16 125/77 H 94 01/22/21 02:36 01/22/21 02:36 01/22/21 02:36 01/22/21 02:36 01/22/21 02:36 Oxygen Delivery Method Room Air Weight: 244 lb 0.827 oz Body Mass Index (BMI) 28.9 Finger Stick Blood Glucose 97 Intake and Output for Last 24 Hours 01/20/21 01/21/21 01/22/21 23:59 23:59 23:59 Intake Total 1510 / 1510 856.67 / 856.67 Balance 1510 / 1510 856.67 / 856.67 Microbiology Past 72 Hours 01/21/21 16:20 Mucosa - Nose SARS-CoV-2 Antigen (Rapid) - Final 01/21/21 12:50 Wound - Left Foot Gram Stain - Final Laboratory Results 01/21/21 11:08: WBC 9.3, RBC 4.96, Hgb 15.9, Hct 47.0, MCV 94.8 H, MCH 32.1 H, MCHC 33.8, RDW Std Deviation 42.6, RDW Coeff of Nenita 12.4, Plt Count 207, MPV 10.0, Immature Gran % (Auto) 0.300, Neut % (Auto) 81.2 H, Lymph % (Auto) 8.4 L, [place] % (Auto) 8.6, Eos % (Auto) 1.2, Baso % (Auto) 0.3, Absolute Neuts (auto) 7.5, Absolute Lymphs (auto) 0.78 L, Nucleated RBC % 0 01/21/21 11:08: Sodium 138, Potassium 3.9, Chloride 105, Carbon Dioxide 27.0, Anion Gap 6, BUN 31 H, Creatinine 1.62 H, Estim Creat Clear Calc 57.29, Est GFR (MDRD) Af Amer 55 L, Est GFR (MDRD) Non-Af 46 L, BUN/Creatinine Ratio 19.1, Glucose 139 H, Calcium 9.4, Total Bilirubin 0.50, AST 15, ALT 16, Alkaline Phosphatase 159 H, Total Protein 7.3, Albumin 3.4, Globulin 3.9, Albumin/Globulin Ratio 0.9 01/21/21 11:08: ESR 27 H 01/21/21 11:08: C-React Prot Ext Range 43.60 H 01/21/21 12:50: S.aureus Protein A PCR POSITIVE H, MRSA (PCR) Negative 01/21/21 12:55: Lactic Acid 1.8 01/21/21 17:16: POC Glucose 188 H 01/21/21 17:30: MRSA (PCR) Negative 01/21/21 23:16: POC Glucose 147 H 01/22/21 05:19: WBC 8.0, RBC 4.67, Hgb 15.0, Hct 44.4, MCV 95.1 H, MCH 32.1 H, MCHC 33.8, RDW Std Deviation 43.7, RDW Coeff of Nenita 12.5, Plt Count 178, MPV 10.5, Immature Gran % (Auto) 0.200, Neut % (Auto) 75.3 H, Lymph % (Auto) 12.9 L, [place] % (Auto) 10.0, Eos % (Auto) 1.4, Baso % (Auto) 0.2, Absolute Neuts (auto) 6.0, Absolute Lymphs (auto) 1.03, Nucleated RBC % 0 01/22/21 05:19: Sodium 136, Potassium 3.7, Chloride 103, Carbon Dioxide 25.0, Anion Gap 8, BUN 29 H, Creatinine 1.30, Estim Creat Clear Calc 71.39, Est GFR (MDRD) Af Amer 71, Est GFR (MDRD) Non-Af 59 L, BUN/Creatinine Ratio 22.3 H, Glucose 188 H, Calcium 8.9, Total Bilirubin 0.60, AST 13 L, ALT 15 L, Alkaline Phosphatase 142 H, Total Protein 6.6, Albumin 3.0 L, Globulin 3.6, Albumin/Globulin Ratio 0.8 L, TSH 1.38, Free T4 1.19 01/22/21 05:19: Hemoglobin A1c 6.7 H Current Medications Acetaminophen (Acetaminophen 325 Mg Tablet) 650 mg PO Q6H PRN PRN PRN Reason: Pain Score 1-3 /Temp>100.7 Apixaban (Apixaban 2.5 Mg Tablet) 2.5 mg PO BID [facility] Last Admin: 01/21/21 22:53 Dose: 2.5 mg Documented by: Aspirin (Aspirin E.C. 81 Mg Tablet) 81 mg PO DAILY@0800 [facility] Atorvastatin Calcium (Atorvastatin Calcium 40 Mg Tablet) 40 mg PO QHS [facility] Last Admin: 01/21/21 22:53 Dose: 40 mg Documented by: Docusate Sodium (Docusate Sodium 100 Mg Capsule) 100 mg PO BID PRN PRN PRN Reason: Constipation Ferrous Sulfate (Ferrous Sulfate 325 Mg Tablet) 325 mg PO DAILY@1200 [facility] Levofloxacin (Levaquin Iv) 750 mg in 150 mls @ 100 mls/hr IV DAILY [facility] Last Infusion: 01/21/21 15:45 Dose: Infused Documented by: Insulin Human Lispro (Insulin Lispro 100 Unit/Ml Insuln.Pen) 28 unit SC BREAKFAST [facility] Insulin Human Lispro (Insulin Lispro 100 Unit/Ml Insuln.Pen) 20 unit SC LUNCH [facility] Insulin Human Lispro (Insulin Lispro 100 Unit/Ml Insuln.Pen) 22 unit SC DINNER [facility] Last Admin: 01/21/21 17:21 Dose: 22 units Documented by: Levothyroxine Sodium (Levothyroxine 25 Mcg Tablet) 25 mcg PO DAILY@0600 [facility] Last Admin: 01/22/21 04:42 Dose: Not Given Documented by: Losartan Potassium (Losartan Potassium 100 Mg Tablet) 100 mg PO DAILY [facility] Melatonin (Melatonin 3 Mg Tablet) 3 mg PO QHS PRN PRN PRN Reason: INSOMNIA Metoprolol Succinate (Metoprolol(Xl)Succ 50 Mg Tablet) 150 mg PO DAILY [facility] Morphine Sulfate (Morphine 2 Mg/Ml Syringe) 2 mg IV Q3H PRN PRN PRN Reason: Pain Score 6-10 Ondansetron HCl (Ondansetron 4 Mg/2 Ml Vial) 4 mg IV Q8H PRN PRN PRN Reason: NAUSEA/VOMITING Oxycodone HCl (Oxycodone 5 Mg Tablet) 5 mg PO Q4H PRN PRN PRN Reason: Pain Score 4-5 Polyethylene Glycol (Polyethylene Glycol 3350 17 Gm Packet) 17 gm PO DAILY PRN PRN PRN Reason: constipation Sodium Chloride (0.9% Saline Lock 10 Ml Syringe) 10 - 40 ml IV UD PRN PRN Reason: SALINE FLUSH Medical Necessity - Tobacco Use Smoking Status: Never smoker Assessment/Plan All Active Problems (Last Reviewed 07/27/20 @ 09:51 by Ernestina Parra PA, PA) Cellulitis of left lower limb (Acute) Ulcer of left foot with necrosis of muscle (Acute) Intracerebral hemorrhage (Resolved 01/30/19) Left leg cellulitis (Acute) Hyponatremia (Acute) Acute renal failure (Acute) Abnormal LFTs (Acute) Diabetic ulcer of left foot (Acute) Osteomyelitis of left foot (Acute) Cellulitis of left toe (Acute) Abnormal nuclear stress test (Resolved) Unstable angina pectoris (Resolved) This 65-year-old gentleman with history of diabetic neuropathy admitted from podiatry clinic for left second toe ulcer with cellulitis. 1. Left second toe ulcer with localized cellulitis and suspected osteomyelitis: Patient is being admitted in PCU. Initial Gram stain of wound culture shows 3+ staph aureus, MSSA. Patient started on Levaquin 750 mg IV every 48 hour as per sensitivity of MSSA. Had previous cultures which shows MSSA, staph hemolyticus, Enterococcus faecalis, Pseudomonas aeruginosa, E. coli and Enterobacter cloacae. Seen by ID and antibiotic changed to Unasyn and doxycycline. Levaquin discontinued. Lactic acid 1.8. A1c 6.7. Alkaline phosphatase 142. MRSA nasal screen negative. 2. 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 TSH 2.4. Free T4 1.1. Glucose 139. Patient on Trulicity 1.5 mcg subcutaneous on Monday weekly at home and lispro insulin scheduled at home. Home dose of insulin continued. Continue Accu-Chek insulin coverage with Humalog sliding scale. Continue home dose of levothyroxine. Glucose is between 142 220. Started on Lantus 10 units subcutaneous at bedtime daily. 3. CKD stage III due to diuretic/medication: Patient creatinine was normal 1.2 in July 2019. After that his creatinine has been elevated since December 2019 1.4 which gradually increased to 1.87 in June 2020 but he stays at 1.6. Continue losartan but hold HCTZ. 01/22: BUN/creatinine 29/1.3. 4. Coronary artery disease status post four-vessel CABG, chronic A. fib on Eliquis, hypertension and dyslipidemia: Patient on baby aspirin, Eliquis, metoprolol succinate and atorvastatin continued. Patient had last stress echo in February 2020 reported as normal, adequate and negative for ischemia. EF 75%. 5. Interstitial lung disease: Patient on 6 monthly rituximab infusion in pulmonary clinic in [facility]. Currently does not have acute cough or pulmonary symptoms. VTE prophylaxis: On Eliquis 2.5 mg twice daily. Total time of the visit including total time spent in counseling or coordination of care, (more than 50% of the total time, spent in obtaining medical information from nurses and other ancillary care providers,explaining to the patient about labs, imaging, diagnosis and management), discussion with attending, review of labs and imaging is 30 minutes. Inpatient E&M: 51822 [facility] L2
[2021-01-22] MEDS: Metoprolol(XL)Succ 50 MG Tablet 150 MG PO (07:59)
[2021-01-22] MEDS: Losartan Potassium 100 MG Tablet PO (07:59)
[2021-01-22 08:21] LABS: Bedside Glucose 220 mg/dL (70-110)
[2021-01-22] MEDS: Lactated Ringers 1,000 ML 100 ML IV ×2 (08:27→13:35)
--- NOTE | 2021-01-22 08:54 | RAD_ITS ---
STUDY: X-RAY LEFT FOOT, SECOND TOE REASON FOR EXAM: Amputation of left second toe. TECHNIQUE: 3 fluoroscopic images of the toe were obtained. COMPARISON: Radiographs 01/21/2021. FINDINGS: There is amputation of the second toe at the level of the proximal phalangeal diaphysis without evidence of complication. 4 seconds of fluoroscopy time was used. Electronically Signed: Leo Momin MD at 11:18 EST Tel , Service support , RAD/Toe(s) Min 2 Views
[2021-01-22] MEDS: levoFLOXacin IV 750 MG/150 ML BAG 100 MG IV (09:02)
--- NOTE | 2021-01-22 09:44 | OP.PCM_ITS ---
Problem List (1) Cellulitis of left lower limb Status: Acute (2) Ulcer of left foot with necrosis of muscle Status: Acute (3) Osteomyelitis of left foot Status: Suspected (4) Hammer toe of left foot Status: Chronic (5) Other specified peripheral vascular diseases Status: Suspected (6) Type 2 diabetes mellitus with diabetic polyneuropathy Status: Chronic Report of Operation Date of Procedure: 01/22/21 Pre-Operative Diagnosis: infected left second toe with devitalized tendon and osteomyelitis suspected. hammer toe deformity Post-Operative Diagnosis: infected left toe with infected tendon and suspected osteomyelitis. hammer toe deformity Surgery/Procedure Performed:: partial left second toe amputation Description of Surgical Findings:: Hemostasis: No tourniquet utilized. Anatomic dissection performed Materials: 3-0 Vicryl, 3-0 and 2-0 Prolene Specimens were sent Complications: None The patient tolerated the procedure anesthesia well. He was transferred to the PACU with vital signs stable and vascular status intact to the left lower extremity. Postoperative x-rays were reviewed prior to leaving the operating room which demonstrated adequate resection of the left second toe without any additional injuries, foreign body, or soft tissue emphysema. Postoperative orders were entered electronically. I will continue to follow him while in house. 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 Left second toe soft tissue and bone sent to pathology. 2. Left second toe soft tissue and bone sent to microbiology for aerobic, anaerobic, acid-fast, fungal. 3. Left second toe clearance fragment bone sent to pathology. 4. Left second toe clearance fragment bone sent to microbiology for aerobic, anaerobic, acid-fast, fungal Drains: none Estimated Blood Loss (mL): <150 mL Description of Procedure: Indications: This 63-year-old male with significant past medical history of diabetes with peripheral neuropathy (A1C 6.7%), hypertension, h/o kidney disease, atrial fibrillation, hyperlipidemia, interstitial lung disease, coronary artery disease (EF 75%), and suspected small vessel vascular disease has been managed in the outpatient setting for left second toe ulcer with rapid deterioration of the skin envelope. He was previously treated with offloading, serial debridements, home wound care, and recently oral antibiotics. His infection resolved and then further returned with worsening status after the antibiotic course was completed. He was advised to come for admission due to failure of outpatient treatment, and for surgical amputation of the toe which is now compromised from a soft tissue and bone standpoint. There is a dorsal second toe ulcer at the level of the distal interphalangeal joint with exposed devitalized necrotic tendon and now an eschar extending peripherally over 1 cm also encompassing the nail unit. He has a rigid contraction of both interphalangeal joints of this second toe which is consistent with a nonreducible hammertoe deformity. He is essentially walking with pressure to the dorsal aspect of his toe. Within the last 2 days he has developed bright erythema to the second toe that is now extending to the dorsal foot. As of this morning erythema is now noted to the anterior lower leg. There is no bogginess or fluctuance on palpation of the toe or forefoot. Three standard left x-rays demonstrated significant hammertoe deformity without soft tissue emphysema, osseous destruction, foreign body, fracture dislocation or Charcot. He does not have any areas of additional clinical bogginess or fluctuance on palpation to the left lower extremity. He also had a recent updated noninvasive vascular study in which normal perfusion to the ankle level suspected. He does have evidence of small vessel disease on the contralateral right limb and a systolic toe pressure was not obtained in the left lower extremity due to his prior hallux amputation. The preoperative indications, planned procedure, possible benefits, risks, anticipated healing time and management were discussed in detail with the patient. No guarantees were made. He understands complications and risks may include but are not limited to the following: delayed or nonhealing, pain, scarring, infection, need for revisional surgery, allergy, blood clot, loss of l imb, function, life, transfer lesion or new ulcer formation. This is a limb salvage case and is not an elective procedure. He understands COVID-19 is a current situation. He understands the inherent risks with the virus being present in the community and understands significant precautions are being taken to prevent communicable spread during her hospital session. He understands waiting to treat this condition is limb and life-threatening and I recommend he proceed forward with the hospital admission and surgery. He therefore elects to proceed forward with the procedure at this time. I answered all of his questions. The surgical consent and the surgical limb were signed. His preoperative history and physical exam was reviewed. His preoperative medical management was reviewed with hospitalist, Dr. Delarosa. The preoperative diagnostic data was also reviewed including labs, ekg, and echo from 06/2020. His admission WBC was 9.3, ESR 27, CRP 43.6. Procedure in detail: The patient was transferred to the operating room via cart and placed on the operating table in the supine position. Final verification of the patient, surgery, and limb designation were performed via the timeout procedure. Local anesthetic was administered by the anesthesia team prior to transport back to the operating room. A tourniquet was placed however was not utilized. He has continued on Eliquis due to low risk of bleeding with this procedure and also his higher risk of thromboembolic events. The left lower extremity was prepped and draped in the usual aseptic manner. Surgery began as a following: Attention was first directed to the left second toe in which a fishmouth incision was made to allow for removal of the devitalized ulcer with nonviable skin and bone of the third toe. The toe was disarticulated at the proximal interphalangeal joint level. This was removed from the table and sent to pathology and microbiology as noted. The tissues were devitalized with soft bone and purulence. After the resection was performed there was no additional purulence, necrosis or devitalized tissue. The tissues were bleeding and healthy however this was not in a pulsatile manner. This was copiously irrigated with normal saline. At this time clean instrumentation, gloves, and surrounding drapes were applied. A sagittal saw was next used to resect the head and part of the diaphysis of the proximal phalanx in which this was sent as a clearance fragment to both microbiology and pathology. The resected tissue appeared healthy. Saline irrigation was performed again. Next, gentle no touch technique closure was performed to reapproximate the surgical wound with deep tissue 3-0 Vicryl. Next, the skin was gently reapproximated utilizing 3-0 and 2-0 Prolene with simple suture techniques bleeding part of the dorsal aspect open to allow continued drainage. A postoperative dressing was applied with Betadine soaked Adaptic, gauze, Kerlix, and an Sunny wrap (applied in a noncompressive manner). A postoperative x-ray was obtained with the mini C arm demonstrating adequate resection of part of the third toe. No acute injuries or foreign bodies were identified. After procedure: The patient tolerated the procedure and anesthesia well. He was transported to the PACU with vital signs stable and vascular status intact to left lower extremity. He was advised to keep his dressing clean, dry, and intact. He was advised to only put weight on his heel with a surgical shoe and with the use of an assistive device. He has significant peripheral neuropathy. Pain medication will be ordered if needed. Postoperative x-ray was reviewed as noted. He will be transferred back to the medical surgical floor for continued IV antibiotics and medical management. I will continue to follow him closely while in house. He is on IV antibiotics at this time. Infectious diseases is on consultation and input will be greatly appreciated. Microbiology and pathology specimen results are pending. His postoperative orders were entered electronically. Renee Sorenson DPM, [facility] Grafts/Implants Used: none - Complications none - Admit VTE Documentation VTE Present on Admission: No VTE Mechan Device Prophylaxis: SCD's VTE Pharm Prophylaxis ordered?: Yes
[2021-01-22] MEDS: Levothyroxine 25 MCG TABLET PO (11:05)
[2021-01-22] MEDS: APIXABAN 2.5 MG TABLET PO ×2 (11:06→21:11)
[2021-01-22] MEDS: Ferrous Sulfate 325 MG Tablet PO (11:06)
[2021-01-22] MEDS: Aspirin E.C. 81 MG Tablet PO (11:06)
[2021-01-22] MEDS: Insulin Lispro 100 UNIT/ML INSULN.PEN 20 UNIT SC (11:07)
[2021-01-22 11:45] LABS: Bedside Glucose 188 mg/dL (70-110)
--- NOTE | 2021-01-22 12:12 | CASEMGMT ---
This RN CM to room to discuss d/c with pt/ at this time. Per pt/, surgery went well and they state no concerns with going home at time of discharge. Pt aware that therapy to follow and to ask for CM if any further questions/concerns/needs arise, voices understanding. [place] RN CM
--- NOTE | 2021-01-22 13:14 | CON.PCM_ITS ---
Problem List (1) Osteomyelitis of toe of left foot Status: Suspected Comment: left Hallux Reason for Consult: toe osteo Consulted by: Dr. Sorenson History of Present Illness: The patient is a 65 year old M with DM neuropathy, prior toe amputation, presented with about 4 weeks of L 2nd toe swelling. Developed redness, started on augmentin about 2 weeks ago. Sx worsened, restarted augmentin, saw Dr. Sorenson, sent to hospital. Started on levaquin, now s/p partial toe amp today. Feeling ok, no fever, no pain. Full ROS performed and neg except as noted above. - Medical History Past Medical History (Chronic Problems): Chronic Problems (Last Reviewed 07/27/20 @ 09:51 by Ernestina Parra PA, PA) Hammer toe of left foot (Chronic) Vasculitis (Chronic) Type 2 diabetes mellitus with diabetic polyneuropathy (Chronic) Hallux malleus of left foot (Chronic) Chronic ulcer of left foot with necrosis of bone (Chronic) Peripheral neuropathy (Chronic) Autoimmune disease (Chronic) he is followed at the [facility].......not otherwise classified Dropfoot (Chronic) History of nonmelanoma skin cancer (Chronic) Hypothyroid (Chronic) Paroxysmal atrial fibrillation (Chronic) skilled nursing current use of anticoagulant (Chronic) Eliquis Atherosclerotic heart disease of [place] coronary artery without angina pectoris (Chronic) Left heart cath 07/30/2015 @ [facility] per Dr. Arnold: 07/31/2015: CABG X 4: RUIZ to left anterior descending bridge diagonal, SVG to first DX, radial artery to the lateral CX. Done @ [facility] per Dr. Randall History of coronary artery bypass graft (Chronic 07/31/15) 07/31/2015: CABG X 4: RUIZ to left anterior descending bridge diagonal, SVG to first DX, radial artery to the lateral CX. Done @ [facility] per Dr. Randall History of left heart catheterization (Chronic 07/30/15) Left heart cath 07/30/2015 @ [facility] per Dr. Arnold Right-sided extracranial carotid artery stenosis (Chronic) Hypertension (Chronic) Hyperlipidemia (Chronic) Diabetes mellitus type II, controlled (Chronic) Interstitial lung disease (Chronic) Allergies/Adverse Reactions: Allergies adhesive tape Allergy (Verified 01/18/21 18:01) Rash mycophenolate mofetil [From CellCept] Adverse Reaction (Severe, Verified 01/18/21 18:01) elevated liver enzymes Home Medications: Ambulatory Orders Medication Instructions Recorded aspirin 81 mg tablet,delayed 81 mg PO QDAY 12/08/17 release dulaglutide 1.5 mg/0.5 mL 1.5 mg SC SA 12/21/18 subcutaneous pen injector levothyroxine 25 mcg tablet 25 mcg PO DAILY 12/21/18 Ferrous Fumarate [Ferretts] 325 mg PO DAILY 12/25/18 Potassium Chloride 10 meq PO QDAY 12/25/18 cholecalciferol (vitamin D3) 1,250 25 mcg PO DAILY 07/15/19 mcg (50,000 unit) capsule apixaban 2.5 mg tablet 2.5 mg PO BID #60 tab 07/27/20 insulin lispro 100 unit/mL See Rx Instructions SC .COMPLEX 07/27/20 subcutaneous pen losartan 100 mg tablet 100 mg PO QDAY #30 tab 07/27/20 metformin 1,000 mg tablet 500 mg PO BIDCM tab 07/27/20 metoprolol succinate 100 mg 150 mg PO DAILY #45 tab 07/27/20 tablet,extended release 24 hr hydrochlorothiazide 25 mg tablet 25 mg PO QDAY #90 tab 12/30/20 Amox/Clavulanate Tablet [Augmentin 1 tab PO Q8H #30 tab 01/18/21 Tablet] Atorvastatin Calcium [Lipitor] 40 mg PO QHS 01/21/21 Rituximab-Arrx [Riabni] 10 mg IV QMONTH 01/21/21 Tylenol Pm Ex-Strength Caplet 2 tab PO QHS 01/21/21 - Social History Tobacco Use: non-smoker Vital Signs Temp Pulse Resp BP Pulse Ox 97.9 F 68 15 98/47 L 97 01/22/21 12:46 01/22/21 12:46 01/22/21 12:46 01/22/21 12:46 01/22/21 12:46 Oxygen Delivery Method Room Air Weight: 110.7 kg Body Mass Index (BMI) 28.9 Finger Stick Blood Glucose 97 Microbiology Past 72 Hours 01/21/21 12:50 Gram Stain - Final Wound - Left Foot Wound Culture - Preliminary Staphylococcus aureus 01/21/21 16:20 SARS-CoV-2 Antigen (Rapid) - Final Mucosa - Nose Laboratory Tests Past 24 Hrs 01/21/21 01/21/21 01/21/21 11:08 12:50 12:55 WBC RBC Hgb Hct MCV MCH MCHC RDW Std Deviation RDW Coeff of Nenita Plt Count MPV Immature Gran % (Auto) Neut % (Auto) Lymph % (Auto) [place] % (Auto) Eos % (Auto) Baso % (Auto) Absolute Neuts (auto) Absolute Lymphs (auto) Nucleated RBC % Sodium Potassium Chloride Carbon Dioxide Anion Gap BUN Creatinine Estim Creat Clear Calc Est GFR (MDRD) Af Amer Est GFR (MDRD) Non-Af BUN/Creatinine Ratio Glucose Hemoglobin A1c Lactic Acid 1.8 Calcium Total Bilirubin AST ALT Alkaline Phosphatase C-React Prot Ext Range 43.60 H Total Protein Albumin Globulin Albumin/Globulin Ratio TSH Free T4 S.aureus Protein A PCR POSITIVE H MRSA (PCR) Negative 01/21/21 01/22/21 01/22/21 17:30 05:19 05:19 WBC 8.0 RBC 4.67 Hgb 15.0 Hct 44.4 MCV 95.1 H MCH 32.1 H MCHC 33.8 RDW Std Deviation 43.7 RDW Coeff of Nenita 12.5 Plt Count 178 MPV 10.5 Immature Gran % (Auto) 0.200 Neut % (Auto) 75.3 H Lymph % (Auto) 12.9 L Town[place] % (Auto) 10.0 Eos % (Auto) 1.4 Baso % (Auto) 0.2 Absolute Neuts (auto) 6.0 Absolute Lymphs (auto) 1.03 Nucleated RBC % 0 Sodium 136 Potassium 3.7 Chloride 103 Carbon Dioxide 25.0 Anion Gap 8 BUN 29 H Creatinine 1.30 Estim Creat Clear Calc 71.39 Est GFR (MDRD) Af Amer 71 Est GFR (MDRD) Non-Af 59 L BUN/Creatinine Ratio 22.3 H Glucose 188 H Hemoglobin A1c Lactic Acid Calcium 8.9 Total Bilirubin 0.60 AST 13 L ALT 15 L Alkaline Phosphatase 142 H C-React Prot Ext Range Total Protein 6.6 Albumin 3.0 L Globulin 3.6 Albumin/Globulin Ratio 0.8 L TSH 1.38 Free T4 1.19 S.aureus Protein A PCR MRSA (PCR) Negative 01/22/21 05:19 WBC RBC Hgb Hct MCV MCH MCHC RDW Std Deviation RDW Coeff of Nenita Plt Count MPV Immature Gran % (Auto) Neut % (Auto) Lymph % (Auto) [place] % (Auto) Eos % (Auto) Baso % (Auto) Absolute Neuts (auto) Absolute Lymphs (auto) Nucleated RBC % Sodium Potassium Chloride Carbon Dioxide Anion Gap BUN Creatinine Estim Creat Clear Calc Est GFR (MDRD) Af Amer Est GFR (MDRD) Non-Af BUN/Creatinine Ratio Glucose Hemoglobin A1c 6.7 H Lactic Acid Calcium Total Bilirubin AST ALT Alkaline Phosphatase C-React Prot Ext Range Total Protein Albumin Globulin Albumin/Globulin Ratio TSH Free T4 S.aureus Protein A PCR MRSA (PCR) - Other Studies Radiology: [] reviewed Other Studies: [] Route of nutrition/ use of supplements: [] Nutritional Intake: [] IV Site: [] Fish Catheter: [] - Physical Exam General: Alert, Oriented x3, Cooperative, No apparent distress HEENT: Atraumatic, PERRLA, EOMI Neck: Supple, No Nodes Lungs: Clear to auscultation, Normal air movement Cardiovascular: Regular rate, Regular Rhythm Abdomen: Non-Distended Extremities: No edema Skin: Ulcer/ Wound - reviewed photos IV Site: Peripheral Musculoskeletal: No Tenderness to Palpation of Joints or Extremities Neurological: Cranial nerves II-XII grossly intact - Assessment/Plan Antibiotics: [] Assessment/Plan: [] Active and Suspected Problems (Last Reviewed 07/27/20 @ 09:51 by Ernestina Parra PA, PA) Cellulitis of left lower limb (Acute) Ulcer of left foot with necrosis of muscle (Acute) Osteomyelitis of left foot (Suspected) Other specified peripheral vascular diseases (Suspected) L 2nd toe osteo - recent cxs with mssa, MR-CoNS, and enterococcus. Now s/p partial toe amp 01/[address] Sorenson. Will cover empirically with doxy and unasyn. Will follow, thank you
[2021-01-22] MEDS: Doxycycline 100 MG CAPSULE PO ×2 (15:06→21:12)
[2021-01-22 16:50] LABS: Bedside Glucose 114 mg/dL (70-110)
[2021-01-22] MEDS: Insulin Lispro 100 UNIT/ML INSULN.PEN 22 UNIT SC (18:51)
[2021-01-22 21:00] LABS: Bedside Glucose 145 mg/dL (70-110)
[2021-01-22] MEDS: Atorvastatin Calcium 40 MG Tablet PO (21:12)
[2021-01-23 01:30] VITALS: BP 103/61; PULSE 74; RESP 16; TEMP 36.7; O2SAT 94
[2021-01-23] MEDS: Lactated Ringers 1,000 ML 100 ML IV ×2 (01:51→12:15)
[2021-01-23 02:56] VITALS: BMI 28.9
[2021-01-23 05:59] LABS: Absolute Lymphocyte Count 1.04 X10^3/uL (0.83-4.51); Absolute Neutrophil Count 3.5 X10^3/uL (2.0-7.7); Basophil# 0.02 X10^3/uL; Basophil% 0.4 % (0-1); Eosinophil# 0.13 X10^3/uL; Eosinophils% 2.5 % (0-5); Hematocrit 44.5 % (40-54); Hemoglobin 14.7 g/dL (13.0-16.5); Lymphocyte # 1.04 X10^3/ul (4.0); Lymphocyte % 19.8 % (19-41); Mean Corpuscular Hgb 31.2 pg (27.0-32.0); Mean Corpuscular Volume 94.5 fL (80-94); Mean Platelet Vol. 10.2 fl (6.2-12.0); Monocyte# 0.51 X10^3/uL; Monocyte% 9.7 % (0-10); NRBC Flagged by Analyzer 0 % (0-5); Neutrophil # 3.52 X10^3/uL (2.7-7.7); Neutrophil % 67.2 % (47-70); Platelet Count 179 K/mm3 (150-450); RBC Distribution Width SD 42.5 fl (35.1-43.9); Red Blood Count 4.71 M/mm3 (4.6-6.2); White Blood Count 5.2 K/mm3 (4.4-11.0)
[2021-01-23] MEDS: Levothyroxine 25 MCG TABLET PO (06:21)
[2021-01-23 06:30] VITALS: BP 113/60; PULSE 61; RESP 12; TEMP 36.6; O2SAT 98
[2021-01-23 06:31] VITALS: BMI 28.9
[2021-01-23 06:40] LABS: ALB/GLOB Ratio 0.9 RATIO (0.9-2.4); AST(SGOT) 12 U/L (15-37); Alanine Aminotransfer ALT/SGPT 14 U/L (16-61); Albumin, Serum 2.9 g/dL (3.2-5.0); Alkaline Phosphatase 134 U/L (45-117); Anion Gap 7 (5-15); BUN 24 mg/dL (7-18); BUN/Creat Ratio 17.9 RATIO (10-20); Calcium,Total 8.9 mg/dL (8.5-10.1); Chloride 105 mmol/L (98-107); Creatinine, Serum 1.34 mg/dL (0.70-1.30); EST Glomerular Filtration Rate 57 mL/min (>60); Est Glom Filt Rate - Afr Amer 69 mL/min (>60); Estimated Creatinine Clearance 69.26 ml/min; Globulin 3.4 g/dL (2.2-4.2); Glucose 176 mg/dL (74-106); Potassium 3.9 mmol/L (3.5-5.1); Protein, Total 6.3 g/dL (6.4-8.2); Sodium Level 139 mmol/L (136-145)
[2021-01-23] MEDS: Insulin Lispro 100 UNIT/ML INSULN.PEN 28 UNIT SC (07:58)
[2021-01-23] MEDS: Aspirin E.C. 81 MG Tablet PO (07:58)
[2021-01-23 08:16] LABS: Bedside Glucose 183 mg/dL (70-110)
--- NOTE | 2021-01-23 08:36 | PN_ITS ---
Patient Problems: Active and Suspected Problems (Last Reviewed 07/27/20 @ 09:51 by Ernestina Parra PA, PA) Cellulitis of left lower limb (Acute) Ulcer of left foot with necrosis of muscle (Acute) Osteomyelitis of left foot (Suspected) Other specified peripheral vascular diseases (Suspected) Osteomyelitis of toe of left foot (Suspected) left Hallux Subjective: This 65-year-old male with multiple comorbidities was seen bedside this morning postoperative day #1 left partial second toe amputation for treatment of deep tissue infection. He denies fever, chill, nausea, vomiting, calf pain, shortness of breath, chest pain. He had one episode of diarrhea last night and that has since resolved. - Physical Exam Vitals/I&O's: Vital Signs Temp Pulse Resp BP Pulse Ox 97.9 F 61 12 113/60 98 01/23/21 06:30 01/23/21 06:30 01/23/21 06:30 01/23/21 06:30 01/23/21 06:30 Oxygen Delivery Method Room Air Weight: 110.7 kg Body Mass Index (BMI) 28.9 Finger Stick Blood Glucose 97 Intake and Output for Last 24 Hours 01/21/21 01/22/21 01/23/21 23:59 23:59 23:59 Intake Total 1510 / 1510 3224.00 / 3224.00 857 / 857 Output Total 1200 / 1200 Balance 1510 / 1510 2024.00 / 2024.00 857 / 857 General: Alert, Oriented x3, Cooperative Extremities: No cyanosis, No Calf Tenderness - Negative Ron and Jacobo signs bilateral, Diminished Peripheral Pulses, Edema - Decreased to left foot with in creased skin wrinkles noted Skin: Incision - Well aligned and coapted without necrosis, purulence or odor. The erythema that extends to the dorsal foot is more violaceous in appearance today appears to be starting to fade. There is also decreased intensity to the erythema to the anterior lower leg, - - His skin is hairless and atrophic Musculoskeletal: No Tenderness to Palpation of Joints or Extremities, Muscle Wasting, - - Hallux amputation and recent partial second toe amputation left foot. Compartments remain soft to palpate to the left lower extremity Neurological: - - Lack of epicritic sensation is consistent with neuropathic status Psych/Mental Status: Normal Affect, Appropriate Microbiology Past 72 Hours 01/22/21 09:35 Wound - Toe Gram Stain - Final 01/22/21 09:35 Wound - Toe Gram Stain - Final 01/21/21 12:50 Wound - Left Foot Gram Stain - Final 01/21/21 12:50 Wound - Left Foot Wound Culture - Preliminary Staphylococcus aureus 01/21/21 16:20 Mucosa - Nose SARS-CoV-2 Antigen (Rapid) - Final Laboratory Results 01/22/21 10:56: POC Glucose 188 H 01/22/21 16:24: POC Glucose 114 H 01/22/21 20:56: POC Glucose 145 H 01/23/21 05:30: WBC 5.2, RBC 4.71, Hgb 14.7, Hct 44.5, MCV 94.5 H, MCH 31.2, MCHC 33.0, RDW Std Deviation 42.5, RDW Coeff of Nenita 12.0, Plt Count 179, MPV 10.2, Immature Gran % (Auto) 0.400, Neut % (Auto) 67.2, Lymph % (Auto) 19.8, [place] % (Auto) 9.7, Eos % (Auto) 2.5, Baso % (Auto) 0.4, Absolute Neuts (auto) 3.5, Absolute Lymphs (auto) 1.04, Nucleated RBC % 0 01/23/21 05:30: Sodium 139, Potassium 3.9, Chloride 105, Carbon Dioxide 27.0, Anion Gap 7, BUN 24 H, Creatinine 1.34 H, Estim Creat Clear Calc 69.26, Est GFR (MDRD) Af Amer 69, Est GFR (MDRD) Non-Af 57 L, BUN/Creatinine Ratio 17.9, Glucose 176 H, Calcium 8.9, Total Bilirubin 0.40, AST 12 L, ALT 14 L, Alkaline Phosphatase 134 H, Total Protein 6.3 L, Albumin 2.9 L, Globulin 3.4, Albumin/Globulin Ratio 0.9 01/23/21 07:57: POC Glucose 183 H Current Medications Acetaminophen (Acetaminophen 325 Mg Tablet) 650 mg PO Q6H PRN PRN PRN Reason: Pain Score 1-3 /Temp>100.7 Apixaban (Apixaban 2.5 Mg Tablet) 2.5 mg PO BID ANNE Last Admin: 01/22/21 21:11 Dose: 2.5 mg Documented by: Aspirin (Aspirin E.C. 81 Mg Tablet) 81 mg PO DAILY@0800 [facility] Last Admin: 01/23/21 07:58 Dose: 81 mg Documented by: Atorvastatin Calcium (Atorvastatin Calcium 40 Mg Tablet) 40 mg PO QHS [facility] Last Admin: 01/22/21 21:12 Dose: 40 mg Documented by: Docusate Sodium (Docusate Sodium 100 Mg Capsule) 100 mg PO BID PRN PRN PRN Reason: Constipation Doxycycline Monohydrate (Doxycycline 100 Mg Capsule) 100 mg PO BID [facility] Last Admin: 01/22/21 21:12 Dose: 100 mg Documented by: Ferrous Sulfate (Ferrous Sulfate 325 Mg Tablet) 325 mg PO DAILY@1200 [facility] Last Admin: 01/22/21 11:06 Dose: 325 mg Documented by: Lactated Ringer's () 1,000 mls @ 100 mls/hr IV .Q10H [facility] Last Infusion: 01/23/21 07:06 Dose: 100 mls/hr Documented by: Ampicillin Sodium/Sulbactam (Sodium 3 gm/ Sodium Chloride) 112 mls @ 150 mls/hr IV Q8 [facility] Last Infusion: 01/23/21 07:06 Dose: Infused Documented by: Insulin Glargine (Insulin Glargine 100 Units/Ml Pen) 10 units SC QHS [facility] Last Admin: 01/22/21 21:53 Dose: 10 units Documented by: Insulin Human Lispro (Insulin Lispro 100 Unit/Ml Insuln.Pen) 28 unit SC BREAKFAST [facility] Last Admin: 01/23/21 07:58 Dose: 28 units Documented by: Insulin Human Lispro (Insulin Lispro 100 Unit/Ml Insuln.Pen) 20 unit SC LUNCH [facility] Last Admin: 01/22/21 11:07 Dose: 20 units Documented by: Insulin Human Lispro (Insulin Lispro 100 Unit/Ml Insuln.Pen) 22 unit SC DINNER [facility] Last Admin: 01/22/21 18:51 Dose: 22 units Documented by: Levothyroxine Sodium (Levothyroxine 25 Mcg Tablet) 25 mcg PO DAILY@0600 [facility] Last Admin: 01/23/21 06:21 Dose: 25 mcg Documented by: Losartan Potassium (Losartan Potassium 100 Mg Tablet) 100 mg PO DAILY [facility] Last Admin: 01/22/21 07:59 Dose: 100 mg Documented by: Melatonin (Melatonin 3 Mg Tablet) 3 mg PO QHS PRN PRN PRN Reason: INSOMNIA Metoprolol Succinate (Metoprolol(Xl)Succ 50 Mg Tablet) 150 mg PO DAILY [facility] Last Admin: 01/22/21 07:59 Dose: 150 mg Documented by: Morphine Sulfate (Morphine 2 Mg/Ml Syringe) 2 mg IV Q3H PRN PRN PRN Reason: Pain Score 6-10 Ondansetron HCl (Ondansetron 4 Mg/2 Ml Vial) 4 mg IV Q8H PRN PRN PRN Reason: NAUSEA/VOMITING Oxycodone HCl (Oxycodone 5 Mg Tablet) 5 mg PO Q4H PRN PRN PRN Reason: Pain Score 4-5 Polyethylene Glycol (Polyethylene Glycol 3350 17 Gm Packet) 17 gm PO DAILY PRN PRN PRN Reason: constipation Sodium Chloride (0.9% Saline Lock 10 Ml Syringe) 10 - 40 ml IV UD PRN PRN Reason: SALINE FLUSH Medical Necessity - Tobacco Use Smoking Status: Never smoker Assessment/Plan All Active Problems (Last Reviewed 07/27/20 @ 09:51 by Ernestina Parra PA, PA) Cellulitis of left lower limb (Acute) Ulcer of left foot with necrosis of muscle (Acute) Intracerebral hemorrhage (Resolved 01/30/19) Left leg cellulitis (Acute) Hyponatremia (Acute) Acute renal failure (Acute) Abnormal LFTs (Acute) Diabetic ulcer of left foot (Acute) Osteomyelitis of left foot (Acute) Cellulitis of left toe (Acute) Abnormal nuclear stress test (Resolved) Unstable angina pectoris (Resolved) s/p left partial second toe amputation secondary to toe ulcer with necrotic tendon and suspected osteomyelitis (DOS 01/22/21) Cellulitis left foot Diabetes with neuropathy 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 He is afebrile and his vital signs are stable. His white blood cell count is downtrending to 5.2. His foot is stabi lizing and there is no purulence or necrosis at his recent surgical site. A Betadine wet-to-dry dressing was applied with a small wicked packed area to the dorsal aspect. Microbiology and pathology specimens were sent from surgery yesterday including clearance fragments the bone resection site. These are still pending. Other recent cultures were reviewed as the following: MSSA, MR-CoNS, and enterococcus. He is covered at this time with Unasyn and doxycycline. Infectious disease on consult. To heel weight-bear and surgical shoe to keep the site offloaded. His blood flow studies were reviewed with normal perfusion to the ankle level. Small vessel disease is suspected on the right limb and the left limb was not evaluated due to his current wound and infection at that exact testing level. There is no evidence of critical limb ischemia. I offered him an outpatient vascular specialist referral due to his recurrent ulcer status and these findings. Medical management per hospitalist physician is greatly appreciated. He continues on Eliquis. Discharge planning: additional improvement in cellulitis status will be needed prior to discharge home. He plans to return home with his . Please not hesitate to call if you have any questions. Renee Sorenson DPM, F[facility] [phone]
[2021-01-23 10:15] VITALS: BP 116/62; PULSE 62; RESP 16; TEMP 36.4; O2SAT 95
[2021-01-23 10:19] VITALS: BP 116/62; PULSE 62
[2021-01-23] MEDS: Doxycycline 100 MG CAPSULE PO ×2 (10:19→21:28)
[2021-01-23] MEDS: Metoprolol(XL)Succ 50 MG Tablet 150 MG PO (10:19)
[2021-01-23] MEDS: APIXABAN 2.5 MG TABLET PO ×2 (10:19→21:28)
[2021-01-23 10:20] VITALS: BMI 28.9
[2021-01-23] MEDS: Ferrous Sulfate 325 MG Tablet PO (10:20)
[2021-01-23] MEDS: Insulin Lispro 100 UNIT/ML INSULN.PEN 20 UNIT SC (12:04)
[2021-01-23 12:10] LABS: Bedside Glucose 143 mg/dL (70-110)
--- NOTE | 2021-01-23 12:35 | PN_ITS ---
Patient Problems: Active and Suspected Problems (Last Reviewed 07/27/20 @ 09:51 by Ernestina Parra PA, PA) Cellulitis of left lower limb (Acute) Ulcer of left foot with necrosis of muscle (Acute) Osteomyelitis of left foot (Suspected) Other specified peripheral vascular diseases (Suspected) Osteomyelitis of toe of left foot (Suspected) left Hallux Reason for Visit: Follow-up for left second toe diabetic ulcer with suspicion of osteomyelitis and localized cellulitis. Objective: Heart rate and blood pressure is controlled. No fever. Physical exam General: Alert, Oriented x3, Cooperative HEENT: Atraumatic, PERRLA, EOMI, Normocephalic Oral: No Gingival or Mucosal Lesions/ Ulcerations Neck: Supple, No JVD, Negative Carotid Bruits Lungs: Air entry diminished in bilateral lung bases. No crepitation/rhonchi/crepitations Cardiovascular: A. fib, Normal S1, Normal S2, No murmurs, four-vessel CABG scar Abdomen: Bowel Sounds Present, Soft, Non Tender, Non-Distended : No renal angle tenderness. No suprapubic tenderness. Extremities: No ankle edema, Capillary Refill Less than 3 Seconds Skin: Left foot Sunny wrap bandage. Dressing is dry. Status post left partial second toe amputation. Distal left leg and proximal left foot cellulitis is almost resolved. Musculoskeletal: No Tenderness to Palpation of Joints or Extremities Neurological: Cranial nerves II-XII grossly intact, Deep Tendon Reflexes 2+/4 and Symmetrical. Psych/Mental Status: Normal Affect, Appropriate. Vitals/I&O's: Vital Signs Temp Pulse Resp BP Pulse Ox 97.6 F L 62 16 116/62 95 01/23/21 10:15 01/23/21 10:19 01/23/21 10:15 01/23/21 10:19 01/23/21 10:15 Oxygen Delivery Method Room Air Weight: 244 lb 0.827 oz Body Mass Index (BMI) 28.9 Finger Stick Blood Glucose 97 Intake and Output for Last 24 Hours 01/21/21 01/22/21 01/23/21 23:59 23:59 23:59 Intake Total 1510 / 1510 3224.00 / 3224.00 1732 / 1732 Output Total 1200 / 1200 450 / 450 Balance 1510 / 1510 2024.00 / 2024.00 1282 / 1282 Microbiology Past 72 Hours 01/22/21 09:35 Wound - Toe Gram Stain - Final 01/22/21 09:35 Wound - Toe Wound Culture - Preliminary Staphylococcus aureus 01/22/21 09:35 Wound - Toe Gram Stain - Final 01/22/21 09:35 Wound - Toe Wound Culture - Preliminary No growth-Final to follow 01/21/21 12:50 Wound - Left Foot Gram Stain - Final 01/21/21 12:50 Wound - Left Foot Wound Culture - Final Staphylococcus aureus 01/21/21 16:20 Mucosa - Nose SARS-CoV-2 Antigen (Rapid) - Final Laboratory Results 01/22/21 16:24: POC Glucose 114 H 01/22/21 20:56: POC Glucose 145 H 01/23/21 05:30: WBC 5.2, RBC 4.71, Hgb 14.7, Hct 44.5, MCV 94.5 H, MCH 31.2, MCHC 33.0, RDW Std Deviation 42.5, RDW Coeff of Nenita 12.0, Plt Count 179, MPV 10.2, Immature Gran % (Auto) 0.400, Neut % (Auto) 67.2, Lymph % (Auto) 19.8, [place] % (Auto) 9.7, Eos % (Auto) 2.5, Baso % (Auto) 0.4, Absolute Neuts (auto) 3.5, Absolute Lymphs (auto) 1.04, Nucleated RBC % 0 01/23/21 05:30: Sodium 139, Potassium 3.9, Chloride 105, Carbon Dioxide 27.0, Anion Gap 7, BUN 24 H, Creatinine 1.34 H, Estim Creat Clear Calc 69.26, Est GFR (MDRD) Af Amer 69, Est GFR (MDRD) Non-Af 57 L, BUN/Creatinine Ratio 17.9, Glucose 176 H, Calcium 8.9, Total Bilirubin 0.40, AST 12 L, ALT 14 L, Alkaline Phosphatase 134 H, Total Protein 6.3 L, Albumin 2.9 L, Globulin 3.4, Albumin/Globulin Ratio 0.9 01/23/21 07:57: POC Glucose 183 H 01/23/21 12:03: POC Glucose 143 H Current Medications Acetaminophen (Acetaminophen 325 Mg Tablet) 650 mg PO Q6H PRN PRN PRN Reason: Pain Score 1-3 /Temp>100.7 Apixaban (Apixaban 2.5 Mg Tablet) 2.5 mg PO BID [facility] Last Admin: 01/23/21 10:19 Dose: 2.5 mg Documented by: Aspirin (Aspirin E.C. 81 Mg Tablet) 81 mg PO DAILY@0800 [facility] Last Admin: 01/23/21 07:58 Dose: 81 mg Documented by: Atorvastatin Calcium (Atorvastatin Calcium 40 Mg Tablet) 40 mg PO QHS [facility] Last Admin: 01/22/21 21:12 Dose: 40 mg Documented by: Docusate Sodium (Docusate Sodium 100 Mg Capsule) 100 mg PO BID PRN PRN PRN Reason: Constipation Doxycycline Monohydrate (Doxycycline 100 Mg Capsule) 100 mg PO BID [facility] Last Admin: 01/23/21 10:19 Dose: 100 mg Documented by: Ferrous Sulfate (Ferrous Sulfate 325 Mg Tablet) 325 mg PO DAILY@1200 [facility] Last Admin: 01/23/21 10:20 Dose: 325 mg Documented by: Ampicillin Sodium/Sulbactam (Sodium 3 gm/ Sodium Chloride) 112 mls @ 150 mls/hr IV Q8 [facility] Last Infusion: 01/23/21 07:06 Dose: Infused Documented by: Insulin Human Lispro (Insulin Lispro 100 Unit/Ml Insuln.Pen) 28 unit SC BREAKFAST [facility] Last Admin: 01/23/21 07:58 Dose: 28 units Documented by: Insulin Human Lispro (Insulin Lispro 100 Unit/Ml Insuln.Pen) 20 unit SC LUNCH [facility] Last Admin: 01/23/21 12:04 Dose: 20 units Documented by: Insulin Human Lispro (Insulin Lispro 100 Unit/Ml Insuln.Pen) 22 unit SC DINNER [facility] Last Admin: 01/22/21 18:51 Dose: 22 units Documented by: Levothyroxine Sodium (Levothyroxine 25 Mcg Tablet) 25 mcg PO DAILY@0600 [facility] Last Admin: 01/23/21 06:21 Dose: 25 mcg Documented by: Losartan Potassium (Losartan Potassium 100 Mg Tablet) 100 mg PO DAILY [facility] Last Admin: 01/23/21 10:19 Dose: Not Given Documented by: Melatonin (Melatonin 3 Mg Tablet) 3 mg PO QHS PRN PRN PRN Reason: INSOMNIA Metoprolol Succinate (Metoprolol(Xl)Succ 50 Mg Tablet) 150 mg PO DAILY [facility] Last Admin: 01/23/21 10:19 Dose: 150 mg Documented by: Non-Formulary Medication (Dulaglutide [Trulicity]) 1.5 mg SC SA [facility] Ondansetron HCl (Ondansetron 4 Mg/2 Ml Vial) 4 mg IV Q8H PRN PRN PRN Reason: NAUSEA/VOMITING Oxycodone HCl (Oxycodone 5 Mg Tablet) 5 mg PO Q4H PRN PRN PRN Reason: Pain Score 4-5 Polyethylene Glycol (Polyethylene Glycol 3350 17 Gm Packet) 17 gm PO DAILY PRN PRN PRN Reason: constipation Sodium Chloride (0.9% Saline Lock 10 Ml Syringe) 10 - 40 ml IV UD PRN PRN Reason: SALINE FLUSH STROKE Vital Signs/Narrative: Vital Signs Temp Pulse Resp BP Pulse Ox 01/23/21 10:19 62 116/62 01/23/21 10:15 97.6 F L 62 16 116/62 95 Medical Necessity - Tobacco Use Smoking Status: Never smoker Assessment/Plan All Active Problems (Last Reviewed 07/27/20 @ 09:51 by Ernestina Parra PA, PA) Cellulitis of left lower limb (Acute) Ulcer of left foot with necrosis of muscle (Acute) Intracerebral hemorrhage (Resolved 01/30/19) Left leg cellulitis (Acute) Hyponatremia (Acute) Acute renal failure (Acute) Abnormal LFTs (Acute) Diabetic ulcer of left foot (Acute) Osteomyelitis of left foot (Acute) Cellulitis of left toe (Acute) Abnormal nuclear stress test (Resolved) Unstable angina pectoris (Resolved) This 65-year-old gentleman with history of diabetic neuropathy admitted from podiatry clinic for left second toe ulcer with cellulitis. 1. Left second toe ulcer with localized cellulitis and suspected osteomyelitis: Patient is being admitted in PCU. Initial Gram stain of wound culture shows 3+ staph aureus, MSSA. Patient started on Levaquin 750 mg IV every 48 hour as per sensitivity of MSSA. Had previous cultures which shows MSSA, staph hemolyticus, Enterococcus faecalis, Pseudomonas aeruginosa, E. coli and Enterobacter cloacae. Seen by ID and antibiotic changed to Unasyn and doxycycline. Levaquin discontinued. Lactic acid 1.8. A1c 6.7. Alkaline phosphatase 142. MRSA nasal screen negative. 01/23: Patient had partial left second toe amputation on 01/22. Dressing is dry. Cellulitis has almost resolved. Preliminary wound culture shows staph aureus, most likely MSSA. 2. 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 TSH 2.4. Free T4 1.1. Glucose 139. Patient on Trulicity 1.5 mcg subcutaneous on Monday weekly at home and lispro insulin scheduled at home. Home dose of insulin continued. Continue Accu-Chek insulin coverage with Humalog sliding scale. Continue home dose of levothyrox ine. Glucose is between 142 220. Started on Lantus 10 units subcutaneous at bedtime daily. 01/23: Glucose is well controlled, between 114 to 180 mg/dL. Patient's brought Trulicity and is continued. Discontinue Lantus. 3. CKD stage III due to diuretic/medication: Patient creatinine was normal 1.2 in July 2019. After that his creatinine has been elevated since December 2019 1.4 which gradually increased to 1.87 in June 2020 but he stays at 1.6. Continue losartan but hold HCTZ. 01/22: BUN/creatinine 29/1.3. 01/23: Discontinue IV fluid 4. Coronary artery disease status post four-vessel CABG, chronic A. fib on Eliquis, hypertension and dyslipidemia: Patient on baby aspirin, Eliquis, metoprolol succinate and atorvastatin continued. Patient had last stress echo in February 2020 reported as normal, adequate and negative for ischemia. EF 75%. 5. Interstitial lung disease: Patient on 6 monthly rituximab infusion in pulmonary clinic in [facility]. Currently does not have acute cough or pulmonary symptoms. VTE prophylaxis: On Eliquis 2.5 mg twice daily. Total time of the visit including total time spent in counseling or coordination of care, (more than 50% of the total time, spent in obtaining medical information from nurses and other ancillary care providers,explaining to the patient about labs, imaging, diagnosis and management), discussion with attending, review of labs and imaging is 30 minutes. Inpatient E&M: [id number] [facility] L2
[2021-01-23] MEDS: 0.9% Saline Lock 10 ML Syringe IV ×2 (13:19→21:29)
[2021-01-23] MEDS: DULAGLUTIDE 1.5 MG/0.5 ML PEN.INJCTR SQ (14:06)
[2021-01-23 14:10] VITALS: BMI 28.9
[2021-01-23 14:10] LABS: Bedside Glucose 151 mg/dL (70-110)
[2021-01-23 15:45] VITALS: BP 136/70; PULSE 64; RESP 16; TEMP 36.9; O2SAT 97
[2021-01-23] MEDS: Insulin Lispro 100 UNIT/ML INSULN.PEN 22 UNIT SC (16:54)
[2021-01-23 20:55] LABS: Bedside Glucose 150 mg/dL (70-110)
[2021-01-23 21:23] VITALS: BP 138/69; PULSE 64; RESP 18; TEMP 36.6; O2SAT 94
[2021-01-23] MEDS: Atorvastatin Calcium 40 MG Tablet PO (21:28)
[2021-01-23 22:10] LABS: Bedside Glucose 205 mg/dL (70-110)
[2021-01-24 03:10] VITALS: BP 124/72; PULSE 71; RESP 18; TEMP 36.3; O2SAT 94
[2021-01-24] MEDS: 0.9% Saline Lock 10 ML Syringe IV ×4 (05:05→21:09)
[2021-01-24] MEDS: Levothyroxine 25 MCG TABLET PO (05:06)
[2021-01-24 06:37] LABS: Absolute Lymphocyte Count 1.24 X10^3/uL (0.83-4.51); Absolute Neutrophil Count 4.1 X10^3/uL (2.0-7.7); Basophil# 0.04 X10^3/uL; Basophil% 0.7 % (0-1); Eosinophils% 3.3 % (0-5); Hemoglobin 15.1 g/dL (13.0-16.5); Lymphocyte # 1.24 X10^3/ul (4.0); Lymphocyte % 20.5 % (19-41); Mean Corp Hgb Conc 34.3 g/dL (32-36); Mean Corpuscular Hgb 32.7 pg (27.0-32.0); Mean Corpuscular Volume 95.2 fL (80-94); Mean Platelet Vol. 10.1 fl (6.2-12.0); Monocyte# 0.48 X10^3/uL; Monocyte% 7.9 % (0-10); NRBC Flagged by Analyzer 0 % (0-5); Neutrophil # 4.07 X10^3/uL (2.7-7.7); Neutrophil % 67.3 % (47-70); Platelet Count 200 K/mm3 (150-450); RBC Distribution Width SD 42.3 fl (35.1-43.9); Red Blood Count 4.62 M/mm3 (4.6-6.2); White Blood Count 6.1 K/mm3 (4.4-11.0)
[2021-01-24 07:02] LABS: ALB/GLOB Ratio 0.8 RATIO (0.9-2.4); AST(SGOT) 14 U/L (15-37); Alanine Aminotransfer ALT/SGPT 12 U/L (16-61); Albumin, Serum 2.7 g/dL (3.2-5.0); Alkaline Phosphatase 127 U/L (45-117); Anion Gap 10 (5-15); BUN 26 mg/dL (7-18); BUN/Creat Ratio 22.8 RATIO (10-20); Calcium,Total 8.7 mg/dL (8.5-10.1); Chloride 105 mmol/L (98-107); Creatinine, Serum 1.14 mg/dL (0.70-1.30); EST Glomerular Filtration Rate 68 mL/min (>60); Est Glom Filt Rate - Afr Amer 83 mL/min (>60); Estimated Creatinine Clearance 81.41 ml/min; Globulin 3.3 g/dL (2.2-4.2); Glucose 179 mg/dL (74-106); Potassium 3.5 mmol/L (3.5-5.1); Sodium Level 141 mmol/L (136-145)
[2021-01-24] MEDS: Insulin Lispro 100 UNIT/ML INSULN.PEN 28 UNIT SC (07:49)
[2021-01-24] MEDS: Aspirin E.C. 81 MG Tablet PO (07:49)
[2021-01-24 07:56] LABS: Bedside Glucose 199 mg/dL (70-110)
[2021-01-24 08:40] VITALS: BP 116/70; PULSE 63; RESP 16; TEMP 36.6; O2SAT 97
[2021-01-24 08:43] VITALS: BP 116/70; PULSE 63
[2021-01-24] MEDS: APIXABAN 2.5 MG TABLET PO ×2 (08:43→21:09)
[2021-01-24] MEDS: Potassium Chloride Oral Tablet 20 MEQ 40 MEQ PO (08:43)
[2021-01-24] MEDS: Metoprolol(XL)Succ 50 MG Tablet 150 MG PO (08:43)
[2021-01-24] MEDS: Doxycycline 100 MG CAPSULE PO ×2 (08:43→21:09)
--- NOTE | 2021-01-24 09:18 | PCM.PROGNOTE ---
Patient Problems: Active and Suspected Problems (Last Reviewed 07/27/20 @ 09:51 by Ernestina SEXTON, PA) Cellulitis of left lower limb (Acute) Ulcer of left foot with necrosis of muscle (Acute) Osteomyelitis of left foot (Suspected) Other specified peripheral vascular diseases (Suspected) Osteomyelitis of toe of left foot (Suspected) left Hallux Subjective: This 65-year-old male with multiple comorbidities was seen bedside this morning postoperative day #2 left partial second toe amputation for treatment of deep tissue infection. He denies fever, chill, nausea, vomiting, diarrhea, calf pain, shortness of breath, chest pain. He plans to return home with his after discharge. - Physical Exam Vitals/I&O's: Vital Signs Temp Pulse Resp BP Pulse Ox 97.8 F 63 16 116/70 97 01/24/21 08:40 01/24/21 08:43 01/24/21 08:40 01/24/21 08:43 01/24/21 08:40 Oxygen Delivery Method Room Air Weight: 110.7 kg Body Mass Index (BMI) 28.9 Finger Stick Blood Glucose 97 Intake and Output for Last 24 Hours 01/22/21 01/23/21 01/24/21 23:59 23:59 23:59 Intake Total 3224.00 / 3224.00 2602.67 / 2602.67 172 / 172 Output Total 1200 / 1200 1450 / 1450 225 / 225 Balance 2024.00 / 202.00 1152.67 / 1152.67 -53 / -53 General: Alert, Oriented x3, Cooperative HEENT: Atraumatic Extremities: No cyanosis, Capillary Refill Less than 3 Seconds - Digits 3, 4, 5 left foot, No Calf Tenderness - Negative Ron and Jacobo sign bilateral, Diminished Peripheral Pulses, Edema - Decreased Skin: Incision - Well aligned and coapted to partial second toe amputation. There is no, purulence on expression, or necrosis. There is erythema that is starting to fade adjacent to the second toe and dorsal midfoot; this is more violaceous in appearance today. Erythema to anterior leg has resolved in intensity, - - His skin is hairless and atrophic. He does not have any other skin discontinuity left lower extremity Musculoskeletal: No Tenderness to Palpation of Joints or Extremities, Muscle Wasting, - - Dorsal contraction of lesser toes 3, 4, 5 and rectus position of partial second toe remaining will function as a buttress Neurological: - - Lack of epicritic sensation light touch is consistent with neuropathic status Psych/Mental Status: Normal Affect, Appropriate Microbiology Past 72 Hours 01/22/21 09:35 Wound - Toe Gram Stain - Final 01/22/21 09:35 Wound - Toe Wound Culture - Final Staphylococcus aureus 01/22/21 09:35 Wound - Toe Gram Stain - Final 01/22/21 09:35 Wound - Toe Wound Culture - Preliminary No growth-Final to follow 01/21/21 12:50 Wound - Left Foot Gram Stain - Final 01/21/21 12:50 Wound - Left Foot Wound Culture - Final Staphylococcus aureus 01/21/21 16:20 Mucosa - Nose SARS-CoV-2 Antigen (Rapid) - Final Laboratory Results 01/23/21 12:03: POC Glucose 143 H 01/23/21 14:04: POC Glucose 151 H 01/23/21 16:53: POC Glucose 150 H 01/23/21 21:26: POC Glucose 205 H 01/24/21 05:42: WBC 6.1, RBC 4.62, Hgb 15.1, Hct 44.0, MCV 95.2 H, MCH 32.7 H, MCHC 34.3, RDW Std Deviation 42.3, RDW Coeff of Nenita 12.0, Plt Count 200, MPV 10.1, Immature Gran % (Auto) 0.300, Neut % (Auto) 67.3, Lymph % (Auto) 20.5, [place] % (Auto) 7.9, Eos % (Auto) 3.3, Baso % (Auto) 0.7, Absolute Neuts (auto) 4.1, Absolute Lymphs (auto) 1.24, Nucleated RBC % 0 01/24/21 05:42: Sodium 141, Potassium 3.5, Chloride 105, Carbon Dioxide 26.0, Anion Gap 10, BUN 26 H, Creatinine 1.14, Estim Creat Clear Calc 81.41, Est GFR (MDRD) Af Amer 83, Est GFR (MDRD) Non-Af 68, BUN/Creatinine Ratio 22.8 H, Glucose 179 H, Calcium 8.7, Total Bilirubin 0.30, AST 14 L, ALT 12 L, Alkaline Phosphatase 127 H, Total Protein 6.0 L, Albumin 2.7 L, Globulin 3.3, Albumin/Globulin Ratio 0.8 L 01/24/21 07:47: POC Glucose 199 H Current Medications Acetaminophen (Acetaminophen 325 Mg Tablet) 650 mg PO Q6H PRN PRN PRN Reason: Pain Score 1-3 /Temp>100.7 Apixaban (Apixaban 2.5 Mg Tablet) 2.5 mg PO BID [facility] Last Admin: 01/24/21 08:43 Dose: 2.5 mg Documented by: Aspirin (Aspirin E.C. 81 Mg Tablet) 81 mg PO DAILY@0800 [facility] Last Admin: 01/24/21 07:49 Dose: 81 mg Documented by: Atorvastatin Calcium (Atorvastatin Calcium 40 Mg Tablet) 40 mg PO QHS [facility] Last Admin: 01/23/21 21:28 Dose: 40 mg Documented by: Docusate Sodium (Docusate Sodium 100 Mg Capsule) 100 mg PO BID PRN PRN PRN Reason: Constipation Doxycycline Monohydrate (Doxycycline 100 Mg Capsule) 100 mg PO BID [facility] Last Admin: 01/24/21 08:43 Dose: 100 mg Documented by: Ferrous Sulfate (Ferrous Sulfate 325 Mg Tablet) 325 mg PO DAILY@1200 [facility] Last Admin: 01/23/21 10:20 Dose: 325 mg Documented by: Ampicillin Sodium/Sulbactam (Sodium 3 gm/ Sodium Chloride) 112 mls @ 150 mls/hr IV Q8 [facility] Last Infusion: 01/24/21 05:51 Dose: Infused Documented by: Insulin Human Lispro (Insulin Lispro 100 Unit/Ml Insuln.Pen) 28 unit SC BREAKFAST [facility] Last Admin: 01/24/21 07:49 Dose: 28 units Documented by: Insulin Human Lispro (Insulin Lispro 100 Unit/Ml Insuln.Pen) 20 unit SC LUNCH [facility] Last Admin: 01/23/21 12:04 Dose: 20 units Documented by: Insulin Human Lispro (Insulin Lispro 100 Unit/Ml Insuln.Pen) 22 unit SC DINNER [facility] Last Admin: 01/23/21 16:54 Dose: 22 units Documented by: Levothyroxine Sodium (Levothyroxine 25 Mcg Tablet) 25 mcg PO DAILY@0600 [facility] Last Admin: 01/24/21 05:06 Dose: 25 mcg Documented by: Losartan Potassium (Losartan Potassium 100 Mg Tablet) 100 mg PO DAILY [facility] Last Admin: 01/24/21 08:43 Dose: Not Given Documented by: Melatonin (Melatonin 3 Mg Tablet) 3 mg PO QHS PRN PRN PRN Reason: INSOMNIA Metoprolol Succinate (Metoprolol(Xl)Succ 50 Mg Tablet) 150 mg PO DAILY [facility] Last Admin: 01/24/21 08:43 Dose: 150 mg Documented by: Ondansetron HCl (Ondansetron 4 Mg/2 Ml Vial) 4 mg IV Q8H PRN PRN PRN Reason: NAUSEA/VOMITING Oxycodone HCl (Oxycodone 5 Mg Tablet) 5 mg PO Q4H PRN PRN PRN Reason: Pain Score 4-5 Polyethylene Glycol (Polyethylene Glycol 3350 17 Gm Packet) 17 gm PO DAILY PRN PRN PRN Reason: constipation Sodium Chloride (0.9% Saline Lock 10 Ml Syringe) 10 - 40 ml IV UD PRN PRN Reason: SALINE FLUSH Last Admin: 01/24/21 08:44 Dose: 10 ml Documented by: Medical Necessity - Tobacco Use Smoking Status: Never smoker Assessment/Plan All Active Problems (Last Reviewed 07/27/20 @ 09:51 by Ernestina SEXTON, PA) Cellulitis of left lower limb (Acute) Ulcer of left foot with necrosis of muscle (Acute) Intracerebral hemorrhage (Resolved 01/30/19) Left leg cellulitis (Acute) Hyponatremia (Acute) Acute renal failure (Acute) Abnormal LFTs (Acute) Diabetic ulcer of left foot (Acute) Osteomyelitis of left foot (Acute) Cellulitis of left toe (Acute) Abnormal nuclear stress test (Resolved) Unstable angina pectoris (Resolved) s/p left partial second toe amputation secondary to toe ulcer with necrotic tendon and suspected osteomyelitis (DOS 01/22/21) Cellulitis left foot Diabetes with neuropathy 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 He is afebrile and his vital signs are stable. His white blood cell count is 6.1. His foot is stabilizing and there is no purulence or necrosis at his recent surgical site. Erythema is resolved to leg and fading to foot. A Betadine wet-to-dry dressing was applied with a small wicked packed area to the dorsal aspect. I recommend reevaluation tomorrow prior to discharge home. Microbiology and pathology specimens were sent from surgery including clearance fragments from the bone resection site. One is without growth and the other has staph growth so far. These are not labeled as sent from surgery and I am working with the lab with this issue at this time to get each specimen labeled properly. Pathology specimen results are pending. Other recent preoperative wound cultures were reviewed as the following: MSSA, MR-CoNS, and enterococcus. He is covered at this time with Unasyn and doxycycline. Infectious disease on consult. To heel weight-bear and surgical shoe to keep the site offloaded. Medical management per hospitalist physician is greatly appreciated. He continues on Eliquis. Kidney function stable; cr 1.14 today. Discharge planning: additional improvement in cellulitis status will be needed prior to discharge home. He plans to return home with his . Please not hesitate to call if you have any questions. Renee Sorenson DPM, [facility] [phone]
[2021-01-24 11:35] VITALS: BP 128/69; PULSE 60; RESP 16; TEMP 36.6; O2SAT 96
[2021-01-24] MEDS: Insulin Lispro 100 UNIT/ML INSULN.PEN 20 UNIT SC (11:36)
[2021-01-24] MEDS: Ferrous Sulfate 325 MG Tablet PO (11:36)
--- NOTE | 2021-01-24 11:37 | PN_ITS ---
Patient Problems: Active and Suspected Problems (Last Reviewed 07/27/20 @ 09:51 by Ernestina Parra PA, PA) Cellulitis of left lower limb (Acute) Ulcer of left foot with necrosis of muscle (Acute) Osteomyelitis of left foot (Suspected) Other specified peripheral vascular diseases (Suspected) Osteomyelitis of toe of left foot (Suspected) left Hallux Reason for Visit: Follow-up for left second toe diabetic ulcer and localized cellulitis. Objective: Afebrile. Heart rate and blood pressure in normal range. Cellulitis is getting better. Physical exam General: Alert, Oriented x3, Cooperative HEENT: Atraumatic, PERRLA, EOMI, Normocephalic Oral: No Gingival or Mucosal Lesions/ Ulcerations Neck: Supple, No JVD, Negative Carotid Bruits Lungs: Air entry diminished in bilateral lung bases. No crepitation/rhonchi/crepitations Cardiovascular: A. fib, Normal S1, Normal S2, No murmurs, four-vessel CABG scar Abdomen: Bowel Sounds Present, Soft, Non Tender, Non-Distended : No renal angle tenderness. No suprapubic tenderness. Extremities: No ankle edema, Capillary Refill Less than 3 Seconds Skin: Left foot Sunny wrap bandage. Dressing is dry. Status post left partial second toe amputation. Distal left leg and proximal left foot cellulitis has much improved. Musculoskeletal: No Tenderness to Palpation of Joints or Extremities Neurological: Cranial nerves II-XII grossly intact, Deep Tendon Reflexes 2+/4 and Symmetrical. Psych/Mental Status: Normal Affect, Appropriate. Vitals/I&O's: Vital Signs Temp Pulse Resp BP Pulse Ox 97.8 F 60 16 128/69 H 96 01/24/21 11:35 01/24/21 11:35 01/24/21 11:35 01/24/21 11:35 01/24/21 11:35 Oxygen Delivery Method Room Air Weight: 244 lb 0.827 oz Body Mass Index (BMI) 28.9 Finger Stick Blood Glucose 97 Intake and Output for Last 24 Hours 01/22/21 01/23/21 01/24/21 23:59 23:59 23:59 Intake Total 3224.00 / 3224.00 2602.67 / 2602.67 172 / 172 Output Total 1200 / 1200 1450 / 1450 225 / 225 Balance 2023. 1152.67 / 1152.67 -53 / -53 Microbiology Past 72 Hours 01/22/21 09:35 Wound - Toe Gram Stain - Final 01/22/21 09:35 Wound - Toe Wound Culture - Preliminary 01/22/21 09:35 Wound - Toe Anaerobic Culture - Preliminary 01/22/21 09:35 Wound - Toe Gram Stain - Final 01/22/21 09:35 Wound - Toe Wound Culture - Final Staphylococcus aureus 01/22/21 09:35 Wound - Toe Anaerobic Culture - Final 01/21/21 12:50 Wound - Left Foot Gram Stain - Final 01/21/21 12:50 Wound - Left Foot Wound Culture - Final Staphylococcus aureus 01/21/21 16:20 Mucosa - Nose SARS-CoV-2 Antigen (Rapid) - Final Laboratory Results 01/23/21 12:03: POC Glucose 143 H 01/23/21 14:04: POC Glucose 151 H 01/23/21 16:53: POC Glucose 150 H 01/23/21 21:26: POC Glucose 205 H 01/24/21 05:42: WBC 6.1, RBC 4.62, Hgb 15.1, Hct 44.0, MCV 95.2 H, MCH 32.7 H, MCHC 34.3, RDW Std Deviation 42.3, RDW Coeff of Nenita 12.0, Plt Count 200, MPV 10.1, Immature Gran % (Auto) 0.300, Neut % (Auto) 67.3, Lymph % (Auto) 20.5, Ocean % (Auto) 7.9, Eos % (Auto) 3.3, Baso % (Auto) 0.7, Absolute Neuts (auto) 4.1, Absolute Lymphs (auto) 1.24, Nucleated RBC % 0 01/24/21 05:42: Sodium 141, Potassium 3.5, Chloride 105, Carbon Dioxide 26.0, Anion Gap 10, BUN 26 H, Creatinine 1.14, Estim Creat Clear Calc 81.41, Est GFR (MDRD) Af Amer 83, Est GFR (MDRD) Non-Af 68, BUN/Creatinine Ratio 22.8 H, Glucose 179 H, Calcium 8.7, Total Bilirubin 0.30, AST 14 L, ALT 12 L, Alkaline Phosphatase 127 H, Total Protein 6.0 L, Albumin 2.7 L, Globulin 3.3, Albumin/Globulin Ratio 0.8 L 01/24/21 07:47: POC Glucose 199 H Current Medications Acetaminophen (Acetaminophen 325 Mg Tablet) 650 mg PO Q6H PRN PRN PRN Reason: Pain Score 1-3 /Temp>100.7 Apixaban (Apixaban 2.5 Mg Tablet) 2.5 mg PO BID [facility] Last Admin: 01/24/21 08:43 Dose: 2.5 mg Documented by: Aspirin (Aspirin E.C. 81 Mg Tablet) 81 mg PO DAILY@0800 [facility] Last Admin: 01/24/21 07:49 Dose: 81 mg Documented by: Atorvastatin Calcium (Atorvastatin Calcium 40 Mg Tablet) 40 mg PO QHS [facility] Last Admin: 01/23/21 21:28 Dose: 40 mg Documented by: Docusate Sodium (Docusate Sodium 100 Mg Capsule) 100 mg PO BID PRN PRN PRN Reason: Constipation Doxycycline Monohydrate (Doxycycline 100 Mg Capsule) 100 mg PO BID [facility] Last Admin: 01/24/21 08:43 Dose: 100 mg Documented by: Ferrous Sulfate (Ferrous Sulfate 325 Mg Tablet) 325 mg PO DAILY@1200 [facility] Last Admin: 01/23/21 10:20 Dose: 325 mg Documented by: Ampicillin Sodium/Sulbactam (Sodium 3 gm/ Sodium Chloride) 112 mls @ 150 mls/hr IV Q8 [facility] Last Infusion: 01/24/21 05:51 Dose: Infused Documented by: Insulin Human Lispro (Insulin Lispro 100 Unit/Ml Insuln.Pen) 28 unit SC BREAKFAST [facility] Last Admin: 01/24/21 07:49 Dose: 28 units Documented by: Insulin Human Lispro (Insulin Lispro 100 Unit/Ml Insuln.Pen) 20 unit SC LUNCH [facility] Last Admin: 01/23/21 12:04 Dose: 20 units Documented by: Insulin Human Lispro (Insulin Lispro 100 Unit/Ml Insuln.Pen) 22 unit SC DINNER [facility] Last Admin: 01/23/21 16:54 Dose: 22 units Documented by: Levothyroxine Sodium (Levothyroxine 25 Mcg Tablet) 25 mcg PO DAILY@0600 [facility] Last Admin: 01/24/21 05:06 Dose: 25 mcg Documented by: Losartan Potassium (Losartan Potassium 100 Mg Tablet) 100 mg PO DAILY [facility] Last Admin: 01/24/21 08:43 Dose: Not Given Documented by: Melatonin (Melatonin 3 Mg Tablet) 3 mg PO QHS PRN PRN PRN Reason: INSOMNIA Metoprolol Succinate (Metoprolol(Xl)Succ 50 Mg Tablet) 150 mg PO DAILY [facility] Last Admin: 01/24/21 08:43 Dose: 150 mg Documented by: Ondansetron HCl (Ondansetron 4 Mg/2 Ml Vial) 4 mg IV Q8H PRN PRN PRN Reason: NAUSEA/VOMITING Oxycodone HCl (Oxycodone 5 Mg Tablet) 5 mg PO Q4H PRN PRN PRN Reason: Pain Score 4-5 Polyethylene Glycol (Polyethylene Glycol 3350 17 Gm Packet) 17 gm PO DAILY PRN PRN PRN Reason: constipation Sodium Chloride (0.9% Saline Lock 10 Ml Syringe) 10 - 40 ml IV UD PRN PRN Reason: SALINE FLUSH Last Admin: 01/24/21 08:44 Dose: 10 ml Documented by: STROKE Vital Signs/Narrative: Vital Signs Temp Pulse Resp BP Pulse Ox 01/24/21 11:35 97.8 F 60 16 128/69 H 96 01/24/21 08:43 63 116/70 01/24/21 08:40 97.8 F 63 16 116/70 97 Medical Necessity - Tobacco Use Smoking Status: Never smoker Assessment/Plan All Active Problems (Last Reviewed 07/27/20 @ 09:51 by Ernestina Parra PA, PA) Cellulitis of left lower limb (Acute) Ulcer of left foot with necrosis of muscle (Acute) Intracerebral hemorrhage (Resolved 01/30/19) Left leg cellulitis (Acute) Hyponatremia (Acute) Acute renal failure (Acute) Abnormal LFTs (Acute) Diabetic ulcer of left foot (Acute) Osteomyelitis of left foot (Acute) Cellulitis of left toe (Acute) Abnormal nuclear stress test (Resolved) Unstable angina pectoris (Resolved) This 65-year-old gentleman with history of diabetic neuropathy admitted from podiatry clinic for left second toe ulcer with cellulitis. 1. Left second toe ulcer with localized cellulitis and suspected osteomyelitis: Patient is being admitted in PCU. Initial Gram stain of wound culture shows 3+ staph aureus, MSSA. Patient started on Levaquin 750 mg IV every 48 hour as per sensitivity of MSSA. Had previous cultures which shows MSSA, staph hemolyticus, Enterococcus faecalis, Pseudomonas aeruginosa, E. coli and Enterobacter cloacae. Seen by ID and antibiotic changed to Unasyn and doxycycline. Levaquin discontinued. Lactic acid 1.8. A1c 6.7. Alkaline phosphatase 142. MRSA nasal screen negative. 01/23: Patient had partial left second toe amputation on 01/22. Dressing is dry. Cellulitis has almost resolved. Preliminary wound culture shows staph aureus, most likely MSSA. 01/24: Culture shows MSSA. Patient currently on Unasyn can be discharged on Augmentin. 2. 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 TSH 2.4. Free T4 1.1. Glucose 139. Patient on Trulicity 1.5 mcg subcutaneous on Monday weekly at home and lispro insulin scheduled at home. Home dose of insulin continued. Continue Accu-Chek insulin coverage with Humalog sliding scale. Continue home dose of levothyroxine. Glucose is between 142 220. Started on Lantus 10 units subcutaneous at bedtime daily. 01/23: Glucose is well controlled, between 140 to 180 mg/dL. Patient's brought Trulicity and is continued. Discontinue Lantus. 01/24: Glucose is in acceptable limit. 3. CKD stage III due to diuretic/medication: Patient creatinine was normal 1.2 in July 2019. After that his creatinine has been elevated since December 2019 1.4 which gradually increased to 1.87 in June 2020 but he stays at 1.6. Continue losartan but hold HCTZ. 01/22: BUN/creatinine 29/1.3. 01/23: Discontinue IV fluid 4. Coronary artery disease status post four-vessel CABG, chronic A. fib on Eliquis, hypertension and dyslipidemia: Patient on baby aspirin, Eliquis, metoprolol succinate and atorvastatin continued. Patient had last stress echo in February 2020 reported as normal, adequate and negative for ischemia. EF 75%. 5. Interstitial lung disease: Patient on 6 monthly rituximab infusion in pulmonary clinic in [facility]. Currently does not have acute cough or pulmonary symptoms. VTE prophylaxis: On Eliquis 2.5 mg twice daily. Total time of the visit including total time spent in counseling or coordination of care, (more than 50% of the total time, spent in obtaining medical information from nurses and other ancillary care providers,explaining to the patient about labs, imaging, diagnosis and management), discussion with attending, review of labs and imaging is 30 minutes. Inpatient E&M: 55649 Subs Hosp L2
[2021-01-24 11:45] LABS: Bedside Glucose 157 mg/dL (70-110)
[2021-01-24] MEDS: Insulin Lispro 100 UNIT/ML INSULN.PEN 22 UNIT SC (16:51)
[2021-01-24 17:00] VITALS: BP 141/72; PULSE 62; RESP 16; TEMP 36.7; O2SAT 98
[2021-01-24 17:00] LABS: Bedside Glucose 108 mg/dL (70-110)
[2021-01-24] MEDS: Atorvastatin Calcium 40 MG Tablet PO (21:09)
[2021-01-24 21:10] VITALS: BP 146/78; PULSE 62; RESP 16; TEMP 36.6; O2SAT 95
[2021-01-24 21:50] LABS: Bedside Glucose 121 mg/dL (70-110)
[2021-01-25 03:10] VITALS: BP 135/79; PULSE 77; RESP 18; TEMP 36.3; O2SAT 96
[2021-01-25] MEDS: Levothyroxine 25 MCG TABLET PO (05:05)
[2021-01-25 05:52] LABS: Absolute Lymphocyte Count 1.37 X10^3/uL (0.83-4.51); Absolute Neutrophil Count 4.1 X10^3/uL (2.0-7.7); Basophil# 0.03 X10^3/uL; Basophil% 0.5 % (0-1); Eosinophil# 0.21 X10^3/uL; Eosinophils% 3.4 % (0-5); Hematocrit 44.3 % (40-54); Hemoglobin 14.8 g/dL (13.0-16.5); Lymphocyte # 1.37 X10^3/ul (4.0); Mean Corp Hgb Conc 33.4 g/dL (32-36); Mean Corpuscular Hgb 31.6 pg (27.0-32.0); Mean Corpuscular Volume 94.5 fL (80-94); Mean Platelet Vol. 9.8 fl (6.2-12.0); Monocyte# 0.52 X10^3/uL; Monocyte% 8.3 % (0-10); NRBC Flagged by Analyzer 0 % (0-5); Neutrophil % 65.6 % (47-70); Platelet Count 199 K/mm3 (150-450); RBC Distribution Width CV 11.9 % (11.6-14.6); RBC Distribution Width SD 41.6 fl (35.1-43.9); Red Blood Count 4.69 M/mm3 (4.6-6.2); White Blood Count 6.2 K/mm3 (4.4-11.0)
[2021-01-25 06:28] LABS: ALB/GLOB Ratio 0.9 RATIO (0.9-2.4); AST(SGOT) 17 U/L (15-37); Alanine Aminotransfer ALT/SGPT 14 U/L (16-61); Albumin, Serum 2.9 g/dL (3.2-5.0); Alkaline Phosphatase 131 U/L (45-117); Anion Gap 8 (5-15); BUN 29 mg/dL (7-18); Calcium,Total 8.6 mg/dL (8.5-10.1); Chloride 107 mmol/L (98-107); Creatinine, Serum 1.21 mg/dL (0.70-1.30); EST Glomerular Filtration Rate 64 mL/min (>60); Est Glom Filt Rate - Afr Amer 77 mL/min (>60); Globulin 3.2 g/dL (2.2-4.2); Glucose 149 mg/dL (74-106); Potassium 3.5 mmol/L (3.5-5.1); Protein, Total 6.1 g/dL (6.4-8.2); Sodium Level 140 mmol/L (136-145)
[2021-01-25 07:41] LABS: Bedside Glucose 151 mg/dL (70-110)
[2021-01-25] MEDS: Insulin Lispro 100 UNIT/ML INSULN.PEN 28 UNIT SC (07:50)
[2021-01-25] MEDS: Aspirin E.C. 81 MG Tablet PO (07:51)
[2021-01-25 08:00] VITALS: PULSE 61
[2021-01-25] MEDS: Metoprolol(XL)Succ 50 MG Tablet 150 MG PO (08:00)
[2021-01-25] MEDS: APIXABAN 2.5 MG TABLET PO (08:00)
[2021-01-25] MEDS: Doxycycline 100 MG CAPSULE PO (08:00)
[2021-01-25] MEDS: Losartan Potassium 100 MG Tablet PO (08:00)
[2021-01-25] MEDS: Ferrous Sulfate 325 MG Tablet PO (11:27)
[2021-01-25] MEDS: Insulin Lispro 100 UNIT/ML INSULN.PEN 20 UNIT SC (11:29)
[2021-01-25 11:50] LABS: Bedside Glucose 169 mg/dL (70-110)
--- NOTE | 2021-01-25 13:39 | DS.PCM_ITS ---
Discharge Date and Diagnosis - Problem List Patient Problems: Active and Suspected Problems (Last Reviewed 07/27/20 @ 09:51 by Ernestina SEXTON PA) Cellulitis of left lower limb (Acute) Ulcer of left foot with necrosis of muscle (Acute) Osteomyelitis of left foot (Suspected) Other specified peripheral vascular diseases (Suspected) Osteomyelitis of toe of left foot (Suspected) left Hallux Date of Admission: 01/21/21 Date of Discharge: 01/25/21 - Primary Discharge Diagnosis Acute Problems: Active Problems (Last Reviewed 07/27/20 @ 09:51 by Ernestina SEXTON PA) Cellulitis of left lower limb (Acute) Ulcer of left foot with necrosis of muscle (Acute) Suspected Problems: Suspected Problems (Last Reviewed 07/27/20 @ 09:51 by Ernestina SEXTON PA) Osteomyelitis of left foot (Suspected) Other specified peripheral vascular diseases (Suspected) Osteomyelitis of toe of left foot (Suspected) left Hallux - Secondary Discharge Diagnosis Chronic Problems: Chronic Problems (Last Reviewed 07/27/20 @ 09:51 by Ernestina SEXTON PA) Hammer toe of left foot (Chronic) Vasculitis (Chronic) Type 2 diabetes mellitus with diabetic polyneuropathy (Chronic) Hallux malleus of left foot (Chronic) Chronic ulcer of left foot with necrosis of bone (Chronic) Peripheral neuropathy (Chronic) Autoimmune disease (Chronic) he is followed at the [facility].......not otherwise classified Dropfoot (Chronic) History of nonmelanoma skin cancer (Chronic) Hypothyroid (Chronic) Paroxysmal atrial fibrillation (Chronic) [facility] current use of anticoagulant (Chronic) Eliquis Atherosclerotic heart disease of [place] coronary artery without angina pectoris (Chronic) Left heart cath 07/30/2015 @ [facility] per Dr. Arnold: 07/31/2015: CABG X 4: RUIZ to left anterior descending bridge diagonal, SVG to first DX, radial artery to the lateral CX. Done @ [facility] per Dr. Randall History of coronary artery bypass graft (Chronic 07/31/15) 07/31/2015: CABG X 4: RUIZ to left anterior descending bridge diagonal, SVG to first DX, radial artery to the lateral CX. Done @ [facility] per Dr. Randall History of left heart catheterization (Chronic 07/30/15) Left heart cath 07/30/2015 @ [facility] per Dr. Arnold Right-sided extracranial carotid artery stenosis (Chronic) Hypertension (Chronic) Hyperlipidemia (Chronic) Diabetes mellitus type II, controlled (Chronic) Interstitial lung disease (Chronic) Hospital Course and Treatment Operations: - - 12/27: Debridement of all necrotic, non-viable, infected soft tissue and bone of the left foot with open hallux amputation. 12/31:Debridement of soft tissue with delayed primary closure of left open hallux amputation site Summary of Care Provided: The patient is a 65 year old gentleman with diabetes and multiple medical problems was admitted last week for left 2nd toe infection/osteomyelitis, patient underwent debridement/amputation on Monday01/22/[address] Sorenson. Foot significantly improved with surgery as well as antibiotic therapy. Infectious Disease and Medicine teams on consultation. Patient will discharged home in stable and good condition. Patient Problems: Active and Suspected Problems (Last Reviewed 07/27/20 @ 09:51 by Ernestina Parra PA, PA) Cellulitis of left lower limb (Acute) Ulcer of left foot with necrosis of muscle (Acute) Osteomyelitis of left foot (Suspected) Other specified peripheral vascular diseases (Suspected) Osteomyelitis of toe of left foot (Suspected) left Hallux Subjective: Patient was seen today for follow up on left foot s/p partial 2nd toe amputation. Patient is doing well, no complaints, foot looking significantly better. Patient ready to go home today. - Physical Exam Vitals/I&O's: Vital Signs Temp Pulse Resp BP Pulse Ox 97.3 F L 61 18 135/79 H 96 01/25/21 03:10 01/25/21 08:00 01/25/21 03:10 01/25/21 03:10 01/25/21 03:10 Oxygen Delivery Method Room Air Weight: 110.7 kg Body Mass Index (BMI) 28.9 Finger Stick Blood Glucose 97 Intake and Output for Last 24 Hours 01/23/21 01/24/21 01/25/21 23:59 23:59 23:59 Intake Total 2602.67 / 2602.67 1116 / 1116 112 / 112 Output Total 1450 / 1450 825 / 825 Balance 1152.67 / 1152.67 291 / 291 112 / 112 General: Alert, Oriented x3, Cooperative, No apparent distress Extremities: Capillary Refill Less than 3 Seconds, No Calf Tenderness, - - Left foot s/p partial 2nd toe amp w/ sutures intact, healing well, foot significantly improved, significanly less cellulitis, minimal to no edema, no abscess, no fluctuance, no necrosis, no drainage, no maloder - tissues are healthy and viable Musculoskeletal: No Tenderness to Palpation of Joints or Extremities - to the left foot or ankle Psych/Mental Status: Normal Affect, Appropriate, Alert and oriented to time, place, person, mood and affect Microbiology Past 72 Hours 01/22/21 09:35 Wound - Toe Gram Stain - Final 01/22/21 09:35 Wound - Toe Wound Culture - Final No growth aerobically. 01/22/21 09:35 Wound - Toe Anaerobic Culture - Preliminary 01/22/21 09:35 Wound - Toe Gram Stain - Final 01/22/21 09:35 Wound - Toe Wound Culture - Final Staphylococcus aureus 01/22/21 09:35 Wound - Toe Anaerobic Culture - Final 01/21/21 12:50 Wound - Left Foot Gram Stain - Final 01/21/21 12:50 Wound - Left Foot Wound Culture - Final Staphylococcus aureus Laboratory Results 01/24/21 16:50: POC Glucose 108 01/24/21 21:29: POC Glucose 121 H 01/25/21 05:34: WBC 6.2, RBC 4.69, Hgb 14.8, Hct 44.3, MCV 94.5 H, MCH 31.6, MCHC 33.4, RDW Std Deviation 41.6, RDW Coeff of Nenita 11.9, Plt Count 199, MPV 9.8, Immature Gran % (Auto) 0.200, Neut % (Auto) 65.6, Lymph % (Auto) 22.0, [place] % (Auto) 8.3, Eos % (Auto) 3.4, Baso % (Auto) 0.5, Absolute Neuts (auto) 4.1, Absolute Lymphs (auto) 1.37, Nucleated RBC % 0 01/25/21 05:34: Sodium 140, Potassium 3.5, Chloride 107, Carbon Dioxide 25.0, Anion Gap 8, BUN 29 H, Creatinine 1.21, Estim Creat Clear Calc 76.70, Est GFR (MDRD) Af Amer 77, Est GFR (MDRD) Non-Af 64, BUN/Creatinine Ratio 24.0 H, Glucose 149 H, Calcium 8.6, Total Bilirubin 0.30, AST 17, ALT 14 L, Alkaline Phosphatase 131 H, Total Protein 6.1 L, Albumin 2.9 L, Globulin 3.2, Albumin/Globulin Ratio 0.9 01/25/21 07:33: POC Glucose 151 H 01/25/21 11:23: POC Glucose 169 H Current Medications Acetaminophen (Acetaminophen 325 Mg Tablet) 650 mg PO Q6H PRN PRN PRN Reason: Pain Score 1-3 /Temp>100.7 Apixaban (Apixaban 2.5 Mg Tablet) 2.5 mg PO BID [facility] Last Admin: 01/25/21 08:00 Dose: 2.5 mg Documented by: Aspirin (Aspirin E.C. 81 Mg Tablet) 81 mg PO DAILY@0800 [facility] Last Admin: 01/25/21 07:51 Dose: 81 mg Documented by: Atorvastatin Calcium (Atorvastatin Calcium 40 Mg Tablet) 40 mg PO QHS [facility] Last Admin: 01/24/21 21:09 Dose: 40 mg Documented by: Docusate Sodium (Docusate Sodium 100 Mg Capsule) 100 mg PO BID PRN PRN PRN Reason: Constipation Doxycycline Monohydrate (Doxycycline 100 Mg Capsule) 100 mg PO BID [facility] Last Admin: 01/25/21 08:00 Dose: 100 mg Documented by: Ferrous Sulfate (Ferrous Sulfate 325 Mg Tablet) 325 mg PO DAILY@1200 [facility] Last Admin: 01/25/21 11:27 Dose: 325 mg Documented by: Ampicillin Sodium/Sulbactam (Sodium 3 gm/ Sodium Chloride) 112 mls @ 150 mls/hr IV Q8 [facility] Last Infusion: 01/25/21 05:50 Dose: Infused Documented by: Insulin Human Lispro (Insulin Lispro 100 Unit/Ml Insuln.Pen) 28 unit SC BREAKFAST [facility] Last Admin: 01/25/21 07:50 Dose: 28 units Documented by: Insulin Human Lispro (Insulin Lispro 100 Unit/Ml Insuln.Pen) 20 unit SC LUNCH [facility] Last Admin: 01/25/21 11:29 Dose: 20 units Documented by: Insulin Human Lispro (Insulin Lispro 100 Unit/Ml Insuln.Pen) 22 unit SC DINNER [facility] Last Admin: 01/24/21 16:51 Dose: 22 units Documented by: Levothyroxine Sodium (Levothyroxine 25 Mcg Tablet) 25 mcg PO DAILY@0600 [facility] Last Admin: 01/25/21 05:05 Dose: 25 mcg Documented by: Losartan Potassium (Losartan Potassium 100 Mg Tablet) 100 mg PO DAILY [facility] Last Admin: 01/25/21 08:00 Dose: 100 mg Documented by: Melatonin (Melatonin 3 Mg Tablet) 3 mg PO QHS PRN PRN PRN Reason: INSOMNIA Metoprolol Succinate (Metoprolol(Xl)Succ 50 Mg Tablet) 150 mg PO DAILY [facility] Last Admin: 01/25/21 08:00 Dose: 150 mg Documented by: Ondansetron HCl (Ondansetron 4 Mg/2 Ml Vial) 4 mg IV Q8H PRN PRN PRN Reason: NAUSEA/VOMITING Oxycodone HCl (Oxycodone 5 Mg Tablet) 5 mg PO Q4H PRN PRN PRN Reason: Pain Score 4-5 Polyethylene Glycol (Polyethylene Glycol 3350 17 Gm Packet) 17 gm PO DAILY PRN PRN PRN Reason: constipation Sodium Chloride (0.9% Saline Lock 10 Ml Syringe) 10 - 40 ml IV UD PRN PRN Reason: SALINE FLUSH Last Admin: 01/24/21 21:09 Dose: 20 ml Documented by: Discharge Activity: Use Walker Weight Bearing Status: No weight bearing - No weightbearing left foot. Keep extremity elevated above heart level: Left Leg - Keep left foot elevated with pillows. Call your doctor if your incision/area has: Continuous Slow Oozing, Sudden Increased Bleeding, Increased Pain/ Swelling, Foul Smelling Discharge Call your doctor if you observe: Fever of 101 or Higher, Shortness of breath, Chest pain, Calf discomfort, Uncontrolled pain Cleanse incision/area with: - - Keep dressing left foot clean, dry and intact until Monday01/27/2021, then change dressing - paint incision site with betadine soln, applied overlying gauze, gauze roll and darrell dressing. Home Medications: Medications to take at Discharge aspirin 81 mg tablet,delayed release 81 mg PO QDAY 12/08/17 dulaglutide 1.5 mg/0.5 mL subcutaneous pen injector 1.5 mg SC SA 12/21/18 levothyroxine 25 mcg tablet 25 mcg PO DAILY 12/21/18 Ferrous Fumarate [Ferretts] 325 mg PO DAILY 12/25/18 Potassium Chloride 10 meq PO QDAY 12/25/18 cholecalciferol (vitamin D3) 1,250 mcg (50,000 unit) capsule 25 mcg PO DAILY 07/15/19 apixaban 2.5 mg tablet 2.5 mg PO BID #60 tab 07/27/20 losartan 100 mg tablet 100 mg PO QDAY #30 tab 07/27/20 metformin 1,000 mg tablet 500 mg PO BIDCM tab 07/27/20 metoprolol succinate 100 mg tablet,extended release 24 hr 150 mg PO DAILY #45 tab 07/27/20 hydrochlorothiazide 25 mg tablet 25 mg PO QDAY #90 tab 12/30/20 Atorvastatin Calcium [Lipitor] 40 mg PO QHS 01/21/21 Rituximab-Arrx [Riabni] 10 mg IV QMONTH 01/21/21 Tylenol Pm Ex-Strength Caplet 2 tab PO QHS 01/21/21 Insulin Lispro [Insulin Lispro Kwikpen U-100] See Rx Instructions SC .COMPLEX #0 01/25/21 Povidone-Iodine [Betadine] 473 ml TOPICAL X1 #1 bottle 01/25/21 Following Prescriptions Were Given to Patient: Povidone-Iodine [Betadine] 473 ml TOPICAL X1 #1 bottle Transmission Status: Received by [facility] Primary Care Physician: Mk Ding MD [Primary Care Provider] - Please follow up with your Primary Care Physician in: within 1 week Please Follow Up With: Renee Sorenson DPM - Call office to schedule appointment [phone], follow up sooner if needed. When: 01/28/2021 or Monday01/29/2021 @ [facility] Medical Necessity - Tobacco Use Smoking Status: Never smoker Meaningful Use Info Meaningful Use Diagnoses (Choose all that apply): None applicable
[2021-01-25] MEDS: 0.9% Saline Lock 10 ML Syringe IV (14:07)
--- NOTE | 2021-01-25 15:12 | PN.ID_ITS ---
Patient Problems: Active and Suspected Problems (Last Reviewed 07/27/20 @ 09:51 by Ernestina Parra PA, PA) Cellulitis of left lower limb (Acute) Ulcer of left foot with necrosis of muscle (Acute) Osteomyelitis of left foot (Suspected) Other specified peripheral vascular diseases (Suspected) Osteomyelitis of toe of left foot (Suspected) left Hallux Subjective: Feeling much better, no fever, no n/v/d. - Physical Exam Vitals/I&O's: Vital Signs Temp Pulse Resp BP Pulse Ox 97.3 F L 61 18 135/79 H 96 01/25/21 03:10 01/25/21 08:00 01/25/21 03:10 01/25/21 03:10 01/25/21 03:10 Oxygen Delivery Method Room Air Weight: 110.7 kg Body Mass Index (BMI) 28.9 Finger Stick Blood Glucose 97 Intake and Output for Last 24 Hours 01/23/21 01/24/21 01/25/21 23:59 23:59 23:59 Intake Total 2602.67 / 2602.67 1116 / 1116 224 / 224 Output Total 1450 / 1450 825 / 825 Balance 1152.67 / 1152.67 291 / 291 224 / 224 General: Alert, Cooperative, No apparent distress Lungs: Clear to auscultation, Normal air movement Cardiovascular: Regular rate, Regular Rhythm Abdomen: Soft, Non Tender, Non-Distended Skin: No rashes Microbiology Past 72 Hours 01/22/21 09:35 Wound - Toe Gram Stain - Final 01/22/21 09:35 Wound - Toe Wound Culture - Final No growth aerobically. 01/22/21 09:35 Wound - Toe Anaerobic Culture - Preliminary 01/22/21 09:35 Wound - Toe Gram Stain - Final 01/22/21 09:35 Wound - Toe Wound Culture - Final Staphylococcus aureus 01/22/21 09:35 Wound - Toe Anaerobic Culture - Final 01/21/21 12:50 Wound - Left Foot Gram Stain - Final 01/21/21 12:50 Wound - Left Foot Wound Culture - Final Staphylococcus aureus Laboratory Results 01/24/21 16:50: POC Glucose 108 01/24/21 21:29: POC Glucose 121 H 01/25/21 05:34: WBC 6.2, RBC 4.69, Hgb 14.8, Hct 44.3, MCV 94.5 H, MCH 31.6, MCHC 33.4, RDW Std Deviation 41.6, RDW Coeff of Nenita 11.9, Plt Count 199, MPV 9.8, Immature Gran % (Auto) 0.200, Neut % (Auto) 65.6, Lymph % (Auto) 22.0, Garden % (Auto) 8.3, Eos % (Auto) 3.4, Baso % (Auto) 0.5, Absolute Neuts (auto) 4.1, Absolute Lymphs (auto) 1.37, Nucleated RBC % 0 01/25/21 05:34: Sodium 140, Potassium 3.5, Chloride 107, Carbon Dioxide 25.0, Anion Gap 8, BUN 29 H, Creatinine 1.21, Estim Creat Clear Calc 76.70, Est GFR (MDRD) Af Amer 77, Est GFR (MDRD) Non-Af 64, BUN/Creatinine Ratio 24.0 H, Glucose 149 H, Calcium 8.6, Total Bilirubin 0.30, AST 17, ALT 14 L, Alkaline Phosphatase 131 H, Total Protein 6.1 L, Albumin 2.9 L, Globulin 3.2, Albumin/Globulin Ratio 0.9 01/25/21 07:33: POC Glucose 151 H 01/25/21 11:23: POC Glucose 169 H Current Medications Acetaminophen (Acetaminophen 325 Mg Tablet) 650 mg PO Q6H PRN PRN PRN Reason: Pain Score 1-3 /Temp>100.7 Apixaban (Apixaban 2.5 Mg Tablet) 2.5 mg PO BID [facility] Last Admin: 01/25/21 08:00 Dose: 2.5 mg Documented by: Aspirin (Aspirin E.C. 81 Mg Tablet) 81 mg PO DAILY@0800 [facility] Last Admin: 01/25/21 07:51 Dose: 81 mg Documented by: Atorvastatin Calcium (Atorvastatin Calcium 40 Mg Tablet) 40 mg PO QHS [facility] Last Admin: 01/24/21 21:09 Dose: 40 mg Documented by: Docusate Sodium (Docusate Sodium 100 Mg Capsule) 100 mg PO BID PRN PRN PRN Reason: Constipation Doxycycline Monohydrate (Doxycycline 100 Mg Capsule) 100 mg PO BID [facility] Last Admin: 01/25/21 08:00 Dose: 100 mg Documented by: Ferrous Sulfate (Ferrous Sulfate 325 Mg Tablet) 325 mg PO DAILY@1200 [facility] Last Admin: 01/25/21 11:27 Dose: 325 mg Documented by: Ampicillin Sodium/Sulbactam (Sodium 3 gm/ Sodium Chloride) 112 mls @ 150 mls/hr IV Q8 [facility] Last Infusion: 01/25/21 14:52 Dose: Infused Documented by: Insulin Human Lispro (Insulin Lispro 100 Unit/Ml Insuln.Pen) 28 unit SC BREAKFAST [facility] Last Admin: 01/25/21 07:50 Dose: 28 units Documented by: Insulin Human Lispro (Insulin Lispro 100 Unit/Ml Insuln.Pen) 20 unit SC LUNCH [facility] Last Admin: 01/25/21 11:29 Dose: 20 units Documented by: Insulin Human Lispro (Insulin Lispro 100 Unit/Ml Insuln.Pen) 22 unit SC DINNER [facility] Last Admin: 01/24/21 16:51 Dose: 22 units Documented by: Levothyroxine Sodium (Levothyroxine 25 Mcg Tablet) 25 mcg PO DAILY@0600 [facility] Last Admin: 01/25/21 05:05 Dose: 25 mcg Documented by: Losartan Potassium (Losartan Potassium 100 Mg Tablet) 100 mg PO DAILY [facility] Last Admin: 01/25/21 08:00 Dose: 100 mg Documented by: Melatonin (Melatonin 3 Mg Tablet) 3 mg PO QHS PRN PRN PRN Reason: INSOMNIA Metoprolol Succinate (Metoprolol(Xl)Succ 50 Mg Tablet) 150 mg PO DAILY [facility] Last Admin: 01/25/21 08:00 Dose: 150 mg Documented by: Ondansetron HCl (Ondansetron 4 Mg/2 Ml Vial) 4 mg IV Q8H PRN PRN PRN Reason: NAUSEA/VOMITING Oxycodone HCl (Oxycodone 5 Mg Tablet) 5 mg PO Q4H PRN PRN PRN Reason: Pain Score 4-5 Polyethylene Glycol (Polyethylene Glycol 3350 17 Gm Packet) 17 gm PO DAILY PRN PRN PRN Reason: constipation Sodium Chloride (0.9% Saline Lock 10 Ml Syringe) 10 - 40 ml IV UD PRN PRN Reason: SALINE FLUSH Last Admin: 01/25/21 14:07 Dose: 10 ml Documented by: Medical Necessity - Tobacco Use Smoking Status: Never smoker Route of nutrition/ use of supplements: [] Nutritional Intake: [] IV Site: [] Fish Catheter: [] - Assessment/Plan Antibiotics: [] Assessment/Plan: [] Active and Suspected Problems (Last Reviewed 07/27/20 @ 09:51 by Ernestina Parra PA, PA) Cellulitis of left lower limb (Acute) Ulcer of left foot with necrosis of muscle (Acute) Osteomyelitis of left foot (Suspected) Other specified peripheral vascular diseases (Suspected) L 2nd toe osteo - recent cxs with mssa, MR-CoNS, and enterococcus. Now s/p partial toe amp 01/[address] Sorenson. Clearance cx neg, but GPC seen on gram stain. He is to finish 3 days of augmentin, and 6 weeks of doxy after discharge. Will follow as needed, d/w Dr. Awan
--- NOTE | 2021-01-25 15:33 | DCINST_ITS ---
Discharge Activity: Use Walker Weight Bearing Status: No weight bearing - No weightbearing left foot. Keep extremity elevated above heart level: Left Leg - Keep left foot elevated with pillows. Call your doctor if your incision/area has: Continuous Slow Oozing, Sudden Increased Bleeding, Increased Pain/ Swelling, Foul Smelling Discharge Call your doctor if you observe: Fever of 101 or Higher, Shortness of breath, Chest pain, Calf discomfort, Uncontrolled pain Cleanse incision/area with: - - Keep dressing left foot clean, dry and intact until Monday01/27/2021, then change dressing - paint incision site with betadine soln, applied overlying gauze, gauze roll and darrell dressing. Allergies/Adverse Reactions: Allergies adhesive tape Allergy (Verified 01/18/21 18:01) Rash mycophenolate mofetil [From CellCept] Adverse Reaction (Severe, Verified 01/18/21 18:01) elevated liver enzymes Medications to take at Discharge aspirin 81 mg tablet,delayed release 81 mg PO QDAY 12/08/17 dulaglutide 1.5 mg/0.5 mL subcutaneous pen injector 1.5 mg SC SA 12/21/18 levothyroxine 25 mcg tablet 25 mcg PO DAILY 12/21/18 Ferrous Fumarate [Ferretts] 325 mg PO DAILY 12/25/18 Potassium Chloride 10 meq PO QDAY 12/25/18 apixaban 2.5 mg tablet 2.5 mg PO BID #60 tab 07/27/20 losartan 100 mg tablet 100 mg PO QDAY #30 tab 07/27/20 metformin 1,000 mg tablet 500 mg PO BIDCM tab 07/27/20 metoprolol succinate 100 mg tablet,extended release 24 hr 150 mg PO DAILY #45 tab 07/27/20 hydrochlorothiazide 25 mg tablet 25 mg PO QDAY #90 tab 12/30/20 Atorvastatin Calcium [Lipitor] 40 mg PO QHS 01/21/21 Rituximab-Arrx [Riabni] 10 mg IV QMONTH 01/21/21 Tylenol Pm Ex-Strength Caplet 2 tab PO QHS 01/21/21 Cholecalciferol (VIT D3) [Vitamin D] 25 mcg PO DAILY 01/25/21 Doxycycline 100 mg PO BID #80 cap 01/25/21 Insulin Lispro [Insulin Lispro Kwikpen U-100] See Rx Instructions SC .COMPLEX #0 01/25/21 Povidone-Iodine [Betadine] 473 ml TOPICAL X1 #1 bottle 01/25/21 The following prescriptions were given: Povidone-Iodine [Betadine] 473 ml TOPICAL X1 #1 bottle Transmission Status: Received by [facility] Doxycycline 100 mg PO BID #80 cap Transmission Status: Received by [facility]/pharmacy #[id number] Primary Care Physician: Mk Ding MD [Primary Care Provider] - Please follow up with your Primary Care Physician in: within 1 week Test Results: Test results from this visit will be discussed in further detail at your follow- up appointment, if applicable. Please Follow Up With: Renee Sorenson DPM - Call office to schedule appointment [phone], follow up sooner if needed. When: 01/28/2021 or Monday01/29/2021 @ [facility]
--- NOTE | 2021-01-25 15:39 | PCM.DC ---
- Discharge Diagnoses Current Active Problems: Current Active and Chronic Problems (Last Reviewed 07/27/20 @ 09:51 by Ernestina Parra PA, PA) Cellulitis of left lower limb (Acute) Ulcer of left foot with necrosis of muscle (Acute) Hammer toe of left foot (Chronic) Type 2 diabetes mellitus with diabetic polyneuropathy (Chronic) You will use the following diet at home:: Calorie/Carbohydrate Controlled (specify 1200, 1400, etc) Your food should be the consistency of: Regular Your liquids should be the consistency of: Regular/Thin Discharge Activity: Use Walker Weight Bearing Status: No weight bearing - No weightbearing left foot. Keep extremity elevated above heart level: Left Leg - Keep left foot elevated with pillows. Call your doctor if your incision/area has: Continuous Slow Oozing, Sudden Increased Bleeding, Increased Pain/ Swelling, Foul Smelling Discharge Call your doctor if you observe: Fever of 101 or Higher, Shortness of breath, Chest pain, Calf discomfort, Uncontrolled pain Cleanse incision/area with: - - Keep dressing left foot clean, dry and intact until Monday01/27/2021, then change dressing - paint incision site with betadine soln, applied overlying gauze, gauze roll and darrell dressing. Allergies/Adverse Reactions: Allergies adhesive tape Allergy (Verified 01/18/21 18:01) Rash mycophenolate mofetil [From CellCept] Adverse Reaction (Severe, Verified 01/18/21 18:01) elevated liver enzymes Medications to take at Discharge aspirin 81 mg tablet,delayed release 81 mg PO QDAY 12/08/17 dulaglutide 1.5 mg/0.5 mL subcutaneous pen injector 1.5 mg SC 12/21/18 levothyroxine 25 mcg tablet 25 mcg PO DAILY 12/21/18 Ferrous Fumarate [Ferretts] 325 mg PO DAILY 12/25/18 Potassium Chloride 10 meq PO QDAY 12/25/18 cholecalciferol (vitamin D3) 1,250 mcg (50,000 unit) capsule 25 mcg PO DAILY 07/15/19 apixaban 2.5 mg tablet 2.5 mg PO BID #60 tab 07/27/20 losartan 100 mg tablet 100 mg PO QDAY #30 tab 07/27/20 metformin 1,000 mg tablet 500 mg PO BIDCM tab 07/27/20 metoprolol succinate 100 mg tablet,extended release 24 hr 150 mg PO DAILY #45 tab 07/27/20 hydrochlorothiazide 25 mg tablet 25 mg PO QDAY #90 tab 12/30/20 Atorvastatin Calcium [Lipitor] 40 mg PO QHS 01/21/21 Rituximab-Arrx [Riabni] 10 mg IV QMONTH 01/21/21 Tylenol Pm Ex-Strength Caplet 2 tab PO QHS 01/21/21 Doxycycline 100 mg PO BID #80 cap 01/25/21 Insulin Lispro [Insulin Lispro Kwikpen U-100] See Rx Instructions SC .COMPLEX #0 01/25/21 Povidone-Iodine [Betadine] 473 ml TOPICAL X1 #1 bottle 01/25/21 The following prescriptions were given: Povidone-Iodine [Betadine] 473 ml TOPICAL X1 #1 bottle Transmission Status: Received by [facility] Doxycycline 100 mg PO BID #80 cap Transmission Status: Received by [facility]/pharmacy #[id number] Primary Care Physician: Mk Ding MD [Primary Care Provider] - Please follow up with your Primary Care Physician in: within 1 week Test Results: Test results from this visit will be discussed in further detail at your follow-up appointment, if applicable. Please Follow Up With: Renee Sorenson DPM - Call office to schedule appointment [phone], follow up sooner if needed. When: 01/28/2021 or Monday01/29/2021 @ [facility]
--- NOTE | 2021-01-25 15:40 | PN_ITS ---
Patient Problems: Active and Suspected Problems (Last Reviewed 07/27/20 @ 09:51 by Ernestina Parra PA, PA) Cellulitis of left lower limb (Acute) Ulcer of left foot with necrosis of muscle (Acute) Osteomyelitis of left foot (Suspected) Other specified peripheral vascular diseases (Suspected) Osteomyelitis of toe of left foot (Suspected) left Hallux Subjective: Doing well, no issues overnight. Left foot seems significantly improved today Vitals/I&O's: Vital Signs Temp Pulse Resp BP Pulse Ox 97.3 F L 61 18 135/79 H 96 01/25/21 03:10 01/25/21 08:00 01/25/21 03:10 01/25/21 03:10 01/25/21 03:10 Oxygen Delivery Method Room Air Weight: 244 lb 0.827 oz Body Mass Index (BMI) 28.9 Finger Stick Blood Glucose 97 Intake and Output for Last 24 Hours 01/23/21 01/24/21 01/25/21 23:59 23:59 23:59 Intake Total 2602.67 / 2602.67 1116 / 1116 224 / 224 Output Total 1450 / 1450 825 / 825 Balance 1152.67 / 1152.67 291 / 291 224 / 224 General: Alert, Oriented x3, Cooperative, No apparent distress HEENT: Atraumatic, PERRLA, EOMI, Normocephalic Oral: Moist Mucosa Neck: Supple, No JVD Lungs: Clear to auscultation, Normal air movement, No rhonchi, No wheeze, No rales Cardiovascular: Regular rate, Regular Rhythm, Normal S1, Normal S2, No murmurs Abdomen: Soft, Non Tender, Non-Distended, No Hepato-splenomegaly Extremities: No edema, Capillary Refill Less than 3 Seconds Skin: No rashes, No breakdown, Ulcer/ Wound - Dressing intact on the left lower extremity Neurological: Neuro grossly intact, Sensory exam intact to light touch and pain Psych/Mental Status: Normal Affect, Appropriate Microbiology Past 72 Hours 01/22/21 09:35 Wound - Toe Gram Stain - Final 01/22/21 09:35 Wound - Toe Wound Culture - Final No growth aerobically. 01/22/21 09:35 Wound - Toe Anaerobic Culture - Preliminary 01/22/21 09:35 Wound - Toe Gram Stain - Final 01/22/21 09:35 Wound - Toe Wound Culture - Final Staphylococcus aureus 01/22/21 09:35 Wound - Toe Anaerobic Culture - Final 01/21/21 12:50 Wound - Left Foot Gram Stain - Final 01/21/21 12:50 Wound - Left Foot Wound Culture - Final Staphylococcus aureus Laboratory Results 01/24/21 16:50: POC Glucose 108 01/24/21 21:29: POC Glucose 121 H 01/25/21 05:34: WBC 6.2, RBC 4.69, Hgb 14.8, Hct 44.3, MCV 94.5 H, MCH 31.6, MCHC 33.4, RDW Std Deviation 41.6, RDW Coeff of Nenita 11.9, Plt Count 199, MPV 9.8, Immature Gran % (Auto) 0.200, Neut % (Auto) 65.6, Lymph % (Auto) 22.0, Rutherford % (Auto) 8.3, Eos % (Auto) 3.4, Baso % (Auto) 0.5, Absolute Neuts (auto) 4.1, Absolute Lymphs (auto) 1.37, Nucleated RBC % 0 01/25/21 05:34: Sodium 140, Potassium 3.5, Chloride 107, Carbon Dioxide 25.0, Anion Gap 8, BUN 29 H, Creatinine 1.21, Estim Creat Clear Calc 76.70, Est GFR (MDRD) Af Amer 77, Est GFR (MDRD) Non-Af 64, BUN/Creatinine Ratio 24.0 H, Glucose 149 H, Calcium 8.6, Total Bilirubin 0.30, AST 17, ALT 14 L, Alkaline Phosphatase 131 H, Total Protein 6.1 L, Albumin 2.9 L, Globulin 3.2, Albumin/Globulin Ratio 0.9 01/25/21 07:33: POC Glucose 151 H 01/25/21 11:23: POC Glucose 169 H Current Medications Acetaminophen (Acetaminophen 325 Mg Tablet) 650 mg PO Q6H PRN PRN PRN Reason: Pain Score 1-3 /Temp>100.7 Apixaban (Apixaban 2.5 Mg Tablet) 2.5 mg PO BID [facility] Last Admin: 01/25/21 08:00 Dose: 2.5 mg Documented by: Aspirin (Aspirin E.C. 81 Mg Tablet) 81 mg PO DAILY@0800 [facility] Last Admin: 01/25/21 07:51 Dose: 81 mg Documented by: Atorvastatin Calcium (Atorvastatin Calcium 40 Mg Tablet) 40 mg PO QHS [facility] Last Admin: 01/24/21 21:09 Dose: 40 mg Documented by: Docusate Sodium (Docusate Sodium 100 Mg Capsule) 100 mg PO BID PRN PRN PRN Reason: Constipation Doxycycline Monohydrate (Doxycycline 100 Mg Capsule) 100 mg PO BID [facility] Last Admin: 01/25/21 08:00 Dose: 100 mg Documented by: Ferrous Sulfate (Ferrous Sulfate 325 Mg Tablet) 325 mg PO DAILY@1200 [facility] Last Admin: 01/25/21 11:27 Dose: 325 mg Documented by: Ampicillin Sodium/Sulbactam (Sodium 3 gm/ Sodium Chloride) 112 mls @ 150 mls/hr IV Q8 [facility] Last Infusion: 01/25/21 14:52 Dose: Infused Documented by: Insulin Human Lispro (Insulin Lispro 100 Unit/Ml Insuln.Pen) 28 unit SC BREAKFAST [facility] Last Admin: 01/25/21 07:50 Dose: 28 units Documented by: Insulin Human Lispro (Insulin Lispro 100 Unit/Ml Insuln.Pen) 20 unit SC LUNCH [facility] Last Admin: 01/25/21 11:29 Dose: 20 units Documented by: Insulin Human Lispro (Insulin Lispro 100 Unit/Ml Insuln.Pen) 22 unit SC DINNER [facility] Last Admin: 01/24/21 16:51 Dose: 22 units Documented by: Levothyroxine Sodium (Levothyroxine 25 Mcg Tablet) 25 mcg PO DAILY@0600 [facility] Last Admin: 01/25/21 05:05 Dose: 25 mcg Documented by: Losartan Potassium (Losartan Potassium 100 Mg Tablet) 100 mg PO DAILY [facility] Last Admin: 01/25/21 08:00 Dose: 100 mg Documented by: Melatonin (Melatonin 3 Mg Tablet) 3 mg PO QHS PRN PRN PRN Reason: INSOMNIA Metoprolol Succinate (Metoprolol(Xl)Succ 50 Mg Tablet) 150 mg PO DAILY [facility] Last Admin: 01/25/21 08:00 Dose: 150 mg Documented by: Ondansetron HCl (Ondansetron 4 Mg/2 Ml Vial) 4 mg IV Q8H PRN PRN PRN Reason: NAUSEA/VOMITING Oxycodone HCl (Oxycodone 5 Mg Tablet) 5 mg PO Q4H PRN PRN PRN Reason: Pain Score 4-5 Polyethylene Glycol (Polyethylene Glycol 3350 17 Gm Packet) 17 gm PO DAILY PRN PRN PRN Reason: constipation Sodium Chloride (0.9% Saline Lock 10 Ml Syringe) 10 - 40 ml IV UD PRN PRN Reason: SALINE FLUSH Last Admin: 01/25/21 14:07 Dose: 10 ml Documented by: Medical Necessity - Tobacco Use Smoking Status: Never smoker Assessment/Plan All Active Problems (Last Reviewed 07/27/20 @ 09:51 by Ernestina Parra PA, PA) Cellulitis of left lower limb (Acute) Ulcer of left foot with necrosis of muscle (Acute) Intracerebral hemorrhage (Resolved 01/30/19) Left leg cellulitis (Acute) Hyponatremia (Acute) Acute renal failure (Acute) Abnormal LFTs (Acute) Diabetic ulcer of left foot (Acute) Osteomyelitis of left foot (Acute) Cellulitis of left toe (Acute) Abnormal nuclear stress test (Resolved) Unstable angina pectoris (Resolved) 1. Left second toe ulcer with localized cellulitis and suspected osteomyelitis/IDDM 2 with neuropathy -Appreciate IDs assistance with antibiotics. We will continue Augmentin and doxycycline on discharge -Cultures were MSSA on this admission however on 31 December he did have an Enterococcus as well -Currently on Trulicity, mealtime insulin, and Metformin. He has lost weight therefore his PCP has decreased his Metformin by half -Encouraged continued lifestyle modification -Follow-up with PCP as well as endocrinology 2. HTN/HLD/paroxysmal A. fib -Blood pressure is stable -Blood pressure has been well controlled here without his hydrochlorothiazide, in light of his recent weight loss may benefit from outpatient monitoring and discontinuing his hydrochlorothiazide -Continue with losartan -Continue with metoprolol -Continue with Eliquis and Lipitor as well as aspirin 3. CKD 3 -Creatinine is stable 4. Hypothyroidism -Stable -Continue with Synthroid 5. 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
== END 2021-01-25 16:20 | disposition home or self-care (01) | DRG 617 ==
PROVIDERS: Internal Medicine; Admitting Provider Podiatrist; PCP Family Medicine; Visit Provider Family Medicine
DX: E11.621 Type 2 diabetes mellitus with foot ulcer (principal); M86.9 Osteomyelitis, unspecified; E87.1 Hypo-osmolality and hyponatremia; L03.116 Cellulitis of left lower limb; J84.9 Interstitial pulmonary disease, unspecified; E11.69 Type 2 diabetes mellitus with other specified complication; N17.9 Acute kidney failure, unspecified; M65.18 Other infective (teno)synovitis, other site; L97.523 Non-pressure chronic ulcer of other part of left foot with necrosis of muscle; L03.032 Cellulitis of left toe; B95.61 Methicillin susceptible Staphylococcus aureus infection as the cause of diseases classified elsewhere; R19.7 Diarrhea, unspecified; E11.22 Type 2 diabetes mellitus with diabetic chronic kidney disease; E11.42 Type 2 diabetes mellitus with diabetic polyneuropathy; E11.51 Type 2 diabetes mellitus with diabetic peripheral angiopathy without gangrene; E78.5 Hyperlipidemia, unspecified; E03.9 Hypothyroidism, unspecified; I77.6 Arteritis, unspecified; I12.9 Hypertensive chronic kidney disease with stage 1 through stage 4 chronic kidney disease, or unspecified chronic kidney disease; N18.31 Chronic kidney disease, stage 3a; T50.2X5A Adverse effect of carbonic-anhydrase inhibitors, benzothiadiazides and other diuretics, initial encounter; Y92.9 Unspecified place or not applicable; I25.10 Atherosclerotic heart disease of native coronary artery without angina pectoris; I48.0 Paroxysmal atrial fibrillation; M20.42 Other hammer toe(s) (acquired), left foot; I65.21 Occlusion and stenosis of right carotid artery; Z79.01 Long term (current) use of anticoagulants; Z79.4 Long term (current) use of insulin; Z95.1 Presence of aortocoronary bypass graft; Z85.828 Personal history of other malignant neoplasm of skin; Z79.82 Long term (current) use of aspirin; Z79.899 Other long term (current) drug therapy
CPT/HCPCS: 36415; 73630; 73660; 76000; 80048; 80053; 82962; 83036; 83605; 84439; 84443; 85025; 85652; 86140; 87070; 87075; 87077; 87102; 87176; 87186; 87205; 87206; 87426; 87640; 87641; 88304; 88305; 88311; 88312; 93005; 93923; 96365; 96366; 99284; J7030; J7040; J7120; A4216; J0295; J2405

== ENCOUNTER → 2021-04-09 07:55 | Outpatient (CLI) | payer MEDICARE, SELFPAY ==
[2021-01-22 07:38] VITALS: BMI 28.9
[2021-04-09 09:39] LABS: Hemoglobin A1c 6.7 % (3.8-5.6)
[2021-04-09 09:54] LABS: Microalbumin,Random Urine 14.4 mg/L (NO RANGE EST.)
[2021-04-09 10:10] LABS: ALB/GLOB Ratio 1.1 RATIO (0.9-2.4); AST(SGOT) 21 U/L (15-37); Alanine Aminotransfer ALT/SGPT 25 U/L (16-61); Albumin, Serum 3.9 g/dL (3.2-5.0); Alkaline Phosphatase 155 U/L (45-117); Anion Gap 6 (5-15); BUN 24 mg/dL (7-18); BUN/Creat Ratio 18.2 RATIO (10-20); Calcium,Total 9.1 mg/dL (8.5-10.1); Chloride 104 mmol/L (98-107); Cholesterol 127 mg/dL (200); Creatinine, Serum 1.32 mg/dL (0.70-1.30); EST Glomerular Filtration Rate 58 mL/min (>60); Est Glom Filt Rate - Afr Amer 70 mL/min (>60); Globulin 3.4 g/dL (2.2-4.2); Glucose 143 mg/dL (74-106); High Density Lipoprotein 39 mg/dL; Potassium 3.8 mmol/L (3.5-5.1); Protein, Total 7.3 g/dL (6.4-8.2); Sodium Level 137 mmol/L (136-145); T4 Free Direct 0.99 ng/dL (0.76-1.46); Triglycerides 103 mg/dL; Very Low Density Lipoprotein 21 mg/dL (5-40)
[2021-04-09 18:55] LABS: M R Staph aureus DNA By PCR Negative (Negative); Probe Check PASS; Specimen Processing Control PASS; Staph aureus DNA By PCR NEGATIVE (Negative)
== END ==
PROVIDERS: PCP Family Medicine; Referring Provider Internal Medicine Endocrinology, Diabetes & Metabolism; Visit Provider Internal Medicine Endocrinology, Diabetes & Metabolism
DX: E11.65 Type 2 diabetes mellitus with hyperglycemia (principal); E03.9 Hypothyroidism, unspecified; I12.9 Hypertensive chronic kidney disease with stage 1 through stage 4 chronic kidney disease, or unspecified chronic kidney disease; N18.30 Chronic kidney disease, stage 3 unspecified; E78.5 Hyperlipidemia, unspecified
CPT/HCPCS: 36415; 80053; 80061; 82043; 83036; 84439; 87070; 87205; 87640

== ENCOUNTER → 2021-04-09 | Outpatient (CLI) | payer MEDICARE, SELFPAY ==
[2021-01-22 07:38] VITALS: BMI 28.9
== END | disposition home or self-care (01) ==
LOC: LABSPEC 15:38
PROVIDERS: PCP Family Medicine; Visit Provider Podiatrist Foot & Ankle Surgery
DX: L03.032 Cellulitis of left toe (principal)

== ENCOUNTER → 2021-05-07 | Outpatient (CLI) | payer MEDICARE, SELFPAY ==
[2021-01-22 07:38] VITALS: BMI 28.9
[2021-05-07 17:36] LABS: M R Staph aureus DNA By PCR Negative (Negative); Probe Check PASS; Specimen Processing Control PASS; Staph aureus DNA By PCR NEGATIVE (Negative)
== END | disposition home or self-care (01) ==
LOC: LABSPEC 15:08
PROVIDERS: PCP Family Medicine; Referring Provider Podiatrist Foot & Ankle Surgery; Visit Provider Podiatrist Foot & Ankle Surgery
DX: L03.032 Cellulitis of left toe (principal); L97.529 Non-pressure chronic ulcer of other part of left foot with unspecified severity
CPT/HCPCS: 87070; 87077; 87186; 87205; 87640

== ENCOUNTER → 2021-05-20 15:47 | Outpatient (CLI) | payer MEDICARE, SELFPAY ==
[2021-01-22 07:38] VITALS: BMI 28.9
--- NOTE | 2021-05-20 15:52 | MRI_ITS ---
STUDY: MRI BRAIN WITH AND WITHOUT CONTRAST REASON FOR EXAM: Male, 65 years old. DIPLOPIA TECHNIQUE: Standardized multiplanar fat and water weighted pulse sequences were obtained. IV Yes YES was administered for the contrast portion of the examination. COMPARISON: CT 02/11/2019 FINDINGS: There is mild cerebral atrophy with widening of the extra-axial spaces and ventricular dilatation. There are a limited number of small white matter hyperintensities, distributed throughout the deep white matter tracts of the cerebral hemispheres, consistent with mild chronic white matter ischemic changes. There is no evidence for recent intracranial ischemia or other cause of cytotoxic edema on diffusion weighted imaging (DWI). Triangular area of hemosiderin staining within the right putamen corresponds to the site of prior hemorrhage. Normal bilateral basal ganglia. Normal thalami. There is no extra-axial fluid accumulation. Normal flow voids within the major intracranial circulation suggesting patency by spin echo criteria. Normal venous enhancement. There is no enhancing intra-axial or extra-axial abnormality. Normal sella turcica, pituitary gland, infundibular stalk, optic chiasm and hypothalamus. Normal tectal plate and pineal gland. Normal midbrain, barry and medulla. Normal cerebellum. Normal basal cisterns. Normal bilateral temporal bones. Normal bilateral internal auditory canals. No demonstrated orbital abnormality, within the constraints of a routine brain study. Normal visualized paranasal sinuses. Normal calvarium and skull base. Normal visualized soft tissue structures. Normal visualized upper cervical spine. MRI/Brain W/WO Contrast IMPRESSION: Involutional changes of the brain, as described above. No acute infarct. Electronically Signed: Gómez Piper MD at 18:36 EDT Tel , Service support ,
[2021-05-20 16:30] LABS: CREATININE FINGERSTICK 1.3 mg/dL (0.70-1.30)
== END ==
PROVIDERS: PCP Family Medicine; Referring Provider Ophthalmology; Visit Provider Ophthalmology
DX: H53.2 Diplopia (principal)
CPT/HCPCS: 70553; A9575

== ENCOUNTER → 2021-07-14 08:51 | Outpatient (CLI) | payer MEDICARE, SELFPAY ==
[2021-01-22 07:38] VITALS: BMI 28.9
[2021-07-14 10:10] LABS: ALB/GLOB Ratio 1.2 RATIO (0.9-2.4); AST(SGOT) 17 U/L (15-37); Alanine Aminotransfer ALT/SGPT 26 U/L (16-61); Albumin, Serum 4.2 g/dL (3.2-5.0); Alkaline Phosphatase 142 U/L (45-117); Anion Gap 6 (5-15); BUN 28 mg/dL (7-18); BUN/Creat Ratio 19.9 RATIO (10-20); Calcium,Total 9.2 mg/dL (8.5-10.1); Chloride 102 mmol/L (98-107); Creatinine, Serum 1.41 mg/dL (0.70-1.30); EST Glomerular Filtration Rate 53 mL/min (>60); Est Glom Filt Rate - Afr Amer 65 mL/min (>60); Globulin 3.6 g/dL (2.2-4.2); Glucose 156 mg/dL (74-106); Hemoglobin A1c 6.6 % (3.8-5.6); Potassium 3.9 mmol/L (3.5-5.1); Protein, Total 7.8 g/dL (6.4-8.2); Sodium Level 138 mmol/L (136-145)
== END ==
PROVIDERS: PCP Family Medicine; Referring Provider Internal Medicine Endocrinology, Diabetes & Metabolism; Visit Provider Internal Medicine Endocrinology, Diabetes & Metabolism
DX: E11.65 Type 2 diabetes mellitus with hyperglycemia (principal); E11.22 Type 2 diabetes mellitus with diabetic chronic kidney disease; I12.9 Hypertensive chronic kidney disease with stage 1 through stage 4 chronic kidney disease, or unspecified chronic kidney disease; N18.30 Chronic kidney disease, stage 3 unspecified; E78.5 Hyperlipidemia, unspecified
CPT/HCPCS: 36415; 80053; 82306; 83036; 84439; 84443

== ENCOUNTER 2021-09-08 12:56 | Outpatient (CLI) | payer MEDICARE, SELFPAY ==
[2021-09-08] MEDS: 0.9% Saline Lock 10 ML Syringe IV (13:22)
[2021-09-08 13:25] VITALS: BP 119/63; PULSE 74; RESP 16; TEMP 37.7; O2SAT 96; BMI 29.6
[2021-09-08 13:55] VITALS: BP 111/59; PULSE 70; RESP 16; TEMP 37.7; O2SAT 97
[2021-09-08 14:47] VITALS: BP 125/62; PULSE 71; RESP 16; TEMP 37.2; O2SAT 98
== END 2021-09-08 14:55 | disposition home or self-care (01) ==
LOC: MS3OUT 12:57 → MS3 12:57
PROVIDERS: PCP Family Medicine; Referring Provider Nurse Practitioner Adult Health; Visit Provider Nurse Practitioner Adult Health
DX: Z23 Encounter for immunization (principal); U07.1 COVID-19
CPT/HCPCS: J7050; M0243; A4216; Q0240

== ENCOUNTER → 2021-10-14 12:06 | Outpatient (CLI) | payer MEDICARE, SELFPAY ==
--- NOTE | 2021-10-14 12:09 | RAD_ITS ---
STUDY: X-RAY - ABDOMEN/PELVIS REASON FOR EXAM: Male, 66 years old. Lower abdominal pain. No bowel movements for 4 days. TECHNIQUE: AP supine and upright views of the abdomen and pelvis. COMPARISON: None. FINDINGS: There is an abundance of fecal material is seen in the right hemicolon as well as in the rectosigmoid colon. Gaseous distention of the transverse colon. There is no demonstrated free abdominal air. The visualized liver, spleen and kidneys are grossly normal in size and morphology. There are calcified phleboliths in the pelvis. There are diffuse degenerative changes of the visualized lumbar spine. RAD/Abd Inc Decub and/or Erect IMPRESSION: Large amount of fecal material in the right hemicolon as well as the rectosigmoid colon. Dilated transverse colon. Electronically Signed: Pedro Rogers MD at 13:36 EST , Service support ,
== END ==
PROVIDERS: PCP Family Medicine; Referring Provider Family Medicine; Visit Provider Family Medicine
DX: R10.9 Unspecified abdominal pain (principal)
CPT/HCPCS: 74019

== ENCOUNTER 2021-12-07 17:02 | Outpatient (CLI) | payer MEDICARE, SELFPAY | END 2021-12-07 23:59 | disposition short-term general hospital (02) | PROVIDERS: PCP Family Medicine; Referring Provider Family Medicine; Visit Provider Registered Nurse | DX: U07.1 COVID-19 (principal) | CPT/HCPCS: 87635; U0003; U0005 ==

== ENCOUNTER 2021-12-13 13:21 | Outpatient (CLI) | payer MEDICARE, SELFPAY ==
[2021-12-13] MEDS: 0.9% Saline Lock 10 ML Syringe IV (13:44)
[2021-12-13 13:47] VITALS: BP 149/78; PULSE 71; RESP 18; TEMP 36.9; O2SAT 95; BMI 29.6
[2021-12-13 14:22] VITALS: BP 114/63; PULSE 64; RESP 16; TEMP 37; O2SAT 97
[2021-12-13 15:20] VITALS: BP 120/71; PULSE 67; RESP 16; TEMP 36.9; O2SAT 98
== END 2021-12-13 23:59 | disposition home or self-care (01) ==
LOC: MS3OUT 13:21 → MS3 13:22
PROVIDERS: PCP Family Medicine; Referring Provider Nurse Practitioner Adult Health; Visit Provider Nurse Practitioner Adult Health
DX: Z23 Encounter for immunization (principal); U07.1 COVID-19
CPT/HCPCS: J7050; M0245; Q0245; A4216

== ENCOUNTER 2021-12-16 08:20 | Outpatient (CLI) | payer MEDICARE, SELFPAY ==
[2021-12-16 09:34] LABS: Hemoglobin A1c 6.9 % (3.8-5.6)
[2021-12-16 09:53] LABS: ALB/GLOB Ratio 0.8 RATIO (0.9-2.4); AST(SGOT) 23 U/L (15-37); Alanine Aminotransfer ALT/SGPT 17 U/L (16-61); Albumin, Serum 3.6 g/dL (3.2-5.0); Alkaline Phosphatase 162 U/L (45-117); Anion Gap 7 (5-15); BUN 31 mg/dL (7-18); BUN/Creat Ratio 19.3 RATIO (10-20); Calcium,Total 9.5 mg/dL (8.5-10.1); Chloride 104 mmol/L (98-107); Cholesterol 144 mg/dL (200); Creatinine, Serum 1.61 mg/dL (0.70-1.30); EST Glomerular Filtration Rate 46 mL/min (>60); Est Glom Filt Rate - Afr Amer 55 mL/min (>60); Free T3 2.3 pg/mL (2.18-3.98); Globulin 4.3 g/dL (2.2-4.2); Glucose 156 mg/dL (74-106); High Density Lipoprotein 29 mg/dL; Potassium 4.3 mmol/L (3.5-5.1); Protein, Total 7.9 g/dL (6.4-8.2); Sodium Level 137 mmol/L (136-145); T4 Free Direct 1.19 ng/dL (0.76-1.46); Thyroid Stim Hormone (TSH) 2.36 uIU/mL (0.358-3.74); Triglycerides 137 mg/dL; Very Low Density Lipoprotein 27 mg/dL (5-40)
== END 2021-12-16 23:59 | disposition short-term general hospital (02) ==
LOC: LAB 08:24
PROVIDERS: PCP Family Medicine; Referring Provider Internal Medicine Endocrinology, Diabetes & Metabolism; Visit Provider Internal Medicine Endocrinology, Diabetes & Metabolism
DX: I12.9 Hypertensive chronic kidney disease with stage 1 through stage 4 chronic kidney disease, or unspecified chronic kidney disease (principal); E11.22 Type 2 diabetes mellitus with diabetic chronic kidney disease; I77.6 Arteritis, unspecified; N18.30 Chronic kidney disease, stage 3 unspecified; E78.5 Hyperlipidemia, unspecified
CPT/HCPCS: 36415; 80053; 80061; 82043; 83036; 84439; 84443; 84481

== ENCOUNTER 2021-12-28 15:21 | Outpatient (CLI) | payer MEDICARE, SELFPAY ==
--- NOTE | 2021-12-28 15:29 | RAD_ITS ---
History: SOB EXAMINATION/TECHNIQUE: XR Chest 2 Views: COMPARISON: April 10, 2017 FINDINGS: LINES/DEVICES: None. LUNGS: The airspace opacification of the lower lobes and right upper lobe suggestive of pneumonia. No pneumothorax. MEDIASTINUM AND CARDIOVASCULAR STRUCTURES: Cardiac silhouette not enlarged. Central airways and mediastinal contour are unremarkable. BONES AND SOFT TISSUES: Sternotomy wires are in place. RAD/Chest PA and Lateral IMPRESSION: Bilateral pneumonia. at 1547 Reported and signed by: Saeed Schmid MD Electronically Signed: Saeed Schmid MD at 15:45 EST ,
[2021-12-28 18:29] LABS: PSA,Total - Annual Screen 1.61 ng/mL (0.00-4.00)
== END 2021-12-28 23:59 | disposition short-term general hospital (02) ==
PROVIDERS: PCP Family Medicine; Referring Provider Family Medicine; Visit Provider Family Medicine
DX: Z12.5 Encounter for screening for malignant neoplasm of prostate (principal); R06.02 Shortness of breath
CPT/HCPCS: 36415; 71046; 84153; G0103

== ENCOUNTER 2022-02-17 14:37 | Outpatient (CLI) | payer MEDICARE, SELFPAY ==
[2022-02-17 14:54] LABS: Bacteria 0 SEEN /hpf (None Seen); Mucous, Urine 0 SEEN /hpf (<or=2+); White Blood Cells 0 SEEN /hpf (0-5)
[2022-02-17 17:34] LABS: Absolute Neutrophil Count 5.9 X10^3/uL (2.0-7.7); Basophil# 0.04 X10^3/uL; Basophil% 0.5 % (0-1); Eosinophil# 0.37 X10^3/uL; Eosinophils% 4.5 % (0-5); Hematocrit 43.5 % (40-54); Lymphocyte % 13.4 % (19-41); Mean Corp Hgb Conc 34.5 g/dL (32-36); Mean Corpuscular Volume 95.8 fL (80-94); Mean Platelet Vol. 10.4 fl (6.2-12.0); Monocyte# 0.74 X10^3/uL; NRBC Flagged by Analyzer 0 % (0-5); Neutrophil # 5.89 X10^3/uL (2.7-7.7); Platelet Count 253 K/mm3 (150-450); RBC Distribution Width CV 13.8 % (11.6-14.6); Red Blood Count 4.54 M/mm3 (4.6-6.2); White Blood Count 8.2 K/mm3 (4.4-11.0)
[2022-02-17 17:47] LABS: Color, Urine Yellow (Yellow); Glucose, Dipstick Normal (Normal); Ketone-Dipstick Negative (Negative); Leukocyte Esterase-Dipstick Negative /ul (Negative); Nitrite-Dipstick Negative (Negative); Occult Blood-Urine 10 /ul (Negative); Protein-Dipstick 15 mg/dl (Negative); Urine Bilirubin Dipstick Negative (Negative); Urine Clarity Clear (Clear); Urine Urobilinogen Normal (Normal)
[2022-02-17 17:53] LABS: Vitamin B12 306 pg/mL (211-911); Vitamin D,25 Hydroxy 84.6 ng/mL
[2022-02-17 18:06] LABS: Protein, Urine (Random) 34.2 mg/dL (<11.9); Protein:Creat Ratio 234 mg/g CRE (0-200); Red Blood Cells-Urine 0-5 SEEN /hpf (0-5); Squamous Epithelial Cells - UA 0-5 SEEN /hpf (0-5)
[2022-02-17 18:08] LABS: ALB/GLOB Ratio 1.1 RATIO (0.9-2.4); AST(SGOT) 19 U/L (15-37); Alanine Aminotransfer ALT/SGPT 18 U/L (16-61); Albumin, Serum 3.8 g/dL (3.2-5.0); Alkaline Phosphatase 154 U/L (45-117); Anion Gap 8 (5-15); BUN 26 mg/dL (7-18); BUN/Creat Ratio 11.8 RATIO (10-20); Calcium,Total 9.8 mg/dL (8.5-10.1); Chloride 104 mmol/L (98-107); Cholesterol 156 mg/dL (200); Creatinine, Serum 2.21 mg/dL (0.70-1.30); EST Glomerular Filtration Rate 32 mL/min (>60); Est Glom Filt Rate - Afr Amer 38 mL/min (>60); Ferritin 254 ng/mL (26-388); Globulin 3.6 g/dL (2.2-4.2); Glucose 160 mg/dL (74-106); High Density Lipoprotein 34 mg/dL; Iron 115 ug/dL (65-175); Iron Binding Capacity,Total 295 ug/dL (250-450); Magnesium 1.8 mg/dL (1.6-2.6); Phosphorus 3.2 mg/dL (2.5-4.9); Potassium 4.1 mmol/L (3.5-5.1); Protein, Total 7.4 g/dL (6.4-8.2); Sodium Level 138 mmol/L (136-145); T4 Free Direct 0.99 ng/dL (0.76-1.46); Thyroid Stim Hormone (TSH) 2.05 uIU/mL (0.358-3.74); Triglycerides 171 mg/dL; Very Low Density Lipoprotein 34 mg/dL (5-40)
[2022-02-18 07:41] LABS: PTHIN 21.6 pg/mL (18.4-80.1)
[2022-02-22 09:05] LABS: Anti-Thyroglobulin AB < 1.0 IU/mL (0.0-0.9); Thyroglobulin, Serum Qt. 6.4 ng/mL (1.4-29.2); Thyroid Peroxidase AB < 8 IU/mL (0-34)
== END 2022-02-17 23:59 | disposition home or self-care (01) ==
LOC: MFPLAB 14:38
PROVIDERS: PCP Family Medicine; Referring Provider Family Medicine; Visit Provider Family Medicine
DX: D50.9 Iron deficiency anemia, unspecified (principal); E11.69 Type 2 diabetes mellitus with other specified complication; E11.22 Type 2 diabetes mellitus with diabetic chronic kidney disease; I48.0 Paroxysmal atrial fibrillation; N18.30 Chronic kidney disease, stage 3 unspecified; E55.9 Vitamin D deficiency, unspecified; E78.5 Hyperlipidemia, unspecified; E04.1 Nontoxic single thyroid nodule
CPT/HCPCS: 36415; 80053; 80061; 81001; 82306; 82570; 82607; 82728; 82746; 83540; 83550; 83735; 83970; 84100; 84156; 84432; 84439; 84443; 85025; 86376; 86800

== ENCOUNTER 2022-02-22 10:18 | Outpatient (CLI) | payer MEDICARE, SELFPAY ==
--- NOTE | 2022-02-22 10:22 | US_ITS ---
STUDY: THYROID ULTRASOUND REASON FOR EXAM: Male, 66 years old. Palpable nodule TECHNIQUE: Ultrasound evaluation of the thyroid was performed with real-time and static vazquez-scale imaging. COMPARISON: None. FINDINGS: RIGHT LOBE: The right lobe of the thyroid gland measures 4.7 x 2.0 x 1.4 cm. There is a homogeneous echotexture. There is a simple 2 mm cyst in the upper pole LEFT LOBE: The left lobe of the thyroid gland measures 4.8 x 1.7 x 1.9 cm. There is a homogeneous echotexture. There is a simple 6 mm cyst in the lower pole ISTHMUS: The isthmus measures . The regional lymph nodes are normal. US/Thyroid IMPRESSION: Borderline enlargement of the thyroid gland. No suspicious solid nodules, there are simple cysts in both lobes. No specific follow-up needed Electronically Signed: Joel Escamilla MD at 16:48 EDT ,
== END 2022-02-22 23:59 | disposition home or self-care (01) ==
LOC: US 10:20
PROVIDERS: PCP Family Medicine; Referring Provider Family Medicine; Visit Provider Family Medicine
DX: E04.1 Nontoxic single thyroid nodule (principal)
CPT/HCPCS: 76536

== ENCOUNTER 2022-02-25 11:00 | Outpatient (CLI) | payer MEDICARE, SELFPAY ==
[2022-02-25 12:48] LABS: Anion Gap 5 (5-15); BUN 26 mg/dL (7-18); BUN/Creat Ratio 19.3 RATIO (10-20); Calcium,Total 9.7 mg/dL (8.5-10.1); Chloride 105 mmol/L (98-107); Creatinine, Serum 1.35 mg/dL (0.70-1.30); EST Glomerular Filtration Rate 56 mL/min (>60); Est Glom Filt Rate - Afr Amer 68 mL/min (>60); Glucose 98 mg/dL (74-106); Sodium Level 139 mmol/L (136-145)
== END 2022-02-25 23:59 | disposition home or self-care (01) ==
LOC: MTLAB 11:03
PROVIDERS: PCP Family Medicine; Referring Provider Family Medicine; Visit Provider Family Medicine
DX: N18.30 Chronic kidney disease, stage 3 unspecified (principal)
CPT/HCPCS: 36415; 80048

== ENCOUNTER → 2022-03-21 | Outpatient (CLI) | payer MEDICARE, SELFPAY ==
[2022-03-21 09:46] LABS: Hemoglobin A1c 6.3 % (3.8-5.6)
[2022-03-21 10:00] LABS: ALB/GLOB Ratio 1.2 RATIO (0.9-2.4); AST(SGOT) 22 U/L (15-37); Alanine Aminotransfer ALT/SGPT 19 U/L (16-61); Alkaline Phosphatase 131 U/L (45-117); Anion Gap 5 (5-15); BUN 25 mg/dL (7-18); BUN/Creat Ratio 18.8 RATIO (10-20); Calcium,Total 8.9 mg/dL (8.5-10.1); Chloride 106 mmol/L (98-107); Cholesterol 144 mg/dL (200); Creatinine, Serum 1.33 mg/dL (0.70-1.30); EST Glomerular Filtration Rate 57 mL/min (>60); Est Glom Filt Rate - Afr Amer 69 mL/min (>60); Free T3 3.1 pg/mL (2.18-3.98); Globulin 3.3 g/dL (2.2-4.2); Glucose 125 mg/dL (74-106); High Density Lipoprotein 34 mg/dL; Potassium 3.6 mmol/L (3.5-5.1); Protein, Total 7.3 g/dL (6.4-8.2); Sodium Level 139 mmol/L (136-145); T4 Free Direct 0.91 ng/dL (0.76-1.46); Thyroid Stim Hormone (TSH) 2.09 uIU/mL (0.358-3.74); Triglycerides 104 mg/dL; Very Low Density Lipoprotein 21 mg/dL (5-40)
== END | disposition home or self-care (01) ==
LOC: LAB 07:46
PROVIDERS: PCP Family Medicine; Referring Provider Internal Medicine Endocrinology, Diabetes & Metabolism; Visit Provider Internal Medicine Endocrinology, Diabetes & Metabolism
DX: E11.65 Type 2 diabetes mellitus with hyperglycemia (principal); E11.22 Type 2 diabetes mellitus with diabetic chronic kidney disease; I77.6 Arteritis, unspecified; N18.30 Chronic kidney disease, stage 3 unspecified; I12.9 Hypertensive chronic kidney disease with stage 1 through stage 4 chronic kidney disease, or unspecified chronic kidney disease; E78.5 Hyperlipidemia, unspecified
CPT/HCPCS: 80053; 80061; 83036; 84439; 84443; 84481

== ENCOUNTER → 2022-04-12 | Outpatient (CLI) | payer MEDICARE, SELFPAY ==
--- NOTE | 2022-04-12 11:44 | RAD_ITS ---
STUDY: X-RAY - LEFT ELBOW REASON FOR EXAM: Male, 66 years old. INJURY TECHNIQUE: 3 view(s) of the elbow. COMPARISON: None. FINDINGS: Normal visualized humerus, radius and ulna. Normal radiocapitellar and ulnotrochlear articulations. The soft tissue structures are unremarkable. RAD/Elbow min 3 Views IMPRESSION: Normal x-ray examination of the elbow. Electronically Signed: Gómez Piper MD at 16:51 EDT ,
== END | disposition home or self-care (01) ==
LOC: MTRAD 11:43
PROVIDERS: PCP Family Medicine; Referring Provider Family Medicine; Visit Provider Family Medicine
DX: S59.902A Unspecified injury of left elbow, initial encounter (principal)
CPT/HCPCS: 73080

== ENCOUNTER → 2022-07-08 | Outpatient (CLI) | payer MEDICARE, SELFPAY ==
[2022-07-08 09:56] LABS: Microalbumin,Random Urine 30.2 mg/L (NO RANGE EST.)
[2022-07-08 10:16] LABS: Vitamin D,25 Hydroxy 77.9 ng/mL
[2022-07-08 10:17] LABS: Hemoglobin A1c 6.9 % (3.8-5.6)
[2022-07-08 10:29] LABS: ALB/GLOB Ratio 1.2 RATIO (0.9-2.4); AST(SGOT) 22 U/L (15-37); Alanine Aminotransfer ALT/SGPT 23 U/L (16-61); Albumin, Serum 3.8 g/dL (3.2-5.0); Alkaline Phosphatase 156 U/L (45-117); Anion Gap 5 (5-15); BUN 25 mg/dL (7-18); Calcium,Total 9.3 mg/dL (8.5-10.1); Chloride 105 mmol/L (98-107); Creatinine, Serum 1.56 mg/dL (0.70-1.30); EST Glomerular Filtration Rate 47 mL/min (>60); Est Glom Filt Rate - Afr Amer 57 mL/min (>60); Free T3 2.7 pg/mL (2.18-3.98); Globulin 3.2 g/dL (2.2-4.2); Glucose 186 mg/dL (74-106); Sodium Level 139 mmol/L (136-145); T4 Free Direct 0.86 ng/dL (0.76-1.46); Thyroid Stim Hormone (TSH) 2.39 uIU/mL (0.358-3.74)
== END | disposition home or self-care (01) ==
LOC: LAB 08:51
PROVIDERS: PCP Family Medicine; Visit Provider Internal Medicine Endocrinology, Diabetes & Metabolism
DX: E11.22 Type 2 diabetes mellitus with diabetic chronic kidney disease (principal); N18.30 Chronic kidney disease, stage 3 unspecified; I12.9 Hypertensive chronic kidney disease with stage 1 through stage 4 chronic kidney disease, or unspecified chronic kidney disease; E03.9 Hypothyroidism, unspecified; E78.5 Hyperlipidemia, unspecified
CPT/HCPCS: 36415; 80053; 82043; 82306; 83036; 84439; 84443; 84481

== ENCOUNTER → 2022-08-16 | Outpatient (CLI) | payer MEDICARE, SELFPAY ==
[2022-08-16 11:57] LABS: Absolute Neutrophil Count 4.1 X10^3/uL (2.0-7.7); Basophil# 0.04 X10^3/uL; Basophil% 0.6 % (0-1); Eosinophil# 0.17 X10^3/uL; Eosinophils% 2.7 % (0-5); Hematocrit 43.9 % (40-54); Hemoglobin 15.1 g/dL (13.0-16.5); Lymphocyte % 20.6 % (19-41); Mean Corp Hgb Conc 34.4 g/dL (32-36); Mean Corpuscular Hgb 32.3 pg (27.0-32.0); Mean Corpuscular Volume 93.8 fL (80-94); Mean Platelet Vol. 10.4 fl (6.2-12.0); Monocyte# 0.63 X10^3/uL; NRBC Flagged by Analyzer 0 % (0-5); Neutrophil # 4.14 X10^3/uL (2.7-7.7); Neutrophil % 65.8 % (47-70); Platelet Count 198 K/mm3 (150-450); RBC Distribution Width CV 12.7 % (11.6-14.6); RBC Distribution Width SD 43.6 fl (35.1-43.9); Red Blood Count 4.68 M/mm3 (4.6-6.2); White Blood Count 6.3 K/mm3 (4.4-11.0)
[2022-08-16 12:36] LABS: Ferritin 149 ng/mL (26-388); Iron 106 ug/dL (65-175); Iron Binding Capacity,Total 289 ug/dL (250-450); Phosphorus 2.4 mg/dL (2.5-4.9)
[2022-08-16 15:42] LABS: Protein, Urine (Random) 23.1 mg/dL (<11.9); Protein:Creat Ratio 296 mg/g CRE (0-200)
== END | disposition home or self-care (01) ==
LOC: MFPLAB 11:06
PROVIDERS: PCP Family Medicine; Referring Provider Family Medicine; Visit Provider Family Medicine
DX: D50.9 Iron deficiency anemia, unspecified (principal); E11.22 Type 2 diabetes mellitus with diabetic chronic kidney disease; N18.9 Chronic kidney disease, unspecified
CPT/HCPCS: 36415; 82570; 82728; 83540; 83550; 84100; 84156; 85025

== ENCOUNTER → 2022-11-04 | Outpatient (CLI) | payer MEDICARE, SELFPAY ==
[2022-11-04 10:58] LABS: Vitamin D,25 Hydroxy 63.9 ng/mL
[2022-11-04 11:02] LABS: Hemoglobin A1c 6.8 % (3.8-5.6)
[2022-11-04 11:10] LABS: ALB/GLOB Ratio 1.3 RATIO (0.9-2.4); AST(SGOT) 20 U/L (15-37); Alanine Aminotransfer ALT/SGPT 28 U/L (16-61); Albumin, Serum 4.3 g/dL (3.2-5.0); Alkaline Phosphatase 131 U/L (45-117); Anion Gap 5 (5-15); BUN 24 mg/dL (7-18); BUN/Creat Ratio 15.7 RATIO (10-20); Calcium,Total 9.5 mg/dL (8.5-10.1); Chloride 105 mmol/L (98-107); Cholesterol 147 mg/dL (200); Creatinine, Serum 1.53 mg/dL (0.70-1.30); EST Glomerular Filtration Rate 48 mL/min (>60); Est Glom Filt Rate - Afr Amer 59 mL/min (>60); Free T3 2.8 pg/mL (2.18-3.98); Globulin 3.4 g/dL (2.2-4.2); Glucose 174 mg/dL (74-106); High Density Lipoprotein 36 mg/dL; Potassium 4.3 mmol/L (3.5-5.1); Protein, Total 7.7 g/dL (6.4-8.2); Sodium Level 139 mmol/L (136-145); T4 Free Direct 0.84 ng/dL (0.76-1.46); Thyroid Stim Hormone (TSH) 3.15 uIU/mL (0.358-3.74); Triglycerides 176 mg/dL; Very Low Density Lipoprotein 35 mg/dL (5-40)
== END | disposition home or self-care (01) ==
LOC: LAB 08:28
PROVIDERS: PCP Family Medicine; Visit Provider Internal Medicine Endocrinology, Diabetes & Metabolism
DX: E11.22 Type 2 diabetes mellitus with diabetic chronic kidney disease (principal); N18.30 Chronic kidney disease, stage 3 unspecified; E78.5 Hyperlipidemia, unspecified; E03.9 Hypothyroidism, unspecified; I12.9 Hypertensive chronic kidney disease with stage 1 through stage 4 chronic kidney disease, or unspecified chronic kidney disease
CPT/HCPCS: 36415; 80053; 80061; 82306; 83036; 84439; 84443; 84481

== ENCOUNTER → 2022-11-15 | Outpatient (CLI) | payer MEDICARE, SELFPAY ==
[2022-11-15 12:51] LABS: PTHIN 76.6 pg/mL (18.4-80.1)
[2022-11-15 13:02] LABS: Protein, Urine (Random) 24.3 mg/dL (<11.9); Protein:Creat Ratio 186 mg/g CRE (0-200)
[2022-11-15 13:04] LABS: Ferritin 163 ng/mL (26-388); Iron 118 ug/dL (65-175); Iron Binding Capacity,Total 273 ug/dL (250-450); PERCENT IRON SATURATION 43.2 % (15.0-55.0)
== END | disposition home or self-care (01) ==
LOC: MFPLAB 11:05
PROVIDERS: PCP Family Medicine; Referring Provider Family Medicine; Visit Provider Family Medicine
DX: E11.22 Type 2 diabetes mellitus with diabetic chronic kidney disease (principal); D50.9 Iron deficiency anemia, unspecified
CPT/HCPCS: 36415; 82570; 82728; 83540; 83550; 83970; 84156

== ENCOUNTER → 2023-01-18 | Outpatient (CLI) | payer MEDICARE, SELFPAY ==
--- NOTE | 2023-01-18 09:47 | ART_ITS ---
Reason For Study: PVD Procedure A bilateral lower extremity continuous wave Doppler with analog waveform analysis,segmental pressures,and ankle brachial indexes with exercise. Left Segmental Pressures Left brachial= 120mmHg. Left posterior tibial artery = 131mmHg. Left dorsalis pedis artery = 140mmHg. The left dorsalis pedis waveforms are triphasic. The left posterior tibial artery waveforms are biphasic. Right Segmental Pressures Right brachial= 122mmHg. Right posterior tibial artery = 141mmHg. Right dorsalis pedis artery = 139mmHg. The right dorsalis pedis waveforms are triphasic. The right posterior tibial artery waveforms are triphasic. Indices The right ankle brachial index by the dorsalis pedis is 1.14. The right ankle brachial index by the posterior tibial artery is 1.16. The right post exercise ankle brachial index is 1.33. The left ankle brachial index by the dorsalis pedis is 1.15. The left ankle brachial index by the posterior tibial artery is 1.07. The left post exercise ankle brachial index is 1.24. VL/Lower Ext Art Exam w/ Exercise Interpretation Summary Triphasic Doppler waveforms are noted at ankle level on the right. Biphasic and triphasic Doppler waveforms are noted at ankle level on the left. Pulse-volume recordings appear satisfactory at low thigh, calf, and ankle levels bilaterally. Resting ankle-brachial indices are n ormal bilaterally. The patient ambulated on a treadmill for 5 minutes at 1.2 MPH and a 5% grade, f ollowing which ankle pressures and ankle-brachial indices augmented bilaterally, a normal physiologi lavelle response. There is no evidence of significant arterial occlusive disease in the lower ext remities bilaterally. Ordering Physician: Zane Hebert Referring Physician: Mk Carpenter Performed By: Renita Singleton RVT
== END | disposition home or self-care (01) ==
LOC: CVS 09:44
PROVIDERS: PCP Family Medicine; Visit Provider Podiatrist
DX: I73.9 Peripheral vascular disease, unspecified (principal)
CPT/HCPCS: 93924

== ENCOUNTER → 2023-03-03 | Outpatient (CLI) | payer MEDICARE, SELFPAY ==
[2023-03-03 10:03] LABS: Hemoglobin A1c 7.3 % (3.8-5.6)
[2023-03-03 10:08] LABS: Microalbumin,Random Urine 15.5 mg/L (NO RANGE EST.)
[2023-03-03 10:11] LABS: Vitamin D,25 Hydroxy 73.5 ng/mL
[2023-03-03 10:20] LABS: ALB/GLOB Ratio 1.1 RATIO (0.9-2.4); AST(SGOT) 20 U/L (15-37); Alanine Aminotransfer ALT/SGPT 23 U/L (16-61); Albumin, Serum 3.9 g/dL (3.2-5.0); Alkaline Phosphatase 165 U/L (45-117); Anion Gap 6 (5-15); BUN 31 mg/dL (7-18); BUN/Creat Ratio 18.7 RATIO (10-20); Calcium,Total 9.3 mg/dL (8.5-10.1); Chloride 102 mmol/L (98-107); Creatinine, Serum 1.66 mg/dL (0.70-1.30); EST Glomerular Filtration Rate 44 mL/min (>60); Est Glom Filt Rate - Afr Amer 53 mL/min (>60); Free T3 2.9 pg/mL (2.18-3.98); Globulin 3.5 g/dL (2.2-4.2); Glucose 188 mg/dL (74-106); Potassium 4.1 mmol/L (3.5-5.1); Protein, Total 7.4 g/dL (6.4-8.2); Sodium Level 137 mmol/L (136-145); T4 Free Direct 0.95 ng/dL (0.76-1.46); Thyroid Stim Hormone (TSH) 2.25 uIU/mL (0.358-3.74)
== END | disposition home or self-care (01) ==
PROVIDERS: PCP Family Medicine; Referring Provider Internal Medicine Endocrinology, Diabetes & Metabolism; Visit Provider Internal Medicine Endocrinology, Diabetes & Metabolism
DX: I12.9 Hypertensive chronic kidney disease with stage 1 through stage 4 chronic kidney disease, or unspecified chronic kidney disease (principal); E11.22 Type 2 diabetes mellitus with diabetic chronic kidney disease; N18.30 Chronic kidney disease, stage 3 unspecified; E78.5 Hyperlipidemia, unspecified; E03.9 Hypothyroidism, unspecified
CPT/HCPCS: 36415; 80053; 82043; 82306; 83036; 84439; 84443; 84481

== ENCOUNTER → 2023-03-14 | Outpatient (CLI) | payer MEDICARE, SELFPAY ==
[2023-03-14 13:35] LABS: PSA,Total - Annual Screen 1.11 ng/mL (0.00-4.00)
== END | disposition home or self-care (01) ==
LOC: MFPLAB 11:13
PROVIDERS: PCP Family Medicine; Referring Provider Family Medicine; Visit Provider Family Medicine
DX: Z12.5 Encounter for screening for malignant neoplasm of prostate (principal)
CPT/HCPCS: 36415; 84153; G0103

== ENCOUNTER → 2023-06-23 | Outpatient (CLI) | payer MEDICARE, SELFPAY ==
[2023-06-23 12:24] LABS: Absolute Lymphocyte Count 1.78 X10^3/uL (0.83-4.51); Absolute Neutrophil Count 4.8 X10^3/uL (2.0-7.7); Basophil# 0.05 X10^3/uL; Basophil% 0.7 % (0-1); Eosinophil# 0.22 X10^3/uL; Eosinophils% 2.9 % (0-5); Hematocrit 46.4 % (40-54); Hemoglobin 15.2 g/dL (13.0-16.5); Lymphocyte # 1.78 X10^3/ul (0.83-4.51); Lymphocyte % 23.4 % (19-41); Mean Corp Hgb Conc 32.8 g/dL (32-36); Mean Corpuscular Hgb 31.1 pg (27.0-32.0); Mean Corpuscular Volume 95.1 fL (80-94); Mean Platelet Vol. 10.7 fl (6.2-12.0); Monocyte# 0.72 X10^3/uL; Monocyte% 9.5 % (0-10); NRBC Flagged by Analyzer 0 % (0-5); Neutrophil # 4.81 X10^3/uL (2.7-7.7); Neutrophil % 63.2 % (47-70); Platelet Count 214 K/mm3 (150-450); RBC Distribution Width CV 12.6 % (11.6-14.6); RBC Distribution Width SD 43.9 fl (35.1-43.9); Red Blood Count 4.88 M/mm3 (4.6-6.2); White Blood Count 7.6 K/mm3 (4.4-11.0)
[2023-06-23 12:54] LABS: Vitamin D,25 Hydroxy 74.4 ng/mL
[2023-06-23 12:57] LABS: Hemoglobin A1c 7.2 % (3.8-5.6)
[2023-06-23 12:59] LABS: ALB/GLOB Ratio 1.1 RATIO (0.9-2.4); AST(SGOT) 21 U/L (15-37); Alanine Aminotransfer ALT/SGPT 23 U/L (16-61); Alkaline Phosphatase 151 U/L (45-117); Anion Gap 6 (5-15); BUN 29 mg/dL (7-18); BUN/Creat Ratio 18.4 RATIO (10-20); Calcium,Total 9.4 mg/dL (8.5-10.1); Chloride 104 mmol/L (98-107); Cholesterol 151 mg/dL (200); Creatinine, Serum 1.58 mg/dL (0.70-1.30); EST Glomerular Filtration Rate 47 mL/min (>60); Est Glom Filt Rate - Afr Amer 56 mL/min (>60); Globulin 3.6 g/dL (2.2-4.2); Glucose 133 mg/dL (74-106); High Density Lipoprotein 36 mg/dL; Magnesium 2.3 mg/dL (1.6-2.6); Phosphorus 2.4 mg/dL (2.5-4.9); Potassium 3.9 mmol/L (3.5-5.1); Protein, Total 7.6 g/dL (6.4-8.2); Sodium Level 137 mmol/L (136-145); Thyroid Stim Hormone (TSH) 1.43 uIU/mL (0.358-3.74); Triglycerides 174 mg/dL; Very Low Density Lipoprotein 35 mg/dL (5-40)
== END | disposition home or self-care (01) ==
LOC: MFPLAB 10:49
PROVIDERS: PCP Family Medicine; Visit Provider Family Medicine
DX: I48.0 Paroxysmal atrial fibrillation (principal); E11.69 Type 2 diabetes mellitus with other specified complication; E11.22 Type 2 diabetes mellitus with diabetic chronic kidney disease; E55.9 Vitamin D deficiency, unspecified
CPT/HCPCS: 36415; 80053; 80061; 82306; 83036; 83735; 84100; 84443; 85025

== ENCOUNTER 2023-07-01 16:42 | Inpatient (IN) | payer MEDICARE, SELFPAY ==
[2023-07-01] VITALS (9 sets, daily range): BP systolic 104–149; BP diastolic 64–88; PULSE 59–94; RESP 16–18; TEMP 36.3–37.2; O2SAT 94–100; BMI 29.5
--- NOTE | 2023-07-01 16:58 | CT_ITS ---
We are attempting to reach an attending provider to discuss findings. An addendum with communication details will be sent when the communication is complete. EXAM: CT ABDOMEN AND PELVIS WITH INTRAVENOUS CONTRAST CLINICAL INDICATION: abd pain and distention. Constipation. TECHNIQUE: Helically acquired images were obtained of the abdomen and pelvis with intravenous contrast. This CT exam was performed using one or more of the following dose reduction techniques: automated exposure control, adjustment of the mA and/or kV according to patient size, and/or use of iterative reconstruction technique. CONTRAST: IV 100mL Isovue-370 COMPARISON: No relevant prior studies available. FINDINGS: LOWER THORAX: There is scarring in the lung bases. No cardiomegaly. No significant pericardial effusion. ABDOMEN: LIVER: Unremarkable. Homogeneous. No focal mass. GALLBLADDER AND BILE DUCTS: Unremarkable. No calcified gallstones. No gallbladder distention or wall edema. No intra- or extrahepatic biliary ductal dilation. PANCREAS: Unremarkable. No focal cystic or solid mass. SPLEEN: Unremarkable. Normal size without focal cystic or solid mass. ADRENALS: Unremarkable. No nodules. KIDNEYS AND URETERS: Unremarkable. Normal renal size and position. No hydronephrosis. STOMACH AND BOWEL: There is mild gaseous distention is a large amount of proximal sigmoid colon. There is swelling of the mesentery surrounding the mid sigmoid colon total decompression of the distal sigmoid and rectum possibly representing an early volvulus. No focal inflammatory change. PELVIS: APPENDIX: No evidence of acute appendicitis. BLADDER: Unremarkable. REPRODUCTIVE: Unremarkable as visualized. No mass. ABDOMEN and PELVIS: INTRAPERITONEAL SPACE: Unremarkable. No ascites or other fluid collection. No free air. BONES/JOINTS: Unremarkable. No suspicious lytic or blastic abnormality. SOFT TISSUES: Unremarkable. No discrete abdominal or pelvic wall hernia. VASCULATURE: Unremarkable. Abdominal aorta is non-dilated. LYMPH NODES: Unremarkable. No enlarged lymph nodes. CT/Abdomen/Pelvis W IV Cont ONLY IMPRESSION: Distention of the colon with gas in the stool down to the level of the mid sigmoid colon. There is swelling of the mesentery compression of the distal aspect of the colon possibly representing early volvulus or twisting of the sigmoid colon. Electronically Signed: Don Stoner MD at 18:39 EDT ,
--- NOTE | 2023-07-01 16:59 | ED.VIS.GI ---
HPI HPI - GI History of Present Illness Chief Complaint: Abd Pain Detail of Chief Complaint: Sensation and distention. Admission. No prior abdominal surgeries. Informant: patient and family Abdominal Pain/Flank Pain Onset: Days Context: Gradual Onset Timing: Continuous Quality: Cramping Location: Diffuse Maximum Severity: Mild Worsened by: Nothing Relieved by: Nothing Nausea/Vomiting/Emesis GI Symptom: Negative for Vomiting Diarrhea/Melena/Hematochezia GI Symptom: Negative for Diarrhea, Melena or Hematochezia Associated Symptoms Associated Symptoms: Negative for Dysuria, Frequency, Hematuria or Urgency Narrative Narrative: 68-year-old male no prior abdominal surgeries. History of CAD, A-fib on Eliquis, diabetes and hypertension. States he has had constipation since Monday abdominal distention and diffuse abdominal discomfort. No fever. No vomiting. No melena. No dysuria. Prior history of the same. 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 Paroxysmal atrial fibrillation Right-sided extracranial carotid artery stenosis Type 2 diabetes mellitus with diabetic polyneuropathy Vasculitis Home Medications aspirin 81 mg tablet,delayed release (Adult Aspirin Regimen) 81 mg PO QDAY heart 12/08/17 [History Last Taken 01/21/21 06:30] potassium chloride 10 mEq capsule,extended release 10 meq PO QDAY SUPPLEMENT 12/25/18 [History Last Taken 01/21/21 06:30] metformin 1,000 mg tablet 500 mg PO BIDCM DM 07/27/20 [History Last Taken 01/21/21 06:30] insulin lispro 100 unit/mL subcutaneous pen See Rx Instructions subcut .COMPLEX DM ##0 01/25/21 [Rx Last Taken Unknown] losartan 100 mg tablet 100 mg PO QDAY blood pressure #90 tabs 08/30/21 [Rx Last Taken Unknown] dulaglutide 1.5 mg/0.5 mL subcutaneous pen injector (Trulicity) 1.5 mg subcut BURR 12/13/21 [History Last Taken Unknown] atorvastatin 40 mg tablet 40 mg PO QHS CHOLESTEROL #90 tabs 02/28/22 [Rx Last Taken Unknown] acetaminophen 500 mg tablet (Tylenol Extra Strength) 500 mg PO Q6H PRN fever or pain 06/09/22 [History Last Taken Unknown] cholecalciferol (vitamin D3) 25 mcg (1,000 unit) tablet 50 mcg PO DAILY Vitamin D supplement 06/09/22 [History Last Taken Unknown] vitamin A 2,400 mcg capsule 7,200 mcg PO DAILY 06/09/22 [History Last Taken Unknown] apixaban 2.5 mg tablet 2.5 mg PO BID #60 tabs 07/25/22 [Rx Last Taken Unknown] metoprolol succinate 100 mg tablet,extended release 24 hr 150 mg (1.5 x 100 mg) PO DAILY HEART/ B/P #135 tabs 09/07/22 [Rx Last Taken Unknown] hydrochlorothiazide 25 mg tablet See Rx Instructions .Route .COMPLEX #90 tabs 10/31/22 [Rx Last Taken Unknown] amlodipine 5 mg tablet 10 mg PO DAILY 01/25/23 [History Last Taken Unknown] finerenone 10 mg tablet (Kerendia) 10 mg PO DAILY 01/25/23 [History Last Taken Unknown] rituximab-arrx 10 mg/mL intravenous solution 10 mg IV 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 [History Last Taken Unknown] Allergy/AdvReac Type Severity Reaction Status Date / Time adhesive tape Allergy Rash Verified 07/01/23 16:44 mycophenolate mofetil AdvReac Severe elevated Verified 07/01/23 16:44 [From CellCept] liver enzymes Family History Father , age 72 Lupus COPD (chronic obstructive pulmonary disease) CAD (coronary artery disease) S/P CABG x 3, Onset Age: 68 Congestive heart failure Mother , age 78 Alzheimers disease Surgical History History of coronary artery bypass graft (07/31/15) History of left heart catheterization (07/30/15) thoracoscopy with lung biopsy Social History Smoking Status: Never smoker ROS ROS ED ROS Narrative Abdominal discomfort. Constipation. No fever. No weight loss Review of Systems ROS Unobtainable: Denies due to encephalopathy Constitutional Constitutional ED: Denies chills or fever(s) ENT ENT ED: Denies ear pain Cardiovascular Cardiovascular: Denies chest pain Respiratory/Chest Respiratory/Chest: Denies cough or dyspnea Gastrointestinal Gastrointestinal: Reports abdominal pain and constipation; Denies diarrhea, melena or vomiting Genitourinary Genitourinary ED: Denies dysuria or hematuria Musculoskeletal Musculoskeletal: Denies arthralgias or back pain Integumentary Denies abscess Neurologic Neurologic: Denies headache(s) Psychiatric Psychiatric: Denies anxiety Endocrine Endocrinology: Denies polydipsia Hematologic/Lymphatic Hematologic/Lymphatic: Denies easy bleeding Allergic/Immunologic Allergic/Immunologic ED: Denies mouth swelling EXAM Physical Exam Narrative Exam Narrative: Well-appearing 68-year-old male. Vital signs stable afebrile. Family at bedside. He is in no distress. HEENT exam unremarkable. Lungs clear. Heart regular rhythm rate about 80 no murmur. Chest wall nontender. Abdomen soft. Mildly distended. No peritoneal signs. No localizing tenderness. Positive bowel sounds. No hernia or mass. No pulsatile mass. Both the right upper and right lower quadrants are unremarkable. Moving all 4 extremities. Nontender no edema. Normal strength. Neurologically is awake and alert with no focal motor deficits. Const Vital Signs: 07/01/23 16:42 Temperature 97.4 F L Temperature Source Temporal Pulse Rate 83 Respiratory Rate 16 Blood Pressure 149/88 H Blood Pressure Mean 108 Pulse Ox 98 Oxygen Delivery Method Room Air Positive well nourished and well developed; Negative for cachectic, contractures or unkempt General Appearance ED: well developed and NAD; Negative for unkempt, cachectic, contractures or pallor Nutritional Appearance: Negative for cachectic HEENT Reports moist mucous membranes normocephalic and atraumatic; Negative for trauma or tenderness Eyes PERRL and EOMs intact bilaterally General Eye ED: Negative for pale conjunctiva or scleral icterus Neck no lymphadenopathy, supple and no JVD General: Negative for tenderness Carotids: Negative for other Lymph Lymphatic: Negative for other Resp normal respiratory effort and clear to auscultation bilaterally Effort and Inspection: Negative for respiratory distress Auscultation: Negative for rales, rhonchi or wheezes Cardio regular rate, regular rhythm, S1 normal heart sound, S2 normal heart sound and no murmurs GI non-tender and no masses; Negative for non-distended Inspection: abdominal distention Auscultation: normoactive bowel sounds Palpation: soft; Negative for tender, guarding, rigid, hepatomegaly, splenomegaly, mass, pulsatile mass or rebound tenderness present Back/Spine no CVA tenderness General Back: Negative for CVA tenderness Cervical Spine: Negative for cervical spine tenderness Thoracic Spine / Upper Back: Negative for thoracic spinal tenderness Lumbar Spine / Lower Back: Negative for lumbar spinal tenderness Coccyx: Negative for other Extremity full ROM General Extremety ED: Negative for edema or tenderness General Extremity: Negative for edema Neuro CN's II-XII intact bilaterally and moves all extremities Sensorium / Orientation: alert, oriented to person, oriented to place and oriented to time; Negative for orientation impaired, confused, lethargic or stuporous Motor Exam: strength 5/5 throughout Psych mental status grossly normal and thought process normal Appearance: Negative for unkempt Attitude: No agitated Mood & Affect: Negative for depressed, anxious or tearful Skin no wounds General Skin Exam: Negative for jaundice or pallor Lesions: no lesions Rashes: no rashes Trauma: Negative for abrasion Nails: Negative for discolored MDM MDM MDM Narrative Medical decision making narrative: 68-year-old male with constipation for 5+ days. With abdominal distention. Family and he are concerned there is something else going on. This may be all from constipation. Rule out obstruction versus other etiologies. CAT scan and screening labs. Patient doing well on repeat exam at 7:15 PM. Discussed all test results specifically the CAT scan with the patient. Have already spoken to general surgery on-call Dr. Mary Kate esquivel. She will be in to evaluate the patient and most likely do a colonoscopy to see if she can relieve the potential vasculitis and/or constipation. Patient and family were instructed of the current plan. Lab Data Attestation: I reviewed the patient's lab results. Lab results narrative: CBC shows a white count of 14.6. H&H is 16.9 and 47. Platelets 259. Electrolytes show sodium 133. Potassium of 2.8. Gap is 11. BUN and creatinine are 27 and 1.49. Consistent with his prior labs. Liver enzymes unremarkable other than alk phos of 137. Lipase is normal at 30. CT abdomen pelvis is concerning for possible cecal volvulus. Labs: Laboratory Results - last 24 hr 07/01/23 17:05 WBC 14.6 H RBC 5.38 Hgb 16.9 H Hct 47.0 MCV 87.4 MCH 31.4 MCHC 36.0 RDW Std Deviation 39.4 RDW Coeff of Nenita 12.4 Plt Count 259 MPV 10.1 Immature Gran % (Auto) 0.400 Neut % (Auto) 81.8 H Lymph % (Auto) 9.5 L Ralls % (Auto) 8.1 Eos % (Auto) 0.1 Baso % (Auto) 0.1 Absolute Neuts (auto) 12.0 H Absolute Lymphs (auto) 1.39 Nucleated RBC % 0 Sodium 133 L Potassium 2.8 L Chloride 95 L Carbon Dioxide 27.0 Anion Gap 11 BUN 27 H Creatinine 1.49 H Estim Creat Clear Calc 59.80 Est GFR (MDRD) Af Amer 60 Est GFR (MDRD) Non-Af 50 L BUN/Creatinine Ratio 18.1 Glucose 147 H Calcium 10.1 Total Bilirubin 0.70 AST 15 ALT 18 Alkaline Phosphatase 137 H Total Protein 7.7 Albumin 4.0 Globulin 3.7 Albumin/Globulin Ratio 1.1 Lipase 30 Radiography Diagnostic Testing: Clinical Impression(s) from Imaging Studies Abdomen/Pelvis CT 07/01/23 16:58 IMPRESSION: Distention of the colon with gas in the stool down to the level of the mid sigmoid colon. There is swelling of the mesentery compression of the distal aspect of the colon possibly representing early volvulus or twisting of the sigmoid colon. Electronically Signed: Don Stoner MD at 18:39 EDT , ADDENDUM: 07/01/23 190 IMPRESSION: Distention of the colon with gas in the stool down to the level of the mid sigmoid colon. There is swelling of the mesentery compression of the distal aspect of the colon possibly representing early volvulus or twisting of the sigmoid colon. N.B. : The above Results were Read Back by Don Stoner MD to Billy Mcginnis MD, and understanding confirmed on 07/01/2023 19:00:22 (ET). Electronically Signed: Don Stoner MD at 18:39 EDT , Discharge Plan Triage Chief Complaint: Abd Pain ED Provider: Billy Mcginnis Dx/Rx/DC Orders Clinical Impression: Cecal volvulus, Acute constipation, Chronic renal insufficiency, Abdominal pain, Acute hypokalemia Prescriptions: No Action aspirin [Adult Aspirin Regimen] 81 mg tablet,delayed release (DR/EC) 81 mg PO QDAY metformin 1,000 mg tablet 500 mg PO BIDCM losartan 100 mg tablet 100 mg PO QDAY Qty: 90 3RF vitamin A 2,400 mcg capsule 7,200 mcg PO DAILY acetaminophen [Tylenol Extra Strength] 500 mg tablet 500 mg PO Q6H PRN (Reason: fever or pain) amlodipine 5 mg tablet 10 mg PO DAILY Kerendia 10 mg tablet 10 mg PO DAILY potassium chloride 10 MEQ capsule, extended release 10 meq PO QDAY insulin lispro 100 unit/mL insulin pen See Rx Instructions SC .COMPLEX Qty: 0 0RF Rx Instructions: as directed: subcut 28 am and 15units at lunchtime; 27 units at dinner cholecalciferol (vitamin D3) 25 mcg (1,000 unit) tablet 50 mcg PO DAILY rituximab-arrx 10 mg/mL solution 10 mg IV Q9M Rx Instructions: [id number] Trulicity 1.5 mg/0.5 mL pen injector 1.5 mg SUBCUT BURR Patient Comments: INJECT 1.5 MG UNDER SKIN ONCE WEEKLY atorvastatin 40 mg tablet 40 mg PO QHS Qty: 90 3RF apixaban 2.5 mg tablet 2.5 mg PO BID Qty: 60 11RF Patient Comments: took self off on monday for surgery metoprolol succinate 100 mg tablet extended release 24 hr 150 mg PO DAILY Qty: 135 3RF hydrochlorothiazide 25 mg tablet See Rx Instructions .ROUTE .COMPLEX Qty: 90 3RF Dose Instruction: TAKE 1 TABLET BY MOUTH EVERY DAY FOR HEART HEALTH Rx Instructions: TAKE 1 TABLET BY MOUTH EVERY DAY FOR HEART HEALTH Primary Care Provider: Mk Carpenter Referrals: Mk Carpenter MD [Primary Care Provider] - Disposition Disposition: Acute Care [facility]
[2023-07-01 17:21] LABS: Absolute Lymphocyte Count 1.39 X10^3/uL (0.83-4.51); Basophil# 0.02 X10^3/uL; Basophil% 0.1 % (0-1); Eosinophil# 0.02 X10^3/uL; Eosinophils% 0.1 % (0-5); Hemoglobin 16.9 g/dL (13.0-16.5); Lymphocyte # 1.39 X10^3/ul (0.83-4.51); Lymphocyte % 9.5 % (19-41); Mean Corpuscular Hgb 31.4 pg (27.0-32.0); Mean Corpuscular Volume 87.4 fL (80-94); Mean Platelet Vol. 10.1 fl (6.2-12.0); Monocyte# 1.19 X10^3/uL; Monocyte% 8.1 % (0-10); NRBC Flagged by Analyzer 0 % (0-5); Neutrophil # 11.95 X10^3/uL (2.7-7.7); Neutrophil % 81.8 % (47-70); Platelet Count 259 K/mm3 (150-450); RBC Distribution Width CV 12.4 % (11.6-14.6); RBC Distribution Width SD 39.4 fl (35.1-43.9); Red Blood Count 5.38 M/mm3 (4.6-6.2); White Blood Count 14.6 K/mm3 (4.4-11.0)
[2023-07-01 17:48] LABS: ALB/GLOB Ratio 1.1 RATIO (0.9-2.4); AST(SGOT) 15 U/L (15-37); Alanine Aminotransfer ALT/SGPT 18 U/L (16-61); Alkaline Phosphatase 137 U/L (45-117); Anion Gap 11 (5-15); BUN 27 mg/dL (7-18); BUN/Creat Ratio 18.1 RATIO (10-20); Calcium,Total 10.1 mg/dL (8.5-10.1); Chloride 95 mmol/L (98-107); Creatinine, Serum 1.49 mg/dL (0.70-1.30); EST Glomerular Filtration Rate 50 mL/min (>60); Est Glom Filt Rate - Afr Amer 60 mL/min (>60); Globulin 3.7 g/dL (2.2-4.2); Glucose 147 mg/dL (74-106); Lipase 30 U/L (13-75); Potassium 2.8 mmol/L (3.5-5.1); Protein, Total 7.7 g/dL (6.4-8.2); Sodium Level 133 mmol/L (136-145)
[2023-07-01] MEDS: Lubricating Jelly 60 GM Tube 30 GM (20:01)
--- NOTE | 2023-07-01 20:09 | HP.PCM.SX_ITS ---
HPI - General General Date of Admission: 07/01/23 HPI Narrative AZEB BAKER, is a 68 M who presents to the ER due to abdominal distention nausea, burping, constipation/no flatus since Monday. Patient has had a colonoscopy in May [address] Carrasco however he was unable to see the entire colon due to somewhat poor prep but he was given 2 years before repeat per patient family. Patient is on Eliquis due to cardiac bypass in 2014 quadruple. Patient never had any abdominal surgeries. In ER patient's white blood count 14.6 hemoglobin 16.9, potassium 2.8, creatinine 1.49. Vital signs are stable. 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 Paroxysmal atrial fibrillation Right-sided extracranial carotid artery stenosis Type 2 diabetes mellitus with diabetic polyneuropathy Vasculitis Home Medications aspirin 81 mg tablet,delayed release (Adult Aspirin Regimen) 81 mg PO QDAY heart 12/08/17 [History Last Taken 01/21/21 06:30] potassium chloride 10 mEq capsule,extended release 10 meq PO QDAY SUPPLEMENT 12/25/18 [History Last Taken 01/21/21 06:30] metformin 1,000 mg tablet 500 mg PO BIDCM DM 07/27/20 [History Last Taken 01/21/21 06:30] insulin lispro 100 unit/mL subcutaneous pen See Rx Instructions subcut .COMPLEX DM ##0 01/25/21 [Rx Last Taken Unknown] losartan 100 mg tablet 100 mg PO QDAY blood pressure #90 tabs 08/30/21 [Rx Last Taken Unknown] dulaglutide 1.5 mg/0.5 mL subcutaneous pen injector (Trulicity) 1.5 mg subcut BURR 12/13/21 [History Last Taken Unknown] atorvastatin 40 mg tablet 40 mg PO QHS CHOLESTEROL #90 tabs 02/28/22 [Rx Last Taken Unknown] acetaminophen 500 mg tablet (Tylenol Extra Strength) 500 mg PO Q6H PRN fever or pain 06/09/22 [History Last Taken Unknown] cholecalciferol (vitamin D3) 25 mcg (1,000 unit) tablet 50 mcg PO DAILY Vitamin D supplement 06/09/22 [History Last Taken Unknown] vitamin A 2,400 mcg capsule 7,200 mcg PO DAILY 06/09/22 [History Last Taken Unknown] apixaban 2.5 mg tablet 2.5 mg PO BID #60 tabs 07/25/22 [Rx Last Taken Unknown] metoprolol succinate 100 mg tablet,extended release 24 hr 150 mg (1.5 x 100 mg) PO DAILY HEART/ B/P #135 tabs 09/07/22 [Rx Last Taken Unknown] hydrochlorothiazide 25 mg tablet See Rx Instructions .Route .COMPLEX #90 tabs 10/31/22 [Rx Last Taken Unknown] amlodipine 5 mg tablet 10 mg PO DAILY 01/25/23 [History Last Taken Unknown] finerenone 10 mg tablet (Kerendia) 10 mg PO DAILY 01/25/23 [History Last Taken Unknown] rituximab-arrx 10 mg/mL intravenous solution 10 mg IV 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 [History Last Taken Unknown] Allergy/AdvReac Type Severity Reaction Status Date / Time adhesive tape Allergy Rash Verified 07/01/23 16:44 mycophenolate mofetil AdvReac Severe elevated Verified 07/01/23 16:44 [From CellCept] liver enzymes Family History Father , age 72 Lupus COPD (chronic obstructive pulmonary disease) CAD (coronary artery disease) S/P CABG x 3, Onset Age: 68 Congestive heart failure Mother , age 78 Alzheimers disease Surgical History History of coronary artery bypass graft (07/31/15) History of left heart catheterization (07/30/15) thoracoscopy with lung biopsy Social History Smoking Status: Never smoker Vital Signs Vital Signs Vital Signs: 07/01/23 16:42 Temperature 97.4 F L Temperature Source Temporal Pulse Rate 83 Respiratory Rate 16 Blood Pressure 149/88 H Blood Pressure Mean 108 Pulse Ox 98 Oxygen Delivery Method Room Air Weight Weight: 253 lb 4 oz Body Mass Index (BMI) 30.0 Physical Exam Const alert, oriented x3 and no apparent distress HEENT normocephalic and head/scalp atraumatic Resp normal respiratory effort Cardio regular rate GI soft to palpation Inspection: abdominal distention Palpation: Negative for tender or guarding Extremity no clubbing, cyanosis or edema Neuro CN's II-XII intact bilaterally Psych mental status grossly normal Results Lab / Micro Data 07/01/23 17:05 07/01/23 17:05 Labs: Laboratory Results - last 24 hr 07/01/23 17:05: WBC 14.6 H, RBC 5.38, Hgb 16.9 H, Hct 47.0, MCV 87.4, MCH 31.4, MCHC 36.0, RDW Std Deviation 39.4, RDW Coeff of Nenita 12.4, Plt Count 259, MPV 10.1, Immature Gran % (Auto) 0.400, Neut % (Auto) 81.8 H, Lymph % (Auto) 9.5 L, [place] % (Auto) 8.1, Eos % (Auto) 0.1, Baso % (Auto) 0.1, Absolute Neuts (auto) 12.0 H, Absolute Lymphs (auto) 1.39, Nucleated RBC % 0, Sodium 133 L, Potassium 2.8 L, Chloride 95 L, Carbon Dioxide 27.0, Anion Gap 11, BUN 27 H, Creatinine 1.49 H, Estim Creat Clear Calc 59.80, Est GFR (MDRD) Af Amer 60, Est GFR (MDRD) Non-Af 50 L, BUN/Creatinine Ratio 18.1, Glucose 147 H, Calcium 10.1, Total Bilirubin 0.70, AST 15, ALT 18, Alkaline Phosphatase 137 H, Total Protein 7.7, Albumin 4.0, Globulin 3.7, Albumin/Globulin Ratio 1.1, Lipase 30 Radiology Impression Abdomen/Pelvis CT 07/01/23 16:58 IMPRESSION: Distention of the colon with gas in the stool down to the level of the mid sigmoid colon. There is swelling of the mesentery compression of the distal aspect of the colon possibly representing early volvulus or twisting of the sigmoid colon. Electronically Signed: Don Stoner MD at 18:39 EDT , ADDENDUM: 08/05/23 1907 IMPRESSION: Distention of the colon with gas in the stool down to the level of the mid sigmoid colon. There is swelling of the mesentery compression of the distal aspect of the colon possibly representing early volvulus or twisting of the sigmoid colon. N.B. : The above Results were Read Back by Don Stoner MD to Billy Mcginnis MD, and understanding confirmed on 07/01/2023 19:00:22 (ET). Electronically Signed: Don Stoner MD at 18:39 EDT , Assessment & Plan Assessment/Plan (1) Sigmoid volvulus: PLAN: Plan Reviewed CT abdomen pelvis personally as well as with patient and the family. Patient does have a sigmoid volvulus with a twist of the sigmoid colon/mesentery. We will plan for decompression colonoscopy with placement of rectal tube. However if this is not successful would plan for a possible laparotomy, possible bowel resection, possible ostomy. Discussed risk benefits with patient including infection, bleeding which would be higher as patient is on Eliquis, perforation of the colon, injury to another organ especially if we do need to do a laparotomy and need for further surgery and anesthesia. Discussed with patient and her his family due to patient being on Eliquis would likely not reanastomosed and would do a colostomy if the rectal tube was unsuccessful patient also has large amount of stool in the colon on CT. Chichi To M.D. Pager: [phone] [facility] [address] [place] [address], [facility], [address] [place] [address] Office: [phone]
[2023-07-01 21:18] LABS: Magnesium 1.9 mg/dL (1.6-2.6)
--- NOTE | 2023-07-01 21:33 | OP.CCLET_ITS ---
07/01/2023 Mk Carpenter [address] [place] [address] Re : Colonoscopy procedure for Rodger Mcleodfelicity Dear Dr. Carpenter This procedure was performed on Saturday, July 01, 2023. My impressions and recommendations are as follows: Impressions : - Decompression of the volvulus was attempted and was successful, with complete decompression achieved. - No specimens collected. Recommendations : - Admit the patient to hospital [facility] for ongoing care. - NPO. - Continue present medications. - Plan for sigmoidectomy - after bowel prep; likely monday as pt took his eliquis - Repeat colonoscopy Per GI doctor. My findings are described in the full procedure note, which is enclosed. If I can be of further assistance, please feel free to contact me at Doctor phone number(s): , Work: . Sincerely, MD Chichi Sultana MD 07/01/2023 9:32:23 PM This report has been signed electronically.
--- NOTE | 2023-07-01 21:33 | OP.COLON_ITS ---
Patient Name: Rodger Foreman Procedure Date: 07/01/2023 8:39 PM Date of : 1955 Age: 68 Procedure: Colonoscopy Indications: Decompression of sigmoid volvulus, Abnormal CT of the GI tract, Obstipation Providers: Chichi To MD Medicines: Monitored Anesthesia Care Patient Profile: Last Colonoscopy: may 2023. This is a 68 year old male. Complications: No immediate complications. Procedure: Pre-Anesthesia Assessment: - Prior to the procedure, a History and Physical was performed, and patient medications and allergies were reviewed. The patient's tolerance of previous anesthesia was also reviewed. The risks and benefits of the procedure and the sedation options and risks were discussed with the patient. All questions were answered, and informed consent was obtained. Prior Anticoagulants: The patient has taken Eliquis (apixaban), last dose was day of procedure. ASA Grade Assessment: Per anesthesia. After reviewing the risks and benefits, the patient was deemed in satisfactory condition to undergo the procedure. After I obtained informed consent, the scope was passed under direct vision. Throughout the procedure, the patient's blood pressure, pulse, and oxygen saturations were monitored continuously. The Colonoscope was introduced through the anus and advanced to the sigmoid colon for evaluation. This was the intended extent. The colonoscopy was performed without difficulty. The patient tolerated the procedure well. No bowel preparation was given prior to the procedure. The quality of visualization was adequate. Scope In: 9:01:58 PM Scope Out: 9:10:29 PM Total Procedure Duration Time 0 hours 8 minutes 31 seconds Findings: The perianal and digital rectal examinations were normal. Decompression of the volvulus was attempted and was successful, with complete decompression achieved. Following the maneuver, a tube (CT 28Fr) was placed to maintain the decompression. Impression: - Decompression of the volvulus was attempted and was successful, with complete decompression achieved. - No specimens collected. Recommendation: - Admit the patient to hospital [facility] for ongoing care. - NPO. - Continue present medications. - Plan for sigmoidectomy - after bowel prep; likely monday as pt took his eliquis - Repeat colonoscopy Per GI doctor. Procedure Code(s): --- Professional --- 70667, 52, Colonoscopy, flexible; with decompression (for pathologic distention) (eg, volvulus, megacolon), including placement of decompression tube, when performed Diagnosis Code(s): --- Professional --- K56.2, Volvulus K59.00, Constipation, unspecified R93.3, Abnormal findings on diagnostic imaging of other parts of digestive tract CPT copyright 2017 [employer]. All rights reserved. The codes documented in this report are preliminary and upon mine equipment design engineer review may be revised to meet current compliance requirements. MD Chichi Sultana MD 07/01/2023 9:32:23 PM This report has been signed electronically. Number of Addenda: 0 Note Initiated On: 07/01/2023 8:39 PM
--- NOTE | 2023-07-01 21:45 | RAD_ITS ---
EXAM: XR ABDOMEN, 1 VIEW CLINICAL INDICATION: SIGMOID VOLVULUS, RECTAL TUBE PLACEMENT TECHNIQUE: Frontal supine view of the abdomen/pelvis. COMPARISON: No relevant prior studies available. FINDINGS: LOWER THORAX: No acute pathology. GASTROINTESTINAL TRACT: There is gaseous distention of the colon. ORGANS: Is contrast in bladder with previous CT scan. No organomegaly. No abnormal calcifications. BONES/JOINTS: No acute pathology. SOFT TISSUES: No acute pathology. TUBES, LINES AND DEVICES: Rectal tube is in place with the distal tip likely in the proximal sigmoid colon. RAD/Abdomen Single View (Portable) IMPRESSION: Rectal tube in place with the distal tip likely in the sigmoid colon. Electronically Signed: Don Stoner MD at 22:37 EDT ,
--- NOTE | 2023-07-01 21:59 | PCM.PN.HOSP ---
Subjective Subjective 68-year-old male presents to the hospital with abdominal pain found to have a sigmoid volvulus. He was evaluated after intervention and his volvulus was able to be reduced with colonoscopy he currently has rectal tube in place with plans for operative intervention on Monday or Monday of this week Objective Data Objective Data Vital Signs: Vital Signs Temp Pulse Resp BP Pulse Ox O2 Del Method 99.0 F 80 16 113/64 97 Room Air 07/01/23 21:45 07/01/23 21:45 07/01/23 21:45 07/01/23 21:45 07/01/23 21:45 07/01/23 21:45 Oxygen Delivery Method Room Air Weight: 253 lb 4 oz Body Mass Index (BMI) 30.0 Lab / Micro Data 07/01/23 17:05 07/01/23 17:05 Labs: Laboratory Results - last 24 hr 07/01/23 17:05: WBC 14.6 H, RBC 5.38, Hgb 16.9 H, Hct 47.0, MCV 87.4, MCH 31.4, MCHC 36.0, RDW Std Deviation 39.4, RDW Coeff of Nenita 12.4, Plt Count 259, MPV 10.1, Immature Gran % (Auto) 0.400, Neut % (Auto) 81.8 H, Lymph % (Auto) 9.5 L, [place] % (Auto) 8.1, Eos % (Auto) 0.1, Baso % (Auto) 0.1, Absolute Neuts (auto) 12.0 H, Absolute Lymphs (auto) 1.39, Nucleated RBC % 0, Sodium 133 L, Potassium 2.8 L, Chloride 95 L, Carbon Dioxide 27.0, Anion Gap 11, BUN 27 H, Creatinine 1.49 H, Estim Creat Clear Calc 59.80, Est GFR (MDRD) Af Amer 60, Est GFR (MDRD) Non-Af 50 L, BUN/Creatinine Ratio 18.1, Glucose 147 H, Calcium 10.1, Magnesium 1.9, Total Bilirubin 0.70, AST 15, ALT 18, Alkaline Phosphatase 137 H, Total Protein 7.7, Albumin 4.0, Globulin 3.7, Albumin/Globulin Ratio 1.1, Lipase 30 Radiography Diagnostic Testing: Radiology Impression Abdomen/Pelvis CT 07/01/23 16:58 IMPRESSION: Distention of the colon with gas in the stool down to the level of the mid sigmoid colon. There is swelling of the mesentery compression of the distal aspect of the colon possibly representing early volvulus or twisting of the sigmoid colon. Electronically Signed: Don Stoner MD at 18:39 EDT , ADDENDUM: 07/01/23 190 IMPRESSION: Distention of the colon with gas in the stool down to the level of the mid sigmoid colon. There is swelling of the mesentery compression of the distal aspect of the colon possibly representing early volvulus or twisting of the sigmoid colon. N.B. : The above Results were Read Back by Don Stoner MD to Billy Mcginnis MD, and understanding confirmed on 07/01/2023 19:00:22 (ET). Electronically Signed: Don Stoner MD at 18:39 EDT , Physical Exam Narrative General: Alert, Oriented x3, Cooperative, No apparent distress HEENT: Atraumatic, PERRLA, EOMI, Normocephalic Oral: Moist Mucosa Neck: Supple, No JVD Lungs: Clear to auscultation, Normal air movement, No rhonchi, No wheeze, No rales Cardiovascular: Regular rate, Regular Rhythm, Normal S1, Normal S2, No murmurs Abdomen: Soft, Non Tender, Non-Distended, No Hepato-splenomegaly Extremities: No edema, Capillary Refill Less than 3 Seconds Skin: No rashes, No breakdown Musculoskeletal: No Tenderness to Palpation of Joints or Extremities Neurological: Cranial nerves II-XII grossly intact, Motor Exam 5/5 strength throughout, Sensory exam intact to light touch and pain Psych/Mental Status: Normal Affect, Appropriate Assessment & Plan Assessment/Plan (1) Sigmoid volvulus: PLAN: Plan 1. Sigmoid volvulus ? Status post colonoscopy with resolution of volvulus and insertion of rectal tube ? Plan for operative intervention on Monday or Monday, he does take Eliquis for his A-fib 2. HTN/HLD/paroxysmal A. fib ? Blood pressures are stable, can resume his home blood pressure medication ? We will hold his Eliquis in preparation for surgery ? Continue with Lipitor 3. DM2 ? We will hold his home oral medications ? Sliding scale insulin with Accu-Cheks every 6 hours while n.p.o. ? We will monitor and make adjustments as necessary 4. Hypothyroidism ? Stable ? Continue with Synthroid 5. 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
[2023-07-01] MEDS: Potassium Chloride 10mEq/100mL 10 MEQ/100 ML IV.SOLN. 100 MEQ IV BOLUS (22:49)
[2023-07-01] MEDS: Potassium Chloride Oral Tablet 20 MEQ 40 MEQ PO (23:42)
[2023-07-01] MEDS: Atorvastatin Calcium 40 MG Tablet PO (23:42)
[2023-07-02] VITALS (10 sets, daily range): BP systolic 111–133; BP diastolic 60–86; PULSE 70–88; RESP 16–18; TEMP 36.6–36.8; O2SAT 95–98
[2023-07-02] MEDS: Potassium Chloride 10mEq/100mL 10 MEQ/100 ML IV.SOLN. 100 MEQ IV BOLUS ×4 (00:01→11:35)
[2023-07-02] MEDS: KCL 20MEQ in 0.9% NS 20 MEQ/1,000 ML IV.SOLN. 125 MEQ IV ×3 (00:41→19:37)
--- NOTE | 2023-07-02 05:15 | RAD_ITS ---
STUDY: X-RAY - ABDOMEN/PELVIS REASON FOR EXAM: Male, 68 years old. Rectal tube -- TECHNIQUE: Two AP supine views of the abdomen and pelvis. COMPARISON: July 01, 2023 FINDINGS: There is a rectal tube extending to the mid abdomen. There is gaseous distention of large and small bowel. There is no demonstrated free abdominal air. There is degenerative change of the spine. RAD/Abdomen Single View (Portable) IMPRESSION: Rectal tube in position. Gaseous distention of bowel loops. Electronically Signed: Manuel Dunlap MD at 11:54 EDT ,
[2023-07-02 06:01] LABS: Absolute Lymphocyte Count 1.77 X10^3/uL (0.83-4.51); Absolute Neutrophil Count 8.2 X10^3/uL (2.0-7.7); Basophil# 0.03 X10^3/uL; Basophil% 0.3 % (0-1); Eosinophil# 0.08 X10^3/uL; Eosinophils% 0.7 % (0-5); Hematocrit 42.8 % (40-54); Hemoglobin 14.7 g/dL (13.0-16.5); Lymphocyte # 1.77 X10^3/ul (0.83-4.51); Lymphocyte % 15.8 % (19-41); Mean Corp Hgb Conc 34.3 g/dL (32-36); Mean Corpuscular Hgb 31.2 pg (27.0-32.0); Mean Corpuscular Volume 90.9 fL (80-94); Mean Platelet Vol. 10.2 fl (6.2-12.0); Monocyte% 9.8 % (0-10); NRBC Flagged by Analyzer 0 % (0-5); Neutrophil # 8.17 X10^3/uL (2.7-7.7); Platelet Count 222 K/mm3 (150-450); RBC Distribution Width CV 12.5 % (11.6-14.6); RBC Distribution Width SD 41.4 fl (35.1-43.9); Red Blood Count 4.71 M/mm3 (4.6-6.2); White Blood Count 11.2 K/mm3 (4.4-11.0)
[2023-07-02] MEDS: Insulin Lispro 100 UNIT/ML INSULN.PEN SC ×3 (06:04→18:02)
[2023-07-02 06:35] LABS: Phosphorus 3.1 mg/dL (2.5-4.9)
[2023-07-02 06:37] LABS: Anion Gap 9 (5-15); BUN 27 mg/dL (7-18); Calcium,Total 8.8 mg/dL (8.5-10.1); Chloride 103 mmol/L (98-107); Creatinine, Serum 1.23 mg/dL (0.70-1.30); EST Glomerular Filtration Rate 62 mL/min (>60); Est Glom Filt Rate - Afr Amer 75 mL/min (>60); Estimated Creatinine Clearance 72.44 ml/min; Glucose 155 mg/dL (74-106); Potassium 3.2 mmol/L (3.5-5.1); Sodium Level 136 mmol/L (136-145)
[2023-07-02 06:59] LABS: Bedside Glucose 172 mg/dL (74-106)
--- NOTE | 2023-07-02 07:19 | PN.HOSP_ITS ---
Reason for Visit Reason for Visit: Diagnoses Volvulus (07/01/23) Subjective Subjective Feels better. Still with abdominal distention. Objective Data Objective Data Vital Signs: Vital Signs Temp Pulse Resp BP Pulse Ox O2 Del Method 36.8 C 70 16 119/60 95 Room Air 07/02/23 06:36 07/02/23 06:36 07/02/23 06:36 07/02/23 06:36 07/02/23 06:36 07/02/23 06:36 Oxygen Delivery Method Room Air Weight: 113.217 kg Body Mass Index (BMI) 29.5 Intake & Output: Intake and Output for Last 24 Hours 06/30/23 07/01/23 07/02/23 23:59 23:59 23:59 Intake Total 100 / 100 410 / 410 Output Total 375 / 375 Balance 100 / 100 35 / 35 Lab / Micro Data 07/02/23 05:35 07/02/23 05:35 Labs: Laboratory Results - last 24 hr 07/01/23 17:05: WBC 14.6 H, RBC 5.38, Hgb 16.9 H, Hct 47.0, MCV 87.4, MCH 31.4, MCHC 36.0, RDW Std Deviation 39.4, RDW Coeff of Nenita 12.4, Plt Count 259, MPV 10.1, Immature Gran % (Auto) 0.400, Neut % (Auto) 81.8 H, Lymph % (Auto) 9.5 L, [place] % (Auto) 8.1, Eos % (Auto) 0.1, Baso % (Auto) 0.1, Absolute Neuts (auto) 12.0 H, Absolute Lymphs (auto) 1.39, Nucleated RBC % 0, Sodium 133 L, Potassium 2.8 L, Chloride 95 L, Carbon Dioxide 27.0, Anion Gap 11, BUN 27 H, Creatinine 1.49 H, Estim Creat Clear Calc 59.80, Est GFR (MDRD) Af Amer 60, Est GFR (MDRD) Non-Af 50 L, BUN/Creatinine Ratio 18.1, Glucose 147 H, Calcium 10.1, Magnesium 1.9, Total Bilirubin 0.70, AST 15, ALT 18, Alkaline Phosphatase 137 H, Total Protein 7.7, Albumin 4.0, Globulin 3.7, Albumin/Globulin Ratio 1.1, Lipase 30 07/02/23 05:35: WBC 11.2 H, RBC 4.71, Hgb 14.7, Hct 42.8, MCV 90.9, MCH 31.2, MCHC 34.3, RDW Std Deviation 41.4, RDW Coeff of Nenita 12.5, Plt Count 222, MPV 10.2, Immature Gran % (Auto) 0.400, Neut % (Auto) 73.0 H, Lymph % (Auto) 15.8 L, [place] % (Auto) 9.8, Eos % (Auto) 0.7, Baso % (Auto) 0.3, Absolute Neuts (auto) 8.2 H, Absolute Lymphs (auto) 1.77, Nucleated RBC % 0, Sodium 136, Potassium 3.2 L, Chloride 103, Carbon Dioxide 24.0, Anion Gap 9, BUN 27 H, Creatinine 1.23, Estim Creat Clear Calc 72.44, Est GFR (MDRD) Af Amer 75, Est GFR (MDRD) Non-Af 62, BUN/Creatinine Ratio 22.0 H, Glucose 155 H, Calcium 8.8, Phosphorus 3.1, Magnesium 2.0 07/02/23 06:02: POC Glucose 172 H Radiography Diagnostic Testing: Radiology Impression Abdomen/Pelvis CT 07/01/23 16:58 IMPRESSION: Distention of the colon with gas in the stool down to the level of the mid sigmoid colon. There is swelling of the mesentery compression of the distal aspect of the colon possibly representing early volvulus or twisting of the sigmoid colon. Electronically Signed: Don Stoner MD at 18:39 EDT , ADDENDUM: 07/01/23 190 IMPRESSION: Distention of the colon with gas in the stool down to the level of the mid sigmoid colon. There is swelling of the mesentery compression of the distal aspect of the colon possibly representing early volvulus or twisting of the sigmoid colon. N.B. : The above Results were Read Back by Don Stoner MD to Billy Mcginnis MD, and understanding confirmed on 07/01/2023 19:00:22 (ET). Electronically Signed: Don Stoner MD at 18:39 EDT , KUB X-Ray 07/01/23 21:45 IMPRESSION: Rectal tube in place with the distal tip likely in the sigmoid colon. Electronically Signed: Don Stoner MD at 22:37 EDT , Physical Exam Const alert and no apparent distress Resp normal respiratory effort and no retractions Cardio regular rate, regular rhythm, S1 normal heart sound and S2 normal heart sound GI normal to inspection, nondistended, normoactive bowel sounds and soft to palpation GI Narrative: distended. hypoactive BS Psych affect normal Assessment & Plan Assessment/Plan (1) Sigmoid volvulus: PLAN: Status post colonoscopy with resolution of volvulus and insertion of rectal tube Plan for operative intervention on Monday or Monday, he does take Eliquis for his A-fib (2) Acute hypokalemia: PLAN: Ongoing, but improved. Magnesium 2, so no mag replacement needed On NS w 20 MeQ KCL Monitor. PLAN: Plan Chronic conditions: * HTN: continue amlodipine, losartan, metoprolol succinate w hold parameters. Hold HCTZ for now since NPO and on IVF. * HLD: statin continued * pAfib: apixaban held for upcoming surgery. Continued metoprolol succinate. Ho ld ASA until after surgery * DM2: SSI. oral metformin and dulaglutide held given current NPO status. * hypothyroidism: levothyroxine continued. * Vasculitis NOS: rituximab held DVT: SCDs Charges/Coding Visit Charges Inpatient E&M: 05615 Subs Hosp L2
--- NOTE | 2023-07-02 09:02 | PN.SURG_ITS ---
Subjective Subjective Patient does not have a lot of his tube overnight KUB does show that the sigmoid colon is dilated with gas with the tube in the middle of it. Patient has not been up ambulating during the night. Objective Data Objective Data Vital Signs: Vital Signs Temp Pulse Resp BP Pulse Ox O2 Del Method 98.3 F 70 16 119/60 95 Room Air 07/02/23 06:36 07/02/23 06:36 07/02/23 06:36 07/02/23 06:36 07/02/23 06:36 07/02/23 06:36 Oxygen Delivery Method Room Air Weight: 249 lb 9.6 oz Body Mass Index (BMI) 29.5 Intake & Output: Intake and Output for Last 24 Hours 06/30/23 07/01/23 07/02/23 23:59 23:59 23:59 Intake Total 100 / 100 410 / 410 Output Total 750 / 750 Balance 100 / 100 -340 / -340 Lab / Micro Data 07/02/23 05:35 07/02/23 05:35 Labs: Laboratory Results - last 24 hr 07/01/23 17:05: WBC 14.6 H, RBC 5.38, Hgb 16.9 H, Hct 47.0, MCV 87.4, MCH 31.4, MCHC 36.0, RDW Std Deviation 39.4, RDW Coeff of Nenita 12.4, Plt Count 259, MPV 10.1, Immature Gran % (Auto) 0.400, Neut % (Auto) 81.8 H, Lymph % (Auto) 9.5 L, [place] % (Auto) 8.1, Eos % (Auto) 0.1, Baso % (Auto) 0.1, Absolute Neuts (auto) 12.0 H, Absolute Lymphs (auto) 1.39, Nucleated RBC % 0, Sodium 133 L, Potassium 2.8 L, Chloride 95 L, Carbon Dioxide 27.0, Anion Gap 11, BUN 27 H, Creatinine 1.49 H, Estim Creat Clear Calc 59.80, Est GFR (MDRD) Af Amer 60, Est GFR (MDRD) Non-Af 50 L, BUN/Creatinine Ratio 18.1, Glucose 147 H, Calcium 10.1, Magnesium 1.9, Total Bilirubin 0.70, AST 15, ALT 18, Alkaline Phosphatase 137 H, Total Protein 7.7, Albumin 4.0, Globulin 3.7, Albumin/Globulin Ratio 1.1, Lipase 30 07/02/23 05:35: WBC 11.2 H, RBC 4.71, Hgb 14.7, Hct 42.8, MCV 90.9, MCH 31.2, MCHC 34.3, RDW Std Deviation 41.4, RDW Coeff of Nenita 12.5, Plt Count 222, MPV 10.2, Immature Gran % (Auto) 0.400, Neut % (Auto) 73.0 H, Lymph % (Auto) 15.8 L, [place] % (Auto) 9.8, Eos % (Auto) 0.7, Baso % (Auto) 0.3, Absolute Neuts (auto) 8.2 H, Absolute Lymphs (auto) 1.77, Nucleated RBC % 0, Sodium 136, Potassium 3.2 L, Chloride 103, Carbon Dioxide 24.0, Anion Gap 9, BUN 27 H, Creatinine 1.23, Estim Creat Clear Calc 72.44, Est GFR (MDRD) Af Amer 75, Est GFR (MDRD) Non-Af 62, BUN/Creatinine Ratio 22.0 H, Glucose 155 H, Calcium 8.8, Phosphorus 3.1, Magnesium 2.0 07/02/23 06:02: POC Glucose 172 H Radiography Diagnostic Testing: Radiology Impression Abdomen/Pelvis CT 07/01/23 16:58 IMPRESSION: Distention of the colon with gas in the stool down to the level of the mid sigmoid colon. There is swelling of the mesentery compression of the distal aspect of the colon possibly representing early volvulus or twisting of the sigmoid colon. Electronically Signed: Don Stoner MD at 18:39 EDT , ADDENDUM: 07/01/231906 IMPRESSION: Distention of the colon with gas in the stool down to the level of the mid sigmoid colon. There is swelling of the mesentery compression of the distal aspect of the colon possibly representing early volvulus or twisting of the sigmoid colon. N.B. : The above Results were Read Back by Don Stoner MD to Billy Mcginnis MD, and understanding confirmed on 07/01/2023 19:00:22 (ET). Electronically Signed: Don Stoner MD at 18:39 EDT , KUB X-Ray 07/01/23 21:45 IMPRESSION: Rectal tube in place with the distal tip likely in the sigmoid colon. Electronically Signed: Don Stoner MD at 22:37 EDT , Physical Exam Const oriented x3 and no apparent distress Resp normal respiratory effort Cardio regular rate GI soft to palpation and non-tender Inspection: abdominal distention Assessment & Plan Assessment/Plan (1) Sigmoid volvulus: (2) Acute hypokalemia: PLAN: Plan Patient's KUB did show distended sigmoid colon again with the tube in the middle of it. Did not pass much overnight was able to irrigate the tube with tap water and get about a liter of stool out patient states his belly feels a little softer we will get a KUB.-kub improved. will start clears and irrigate rectal tube again later today- likely clogged with partially solid stool. Hypokalemia replacing again with IV and p.o. as this could be another etiology for distended colon Encourage ambulation Chichi To M.D. Pager: [phone] [facility] [address] [place] [address], Outpatient [place], [address] [place] [address] Office: [phone] Charges/Coding Visit Charges Inpatient E&M: 48224 Subs Hosp L3
--- NOTE | 2023-07-02 09:22 | RAD_ITS ---
STUDY: X-RAY - ABDOMEN/PELVIS REASON FOR EXAM: Male, 68 years old. Rectal tube TECHNIQUE: Three AP supine views of the abdomen and pelvis. COMPARISON: July 02, 2023, earlier the same day FINDINGS: There is stable rectal tube extending to the mid abdomen. There is mild improvement of gaseous distention of large and small bowel. There is no demonstrated free abdominal air. Normal soft tissue structures. There is degenerative change of the spine and hips. RAD/Abdomen Single View (Portable) IMPRESSION: Rectal tube is stable. Gaseous distention of bowel loops with mild improvement. Electronically Signed: Manuel Dunlap MD at 11:52 EDT ,
[2023-07-02] MEDS: Menthol/Lanolin/Calamine/Znox 113 GM Tube 1 APPLIC TOPICAL ×2 (12:21→22:00)
[2023-07-02] MEDS: Losartan Potassium 100 MG Tablet PO (12:21)
[2023-07-02] MEDS: Nystatin Powder 15gm Bottle 1 APPLIC TOPICAL ×2 (12:22→22:00)
[2023-07-02] MEDS: amLODIPine 10 MG Tablet PO (12:23)
[2023-07-02] MEDS: Metoprolol(XL)Succ 50 MG Tablet 150 MG PO (12:24)
[2023-07-02] MEDS: Potassium Chloride Oral Tablet 20 MEQ 40 MEQ PO (12:32)
[2023-07-02] MEDS: Potassium Chloride 10mEq/100mL 10 MEQ/100 ML IV.SOLN. 90 MEQ IV BOLUS ×3 (12:47→16:13)
[2023-07-02 13:08] LABS: Bedside Glucose 237 mg/dL (74-106)
--- NOTE | 2023-07-02 15:55 | NURSING ---
1330 fecal tube flushed per Dr request, liquid stool with the water noted. large amount of liquid stool noted on attends prior to flushing. patient tolerated well, abdomen noted less distention, will inform Dr. Son Lomeli RN
--- NOTE | 2023-07-02 15:57 | NURSING ---
1340 Dr To informed of fecal tube flushing. 1345 Dr To response- flush fecal tube @1700 Son Lomeli RN
--- NOTE | 2023-07-02 19:56 | NURSING ---
Addendum entered by Muna Lomeli 07/02/23 20:03: abdomen noted less distension after flushing Original Note: 1830 walked patient in room, tolerated well. attends with large amount of liquid stool prior to flushing. flushed rectal tube per Dr To order. liquid stool with stool pieces noted, re-taped fecal tube. patient tolerated well. attends and bed linen changed. Son Lomeli RN
--- NOTE | 2023-07-02 20:00 | NURSING ---
1841 Dr To notified of flushing fecal tube and results. no new orders at this time Son Lomeli RN
[2023-07-02] MEDS: Atorvastatin Calcium 40 MG Tablet PO (22:00)
[2023-07-02 23:03] LABS: Bedside Glucose 172 mg/dL (74-106)
[2023-07-03 02:36] VITALS: BP 121/62; PULSE 66; RESP 18; TEMP 36.6; O2SAT 95
[2023-07-03] MEDS: KCL 20MEQ in 0.9% NS 20 MEQ/1,000 ML IV.SOLN. 125 MEQ IV ×3 (04:40→23:48)
[2023-07-03] MEDS: Insulin Lispro 100 UNIT/ML INSULN.PEN SC ×3 (05:12→17:34)
[2023-07-03 06:15] LABS: Basophil# 0.03 X10^3/uL; Basophil% 0.3 % (0-1); Eosinophil# 0.18 X10^3/uL; Eosinophils% 1.7 % (0-5); Hematocrit 40.4 % (40-54); Hemoglobin 13.6 g/dL (13.0-16.5); Lymphocyte % 11.7 % (19-41); Mean Corp Hgb Conc 33.7 g/dL (32-36); Mean Corpuscular Hgb 31.3 pg (27.0-32.0); Mean Corpuscular Volume 93.1 fL (80-94); Mean Platelet Vol. 10.3 fl (6.2-12.0); Monocyte# 0.85 X10^3/uL; Monocyte% 8.3 % (0-10); NRBC Flagged by Analyzer 0 % (0-5); Neutrophil # 7.98 X10^3/uL (2.7-7.7); Neutrophil % 77.5 % (47-70); Platelet Count 194 K/mm3 (150-450); RBC Distribution Width CV 12.6 % (11.6-14.6); RBC Distribution Width SD 43.4 fl (35.1-43.9); Red Blood Count 4.34 M/mm3 (4.6-6.2); White Blood Count 10.3 K/mm3 (4.4-11.0)
[2023-07-03 06:16] LABS: Bedside Glucose 294 mg/dL (74-106)
[2023-07-03 06:50] LABS: Anion Gap 6 (5-15); BUN 19 mg/dL (7-18); BUN/Creat Ratio 17.9 RATIO (10-20); Calcium,Total 8.3 mg/dL (8.5-10.1); Chloride 110 mmol/L (98-107); Creatinine, Serum 1.06 mg/dL (0.70-1.30); EST Glomerular Filtration Rate 74 mL/min (>60); Est Glom Filt Rate - Afr Amer 89 mL/min (>60); Estimated Creatinine Clearance 84.06 ml/min; Glucose 160 mg/dL (74-106); Magnesium 1.9 mg/dL (1.6-2.6); Potassium 3.4 mmol/L (3.5-5.1); Sodium Level 139 mmol/L (136-145)
--- NOTE | 2023-07-03 07:07 | RAD_ITS ---
STUDY: X-RAY - ABDOMEN/PELVIS REASON FOR EXAM: Male, 68 years old. Rectal tube TECHNIQUE: Single AP view of the abdomen / pelvis. COMPARISON: Comparison is made with prior study dated July 02, 2023. FINDINGS: A rectal tube is seen with the tip overlying the superior endplate of the L2 vertebrae. This is unchanged. There now is evidence of less gaseous distention of the bowel. The visualized liver, spleen and kidneys are grossly normal in size and morphology. Normal soft tissue structures. There are degenerative changes of the visualized lumbar spine. RAD/Abdomen Single View IMPRESSION: Rectal tube is unchanged. There now is evidence of less gaseous distention. Electronically Signed: Pedro Rogers MD at 13:52 EDT ,
[2023-07-03 07:17] LABS: Phosphorus 1.9 mg/dL (2.5-4.9)
--- NOTE | 2023-07-03 07:58 | PN.HOSP_ITS ---
Reason for Visit Reason for Visit: Abdominal pain/distention/nausea Subjective Subjective Mr. Foreman is a 68-year-old white male who presented to emergency department at [facility] on 07/01/2023 with abdominal distention, nausea, burping, constipation and no flatus since Monday. His last colonoscopy was in May [address] Carrasco however he was unable to see the entire colon due to a poor prep. Patient is on Eliquis for paroxysmal atrial fibrillation and is never had any abdominal surgeries. On admission he was noted to have a leuko cytosis with a white count of 14.6, he appeared to be hemoconcentrated as his hemoglobin was 16.9. He was hypokalemic with a potassium of 2.8 and his serum creatinine was elevated 1.49. ET of the abdomen pelvis showed distention of the colon with gas and stool down to the level of the mid sigmoid colon with swelling of the mesentery and compression of the distal aspect of the colon representing volvulus or twisting of the sigmoid colon. He was hemodynamically stable. He was admitted by general surgery and colonoscopy was performed that day and decompression of the volvulus was attempted and successful with complete decompression achieved. Documentation indicates plan for sigmoidectomy after bowel prep on Monday or Monday due to recent Eliquis use. We have been following for medically issues while he has been awaiting surgery. No issues overnight. Patient denies any significant abdominal pain or nausea/vomiting. Tolerating clear liquids without any difficulty. Objective Data Objective Data Vital Signs: Vital Signs Temp Pulse Resp BP Pulse Ox O2 Del Method 97.8 F 66 18 121/62 H 95 Room Air 07/03/23 02:36 07/03/23 02:36 07/03/23 02:36 07/03/23 02:36 07/03/23 02:36 07/03/23 02:36 Oxygen Delivery Method Room Air Weight: 113.217 kg Body Mass Index (BMI) 29.5 Intake & Output: Intake and Output for Last 24 Hours 07/01/23 07/02/23 07/03/23 23:59 23:59 23:59 Intake Total 100 / 100 3620 / 3620 1300 / 1300 Output Total 1800 / 1800 Balance 100 / 100 1820 / 1820 1300 / 1300 Lab / Micro Data 07/03/23 05:50 07/03/23 05:50 Labs: Laboratory Results - last 24 hr 07/02/23 12:42: POC Glucose 237 H 07/02/23 17:59: POC Glucose 294 H 07/02/23 21:58: POC Glucose 172 H 07/03/23 05:50: WBC 10.3, RBC 4.34 L, Hgb 13.6, Hct 40.4, MCV 93.1, MCH 31.3, MCHC 33.7, RDW Std Deviation 43.4, RDW Coeff of Nenita 12.6, Plt Count 194, MPV 10.3, Immature Gran % (Auto) 0.500, Neut % (Auto) 77.5 H, Lymph % (Auto) 11.7 L, Forrest % (Auto) 8.3, Eos % (Auto) 1.7, Baso % (Auto) 0.3, Absolute Neuts (auto) 8.0 H, Absolute Lymphs (auto) 1.20, Nucleated RBC % 0, Sodium 139, Potassium 3.4 L, Chloride 110 H, Carbon Dioxide 23.0, Anion Gap 6, BUN 19 H, Creatinine 1.06, Estim Creat Clear Calc 84.06, Est GFR (MDRD) Af Amer 89, Est GFR (MDRD) Non-Af 74, BUN/Creatinine Ratio 17.9, Glucose 160 H, Calcium 8.3 L, Phosphorus 1.9 L, Magnesium 1.9 Radiography Diagnostic Testing: Radiology Impression KUB X-Ray 07/02/23 05:15 IMPRESSION: Rectal tube in position. Gaseous distention of bowel loops. Electronically Signed: Manuel Dunlap MD at 11:54 EDT Reading Location ID and State: [facility] / [place] , Service support , KUB X-Ray 07/02/23 09:22 IMPRESSION: Rectal tube is stable. Gaseous distention of bowel loops with mild improvement. Electronically Signed: Manuel Dunlap MD at 11:52 EDT , Physical Exam Const alert, oriented x3 and no apparent distress Constitutional Narrative: Overweight, upper middle-aged, white male, sitting up in bed, watching television, appears comfortable nontoxic HEENT head/scalp atraumatic and moist oral mucous membranes HEENT Narrative: Mallampati 3, no thrush Head and Scalp: normocephalic Resp normal respiratory effort, no retractions, no use of accessory muscles and clear to auscultation bilaterally Cardio regular rate, regular rhythm, S1 normal heart sound, S2 normal heart sound, no murmurs, no rub, no gallops and no clicks GI GI Narrative: Abdomen with slight distention, no specific point tenderness, bowel sounds are hypoactive, abdomen is soft Extremity no clubbing, cyanosis or edema Extremity Narrative: Pedal pulses are 2+ Neuro oriented x3, moves all extremities and no focal motor deficits Speech: speech normal Psych affect normal Psych Narrative: Very pleasant, interacts appropriately Assessment & Plan Assessment/Plan (1) Sigmoid volvulus: (2) Acute hypokalemia: (3) Hypophosphatemia: PLAN: Plan Sigmoid volvulus -Management per primary service -Hold Eliquis -OR planned for Monday at 12:30 PM -Bowel prep to start tomorrow -Continue clear liquid diet per general surgery -Rectal tube in place Acute hypokalemia -Magnesium was assessed and found to be normal -3.4 today -Phos bolus given -Repeat a.m. lab Hypophosphatemia -Replace with K-Phos -Repeat a.m. lab Hypertension -Continue amlodipine -Continue losartan -Continue metoprolol with hold parameters -Hold HCTZ Hyperlipidemia -Continue statin Paroxysmal atrial fibrillation -Apixaban on hold for upcoming surgery -Continue metoprolol CAD -CABG X 4: RUIZ to left anterior descending bridge diagonal, SVG to first DX, radial artery to the lateral CX. Done @ [place] per Dr. Randall-->2014 -Aspirin on hold perioperatively DM-2 -Hold oral metformin and dulaglutide with plans to reinitiate at discharge -Increase SSI to high medium dose scale his fasting sugar this morning was 166 Hypothyroidism -Continue levothyroxine History of vasculitis NOS - hold rituximab in preparation for surgery and restart after DVT prophylaxis -SCDs per primary service
[2023-07-03 08:15] VITALS: BP 121/71; PULSE 66; RESP 18; TEMP 36.6; O2SAT 96
--- NOTE | 2023-07-03 09:38 | PN.SURG_ITS ---
Subjective Subjective Patient is a 68 y/o M I am following in conjunction with Dr. To. Patient notes intermittent abdominal cramping/discomfort. Patient continues to note liquid coming from the rectal tube. He denies any nausea, vomiting, fever. Objective Data Objective Data Vital Signs: Vital Signs Temp Pulse Resp BP Pulse Ox O2 Del Method 98 F 66 18 121/71 H 96 Room Air 07/03/23 08:15 07/03/23 08:15 07/03/23 08:15 07/03/23 08:15 07/03/23 08:15 07/03/23 08:15 Oxygen Delivery Method Room Air Weight: 249 lb 9.612 oz Body Mass Index (BMI) 29.5 Intake & Output: Intake and Output for Last 24 Hours 07/01/23 07/02/23 07/03/23 23:59 23:59 23:59 Intake Total 100 / 100 3620 / 3620 1300 / 1300 Output Total 1800 / 1800 Balance 100 / 100 1820 / 1820 1300 / 1300 Lab / Micro Data 07/03/23 05:50 07/03/23 05:50 Labs: Laboratory Results - last 24 hr 07/02/23 12:42: POC Glucose 237 H 07/02/23 17:59: POC Glucose 294 H 07/02/23 21:58: POC Glucose 172 H 07/03/23 05:50: WBC 10.3, RBC 4.34 L, Hgb 13.6, Hct 40.4, MCV 93.1, MCH 31.3, MCHC 33.7, RDW Std Deviation 43.4, RDW Coeff of Nenita 12.6, Plt Count 194, MPV 10.3, Immature Gran % (Auto) 0.500, Neut % (Auto) 77.5 H, Lymph % (Auto) 11.7 L, [place] % (Auto) 8.3, Eos % (Auto) 1.7, Baso % (Auto) 0.3, Absolute Neuts (auto) 8.0 H, Absolute Lymphs (auto) 1.20, Nucleated RBC % 0, Sodium 139, Potassium 3.4 L, Chloride 110 H, Carbon Dioxide 23.0, Anion Gap 6, BUN 19 H, Creatinine 1.06, Estim Creat Clear Calc 84.06, Est GFR (MDRD) Af Amer 89, Est GFR (MDRD) Non-Af 74, BUN/Creatinine Ratio 17.9, Glucose 160 H, Calcium 8.3 L, Phosphorus 1.9 L, Magnesium 1.9 Radiography Diagnostic Testing: Radiology Impression KUB X-Ray 07/02/23 05:15 IMPRESSION: Rectal tube in position. Gaseous distention of bowel loops. Electronically Signed: Manuel Dunlap MD at 11:54 EDT , KUB X-Ray 07/02/23 09:22 IMPRESSION: Rectal tube is stable. Gaseous distention of bowel loops with mild improvement. Electronically Signed: Manuel Dunlap MD at 11:52 EDT , Physical Exam GI soft to palpation and non-tender Auscultation: normoactive bowel sounds Assessment & Plan Assessment/Plan (1) Sigmoid volvulus: PLAN: I have discussed this patient with Dr. To Plan for an ERAS sigmoid colectomy on Monday at 12:30 Will start bowel prep tomorrow Plan to keep patient on clear liquids and add Ensure high protein with meals Plan to keep rectal tube in place today Obtain KUB today Continue to hold Eliquis We will continue to monitor this patient Charges/Coding Visit Charges Inpatient E&M: 75867 Subs Hosp L1
[2023-07-03 10:17] VITALS: PULSE 66
[2023-07-03] MEDS: Nystatin Powder 15gm Bottle 1 APPLIC TOPICAL ×2 (10:17→23:12)
[2023-07-03] MEDS: Menthol/Lanolin/Calamine/Znox 113 GM Tube 1 APPLIC TOPICAL ×2 (10:17→23:12)
[2023-07-03] MEDS: Losartan Potassium 100 MG Tablet PO (10:17)
[2023-07-03] MEDS: amLODIPine 10 MG Tablet PO (10:17)
[2023-07-03] MEDS: Metoprolol(XL)Succ 50 MG Tablet 150 MG PO (10:17)
[2023-07-03] MEDS: FINERENONE 10 MG TABLET PO (10:20)
[2023-07-03 12:00] LABS: Bedside Glucose 163 mg/dL (74-106)
[2023-07-03 12:14] LABS: Bedside Glucose 211 mg/dL (74-106)
--- NOTE | 2023-07-03 12:15 | CASEMGMT ---
Social Work Pt's confirms pt has completed a living will and health care POA naming his daugther Melissa Huertas. SW requested copies be brought in for scanning into pt medical record. SATHISH Galaviz
--- NOTE | 2023-07-03 14:15 | CASEMGMT ---
LAURA PITTMAN Discharge Planning Assessment: Face to Face with patient for initial transition planning/care coordination assessment. LAURA PITTMAN introduced self and role at [facility], Pt alert, answering questions appropriately, voices understanding and is agreeable to participating in assessment with at bedside.? Care providers, pharmacy,?and demographics verified. ? 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 Pt states he is independent with ADLs including self care and household tasks. Transportation: Pt drives DME: has a cane but does not use often, only if walking on uneven ground. Shower chair, grab bars in bathroom. Reginald II/CGM SNF/HHC: denies previous provider ? Plan: Pt plans to return home at discharge with the support of his . Pt would be receptive to HHC if needed at discharge. Will continue to follow postoperatively for identification of further discharge needs. Lidia Lin RN CM
[2023-07-03 14:40] VITALS: BP 119/58; PULSE 65; RESP 18; TEMP 36.7; O2SAT 100
[2023-07-03 17:57] LABS: Bedside Glucose 195 mg/dL (74-106)
[2023-07-03 21:30] VITALS: BP 138/83; PULSE 85; RESP 18; TEMP 36.9; O2SAT 98
[2023-07-03] MEDS: Atorvastatin Calcium 40 MG Tablet PO (23:13)
[2023-07-04] MEDS: Insulin Lispro 100 UNIT/ML INSULN.PEN SC ×4 (06:23→22:02)
[2023-07-04 06:41] VITALS: BP 140/71; PULSE 62; RESP 18; TEMP 36.8; O2SAT 97
[2023-07-04 06:51] LABS: Anion Gap 6 (5-15); BUN 12 mg/dL (7-18); BUN/Creat Ratio 12.8 RATIO (10-20); Calcium,Total 8.2 mg/dL (8.5-10.1); Chloride 111 mmol/L (98-107); Creatinine, Serum 0.94 mg/dL (0.70-1.30); EST Glomerular Filtration Rate 85 mL/min (>60); Est Glom Filt Rate - Afr Amer 103 mL/min (>60); Estimated Creatinine Clearance 94.79 ml/min; Glucose 179 mg/dL (74-106); Phosphorus 2.8 mg/dL (2.5-4.9); Potassium 3.6 mmol/L (3.5-5.1); Sodium Level 140 mmol/L (136-145)
--- NOTE | 2023-07-04 06:54 | PCM.PN.SRG ---
Subjective Subjective Patient denies any abdominal pain, tolerating clears Objective Data Objective Data Vital Signs: Vital Signs Temp Pulse Resp BP Pulse Ox O2 Del Method 98.2 F 62 18 140/71 H 97 Room Air 07/04/23 06:41 07/04/23 06:41 07/04/23 06:41 07/04/23 06:41 07/04/23 06:41 07/04/23 06:41 Oxygen Delivery Method Room Air Weight: 249 lb 9.612 oz Body Mass Index (BMI) 29.5 Intake & Output: Intake and Output for Last 24 Hours 07/02/23 07/03/23 07/04/23 23:59 23:59 23:59 Intake Total 3620 / 3620 3923.3333 / 3923.3333 Output Total 1800 / 1800 Balance 1820 / 1820 3923.3333 / 3923.3333 Lab / Micro Data 07/03/23 05:50 07/04/23 05:50 Labs: Laboratory Results - last 24 hr 07/03/23 05:10: POC Glucose 163 H 07/03/23 05:50: Phosphorus 1.9 L 07/03/23 11:55: POC Glucose 211 H 07/03/23 17:31: POC Glucose 195 H 07/04/23 05:50: Sodium 140, Potassium 3.6, Chloride 111 H, Carbon Dioxide 23.0, Anion Gap 6, BUN 12, Creatinine 0.94, Estim Creat Clear Calc 94.79, Est GFR (MDRD) Af Amer 103, Est GFR (MDRD) Non-Af 85, BUN/Creatinine Ratio 12.8, Glucose 179 H, Calcium 8.2 L, Phosphorus 2.8 Radiography Diagnostic Testing: Radiology Impression KUB X-Ray 07/03/23 07:07 IMPRESSION: Rectal tube is unchanged. There now is evidence of less gaseous distention. Electronically Signed: Pedro Rogers MD at 13:52 EDT , Physical Exam Const oriented x3 and no apparent distress Resp normal respiratory effort Cardio regular rate GI soft to palpation and non-tender Inspection: Negative for abdominal distention Assessment & Plan Assessment/Plan (1) Sigmoid volvulus: (2) Acute hypokalemia: PLAN: Plan We will plan to start prep today continue clears. Plan for laparoscopic sigmoidectomy tomorrow. Procedure discussed with patient including risk not limited to bleeding, infection, injury to another organ i.e. small bowel, ureter), and anesthesia. Patient no further question this time. Chichi To M.D. Pager: [phone] [facility] [address] [place] [address], [facility], [address] [place] [address] Office: [phone] Charges/Coding Visit Charges Inpatient E&M: 14083 Subs Hosp L2
[2023-07-04 06:55] LABS: Bedside Glucose 180 mg/dL (74-106)
[2023-07-04 09:34] VITALS: BP 126/84; PULSE 64; RESP 18; TEMP 36.6; O2SAT 97
[2023-07-04] MEDS: Losartan Potassium 100 MG Tablet PO (09:39)
[2023-07-04 09:40] VITALS: PULSE 64
[2023-07-04] MEDS: Metoprolol(XL)Succ 50 MG Tablet 150 MG PO (09:40)
[2023-07-04] MEDS: amLODIPine 10 MG Tablet PO (09:40)
[2023-07-04] MEDS: FINERENONE 10 MG TABLET PO (09:40)
[2023-07-04] MEDS: Nystatin Powder 15gm Bottle 1 APPLIC TOPICAL ×2 (09:41→21:48)
[2023-07-04] MEDS: Menthol/Lanolin/Calamine/Znox 113 GM Tube 1 APPLIC TOPICAL ×2 (11:02→21:48)
--- NOTE | 2023-07-04 11:18 | PCM.PN.HOSP ---
Reason for Visit Reason for Visit: Abdominal pain/nausea/vomiting Subjective Subjective No issues overnight. Patient is starting bowel prep today in preparation for surgery tomorrow. Denies any significant abdominal pain or nausea and vomiting. Objective Data Objective Data Vital Signs: Vital Signs Temp Pulse Resp BP Pulse Ox O2 Del Method 97.9 F 64 18 126/84 H 97 Room Air 07/04/23 09:34 07/04/23 09:40 07/04/23 09:34 07/04/23 09:34 07/04/23 09:34 07/04/23 09:34 Oxygen Delivery Method Room Air Weight: 113.217 kg Body Mass Index (BMI) 29.5 Intake & Output: Intake and Output for Last 24 Hours 07/02/23 07/03/23 07/04/23 23:59 23:59 23:59 Intake Total 3620 / 3620 3923.3333 / 3923.3333 Output Total 1800 / 1800 Balance 1820 / 1820 3923.3333 / 3923.3333 Lab / Micro Data 07/03/23 05:50 07/04/23 05:50 Labs: Laboratory Results - last 24 hr 07/03/23 05:10: POC Glucose 163 H 07/03/23 11:55: POC Glucose 211 H 07/03/23 17:31: POC Glucose 195 H 07/04/23 05:50: Sodium 140, Potassium 3.6, Chloride 111 H, Carbon Dioxide 23.0, Anion Gap 6, BUN 12, Creatinine 0.94, Estim Creat Clear Calc 94.79, Est GFR (MDRD) Af Amer 103, Est GFR (MDRD) Non-Af 85, BUN/Creatinine Ratio 12.8, Glucose 179 H, Calcium 8.2 L, Phosphorus 2.8 07/04/23 06:22: POC Glucose 180 H 07/04/23 06:23: Magnesium 2.0 Radiography Diagnostic Testing: Radiology Impression KUB X-Ray 07/03/23 07:07 IMPRESSION: Rectal tube is unchanged. There now is evidence of less gaseous distention. Electronically Signed: Pedro Rogers MD at 13:52 EDT , Physical Exam Const alert, oriented x3 and no apparent distress Constitutional Narrative: Overweight, upper middle-aged, white male, sitting up in bed, watching television, appears comfortable, nontoxic HEENT head/scalp atraumatic and moist oral mucous membranes Head and Scalp: normocephalic Resp normal respiratory effort, no retractions, no use of accessory muscles and clear to auscultation bilaterally Cardio regular rate, regular rhythm, S1 normal heart sound, S2 normal heart sound, no murmurs, no rub, no gallops and no clicks GI GI Narrative: Abdomen with slight distention, no specific point tenderness, bowel sounds were normoactive today, abdomen is soft Extremity no clubbing, cyanosis or edema Extremity Narrative: Pedal pulses are 2+ Neuro oriented x3, moves all extremities and no focal motor deficits Speech: speech normal Psych affect normal Psych Narrative: Very pleasant, interacts appropriately Assessment & Plan Assessment/Plan (1) Sigmoid volvulus: (2) Acute hypokalemia: (3) Hypophosphatemia: PLAN: Plan Sigmoid volvulus -Management per primary service -Continue to hold Eliquis -OR planned for Monday at 12:30 PM -Bowel prep to starting this afternoon -Continue clear liquid diet per general surgery and n.p.o. after midnight -Rectal tube in place Acute hypokalemia -Resolved Hypophosphatemia -Resolved Hypertension -Continue amlodipine -Continue losartan -Continue metoprolol with hold parameters -Hold HCTZ Hyperlipidemia -Continue statin Paroxysmal atrial fibrillation -Apixaban on hold for upcoming surgery -Continue metoprolol CAD -CABG X 4: RUIZ to left anterior descending bridge diagonal, SVG to first DX, radial artery to the lateral CX. Done @ [place] per Dr. Randall-->2014 -Aspirin on hold perioperatively DM-2 -Hold oral metformin and dulaglutide with plans to reinitiate at discharge -Increase SSI to high medium dose scale his fasting sugar this morning was 179 -Patient on clear liquids but to be n.p.o. after midnight Hypothyroidism -Continue levothyroxine History of vasculitis NOS - hold rituximab in preparation for surgery and restart after DVT prophylaxis -SCDs per primary service Charges/Coding Visit Charges Inpatient E&M: 18585 Subs Hosp L2
[2023-07-04] MEDS: Bisacodyl 5 MG Tablet 20 MG PO (12:01)
[2023-07-04 12:13] LABS: Bedside Glucose 197 mg/dL (74-106)
[2023-07-04] MEDS: metroNIDAZOLE 500 MG Tablet 1000 MG PO ×3 (13:24→21:48)
[2023-07-04] MEDS: Ensure Surgery 237 ML LIQUID PO ×2 (13:24→21:59)
[2023-07-04] MEDS: Potassium Chloride Oral Tablet 20 MEQ 40 MEQ PO (13:27)
[2023-07-04] MEDS: Polyethylene Glycol 3350 BOWEL PREP PO (16:46)
[2023-07-04 17:00] VITALS: BP 144/74; PULSE 62; RESP 18; TEMP 36.8; O2SAT 98
[2023-07-04 17:09] LABS: Bedside Glucose 239 mg/dL (74-106)
[2023-07-04 18:28] LABS: Bedside Glucose 203 mg/dL (74-106)
--- NOTE | 2023-07-04 21:27 | EKG12_ITS ---
Test Reason : AM EKG Blood Pressure : / mmHG Vent. Rate : 067 BPM Atrial Rate : 067 BPM P-R Int : 180 ms QRS Dur : 130 ms QT Int : 424 ms P-R-T Axes : -16 -66 -16 degrees QTc Int : 448 ms Normal sinus rhythm Left axis deviation Left ventricular hypertrophy with QRS widening Abnormal ECG Confirmed by MARK KHALIL, ALEX ([id number]), map editor TAVARES KIM ([id number]) on 07/10/2023 9:17:26 AM Referred By: FERNANDO Confirmed By:UYEN FLORES MD
[2023-07-04 21:44] VITALS: BP 123/81; PULSE 64; RESP 16; TEMP 36.6; O2SAT 97
[2023-07-04] MEDS: Atorvastatin Calcium 40 MG Tablet PO (21:48)
[2023-07-04 22:31] LABS: Bedside Glucose 184 mg/dL (74-106)
[2023-07-05] VITALS (12 sets, daily range): BP systolic 110–150; BP diastolic 64–103; PULSE 57–74; RESP 16–20; TEMP 36.4–36.9; O2SAT 95–100
[2023-07-05] MEDS: Insulin Lispro 100 UNIT/ML INSULN.PEN SC ×3 (06:03→22:09)
[2023-07-05] MEDS: Ensure Surgery 237 ML LIQUID PO (06:03)
[2023-07-05 06:12] LABS: Absolute Lymphocyte Count 1.34 X10^3/uL (0.83-4.51); Basophil# 0.04 X10^3/uL; Basophil% 0.5 % (0-1); Eosinophil# 0.45 X10^3/uL; Hematocrit 40.3 % (40-54); Hemoglobin 14.1 g/dL (13.0-16.5); Lymphocyte # 1.34 X10^3/ul (0.83-4.51); Mean Corpuscular Hgb 31.4 pg (27.0-32.0); Mean Corpuscular Volume 89.8 fL (80-94); Mean Platelet Vol. 9.8 fl (6.2-12.0); Monocyte# 0.61 X10^3/uL; Monocyte% 8.2 % (0-10); NRBC Flagged by Analyzer 0 % (0-5); Neutrophil # 4.99 X10^3/uL (2.7-7.7); Neutrophil % 66.9 % (47-70); Platelet Count 193 K/mm3 (150-450); RBC Distribution Width CV 12.4 % (11.6-14.6); RBC Distribution Width SD 41.1 fl (35.1-43.9); Red Blood Count 4.49 M/mm3 (4.6-6.2); White Blood Count 7.5 K/mm3 (4.4-11.0)
[2023-07-05 06:54] LABS: Bedside Glucose 206 mg/dL (74-106)
[2023-07-05 07:14] LABS: Anion Gap 5 (5-15); BUN 13 mg/dL (7-18); BUN/Creat Ratio 12.6 RATIO (10-20); Calcium,Total 8.8 mg/dL (8.5-10.1); Chloride 110 mmol/L (98-107); Creatinine, Serum 1.03 mg/dL (0.70-1.30); EST Glomerular Filtration Rate 76 mL/min (>60); Est Glom Filt Rate - Afr Amer 92 mL/min (>60); Glucose 234 mg/dL (74-106); Phosphorus 2.5 mg/dL (2.5-4.9); Potassium 3.5 mmol/L (3.5-5.1); Sodium Level 139 mmol/L (136-145); Thyroid Stim Hormone (TSH) 1.83 uIU/mL (0.358-3.74)
[2023-07-05] MEDS: Nystatin Powder 15gm Bottle 1 APPLIC TOPICAL ×2 (09:01→22:02)
[2023-07-05] MEDS: Menthol/Lanolin/Calamine/Znox 113 GM Tube 1 APPLIC TOPICAL ×2 (09:01→22:01)
[2023-07-05] MEDS: Metoprolol(XL)Succ 50 MG Tablet 150 MG PO (09:02)
--- NOTE | 2023-07-05 10:23 | PCM.PN.HOSP ---
Reason for Visit Reason for Visit: Abdominal pain/nausea/vomiting Subjective Subjective No issues with the prep last night. Patient states they are taking down surgery at 11. No concerns at this time. His blood sugars are elevated so I did go ahead and add some Lantus while we hold his home oral agents for improved glycemic control. Objective Data Objective Data Vital Signs: Vital Signs Temp Pulse Resp BP Pulse Ox O2 Del Method 97.7 F L 66 18 134/74 H 97 Room Air 07/05/23 08:56 07/05/23 09:02 07/05/23 08:56 07/05/23 09:02 07/05/23 08:56 07/05/23 08:56 Oxygen Delivery Method Room Air Weight: 113.217 kg Body Mass Index (BMI) 29.5 Intake & Output: Intake and Output for Last 24 Hours 07/03/23 07/04/23 07/05/23 23:59 23:59 23:59 Intake Total 3923.3333 / 3923.3333 3460 / 4660 1340 / 1340 Output Total 680 / 1480 1600 / 1600 Balance 3923.3333 / 3923.3333 2780 / 3180 -260 / -260 Lab / Micro Data 07/05/23 05:55 07/05/23 05:55 Labs: Laboratory Results - last 24 hr 07/04/23 11:56: POC Glucose 197 H 07/04/23 16:41: POC Glucose 239 H 07/04/23 18:06: POC Glucose 203 H 07/04/23 21:58: POC Glucose 184 H 07/05/23 05:55: WBC 7.5, RBC 4.49 L, Hgb 14.1, Hct 40.3, MCV 89.8, MCH 31.4, MCHC 35.0, RDW Std Deviation 41.1, RDW Coeff of Nenita 12.4, Plt Count 193, MPV 9.8, Immature Gran % (Auto) 0.400, Neut % (Auto) 66.9, Lymph % (Auto) 18.0 L, [place] % (Auto) 8.2, Eos % (Auto) 6.0 H, Baso % (Auto) 0.5, Absolute Neuts (auto) 5.0, Absolute Lymphs (auto) 1.34, Nucleated RBC % 0, Sodium 139, Potassium 3.5, Chloride 110 H, Carbon Dioxide 24.0, Anion Gap 5, BUN 13, Creatinine 1.03, Estim Creat Clear Calc 86.50, Est GFR (MDRD) Af Amer 92, Est GFR (MDRD) Non-Af 76, BUN/Creatinine Ratio 12.6, Glucose 234 H, Hemoglobin A1c 7.0 H, Calcium 8.8, Phosphorus 2.5, Magnesium 2.0, TSH 1.83 07/05/23 06:02: POC Glucose 206 H Physical Exam Const alert, oriented x3 and no apparent distress Constitutional Narrative: Overweight, upper middle-aged, white male, sitting up in bed, watching television, appears comfortable, nontoxic HEENT head/scalp atraumatic and moist oral mucous membranes Head and Scalp: normocephalic Resp normal respiratory effort, no retractions, no use of accessory muscles and clear to auscultation bilaterally Cardio regular rate, regular rhythm, S1 normal heart sound, S2 normal heart sound, no murmurs, no rub, no gallops and no clicks GI soft to palpation GI Narrative: Abdomen with slight distention, no specific point tenderness, bowel sounds are normal Extremity no clubbing, cyanosis or edema Extremity Narrative: Pedal pulses are 2+ Neuro oriented x3, moves all extremities and no focal motor deficits Speech: speech normal Psych affect normal Psych Narrative: Very pleasant, interacts appropriately Assessment & Plan Assessment/Plan (1) Sigmoid volvulus: (2) Acute hypokalemia: (3) Hypophosphatemia: PLAN: Plan Sigmoid volvulus -Management per primary service -Continue to hold Eliquis -OR today -N.p.o. n.p.o. diet to be reinitiated by general surgery -Rectal tube in place with management per primary service Hypertension -Continue amlodipine -Continue losartan -Continue metoprolol with hold parameters -Hold HCTZ Hyperlipidemia -Continue statin Paroxysmal atrial fibrillation -Apixaban on hold for upcoming surgery -Continue metoprolol CAD -CABG X 4: RUIZ to left anterior descending bridge diagonal, SVG to first DX, radial artery to the lateral CX. Done @ [place] per Dr. Randall-->2014 -Aspirin on hold perioperatively DM-2 -Hold oral metformin and dulaglutide with plans to reinitiate at discharge -Increase SSI to high medium dose scale his fasting sugar this morning was 234 -Will start Lantus 8 units nightly to start tonight to help like edema control while hospitalized until we can restart his home oral medications at discharge -Patient on clear liquids but to be n.p.o. after midnight -Patient appears to be well-controlled at his last hemoglobin A1c on 06/18/2023 was 7.2 Hypothyroidism -Continue levothyroxine History of vasculitis NOS - hold rituximab in preparation for surgery and restart after DVT prophylaxis -SCDs per primary service Charges/Coding Visit Charges Inpatient E&M: 50041 Subs Hosp L2
[2023-07-05] MEDS: Lactated Ringers 1,000 ML 15 ML IV (11:59)
[2023-07-05 12:10] LABS: Bedside Glucose 252 mg/dL (74-106)
--- NOTE | 2023-07-05 12:20 | COL_PTH ---
PATIENT: AZEB BAKER LOC: MS3 U#:[id number] AGE/SX: 68/M ROOM: VT313 RE07/01/[address]: Dr. Chichi To MD : 1955 BED: 1 DIS: 07/07/2023 SPEC #: [id number] RECD: 07/05/23 16:27 STATUS: LIZZ GAMA #: [id number] FLORECITA: 07/05/23 12:[address]: Chichi To DEPT: SURGICAL PATHOLOGY RECD BY: Peggy Saez ENTERED: 07/06/23 09:54 SP TYPE: COLON OTHR DR: DO Dr. Mk Etienne MD Dr. Kathryn Lee, DO Dr. Nicholas F Kotsonis, MD Tissues: A - Colon, NOS B - Colon Donuts C - Colon Donuts Procedures: Surgery Specimen Level III Surgery Specimen Level V HEADER OPERATION: Laparoscopic sigmoid colectomy PRE-OP DIAGNOSIS: Sigmoid volvulus TISSUE SUBMITTED: A - Sigmoid colon (stitch stiles distal sigmoid), B - Proximal sigmoid donut, C - Distal sigmoid donut MICROSCOPIC DIAGNOSIS A. Sigmoid colon, segmental colectomy: Mucosal attenuation, vascular congestion and luminal dilatation consistent with volvulus. Margins of excision with no pathologic change. Four out of four lymph nodes with no pathologic change. B. Proximal sigmoid colon donut, excision: No pathologic change. C. Distal sigmoid colon, excision: No pathologic change. AM:ashly 07/10/2023 MICROSCOPIC DESCRIPTION Slides are reviewed. GROSS DESCRIPTION A - Received in fixative is one container labeled with the patient's name and designated sigmoid colon, stitch stiles distal sigmoid. The specimen consists of a segment of colon with attached pericolonic adipose tissue measuring 45.0 cm in length and 3.5 to 8.0 cm in diameter. Dilated segment is present in the central portion of the specimen. Both resection margins are stapled. No mucosal lesion is identified. Also present in the container is a detached piece of adipose tissue measuring 8.0 x 4.5 x 0.3 cm. More dictation will follow after fixation. / SJ:ashly 07/06/2023 Also present is a separate fragment of colonic mucosa measuring 6.0 x 1.0 x 0.5 cm with zach. No mass lesions are identified. The mucosa is thrown into normal folds. No mass lesions are identified. The nondilated portion of the colon measures 7.2 cm in diameter and the dilated portion measures 21.2 mm in diameter. The attached fibrofatty tissue contains a number of grossly unremarkable nodules resembling lymph nodes. Clerk Secretary sections are submitted in eight cassettes as follows: 1 - small fragment of?separate bowel mucosa in container, 2 - one mucosal margin, 3 - opposite mucosal margin, 4??uninvolved bowel mucosa, 5-7 - underwriting sales representative portions of bowel in area of dilated segment, 8??underwriting sales representative lymph nodes. / AM:ashly 07/07/2023 B - Received in fixative is one container labeled with the patient's name and designated proximal sigmoid donut. The specimen consists of a kaminski mucosal donut measuring 2.0 cm in diameter and 0.8 cm in thickness. No mass lesions are identified. Clerk Secretary sections are submitted in one cassette. / :ashly 07/07/2023 C - Received in fixative is one container labeled with the patient's name and designated distal sigmoid donut. The specimen consists of a kaminski mucosal donut measuring 2.0 cm in diameter and 1.5 cm in thickness. No mass lesions are identified. Clerk Secretary sections are submitted in one cassette. / SJ:ashly 07/07/2023 TC:5 CPT: 47870, 12334 x2
[2023-07-05] MEDS: Bupivacaine 0.25% 30 ML Vial (16:04)
[2023-07-05] MEDS: BUPIVACAINE LIPOSOME/PF 20 ML VIAL OPERA.SITE (16:04)
--- NOTE | 2023-07-05 16:20 | PCM.OPRPT ---
Report of Operation Date of Procedure: 07/05/23 Pre-Operative Diagnosis: Sigmoid volvulus Post-Operative Diagnosis: Same Surgery/Procedure Performed:: Laparoscopic sigmoidectomy Surgeon: Cristian Rosado mask designer: Tasneem Merchant Type of Anesthesia: General/Supplemental Anesthesiologist: Cristian Rosado Special Medications: Cefotan 2 g IV x 1 Specimen's removed: 1. Sigmoid colon, 2. Proximal donut 3. Distal donut Drains: Fish catheter Estimated Blood Loss (mL): 75 cc Fluids Replaced: Per anesthesia Description of Procedure: Indications: this is a 68-year-old male who initially presented to the ER with a sigmoid volvulus this was decompressed with flex sigmoidoscopy and a rectal tube. Patient was able to do bowel prep. Patient was also on Eliquis at admit. Laparoscopic sigmoidectomy was elected. Description procedure: The patient was placed on operating table in low lithotomy position with appropriate padding. General Anesthesia was induced. Fish catheter was placed. A timeout was completed verifying correct patient, procedure, site, position, social, and special equipment prior to beginning procedure. The rectum was irrigated with Betadine solution. The abdomen was prepped and draped in usual sterile fashion. An incision was made in the natural skin line above the umbilicus. The fascia was elevated and incised. The peritoneum was elevated and incised. Entry into the peritoneum was confirmed visually and no bowel was noted in the vicinity of the incision. [place] trocar was placed. The abdomen was insufflated with carbon dioxide to a pressure of 12-15 mmHg. Patient tolerated insufflation well. The laparoscope was then inserted and abdomen inspected. No injuries from initial trocar placement were noted. Additional trochars were then inserted in the following locations 5 mm trocar in the right lower quadrant and another in the right mid lateral abdomen. The abdomen was inspected there is noted to be redundant sigmoid colon. The table is placed in Trendelenburg position with the left side up. The junction of the rectosigmoid colon was identified and was circumferential dissected. The right lower quadrant trocar was enlarged to accommodate the 12 mm trocar for the stapler. The [place] 60 regular load stapler was used to divide the colon at the rectosigmoid junction-2 loads needed. The sigmoid mesentery was divided using the Enseal. Due to the redundant sigmoid colon minimal mobilization was needed. The area of proximal sigmoid colon plan for the anastomosis appeared normal/viable. Small inferior midline incision was made to remove the sigmoid colon and wound protector was placed. The proximal sigmoid colon was cut using scissors, good blood supply to edges. 33 sizer fit easily in the colon. Anvil was sutured in place with 1 Prolene. The 33 EEA stapler was introduced to the rectum brought up to the staple line. Was opened and the anvil was attached after ensuring the mesentery was not twisted and there was no tension. The stapler was closed carefully making sure nothing was caught in the stapler. Stapler was fired and carefully removed. 2 complete donuts were removed from the stapler. A leak test with air was completed-- did not show any bubbles. Right lower quadrant 12 mm incision was closed using 0 PDS and a granny needle. Wound protector was removed and all gowns and gloves were changed. The supraumbilical port site was closed with [id number] 0 Vicryl suture. The lower midline incision fascia was closed with a running 1 PDS. All wounds were irrigated. Skin was closed with Monocryl. Telfa and OpSite were placed. Sponge and instrument counts were correct at the end of case. The patient was extubated. The patient tolerated procedure well and was taken to the postanesthesia care unit in stable condition. Complications none
[2023-07-05 17:31] LABS: Bedside Glucose 254 mg/dL (74-106)
[2023-07-05] MEDS: amLODIPine 10 MG Tablet PO (18:25)
[2023-07-05] MEDS: Losartan Potassium 100 MG Tablet PO (18:25)
[2023-07-05] MEDS: Lactated Ringers 1,000 ML 40 ML IV (18:33)
[2023-07-05] MEDS: Acetaminophen 500 MG Tablet 1000 MG PO (18:39)
[2023-07-05 18:53] LABS: Bedside Glucose 282 mg/dL (74-106)
[2023-07-05] MEDS: Atorvastatin Calcium 40 MG Tablet PO (22:00)
[2023-07-05] MEDS: Docusate Sodium 100 MG Capsule PO (22:00)
[2023-07-05] MEDS: Insulin Glargine-YFGN 100 UNIT/ML Pen 8 UNIT SC (22:03)
[2023-07-05 22:24] LABS: Bedside Glucose 276 mg/dL (74-106)
[2023-07-06] MEDS: Acetaminophen 500 MG Tablet 1000 MG PO ×4 (00:56→17:42)
--- NOTE | 2023-07-06 01:54 | NURSING ---
Addendum entered by Eryn Petersen 07/06/23 01:58: Above SBA not STA Original Note: Ambulated in keith using wheeled walker with STA- half a lap around nurses station and back
[2023-07-06 05:37] VITALS: BP 137/67; PULSE 66; RESP 18; TEMP 36.7; O2SAT 99
[2023-07-06 06:24] LABS: Absolute Lymphocyte Count 0.76 X10^3/uL (0.83-4.51); Basophil# 0.01 X10^3/uL; Basophil% 0.1 % (0-1); Hematocrit 44.7 % (40-54); Hemoglobin 15.1 g/dL (13.0-16.5); Lymphocyte # 0.76 X10^3/ul (0.83-4.51); Lymphocyte % 5.7 % (19-41); Mean Corp Hgb Conc 33.8 g/dL (32-36); Mean Corpuscular Hgb 31.3 pg (27.0-32.0); Mean Corpuscular Volume 92.5 fL (80-94); Mean Platelet Vol. 10.2 fl (6.2-12.0); Monocyte# 0.56 X10^3/uL; Monocyte% 4.2 % (0-10); NRBC Flagged by Analyzer 0 % (0-5); Neutrophil # 12.02 X10^3/uL (2.7-7.7); Neutrophil % 89.5 % (47-70); Platelet Count 227 K/mm3 (150-450); RBC Distribution Width CV 12.1 % (11.6-14.6); RBC Distribution Width SD 41.6 fl (35.1-43.9); Red Blood Count 4.83 M/mm3 (4.6-6.2); White Blood Count 13.4 K/mm3 (4.4-11.0)
[2023-07-06 06:30] LABS: Bedside Glucose 221 mg/dL (74-106)
[2023-07-06 07:01] LABS: Anion Gap 7 (5-15); BUN 17 mg/dL (7-18); BUN/Creat Ratio 13.5 RATIO (10-20); Chloride 106 mmol/L (98-107); Creatinine, Serum 1.26 mg/dL (0.70-1.30); EST Glomerular Filtration Rate 61 mL/min (>60); Est Glom Filt Rate - Afr Amer 73 mL/min (>60); Estimated Creatinine Clearance 70.71 ml/min; Glucose 237 mg/dL (74-106); Magnesium 2.1 mg/dL (1.6-2.6); Phosphorus 2.9 mg/dL (2.5-4.9); Potassium 3.8 mmol/L (3.5-5.1); Sodium Level 136 mmol/L (136-145)
[2023-07-06] MEDS: Insulin Lispro 100 UNIT/ML INSULN.PEN SC ×4 (07:15→20:55)
--- NOTE | 2023-07-06 07:50 | PN.SURG_ITS ---
Subjective Subjective Patient reports comfortable. He is not passing flatus yet. Denies any nausea. Pain medication is controlling his pain. Objective Data Objective Data Vital Signs: Vital Signs Temp Pulse Resp BP Pulse Ox O2 Del Method 98.1 F 66 18 137/67 H 99 Room Air 07/06/23 05:37 07/06/23 05:37 07/06/23 05:37 07/06/23 05:37 07/06/23 05:37 07/06/23 05:37 Oxygen Delivery Method Room Air Weight: 249 lb 9.612 oz Body Mass Index (BMI) 29.5 Intake & Output: Intake and Output for Last 24 Hours 07/04/23 07/05/23 07/06/23 23:59 23:59 23:59 Intake Total 3460 / 4660 2440 / 2440 220 / 220 Output Total 680 / 1480 1825 / 2475 1000 / 1000 Balance 2780 / 3180 615 / -35 -780 / -780 Lab / Micro Data 07/06/23 06:00 07/06/23 06:00 Labs: Laboratory Results - last 24 hr 07/05/23 05:55: Hemoglobin A1c 7.0 H 07/05/23 11:44: POC Glucose 252 H 07/05/23 17:13: POC Glucose 254 H 07/05/23 18:24: POC Glucose 282 H 07/05/23 21:44: POC Glucose 276 H 07/06/23 05:48: POC Glucose 221 H 07/06/23 06:00: WBC 13.4 H, RBC 4.83, Hgb 15.1, Hct 44.7, MCV 92.5, MCH 31.3, MCHC 33.8, RDW Std Deviation 41.6, RDW Coeff of Nenita 12.1, Plt Count 227, MPV 10.2, Immature Gran % (Auto) 0.500, Neut % (Auto) 89.5 H, Lymph % (Auto) 5.7 L, [place] % (Auto) 4.2, Eos % (Auto) 0.0, Baso % (Auto) 0.1, Absolute Neuts (auto) 12.0 H, Absolute Lymphs (auto) 0.76 L, Nucleated RBC % 0, Sodium 136, Potassium 3.8, Chloride 106, Carbon Dioxide 23.0, Anion Gap 7, BUN 17, Creatinine 1.26, Estim Creat Clear Calc 70.71, Est GFR (MDRD) Af Amer 73, Est GFR (MDRD) Non-Af 61, BUN/Creatinine Ratio 13.5, Glucose 237 H, Calcium 9.0, Phosphorus 2.9, Magnesium 2.1 Physical Exam Const oriented x3 and no apparent distress Resp normal respiratory effort GI soft to palpation and non-tender Assessment & Plan Assessment/Plan (1) Sigmoid volvulus: PLAN: Patient is postoperative day 1 from a sigmoid resection for sigmoid volvu cheyanne. Patient seems to be doing well. His urine appears dark. I will order bolus of fluid and if his urine clears more I will remove his Fish today. Await bowel function before advancing from clear liquids. Rory Kingston MD Pager: [facility] [address] [place] [address], [address] [place] [phone] Office:
[2023-07-06 08:28] VITALS: BP 114/73; PULSE 60; RESP 18; TEMP 36.7; O2SAT 98
[2023-07-06] MEDS: Enoxaparin 40 MG/0.4 ML Syringe SC (08:34)
[2023-07-06 08:35] VITALS: PULSE 60
[2023-07-06] MEDS: Metoprolol(XL)Succ 50 MG Tablet 150 MG PO (08:35)
[2023-07-06] MEDS: Docusate Sodium 100 MG Capsule PO ×2 (08:35→20:52)
[2023-07-06] MEDS: FINERENONE 10 MG TABLET PO (08:36)
[2023-07-06] MEDS: Nystatin Powder 15gm Bottle 1 APPLIC TOPICAL ×2 (08:36→20:50)
[2023-07-06] MEDS: Menthol/Lanolin/Calamine/Znox 113 GM Tube 1 APPLIC TOPICAL ×2 (08:36→20:51)
[2023-07-06] MEDS: amLODIPine 10 MG Tablet PO (08:45)
[2023-07-06] MEDS: Tamsulosin HCl 0.4 MG Capsule PO ×2 (09:59→17:42)
[2023-07-06] MEDS: Losartan Potassium 100 MG Tablet PO (09:59)
[2023-07-06 12:02] LABS: Bedside Glucose 229 mg/dL (74-106)
--- NOTE | 2023-07-06 14:10 | PCM.PN.HOSP ---
Reason for Visit Reason for Visit: Abdominal pain/nausea/vomiting Subjective Subjective Patient states he is doing well. Still no flatus. No significant pain postoperatively. Is getting ready to get up and walk the halls with professor of nursing. Objective Data Objective Data Vital Signs: Vital Signs Temp Pulse Resp BP Pulse Ox O2 Del Method 98.1 F 60 18 114/73 98 Room Air 07/06/23 08:28 07/06/23 08:35 07/06/23 08:28 07/06/23 08:28 07/06/23 08:28 07/06/23 08:28 Oxygen Delivery Method Room Air Weight: 113.217 kg Body Mass Index (BMI) 29.5 Intake & Output: Intake and Output for Last 24 Hours 07/04/23 07/05/23 07/06/23 23:59 23:59 23:59 Intake Total 3460 / 4660 2440 / 2440 1288.58 / 1288.58 Output Total 680 / 1480 1825 / 2475 1380 / 1380 Balance 2780 / 3180 615 / -35 -91.42 / -91.42 Lab / Micro Data 07/06/23 06:00 07/06/23 06:00 Labs: Laboratory Results - last 24 hr 07/05/23 17:13: POC Glucose 254 H 07/05/23 18:24: POC Glucose 282 H 07/05/23 21:44: POC Glucose 276 H 07/06/23 05:48: POC Glucose 221 H 07/06/23 06:00: WBC 13.4 H, RBC 4.83, Hgb 15.1, Hct 44.7, MCV 92.5, MCH 31.3, MCHC 33.8, RDW Std Deviation 41.6, RDW Coeff of Nenita 12.1, Plt Count 227, MPV 10.2, Immature Gran % (Auto) 0.500, Neut % (Auto) 89.5 H, Lymph % (Auto) 5.7 L, [place] % (Auto) 4.2, Eos % (Auto) 0.0, Baso % (Auto) 0.1, Absolute Neuts (auto) 12.0 H, Absolute Lymphs (auto) 0.76 L, Nucleated RBC % 0, Sodium 136, Potassium 3.8, Chloride 106, Carbon Dioxide 23.0, Anion Gap 7, BUN 17, Creatinine 1.26, Estim Creat Clear Calc 70.71, Est GFR (MDRD) Af Amer 73, Est GFR (MDRD) Non-Af 61, BUN/Creatinine Ratio 13.5, Glucose 237 H, Calcium 9.0, Phosphorus 2.9, Magnesium 2.1 07/06/23 11:45: POC Glucose 229 H Physical Exam Narrative Const alert, oriented x3, no apparent distress and healthy appearing Constitutional Narrative: Overweight, upper middle-aged, white male, sitting up in bed, professor of nursing at bedside getting ready to take him for a walk in the halls, appears comfortable, nontoxic HEENT head/scalp atraumatic and moist oral mucous membranes HEENT Narrative: Dentition is good, Mallampati is 2, no thrush Head and Scalp: normocephalic Resp normal respiratory effort, no retractions, no use of accessory muscles and clear to auscultation bilaterally Cardio regular rate, regular rhythm, S1 normal heart sound, S2 normal heart sound, no murmurs, no rub, no gallops and no clicks GI GI Narrative: Abdomen is tender around incision sites and mildly diffusely, surgical incisions are clean dry and intact with Steri-Strips in place, bowel sounds are hypoactive, abdomen is soft and nondistended Auscultation: hypoactive bowel sounds Extremity no clubbing, cyanosis or edema Extremity Narrative: Pedal pulses are 2+ Neuro oriented x3, moves all extremities and no focal motor deficits Speech: speech normal Psych affect normal Psych Narrative: Very pleasant, interacts appropriately Assessment & Plan Assessment/Plan (1) Sigmoid volvulus: (2) Acute hypokalemia: (3) Hypophosphatemia: PLAN: Plan Sigmoid volvulus -Postop day 1 sigmoidectomy -Management per primary service -Restart Eliquis when okay with general surgery -Clear liquid diet and await return of bowel function -Remove Fish Hypertension -Continue amlodipine -Continue losartan -Continue metoprolol with hold parameters -Hold HCTZ Hyperlipidemia -Continue statin Paroxysmal atrial fibrillation -Restart apixaban when okay with general surgery -Continue metoprolol CAD -CABG X 4: RUIZ to left anterior descending bridge diagonal, SVG to first DX, radial artery to the lateral CX. Done @ [facility] per Dr. Randall-->2014 -Restart aspirin when okay with general surgery DM-2 -Hold oral metformin and dulaglutide with plans to reinitiate at discharge -Continue SSI -Blood sugars 237 this morning however he is postoperative and I suspect this is stress response and should improve in the next 24 hours -Continue Lantus 8 units nightly -Currently on clear liquid diet -Patient appears to be well-controlled at his last hemoglobin A1c on 06/18/2023 was 7.2 Hypothyroidism -Continue levothyroxine History of vasculitis NOS - hold rituximab in preparation for surgery and restart at discharge DVT prophylaxis -SCDs per primary service Charges/Coding Visit Charges Inpatient E&M: 19412 Subs Hosp L2
[2023-07-06 14:43] VITALS: BP 118/68; PULSE 62; RESP 18; TEMP 36.7; O2SAT 97
[2023-07-06 20:27] VITALS: O2SAT 98
[2023-07-06 20:40] LABS: Bedside Glucose 243 mg/dL (74-106)
[2023-07-06 20:43] VITALS: BP 110/69; PULSE 62; RESP 18; TEMP 37.1; O2SAT 98
[2023-07-06] MEDS: Glucerna Shake 120 ML LIQUID PO (20:49)
[2023-07-06] MEDS: Atorvastatin Calcium 40 MG Tablet PO (20:49)
[2023-07-06] MEDS: Insulin Glargine-YFGN 100 UNIT/ML Pen 8 UNIT SC (20:53)
[2023-07-06] MEDS: 0.9% Saline Lock 10 ML Syringe IV (20:56)
[2023-07-06 21:50] LABS: Bedside Glucose 228 mg/dL (74-106)
[2023-07-07] MEDS: Acetaminophen 500 MG Tablet 1000 MG PO ×3 (01:57→11:52)
[2023-07-07 02:08] VITALS: BP 141/81; PULSE 62; RESP 16; TEMP 36.4; O2SAT 99
[2023-07-07 05:39] VITALS: BP 126/73; PULSE 67; RESP 18; TEMP 36.7; O2SAT 95
[2023-07-07] MEDS: Insulin Lispro 100 UNIT/ML INSULN.PEN SC ×2 (06:00→11:53)
[2023-07-07 06:28] LABS: Bedside Glucose 204 mg/dL (74-106)
[2023-07-07 06:41] LABS: Absolute Lymphocyte Count 1.55 X10^3/uL (0.83-4.51); Absolute Neutrophil Count 5.7 X10^3/uL (2.0-7.7); Basophil# 0.03 X10^3/uL; Basophil% 0.4 % (0-1); Eosinophils% 2.4 % (0-5); Hematocrit 39.4 % (40-54); Hemoglobin 13.6 g/dL (13.0-16.5); Lymphocyte # 1.55 X10^3/ul (0.83-4.51); Lymphocyte % 18.8 % (19-41); Mean Corp Hgb Conc 34.5 g/dL (32-36); Mean Corpuscular Volume 92.7 fL (80-94); Mean Platelet Vol. 10.3 fl (6.2-12.0); Monocyte% 8.5 % (0-10); NRBC Flagged by Analyzer 0 % (0-5); Neutrophil # 5.74 X10^3/uL (2.7-7.7); Neutrophil % 69.4 % (47-70); Platelet Count 214 K/mm3 (150-450); RBC Distribution Width CV 12.6 % (11.6-14.6); RBC Distribution Width SD 42.5 fl (35.1-43.9); Red Blood Count 4.25 M/mm3 (4.6-6.2); White Blood Count 8.3 K/mm3 (4.4-11.0)
[2023-07-07 07:07] LABS: Anion Gap 5 (5-15); BUN 13 mg/dL (7-18); BUN/Creat Ratio 11.5 RATIO (10-20); Calcium,Total 8.5 mg/dL (8.5-10.1); Chloride 109 mmol/L (98-107); Creatinine, Serum 1.13 mg/dL (0.70-1.30); EST Glomerular Filtration Rate 69 mL/min (>60); Est Glom Filt Rate - Afr Amer 83 mL/min (>60); Estimated Creatinine Clearance 78.85 ml/min; Glucose 184 mg/dL (74-106); Magnesium 2.1 mg/dL (1.6-2.6); Phosphorus 2.5 mg/dL (2.5-4.9); Potassium 3.6 mmol/L (3.5-5.1); Sodium Level 138 mmol/L (136-145)
--- NOTE | 2023-07-07 08:21 | PN.SURG_ITS ---
Subjective Subjective Patient tolerating clears still not really having much of any flatus did have some small amount of liquid nonformed bowel movements., Patient has been ambulating halls. Objective Data Objective Data Vital Signs: Vital Signs Temp Pulse Resp BP Pulse Ox O2 Del Method 98.0 F 67 18 126/73 H 95 Room Air 07/07/23 05:39 07/07/23 05:39 07/07/23 05:39 07/07/23 05:39 07/07/23 05:39 07/07/23 05:39 Oxygen Delivery Method Room Air Weight: 249 lb 9.612 oz Body Mass Index (BMI) 29.5 Intake & Output: Intake and Output for Last 24 Hours 07/05/23 07/06/23 07/07/23 23:59 23:59 23:59 Intake Total 2440 / 2440 1508.58 / 1508.58 60 / 60 Output Total 1825 / 2475 1480 / 1480 950 / 950 Balance 615 / -35 28.58 / 28.58 -890 / -890 Lab / Micro Data 07/07/23 06:00 07/07/23 06:00 Labs: Laboratory Results - last 24 hr 07/06/23 11:45: POC Glucose 229 H 07/06/23 16:23: POC Glucose 243 H 07/06/23 20:28: POC Glucose 228 H 07/07/23 05:49: POC Glucose 204 H 07/07/23 06:00: WBC 8.3, RBC 4.25 L, Hgb 13.6, Hct 39.4 L, MCV 92.7, MCH 32.0, MCHC 34.5, RDW Std Deviation 42.5, RDW Coeff of Nenita 12.6, Plt Count 214, MPV 10.3, Immature Gran % (Auto) 0.500, Neut % (Auto) 69.4, Lymph % (Auto) 18.8 L, [place] % (Auto) 8.5, Eos % (Auto) 2.4, Baso % (Auto) 0.4, Absolute Neuts (auto) 5.7, Absolute Lymphs (auto) 1.55, Nucleated RBC % 0, Sodium 138, Potassium 3.6, Chloride 109 H, Carbon Dioxide 24.0, Anion Gap 5, BUN 13, Creatinine 1.13, Estim Creat Clear Calc 78.85, Est GFR (MDRD) Af Amer 83, Est GFR (MDRD) Non-Af 69, BUN/Creatinine Ratio 11.5, Glucose 184 H, Calcium 8.5, Phosphorus 2.5, Magnesium 2.1 Physical Exam Const oriented x3 and no apparent distress Resp normal respiratory effort Cardio regular rate GI soft to palpation GI Narrative: Incisions healing well clean dry and intact, minimally tender with palpation, no peritoneal signs Inspection: Negative for abdominal distention Assessment & Plan Assessment/Plan (1) S/P laparoscopic colectomy: PLAN: Plan Patient is doing well tolerating diet still awaiting more flatus. Once patient has increased flatus will advance to transitional diet if tolerates would be able to be DC'd home. Continue ambulating halls Appreciate hospitalist assistance with medical management Chichi To M.D. Pager: [phone] [facility] [address] [place] [address], [facility], [address] [place] [id number] Office: [phone]
--- NOTE | 2023-07-07 08:24 | DCINST_ITS ---
Discharge Instructions Diet Discharge Diet: - (Transitional diet-low fiber) Activity Discharge Activity: May Not Drive (If having too much pain and unable to slam on the break if needed) May shower in (days): 1 Lifting Restrictions: no lifting >20 lbs x 2 wks, no strenuous exercise for 4 wks Dressing / Incision Call your doctor if your incision/area has: Continuous Slow Oozing, Sudden Increased Bleeding, Increased Pain/ Swelling, Increased Redness, Foul Smelling Discharge and Swelling at the incision site Call your doctor if you observe: Fever of 101 or Higher Remove Dressing in: 2 days Cleanse incision/area with: Soap & Water Additional Dressing/Incision Instructions:: Steri-Strips will fall off in 7 to 10 days, if they do not fall off okay to remove after 10 days. Follow Up Care Please Follow Up With: Chichi To MD When: Call the office for a follow-up appointment 2 weeks; after 5 PM and on the weekends call [phone] with any concerns. Test Results: Test results from this visit will be discussed in further detail at your follow- up appointment, if applicable. Discharge Plan Admission Admit Date/Time: 07/01/23 20:20 Attending Provider: Chichi To Primary Care Provider: Mk Carpenter Consulting Providers: Danish Mart; Sherie Sandhu; Gato Chowdhury Discharge Orders/Prescriptions Prescriptions: No Action aspirin [Adult Aspirin Regimen] 81 mg tablet,delayed release (DR/EC) 81 mg PO QDAY metformin 1,000 mg tablet 500 mg PO BIDCM losartan 100 mg tablet 100 mg PO QDAY Qty: 90 3RF vitamin A 2,400 mcg capsule 7,200 mcg PO DAILY acetaminophen [Tylenol Extra Strength] 500 mg tablet 500 mg PO Q6H PRN (Reason: fever or pain) amlodipine 5 mg tablet 10 mg PO DAILY Kerendia 10 mg tablet 10 mg PO DAILY potassium chloride 10 MEQ capsule, extended release 10 meq PO QDAY insulin lispro 100 unit/mL insulin pen See Rx Instructions SC .COMPLEX Qty: 0 0RF Rx Instructions: as directed: subcut 28 am and 15units at lunchtime; 27 units at dinner cholecalciferol (vitamin D3) 25 mcg (1,000 unit) tablet 50 mcg PO DAILY rituximab-arrx 10 mg/mL solution 10 mg IV Q9M Rx Instructions: [id number] Trulicity 1.5 mg/0.5 mL pen injector 1.5 mg SUBCUT BURR Patient Comments: INJECT 1.5 MG UNDER SKIN ONCE WEEKLY atorvastatin 40 mg tablet 40 mg PO QHS Qty: 90 3RF apixaban 2.5 mg tablet 2.5 mg PO BID Qty: 60 11RF Patient Comments: took self off on monday for surgery metoprolol succinate 100 mg tablet extended release 24 hr 150 mg PO DAILY Qty: 135 3RF hydrochlorothiazide 25 mg tablet See Rx Instructions .ROUTE .COMPLEX Qty: 90 3RF Dose Instruction: TAKE 1 TABLET BY MOUTH EVERY DAY FOR HEART HEALTH Rx Instructions: TAKE 1 TABLET BY MOUTH EVERY DAY FOR HEART HEALTH Referrals / Follow Up: Mk Carpenter MD [Primary Care Provider] - Disposition Disposition (needs filled in before D/C Order can be placed): Home, Self Care
[2023-07-07 08:25] VITALS: BP 115/68; PULSE 60; RESP 18; TEMP 36.5; O2SAT 100
--- NOTE | 2023-07-07 08:26 | DS.PCM_ITS ---
Providers Date of Admission: 07/01/23 Date of Discharge: 07/07/23 Primary Care Physician: Dr. Mk Carpenter MD Consultations 07/01/23 22:09 Consult: Hospitalist Routine Consulting Provider: Gato Chowdhury Reason for Consult: medical management EMERGENT Consult: No MD Notified: Yes Date Notified: 07/01/23 Time Notified: 20:30 Method of Notification: Verbal Reason For Visit: SIGMOID VOLVULUS Diagnosis Discharge Diagnosis (1) S/P laparoscopic colectomy: Status: Acute Code(s): Z90.49 - Acquired absence of other specified parts of digestive tract Plan Patient is doing well tolerating diet still awaiting more flatus. Once patient has increased flatus will advance to transitional diet if tolerates would be able to be DC'd home. Continue ambulating halls Appreciate hospitalist assistance with medical management Chichi To M.D. Pager: [phone] [facility] [address] [place] [address], [facility], [address] [place] [address] Office: [phone] Medications at Discharge Home Medications aspirin 81 mg tablet,delayed release (Adult Aspirin Regimen) 81 mg PO QDAY heart 12/08/17 potassium chloride 10 mEq capsule,extended release 10 meq PO QDAY SUPPLEMENT 12/25/18 metformin 1,000 mg tablet 500 mg PO BIDCM DM 07/27/20 insulin lispro 100 unit/mL subcutaneous pen See Rx Instructions subcut .COMPLEX DM ##0 01/25/21 losartan 100 mg tablet 100 mg PO QDAY blood pressure #90 tabs 08/30/21 dulaglutide 1.5 mg/0.5 mL subcutaneous pen injector (Trulicity) 1.5 mg subcut BURR 12/13/21 atorvastatin 40 mg tablet 40 mg PO QHS CHOLESTEROL #90 tabs 02/28/22 acetaminophen 500 mg tablet (Tylenol Extra Strength) 500 mg PO Q6H PRN fever or pain 06/09/22 cholecalciferol (vitamin D3) 25 mcg (1,000 unit) tablet 50 mcg PO DAILY Vitamin D supplement 06/09/22 vitamin A 2,400 mcg capsule 7,200 mcg PO DAILY 06/09/22 apixaban 2.5 mg tablet 2.5 mg PO BID #60 tabs 07/25/22 metoprolol succinate 100 mg tablet,extended release 24 hr 150 mg (1.5 x 100 mg) PO DAILY HEART/ B/P #135 tabs 09/07/22 hydrochlorothiazide 25 mg tablet See Rx Instructions .Route .COMPLEX #90 tabs 10/31/22 amlodipine 5 mg tablet 10 mg PO DAILY 01/25/23 finerenone 10 mg tablet (Kerendia) 10 mg PO DAILY 01/25/23 rituximab-arrx 10 mg/mL intravenous solution 10 mg IV 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 Hospital Course Operations colectomy (Laparoscopic sigmoidectomy due to sigmoid volvulus/redundant sigmoid) Procedures Colonoscopy (For decompression and placement of rectal tube due to sigmoid vol vulus) Summary of Care Provided Minutes Spent on Discharge: 15 Hospital Course: Patient initially presented to the ER due to constipation x 1 week and abdominal distention. Patient was found to have a sigmoid volvulus. Patient went for decompression colonoscopy with insertion of rectal tube which went well. Kishan coronel's colon was able to decompress. Patient did have his Eliquis the day of admission the surgery was put off for about 2 days due to anticoagulation. Patient was able to be prepped prior to surgery and the rectal tube did fall out during the prep. Patient underwent laparoscopic sigmoidectomy. Postoperatively patient did well started on clears postop and once patient began to have flatus was advanced to a transitional diet and was able to be DC'd home on the transitional/low fiber diet. Physical Exam Const oriented x3 and no apparent distress Resp normal respiratory effort Cardio regular rate GI soft to palpation GI Narrative: Incisions healing well clean dry and intact, minimally tender with palpation, no peritoneal signs Inspection: Negative for abdominal distention Weight / BMI Weight Weight: 249 lb 9.612 oz Body Mass Index (BMI) 29.5 ABG / Lab / Microbiology Data 07/07/23 06:00 07/07/23 06:00 Laboratory: Laboratory Results - last 24 hr 07/06/23 11:45: POC Glucose 229 H 07/06/23 16:23: POC Glucose 243 H 07/06/23 20:28: POC Glucose 228 H 07/07/23 05:49: POC Glucose 204 H 07/07/23 06:00: WBC 8.3, RBC 4.25 L, Hgb 13.6, Hct 39.4 L, MCV 92.7, MCH 32.0, MCHC 34.5, RDW Std Deviation 42.5, RDW Coeff of Nenita 12.6, Plt Count 214, MPV 10.3, Immature Gran % (Auto) 0.500, Neut % (Auto) 69.4, Lymph % (Auto) 18.8 L, [place] % (Auto) 8.5, Eos % (Auto) 2.4, Baso % (Auto) 0.4, Absolute Neuts (auto) 5.7, Absolute Lymphs (auto) 1.55, Nucleated RBC % 0, Sodium 138, Potassium 3.6, Chloride 109 H, Carbon Dioxide 24.0, Anion Gap 5, BUN 13, Creatinine 1.13, Estim Creat Clear Calc 78.85, Est GFR (MDRD) Af Amer 83, Est GFR (MDRD) Non-Af 69, BUN/Creatinine Ratio 11.5, Glucose 184 H, Calcium 8.5, Phosphorus 2.5, Magnesium 2.1 D/C Instructions Discharge Diet: - (Transitional diet-low fiber) May shower in (days): 1 Call your doctor if your incision/area has: Continuous Slow Oozing, Sudden Increased Bleeding, Increased Pain/ Swelling, Increased Redness, Foul Smelling Discharge and Swelling at the incision site Call your doctor if you observe: Fever of 101 or Higher Cleanse incision/area with: Soap & Water Additional Dressing/Incision Instructions: Steri-Strips will fall off in 7 to 10 days, if they do not fall off okay to remove after 10 days. Please Follow Up With: Chichi To MD When: Call the office for a follow-up appointment 2 weeks; after 5 PM and on the weekends call [phone] with any concerns. Meaningful Use Info Meaningful Use Diagnoses (Choose all that apply): None applicable Discharge Plan Admission Admit Date/Time: 07/01/23 20:20 Attending Provider: Chichi To Primary Care Provider: Mk Carpenter Consulting Providers: Danish Mart; Sherie Sandhu; Gato Chowdhury Discharge Orders/Prescriptions Prescriptions: Continued aspirin [Adult Aspirin Regimen] 81 mg tablet,delayed release (DR/EC) 81 mg PO QDAY metformin 1,000 mg tablet 500 mg PO BIDCM losartan 100 mg tablet 100 mg PO QDAY Qty: 90 3RF vitamin A 2,400 mcg capsule 7,200 mcg PO DAILY acetaminophen [Tylenol Extra Strength] 500 mg tablet 500 mg PO Q6H PRN (Reason: fever or pain) amlodipine 5 mg tablet 10 mg PO DAILY Kerendia 10 mg tablet 10 mg PO DAILY potassium chloride 10 MEQ capsule, extended release 10 meq PO QDAY insulin lispro 100 unit/mL insulin pen See Rx Instructions SC .COMPLEX Qty: 0 0RF Rx Instructions: as directed: subcut 28 am and 15units at lunchtime; 27 units at dinner cholecalciferol (vitamin D3) 25 mcg (1,000 unit) tablet 50 mcg PO DAILY rituximab-arrx 10 mg/mL solution 10 mg IV Q9M Rx Instructions: [id number] Trulicity 1.5 mg/0.5 mL pen injector 1.5 mg SUBCUT BURR Patient Comments: INJECT 1.5 MG UNDER SKIN ONCE WEEKLY atorvastatin 40 mg tablet 40 mg PO QHS Qty: 90 3RF apixaban 2.5 mg tablet 2.5 mg PO BID Qty: 60 11RF Patient Comments: took self off on monday for surgery metoprolol succinate 100 mg tablet extended release 24 hr 150 mg PO DAILY Qty: 135 3RF hydrochlorothiazide 25 mg tablet See Rx Instructions .ROUTE .COMPLEX Qty: 90 3RF Dose Instruction: TAKE 1 TABLET BY MOUTH EVERY DAY FOR HEART HEALTH Rx Instructions: TAKE 1 TABLET BY MOUTH EVERY DAY FOR HEART HEALTH Referrals / Follow Up: Mk Carpenter MD [Primary Care Provider] - Disposition Disposition (needs filled in before D/C Order can be placed): Home, Self Care
[2023-07-07] MEDS: Nystatin Powder 15gm Bottle 1 APPLIC TOPICAL (08:29)
[2023-07-07 08:30] VITALS: PULSE 60
[2023-07-07] MEDS: FINERENONE 10 MG TABLET PO (08:30)
[2023-07-07] MEDS: Losartan Potassium 100 MG Tablet PO (08:30)
[2023-07-07] MEDS: Enoxaparin 40 MG/0.4 ML Syringe SC (08:30)
[2023-07-07] MEDS: Docusate Sodium 100 MG Capsule PO (08:30)
[2023-07-07] MEDS: Metoprolol(XL)Succ 50 MG Tablet 150 MG PO (08:30)
[2023-07-07] MEDS: amLODIPine 10 MG Tablet PO (08:30)
[2023-07-07] MEDS: Glucerna Shake 120 ML LIQUID PO (08:32)
[2023-07-07] MEDS: Menthol/Lanolin/Calamine/Znox 113 GM Tube 1 APPLIC TOPICAL (08:33)
--- NOTE | 2023-07-07 10:03 | CASEMGMT ---
LAURA PITTMAN NOTE: LAURA PITTMAN to room. Pt sitting up in recliner chair in room. Introduced self and role. Discussed discharge planning. Pt denies need for HHC, denies having any discharge planning needs, and denies any concerns w/going home @ d/c. Pt has been using a WW while @ [facility]. Inquired if pt would like a WW @ d/c. Pt states he thinks there may be a walker @ his home that he could use, if needed, but he does not think he'll even need one once he is home. He states he usually wears his tennis shoes when walking @ home d/t 2 dropped feet but has not been wearing them here and so has been using the walker for support/balance. Pt's tennis shoes are in pt's room. LAURA PITTMAN encouraged him to wear his tennis shoes today when up ambulating to ensure he has good balance and to make sure he does not still need/want a walker. He states he will try this and he is to let CM know if he does end up deciding he wants a walker. Keith SCHWAB RN, CM
--- NOTE | 2023-07-07 10:12 | PCM.PN.HOSP ---
Reason for Visit Reason for Visit: Abdominal pain/nausea/vomiting Subjective Subjective No issues overnight. Bowel movement yesterday but no flatus. Feeling well and minimal use of narcotics. Patient is ambulating hallways. Objective Data Objective Data Vital Signs: Vital Signs Temp Pulse Resp BP Pulse Ox O2 Del Method 97.7 F L 60 18 115/68 100 Room Air 07/07/23 08:25 07/07/23 08:30 07/07/23 08:25 07/07/23 08:25 07/07/23 08:25 07/07/23 08:25 Oxygen Delivery Method Room Air Weight: 113.217 kg Body Mass Index (BMI) 29.5 Intake & Output: Intake and Output for Last 24 Hours 07/05/23 07/06/23 07/07/23 23:59 23:59 23:59 Intake Total 2440 / 2440 1508.58 / 1508.58 60 / 60 Output Total 1825 / 2475 1480 / 1480 950 / 950 Balance 615 / -35 28.58 / 28.58 -890 / -890 Lab / Micro Data 07/07/23 06:00 07/07/23 06:00 Labs: Laboratory Results - last 24 hr 07/06/23 11:45: POC Glucose 229 H 07/06/23 16:23: POC Glucose 243 H 07/06/23 20:28: POC Glucose 228 H 07/07/23 05:49: POC Glucose 204 H 07/07/23 06:00: WBC 8.3, RBC 4.25 L, Hgb 13.6, Hct 39.4 L, MCV 92.7, MCH 32.0, MCHC 34.5, RDW Std Deviation 42.5, RDW Coeff of Nenita 12.6, Plt Count 214, MPV 10.3, Immature Gran % (Auto) 0.500, Neut % (Auto) 69.4, Lymph % (Auto) 18.8 L, [place] % (Auto) 8.5, Eos % (Auto) 2.4, Baso % (Auto) 0.4, Absolute Neuts (auto) 5.7, Absolute Lymphs (auto) 1.55, Nucleated RBC % 0, Sodium 138, Potassium 3.6, Chloride 109 H, Carbon Dioxide 24.0, Anion Gap 5, BUN 13, Creatinine 1.13, Estim Creat Clear Calc 78.85, Est GFR (MDRD) Af Amer 83, Est GFR (MDRD) Non-Af 69, BUN/Creatinine Ratio 11.5, Glucose 184 H, Calcium 8.5, Phosphorus 2.5, Magnesium 2.1 Physical Exam Narrative Const alert, oriented x3, no apparent distress and healthy appearing Constitutional Narrative: Overweight, upper middle-aged, white male, sitting up in bed, watching television, appears comfortable, nontoxic HEENT head/scalp atraumatic and moist oral mucous membranes Head and Scalp: normocephalic Resp normal respiratory effort, no retractions, no use of accessory muscles and clear to auscultation bilaterally Cardio regular rate, regular rhythm, S1 normal heart sound, S2 normal heart sound, no murmurs, no rub, no gallops and no clicks GI GI Narrative: Mild tenderness in abdomen near surgical sites, surgical incisions are clean dry and intact with Steri-Strips in place, bowel sounds are tinkling and very active, abdomen is soft with slight distention Extremity no clubbing, cyanosis or edema Extremity Narrative: Pedal pulses are 2+ Neuro oriented x3, moves all extremities and no focal motor deficits Speech: speech normal Psych affect normal Psych Narrative: Very pleasant, interacts appropriately Assessment & Plan Assessment/Plan (1) Sigmoid volvulus: (2) Acute hypokalemia: (3) Hypophosphatemia: PLAN: Plan Sigmoid volvulus -Postop day 2 sigmoidectomy -Management per primary service -Restart Eliquis when okay with general surgery -Clear liquid diet and await return of bowel function--> patient is having bowel movements but no flatus as of yet -Diet advancement per primary service Hypertension -Continue amlodipine -Continue losartan -Continue metoprolol with hold parameters -Hold HCTZ--> okay to restart at discharge Hyperlipidemia -Continue statin Paroxysmal atrial fibrillation -Restart apixaban when okay with general surgery -Continue metoprolol CAD -CABG X 4: RUIZ to left anterior descending bridge diagonal, SVG to first DX, radial artery to the lateral CX. Done @ [place] per Dr. Randall-->2014 -Restart aspirin when okay with general surgery DM-2 -Hold oral metformin and dulaglutide with plans to reinitiate at discharge -Continue SSI -Blood sugars 184 this morning -Continue Lantus 8 units nightly -Currently on clear liquid diet -Patient appears to be well-controlled at his last hemoglobin A1c on 06/18/2023 was 7.2 Hypothyroidism -Continue levothyroxine History of vasculitis NOS - hold rituximab in preparation for surgery and restart at discharge DVT prophylaxis -Enoxaparin started today Disposition: Doing well medically. Once tolerates regular diet okay for discharge from medical standpoint. Charges/Coding Visit Charges Inpatient E&M: 38308 Subs Hosp L2
[2023-07-07 10:17] VITALS: O2SAT 100
[2023-07-07] MEDS: Pantoprazole Sodium 40 MG Tablet PO (10:32)
[2023-07-07 12:15] LABS: Bedside Glucose 285 mg/dL (74-106)
[2023-07-07 14:11] VITALS: BP 122/78; PULSE 60; RESP 18; TEMP 36.6; O2SAT 99
--- NOTE | 2023-07-07 14:30 | PHA.DC.MR.R ---
Pharmacy [place] Med Reconciliation Pharmacy Service has performed discharge medication reconciliation for this patient. The patient's discharge medication list was reviewed for discrepancies and discrepancies were resolved. Medications at Discharge Home Medications aspirin 81 mg tablet,delayed release (Adult Aspirin Regimen) 81 mg PO QDAY heart 12/08/17 potassium chloride 10 mEq capsule,extended release 10 meq PO QDAY SUPPLEMENT 12/25/18 metformin 1,000 mg tablet 500 mg PO BIDCM DM 07/27/20 insulin lispro 100 unit/mL subcutaneous pen See Rx Instructions subcut .COMPLEX DM ##0 01/25/21 losartan 100 mg tablet 100 mg PO QDAY blood pressure #90 tabs 08/30/21 dulaglutide 1.5 mg/0.5 mL subcutaneous pen injector (Trulicity) 1.5 mg subcut BURR 12/13/21 atorvastatin 40 mg tablet 40 mg PO QHS CHOLESTEROL #90 tabs 02/28/22 acetaminophen 500 mg tablet (Tylenol Extra Strength) 500 mg PO Q6H PRN fever or pain 06/09/22 cholecalciferol (vitamin D3) 25 mcg (1,000 unit) tablet 50 mcg PO DAILY Vitamin D supplement 06/09/22 vitamin A 2,400 mcg capsule 7,200 mcg PO DAILY 06/09/22 apixaban 2.5 mg tablet 2.5 mg PO BID #60 tabs 07/25/22 metoprolol succinate 100 mg tablet,extended release 24 hr 150 mg (1.5 x 100 mg) PO DAILY HEART/ B/P #135 tabs 09/07/22 hydrochlorothiazide 25 mg tablet See Rx Instructions .Route .COMPLEX #90 tabs 10/31/22 amlodipine 5 mg tablet 10 mg PO DAILY 01/25/23 finerenone 10 mg tablet (Kerendia) 10 mg PO DAILY 01/25/23 rituximab-arrx 10 mg/mL intravenous solution 10 mg IV 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
== END 2023-07-07 15:20 | disposition home or self-care (01) | DRG 330 ==
LOC: ED 22:05 → MS3 22:06
PROVIDERS: Anesthesiology; Family Medicine; Internal Medicine; Admitting Provider Surgery; Emergency Provider Emergency Medicine; PCP Family Medicine; Visit Provider Surgery
PROC: 0DJD8ZZ Inspection of Lower Intestinal Tract, Via Natural or Artificial Opening Endoscopic (ICD-10-PCS; CPT 45378; principal; 2023-07-01 20:45)
PROC: 0DTN0ZZ Resection of Sigmoid Colon, Open Approach (ICD-10-PCS; CPT 44204; principal; 2023-07-05 11:55)
DX: K56.2 Volvulus (principal); J84.9 Interstitial pulmonary disease, unspecified; Q43.8 Other specified congenital malformations of intestine; E83.39 Other disorders of phosphorus metabolism; E11.22 Type 2 diabetes mellitus with diabetic chronic kidney disease; E11.42 Type 2 diabetes mellitus with diabetic polyneuropathy; I48.0 Paroxysmal atrial fibrillation; E11.65 Type 2 diabetes mellitus with hyperglycemia; Z79.4 Long term (current) use of insulin; E03.9 Hypothyroidism, unspecified; I12.9 Hypertensive chronic kidney disease with stage 1 through stage 4 chronic kidney disease, or unspecified chronic kidney disease; N18.9 Chronic kidney disease, unspecified; E78.5 Hyperlipidemia, unspecified; E87.6 Hypokalemia; I25.10 Atherosclerotic heart disease of native coronary artery without angina pectoris; K63.89 Other specified diseases of intestine; Z79.84 Long term (current) use of oral hypoglycemic drugs; Z90.49 Acquired absence of other specified parts of digestive tract
CPT/HCPCS: 36415; 74018; 74177; 80048; 80053; 82962; 83036; 83690; 83735; 84100; 84443; 85025; 88304; 88307; 93005; 94668; 97802; 99252; 99284; J7040; J7120; Q9967; A4216; C1760; G0463; J2405

== ENCOUNTER → 2023-07-28 | Outpatient (CLI) | payer MEDICARE, SELFPAY ==
[2023-07-28 09:46] LABS: Vitamin D,25 Hydroxy 81.2 ng/mL
[2023-07-28 09:56] LABS: ALB/GLOB Ratio 0.9 RATIO (0.9-2.4); AST(SGOT) 13 U/L (15-37); Alanine Aminotransfer ALT/SGPT 22 U/L (16-61); Albumin, Serum 3.4 g/dL (3.2-5.0); Alkaline Phosphatase 153 U/L (45-117); Anion Gap 8 (5-15); BUN 32 mg/dL (7-18); BUN/Creat Ratio 17.5 RATIO (10-20); Calcium,Total 9.2 mg/dL (8.5-10.1); Chloride 102 mmol/L (98-107); Cholesterol 139 mg/dL (200); Creatinine, Serum 1.83 mg/dL (0.70-1.30); EST Glomerular Filtration Rate 39 mL/min (>60); Est Glom Filt Rate - Afr Amer 48 mL/min (>60); Globulin 3.9 g/dL (2.2-4.2); Glucose 232 mg/dL (74-106); High Density Lipoprotein 35 mg/dL; Potassium 3.4 mmol/L (3.5-5.1); Protein, Total 7.3 g/dL (6.4-8.2); Sodium Level 136 mmol/L (136-145); T4 Free Direct 1.12 ng/dL (0.76-1.46); Thyroid Stim Hormone (TSH) 2.64 uIU/mL (0.358-3.74); Triglycerides 139 mg/dL; Very Low Density Lipoprotein 28 mg/dL (5-40)
[2023-07-28 10:23] LABS: Hemoglobin A1c 7.1 % (3.8-5.6)
== END | disposition home or self-care (01) ==
LOC: LAB 08:17
PROVIDERS: PCP Family Medicine; Referring Provider Internal Medicine Endocrinology, Diabetes & Metabolism; Visit Provider Internal Medicine Endocrinology, Diabetes & Metabolism
DX: E11.65 Type 2 diabetes mellitus with hyperglycemia (principal); E11.22 Type 2 diabetes mellitus with diabetic chronic kidney disease; I77.6 Arteritis, unspecified; N18.30 Chronic kidney disease, stage 3 unspecified; E03.9 Hypothyroidism, unspecified
CPT/HCPCS: 36415; 80053; 80061; 82306; 83036; 84439; 84443

== ENCOUNTER → 2023-10-25 | Outpatient (CLI) | payer MEDICARE, SELFPAY ==
[2023-10-25 11:01] LABS: Bacteria 0 SEEN /hpf (None Seen); Mucous, Urine 0 SEEN /hpf (<or=2+); Red Blood Cells-Urine 0 SEEN /hpf (0-5); Squamous Epithelial Cells - UA 0 SEEN /hpf (0-5); White Blood Cells 0 SEEN /hpf (0-5)
[2023-10-25 12:12] LABS: Color, Urine Yellow (Yellow); Glucose, Dipstick 50 mg/dl (Normal); Ketone-Dipstick Negative (Negative); Leukocyte Esterase-Dipstick Negative /ul (Negative); Nitrite-Dipstick Negative (Negative); Occult Blood-Urine Negative /ul (Negative); Protein-Dipstick Negative (Negative); Specific Gravity, Urine 1.005 (1.002-1.030); Urine Bilirubin Dipstick Negative (Negative); Urine Clarity Clear (Clear); Urine Urobilinogen Normal (Normal)
[2023-10-25 13:15] LABS: Protein, Urine (Random) 26.7 mg/dL (<11.9); Protein:Creat Ratio 392 mg/g CRE (0-200)
[2023-10-25 13:17] LABS: ALB/GLOB Ratio 1.2 RATIO (0.9-2.4); AST(SGOT) 14 U/L (15-37); Alanine Aminotransfer ALT/SGPT 27 U/L (16-61); Albumin, Serum 4.1 g/dL (3.2-5.0); Alkaline Phosphatase 140 U/L (45-117); Anion Gap 7 (5-15); BUN 14 mg/dL (7-18); BUN/Creat Ratio 10.7 RATIO (10-20); Calcium,Total 8.9 mg/dL (8.5-10.1); Chloride 106 mmol/L (98-107); Cholesterol 149 mg/dL (200); Creatinine, Serum 1.31 mg/dL (0.70-1.30); EST Glomerular Filtration Rate 58 mL/min (>60); Est Glom Filt Rate - Afr Amer 70 mL/min (>60); Globulin 3.3 g/dL (2.2-4.2); Glucose 129 mg/dL (74-106); High Density Lipoprotein 44 mg/dL; Magnesium 2.2 mg/dL (1.6-2.6); Phosphorus 2.2 mg/dL (2.5-4.9); Potassium 3.7 mmol/L (3.5-5.1); Protein, Total 7.4 g/dL (6.4-8.2); Sodium Level 141 mmol/L (136-145); Thyroid Stim Hormone (TSH) 1.54 uIU/mL (0.358-3.74); Triglycerides 154 mg/dL; Very Low Density Lipoprotein 31 mg/dL (5-40)
== END | disposition home or self-care (01) ==
LOC: MFPLAB 10:57
PROVIDERS: PCP Family Medicine; Visit Provider Family Medicine
DX: E11.22 Type 2 diabetes mellitus with diabetic chronic kidney disease (principal); E11.69 Type 2 diabetes mellitus with other specified complication; I48.0 Paroxysmal atrial fibrillation; E55.9 Vitamin D deficiency, unspecified
CPT/HCPCS: 80053; 80061; 81001; 82306; 82570; 83735; 84100; 84156; 84443

== ENCOUNTER → 2023-11-29 | Outpatient (CLI) | payer MEDICARE, SELFPAY ==
[2023-11-29 09:52] LABS: ALB/GLOB Ratio 1.1 RATIO (0.9-2.4); AST(SGOT) 21 U/L (15-37); Alanine Aminotransfer ALT/SGPT 22 U/L (16-61); Albumin, Serum 3.6 g/dL (3.2-5.0); Alkaline Phosphatase 140 U/L (45-117); Anion Gap 4 (5-15); BUN 21 mg/dL (7-18); Calcium,Total 9.1 mg/dL (8.5-10.1); Chloride 109 mmol/L (98-107); EST Glomerular Filtration Rate 54 mL/min (>60); Est Glom Filt Rate - Afr Amer 65 mL/min (>60); Globulin 3.3 g/dL (2.2-4.2); Glucose 180 mg/dL (74-106); Potassium 3.8 mmol/L (3.5-5.1); Protein, Total 6.9 g/dL (6.4-8.2); Sodium Level 140 mmol/L (136-145)
[2023-11-29 10:13] LABS: Hemoglobin A1c 6.7 % (3.8-5.6)
[2023-11-29 11:48] LABS: Microalbumin,Random Urine 39.2 mg/L (NO RANGE EST.); Microalbumin:Creatinine Ratio 33.2 mg/g CRE (<30 mg/g CRE)
== END | disposition home or self-care (01) ==
PROVIDERS: PCP Family Medicine; Referring Provider Internal Medicine Endocrinology, Diabetes & Metabolism; Visit Provider Internal Medicine Endocrinology, Diabetes & Metabolism
DX: E11.65 Type 2 diabetes mellitus with hyperglycemia (principal); E11.22 Type 2 diabetes mellitus with diabetic chronic kidney disease; I77.6 Arteritis, unspecified; N18.30 Chronic kidney disease, stage 3 unspecified; E03.9 Hypothyroidism, unspecified
CPT/HCPCS: 36415; 80053; 82043; 82570; 83036; 84443

== ENCOUNTER → 2024-03-26 | Outpatient (CLI) | payer MEDICARE, SELFPAY ==
[2024-03-26 15:37] LABS: Absolute Lymphocyte Count 1.44 X10^3/uL (0.83-4.51); Absolute Neutrophil Count 5.3 X10^3/uL (2.0-7.7); Basophil# 0.04 X10^3/uL; Basophil% 0.5 % (0-1); Eosinophil# 0.18 X10^3/uL; Eosinophils% 2.3 % (0-5); Hematocrit 44.7 % (40-54); Lymphocyte # 1.44 X10^3/ul (0.83-4.51); Lymphocyte % 18.8 % (19-41); Mean Corp Hgb Conc 33.6 g/dL (32-36); Mean Corpuscular Hgb 31.1 pg (27.0-32.0); Mean Corpuscular Volume 92.7 fL (80-94); Mean Platelet Vol. 10.6 fl (6.2-12.0); Monocyte# 0.68 X10^3/uL; Monocyte% 8.9 % (0-10); NRBC Flagged by Analyzer 0 % (0-5); Neutrophil # 5.31 X10^3/uL (2.7-7.7); Neutrophil % 69.2 % (47-70); Platelet Count 224 K/mm3 (150-450); RBC Distribution Width CV 12.6 % (11.6-14.6); RBC Distribution Width SD 43.1 fl (35.1-43.9); Red Blood Count 4.82 M/mm3 (4.6-6.2); White Blood Count 7.7 K/mm3 (4.4-11.0)
[2024-03-26 16:15] LABS: ALB/GLOB Ratio 1.2 RATIO (0.9-2.4); AST(SGOT) 21 U/L (15-37); Alanine Aminotransfer ALT/SGPT 21 U/L (16-61); Alkaline Phosphatase 120 U/L (45-117); Anion Gap 4 (5-15); BUN 28 mg/dL (7-18); BUN/Creat Ratio 18.5 RATIO (10-20); Calcium,Total 9.2 mg/dL (8.5-10.1); Chloride 110 mmol/L (98-107); Cholesterol 143 mg/dL (200); Creatinine, Serum 1.51 mg/dL (0.70-1.30); EST Glomerular Filtration Rate 49 mL/min (>60); Est Glom Filt Rate - Afr Amer 59 mL/min (>60); Globulin 3.2 g/dL (2.2-4.2); Glucose 119 mg/dL (74-106); High Density Lipoprotein 33 mg/dL; PSA,Total - Annual Screen 0.92 ng/mL (0.00-4.00); Potassium 3.8 mmol/L (3.5-5.1); Protein, Total 7.2 g/dL (6.4-8.2); Sodium Level 140 mmol/L (136-145); Triglycerides 173 mg/dL; Very Low Density Lipoprotein 35 mg/dL (5-40)
[2024-03-26 16:16] LABS: Vitamin D,25 Hydroxy 70.2 ng/mL
== END | disposition home or self-care (01) ==
LOC: MFPLAB 14:01
PROVIDERS: PCP Family Medicine; Visit Provider Family Medicine
DX: I48.0 Paroxysmal atrial fibrillation (principal); E11.22 Type 2 diabetes mellitus with diabetic chronic kidney disease; E11.69 Type 2 diabetes mellitus with other specified complication; Z12.5 Encounter for screening for malignant neoplasm of prostate
CPT/HCPCS: 36415; 80053; 80061; 82306; 83735; 84100; 84153; 85025; G0103

== ENCOUNTER → 2024-05-31 | Outpatient (CLI) | payer MEDICARE, SELFPAY ==
[2024-05-31 08:23] LABS: Basophil# 0.04 X10^3/uL; Basophil% 0.6 % (0-1); Eosinophil# 0.24 X10^3/uL; Eosinophils% 3.7 % (0-5); Hematocrit 45.4 % (40-54); Hemoglobin 15.1 g/dL (13.0-16.5); Lymphocyte % 24.7 % (19-41); Mean Corp Hgb Conc 33.3 g/dL (32-36); Mean Corpuscular Hgb 30.8 pg (27.0-32.0); Mean Corpuscular Volume 92.7 fL (80-94); Mean Platelet Vol. 10.2 fl (6.2-12.0); Monocyte# 0.54 X10^3/uL; Monocyte% 8.3 % (0-10); NRBC Flagged by Analyzer 0 % (0-5); Neutrophil # 4.03 X10^3/uL (2.7-7.7); Neutrophil % 62.2 % (47-70); Platelet Count 204 K/mm3 (150-450); RBC Distribution Width CV 12.7 % (11.6-14.6); RBC Distribution Width SD 43.1 fl (35.1-43.9); White Blood Count 6.5 K/mm3 (4.4-11.0)
[2024-05-31 08:48] LABS: Vitamin D,25 Hydroxy 78.1 ng/mL
[2024-05-31 09:02] LABS: ALB/GLOB Ratio 1.3 RATIO (0.9-2.4); AST(SGOT) 24 U/L (15-37); Alanine Aminotransfer ALT/SGPT 20 U/L (16-61); Albumin, Serum 4.1 g/dL (3.2-5.0); Alkaline Phosphatase 138 U/L (45-117); Anion Gap 8 (5-15); BUN 22 mg/dL (7-18); BUN/Creat Ratio 16.2 RATIO (10-20); Calcium,Total 9.4 mg/dL (8.5-10.1); Chloride 105 mmol/L (98-107); Cholesterol 148 mg/dL (200); Creatinine, Serum 1.36 mg/dL (0.70-1.30); EST Glomerular Filtration Rate 55 mL/min (>60); Est Glom Filt Rate - Afr Amer 67 mL/min (>60); Globulin 3.2 g/dL (2.2-4.2); Glucose 186 mg/dL (74-106); High Density Lipoprotein 37 mg/dL; Potassium 4.2 mmol/L (3.5-5.1); Protein, Total 7.3 g/dL (6.4-8.2); Sodium Level 138 mmol/L (136-145); Thyroid Stim Hormone (TSH) 2.25 uIU/mL (0.358-3.74); Triglycerides 116 mg/dL; Very Low Density Lipoprotein 23 mg/dL (5-40)
[2024-05-31 09:07] LABS: Microalbumin,Random Urine 41.8 mg/L (NO RANGE EST.); Microalbumin:Creatinine Ratio 53.1 mg/g CRE (<30 mg/g CRE)
[2024-05-31 13:44] LABS: Hemoglobin A1c 6.6 % (3.8-5.6)
== END | disposition home or self-care (01) ==
LOC: LAB 07:40
PROVIDERS: PCP Family Medicine; Referring Provider Internal Medicine Endocrinology, Diabetes & Metabolism; Visit Provider Internal Medicine Endocrinology, Diabetes & Metabolism
DX: E11.65 Type 2 diabetes mellitus with hyperglycemia (principal); E11.22 Type 2 diabetes mellitus with diabetic chronic kidney disease; N18.30 Chronic kidney disease, stage 3 unspecified; E03.9 Hypothyroidism, unspecified; I77.6 Arteritis, unspecified
CPT/HCPCS: 36415; 80053; 80061; 82043; 82306; 82570; 83036; 84439; 84443; 85025

== ENCOUNTER 2024-09-08 16:35 | Inpatient (IN) | payer MEDICARE, SELFPAY ==
[2024-09-08] VITALS (9 sets, daily range): BP systolic 102–122; BP diastolic 64–75; PULSE 72–87; RESP 16–23; TEMP 36.2–37; O2SAT 88–96; BMI 28.2; BMI 28.6
--- NOTE | 2024-09-08 17:16 | EKG12_ITS ---
Test Reason : SOB, IRREGULAR HR Blood Pressure : / mmHG Vent. Rate : 090 BPM Atrial Rate : 000 BPM P-R Int : 000 ms QRS Dur : 132 ms QT Int : 396 ms P-R-T Axes : 000 -54 046 degrees QTc Int : 484 ms Atrial fibrillation Left axis deviation Non-specific intra-ventricular conduction block Minimal voltage criteria for LVH, may be normal variant ( [place] product ) Abnormal ECG Confirmed by Dwain Tong ([id number]), supervising film or videotape editor TAVARES KIM ([id number]) on 09/10/2024 7:53:25 AM Referred By: Confirmed By:Dwain Tong
--- NOTE | 2024-09-08 17:18 | EDS_ITS ---
HPI History of Present Illness Chief Complaint: Shortness of Breath Narrative Narrative: Chief complaint and HPI: Shortness of breath. 69-year-old male with history of atrial fibrillation on Eliquis, HTN, HLD, DM2, interstitial lung disease, vasculitis on rituximab every 9 months presents for evaluation of shortness of breath. Patient states he was diagnosed with COVID-19 approximately 10 days ago. He states that they called their PCP and patient did not meet requirements for Paxlovid given his Eliquis. Patient was placed on a 9-day steroid taper. Currently taking 20 mg of prednisone daily. Last dose is tomorrow. states the patient has had increased work of breathing today which caused her to check his pulse ox multiple times. She states it was about 88% at home. She states he is usually in the 90s. Patient endorses a low grade fever today. He denies any chest pain, abdominal pain, nausea, vomiting, dysuria. He states that he has been fatigued and weak but endorses that he has not been eating or drinking well secondary to decreased appetite. He denies any bilateral lower extremity swelling or pain. Review of systems: See HPI Medications: As listed on the chart Allergies: As listed on the chart PFSH: Per chart Vital signs: As listed on the chart. Reviewed. Physical exam: Gen: A&O x3, NAD Head: Normocephalic, atraumatic Eyes: No sclera icterus, conjunctiva clear ENT: Moist mucous membranes Neck: Trachea midline, No JVD CV: RRR, no murmurs, no peripheral edema Resp: Lungs diminished bilateral, no w/r/c GI: Abd soft, non-distended, non-tender, no r/r/g Musc: Full ROM, no deformity Skin: Warm, dry Neuro: Alert, oriented, grossly intact, sensation intact Psych: Cooperative, appropriate mood and affect [facility] Medical History (Updated 09/08/24 @ 23:[address] 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 Paroxysmal atrial fibrillation Home Medications ?Medication ?Instructions ?Recorded ?Last Taken ?Type aspirin 81 mg tablet,delayed 81 mg PO QDAY heart 12/08/17 01/21/21 06:30 History release (Adult Aspirin Regimen) metformin 1,000 mg tablet 500 mg PO BIDCM DM 07/27/20 01/21/21 06:30 History losartan 100 mg tablet 100 mg PO QDAY blood pressure #90 08/30/21 Unknown Rx tabs atorvastatin 40 mg tablet 40 mg PO QHS CHOLESTEROL #90 tabs 02/28/22 Unknown Rx acetaminophen 500 mg tablet 500 mg PO Q6H PRN fever or pain 06/09/22 Unknown History (Tylenol Extra Strength) cholecalciferol (vitamin D3) 25 50 mcg PO DAILY Vitamin D 06/09/22 Unknown History mcg (1,000 unit) tablet supplement vitamin A 2,400 mcg capsule 7,200 mcg PO DAILY 06/09/22 Unknown History finerenone 10 mg tablet (Kerendia) 10 mg PO DAILY 01/25/23 Unknown History rituximab-arrx 10 mg/mL 10 mg IV 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 Unknown History intravenous solution apixaban 2.5 mg tablet 2.5 mg PO BID #60 tabs 11/01/23 Unknown Rx hydrochlorothiazide 25 mg tablet 12.5 mg PO DAILY 03/08/24 Unknown History plecanatide 3 mg tablet (Trulance) 3 mg PO QDAY 03/08/24 Unknown History semaglutide 0.25 mg or 0.5 mg (2 0.5 mg subcut QWEEK 03/08/24 Unknown History mg/3 mL) subcutaneous pen injector (Ozempic) metoprolol succinate 100 mg 150 mg (1.5 x 100 mg) PO DAILY for 08/09/24 Unknown Rx tablet,extended release 24 hr blood pressure #135 TABLETS amlodipine 10 mg tablet 10 mg PO DAILY 09/08/24 Unknown History insulin aspart U-100 100 unit/mL 28 - 41 unit subcut DAILY 09/08/24 Unknown History (3 mL) subcutaneous pen (Novolog FlexPen U-100 Insulin aspart) prednisone 20 mg tablet 20 mg PO DAILY 09/08/24 Unknown History Allergy/AdvReac Type Severity Reaction Status Date / Time adhesive tape Allergy Rash Verified 09/08/24 16:36 mycophenolate mofetil (From AdvReac Severe elevated Verified 09/08/24 16:36 CellCept) liver enzymes Family History Father , age 72 Lupus COPD (chronic obstructive pulmonary disease) CAD (coronary artery disease) S/P CABG x 3, Onset Age: 68 Congestive heart failure Mother , age 78 Alzheimers disease Surgical History S/P laparoscopic colectomy thoracoscopy with lung biopsy History of left heart catheterization (07/30/15) History of coronary artery bypass graft (07/31/15) Social History Smoking Status: Never smoker alcohol intake: never substance use type: does not use caffeine: Yes Type: coffee Number of servings: 3 EXAM Physical Exam Const Vital Signs: 09/08/24 16:37 09/08/24 16:42 09/08/24 17:14 Temperature 97.8 F Temperature Source Oral Pulse Rate 79 Respiratory Rate 18 Respiratory Effort Respiratory Depth Respiratory Pattern Blood Pressure 111/75 Blood Pressure Mean 87 Pulse Ox 94 88 90 Oxygen Delivery Method Room Air Room Air Room Air 09/08/24 17:16 09/08/24 17:35 09/08/24 17:41 Temperature Temperature Source Pulse Rate 87 Respiratory Rate 17 Respiratory Effort Normal Non-Labored Respiratory Depth Normal Respiratory Pattern Normal Normal Blood Pressure Blood Pressure Mean Pulse Ox Oxygen Delivery Method Room Air Room Air 09/08/24 19:00 09/08/24 20:07 09/08/24 20:07 Temperature 98.2 F 98.2 F Temperature Source Oral Pulse Rate 72 81 80 Respiratory Rate 18 23 H 16 Respiratory Effort Respiratory Depth Respiratory Pattern Blood Pressure 122/64 H 106/69 106/69 Blood Pressure Mean 83 81 81 Pulse Ox 94 96 95 Oxygen Delivery Method Room Air Room Air 09/08/24 21:07 Temperature 98.6 F Temperature Source Oral Pulse Rate 83 Respiratory Rate 16 Respiratory Effort Respiratory Depth Respiratory Pattern Blood Pressure 106/75 Blood Pressure Mean 85 Pulse Ox 93 Oxygen Delivery Method Room Air MDM MDM MDM Narrative Medical decision making narrative: 69-year-old male with history of interstitial lung disease and recent COVID-19 infection presents for evaluation of shortness of breath and hypoxia at home. Vitals on arrival show that the patient's pulse ox was 88-87% on room air. However currently in the 90s on room air while sitting. Saturations drop with ambulation. Differential diagnosis includes but is not limited to COVID-19 infection, pneumonia, interstitial lung disease flare, ACS, PE. DuoNeb ordered. Respiratory/cardiac workup ordered. EKG and chest x-ray reviewed, see below. CBC without leukocytosis or anemia.BNP shows KEVIN with creatinine of 1.8. Baseline is about 1.3. NS bolus ordered. Troponin unremarkable. BNP unable to be obtained secondary to hospital machine being broken. D-dimer elevated at 0.84. CTA chest ordered to assess for PE. Patient is already on blood thinner. CTA chest negative for PE. Patient has peripheral pulmonary fibrosis. He has groundglass infiltrates in the right upper lobe and lower lobes consistent with pneumonia. Pneumonia may be secondary to COVID-19 pneumonia however cannot rule out bacterial etiology at this time therefore Rocephin and azithromycin ordered. Patient is positive for COVID-19 infection. Decadron ordered given has hypoxia. Patient will warrant admission to the hospital. Him and his updated all the results and confirmed understand the plan. Dr. Kasper excepted admission. EKG: Interpreted by me/EM physician: EKG shows atrial fibrillation without any acute ischemic changes. Heart rate 90. Diagnostic: Interpreted by me/EM physician: Bilateral infiltrates and interstitial markings. No effusion, pneumothorax, cardiomegaly Impression: 1. Pneumonia, bacterial versus COVID-19 2. COVID-19 infection 3. Acute hypoxia 4. KEVIN 5. Elevated D-dimer 6. History of interstitial fibrosis on rituximab Lab Data Labs: Laboratory Results - last 24 hr 09/08/24 17:34 WBC 6.4 RBC 4.84 Hgb 15.0 Hct 44.3 MCV 91.5 MCH 31.0 MCHC 33.9 RDW Std Deviation 43.8 RDW Coeff of Nenita 12.9 Plt Count 237 MPV 9.6 Immature Gran % (Auto) 0.600 Neut % (Auto) 84.4 H Lymph % (Auto) 7.6 L [place] % (Auto) 7.2 Eos % (Auto) 0.0 Baso % (Auto) 0.2 Absolute Neuts (auto) 5.4 Absolute Lymphs (auto) 0.49 L Nucleated RBC % 0 D-Dimer Quant (PE/DVT) 0.84 H* Sodium 132 L Potassium 4.0 Chloride 100 Carbon Dioxide 24.0 Anion Gap 8 BUN 31 H Creatinine 1.80 H Estim Creat Clear Calc 52.94 Est GFR (MDRD) Af Amer 48 L Est GFR (MDRD) Non-Af 40 L BUN/Creatinine Ratio 17.2 Glucose 246 H Calcium 9.1 Troponin I High Sens 9 Radiography Diagnostic Testing: Clinical Impression(s) from Imaging Studies Chest X-Ray 09/08/24 17:55 IMPRESSION: There is pulmonary fibrosis. It is difficult to the pneumonia. Electronically Signed: Akash Almanza MD at 18:24 EDT , Chest CTA 09/08/24 18:35 IMPRESSION: No PE. Right upper lobe and lower lobe pneumonia. Electronically Signed: Akash Almanza MD at 19:42 EDT , Discharge Plan Disposition Disposition: Acute Care Hospital [facility] Discharge Date/Time: 09/08/24 21:57
[2024-09-08] MEDS: Ipratropium/Albuterol Sulfate 3 ML AMPUL.NEB INHALATION (17:35)
[2024-09-08 17:46] LABS: Absolute Lymphocyte Count 0.49 X10^3/uL (0.83-4.51); Absolute Neutrophil Count 5.4 X10^3/uL (2.0-7.7); Basophil# 0.01 X10^3/uL; Basophil% 0.2 % (0-1); Hematocrit 44.3 % (40-54); Lymphocyte # 0.49 X10^3/ul (0.83-4.51); Lymphocyte % 7.6 % (19-41); Mean Corp Hgb Conc 33.9 g/dL (32-36); Mean Corpuscular Volume 91.5 fL (80-94); Mean Platelet Vol. 9.6 fl (6.2-12.0); Monocyte# 0.46 X10^3/uL; Monocyte% 7.2 % (0-10); NRBC Flagged by Analyzer 0 % (0-5); Neutrophil # 5.43 X10^3/uL (2.7-7.7); Neutrophil % 84.4 % (47-70); POSITIVE DIFFERENTIAL YES; Platelet Count 237 K/mm3 (150-450); RBC Distribution Width CV 12.9 % (11.6-14.6); RBC Distribution Width SD 43.8 fl (35.1-43.9); Red Blood Count 4.84 M/mm3 (4.6-6.2); White Blood Count 6.4 K/mm3 (4.4-11.0)
--- NOTE | 2024-09-08 17:55 | RAD_ITS ---
STUDY: XR Chest 2 Views 09/08/2024 5:56 PM REASON FOR EXAM: Male, 69 years old. Shortness of breath COMPARISON: 2.1.22 TECHNIQUE: XR Chest 2 Views FINDINGS: There are bilateral pleural effusions. There are bilateral infiltrates. There are multiple median sternotomy wires. Normal heart size. Normal mediastinum. Normal sixto. Prominent appearing increased interstitial lung markings. Normal visualized pulmonary arteries. There is atherosclerotic calcification of the aortic arch with tortuosity. There are diffuse degenerative changes of the visualized thoracic spine. There is degenerative osteoarthritis of the bilateral shoulders. There are no acute findings of the upper abdomen. RAD/Chest PA and Lateral IMPRESSION: There is pulmonary fibrosis. It is difficult to the pneumonia. Electronically Signed: Akash Almanza MD at 18:24 EDT ,
[2024-09-08 18:02] LABS: Anion Gap 8 (5-15); BUN 31 mg/dL (7-18); BUN/Creat Ratio 17.2 RATIO (10-20); Calcium,Total 9.1 mg/dL (8.5-10.1); Chloride 100 mmol/L (98-107); EST Glomerular Filtration Rate 40 mL/min (>60); Est Glom Filt Rate - Afr Amer 48 mL/min (>60); Estimated Creatinine Clearance 52.94 ml/min; Glucose 246 mg/dL (74-106); Sodium Level 132 mmol/L (136-145); Troponin-I HS 9 pg/mL (3.0-78.0)
[2024-09-08 18:21] LABS: D-Dimer Quantitative (DVT/PE) 0.84 FEU/ug/m (0.27-0.49)
--- NOTE | 2024-09-08 18:35 | CT_ITS ---
STUDY: CTA Chest WO/W Contrast Injection 09/08/2024 7:40 PM REASON FOR EXAM: Male, 69 years old. PE TECHNIQUE: The examination was performed with the intravenous administration of IV 100mL Isovue-370 contrast material. Post-processing of the angiographic images was performed, with axial imaging and 3D reconstruction. MIPS images were obtained. Individualized dose optimization techniques were used for this CT. COMPARISON: None. FINDINGS: There are degenerative changes of the shoulders. There is no pneumothorax. There is no demonstrated pleural abnormality. There are multiple median sternotomy wires. Peripheral pulmonary fibrosis. Groundglass infiltrates in the right upper lobe and lower lobes. There are calcifications of the coronary arteries. Normal mediastinum. Normal hilar regions. Normal pulmonary arteries. There is atherosclerotic calcification of the aortic arch with tortuosity and elongation of the aortic arch and descending thoracic aorta. There are multi-level degenerative changes of the thoracic spine. There are no acute findings of the upper abdomen. CT/CTA Chest W/WO Contrast IMPRESSION: No PE. Right upper lobe and lower lobe pneumonia. Electronically Signed: Akash Almanza MD at 19:42 EDT ,
[2024-09-08] MEDS: 0.9% Normal Saline (1000mL) 1,000 ML 999 ML IV (19:06)
--- NOTE | 2024-09-08 20:03 | NURSING ---
HOSPITALIST PAGED FOR ADMIT
[2024-09-08] MEDS: Ceftriaxone 1 GM/50 ML BAG IV (20:15)
--- NOTE | 2024-09-08 21:01 | HP.PCM.HOS_ITS ---
[facility] - General General Date of Admission: 09/08/24 Date of Service: 09/08/24 Chief Complaint: SOB. HPI Narrative AZEB BAKER, is a 69 M with a past medical history of essential hypertension, hyperlipidemia, hypothyroidism, being overweight; with BMI of 28.2 this admission, DM-2; of unknown control on Novolog, Metformin and Ozempic, diabetic neuropathy, PAF; on Eliquis, CAD; s/p CABG x 4 (2014), history of ICH (2019), history of Right carotid stenosis, history of vasculitis; on Rituximab, history of Pulmonary Fibrosis; with ILD and autoimmune features, history of osteomyelitis of the Left foot, history of sigmoid volvulus; s/p laparoscopic colectomy, IBS; of chronic constipation-type on Plecanatide, OA and recently diagnosed COVID-19 (08/29/2024); on a 9-day steroid taper who presents to [facility] ER complaining of SOB. Mr. Wasserman reports he spoke to is PCP about Paxolivd - but he did not meet the prerequisite requirements because of his Eliquis. He states earlier today he noticed COYNE that had progressed to SOB at rest with his pulsoximeter reading 88% on RA at home so he decided to come in for further evaluation and treatment. He also admits to a low-grade fever that started today with fatigue and generalized weakness that is adding to his preexisting poor appetite and malaise. He denies associated chills, nausea, vomiting, abdominal pain, dysuria or chest pain. In the ER he was noted to have a CTA of the chest negative for PE but positive for RUL infiltrate consistent with Pneumonia in the setting of recently diagnosed COVID-19 complicated by clinical evidence of respiratory insufficiency due to an Acute Flare of his Chronic ILD and he was then admitted to the PCU for ongoing care for a stay that is expected to extend beyond 2 midnights. [facility] Medical History (Updated 09/08/24 @ 23:[address] 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 Paroxysmal atrial fibrillation Home Medications ?Medication ?Instructions ?Recorded ?Last Taken ?Type aspirin 81 mg tablet,delayed 81 mg PO QDAY heart 12/08/17 01/21/21 06:30 History release (Adult Aspirin Regimen) metformin 1,000 mg tablet 500 mg PO BIDCM DM 07/27/20 01/21/21 06:30 History losartan 100 mg tablet 100 mg PO QDAY blood pressure #90 08/30/21 Unknown Rx tabs atorvastatin 40 mg tablet 40 mg PO QHS CHOLESTEROL #90 tabs 02/28/22 Unknown Rx acetaminophen 500 mg tablet 500 mg PO Q6H PRN fever or pain 06/09/22 Unknown History (Tylenol Extra Strength) cholecalciferol (vitamin D3) 25 50 mcg PO DAILY Vitamin D 06/09/22 Unknown History mcg (1,000 unit) tablet supplement vitamin A 2,400 mcg capsule 7,200 mcg PO DAILY 06/09/22 Unknown History finerenone 10 mg tablet (Kerendia) 10 mg PO DAILY 01/25/23 Unknown History rituximab-arrx 10 mg/mL 10 mg IV 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 Unknown History intravenous solution apixaban 2.5 mg tablet 2.5 mg PO BID #60 tabs 11/01/23 Unknown Rx hydrochlorothiazide 25 mg tablet 12.5 mg PO DAILY 03/08/24 Unknown History plecanatide 3 mg tablet (Trulance) 3 mg PO QDAY 03/08/24 Unknown History semaglutide 0.25 mg or 0.5 mg (2 0.5 mg subcut QWEEK 03/08/24 Unknown History mg/3 mL) subcutaneous pen injector (Ozempic) metoprolol succinate 100 mg 150 mg (1.5 x 100 mg) PO DAILY for 08/09/24 Unknown Rx tablet,extended release 24 hr blood pressure #135 TABLETS amlodipine 10 mg tablet 10 mg PO DAILY 09/08/24 Unknown History insulin aspart U-100 100 unit/mL 28 - 41 unit subcut DAILY 09/08/24 Unknown History (3 mL) subcutaneous pen (Novolog FlexPen U-100 Insulin aspart) prednisone 20 mg tablet 20 mg PO DAILY 09/08/24 Unknown History Allergy/AdvReac Type Severity Reaction Status Date / Time adhesive tape Allergy Rash Verified 09/08/24 16:36 mycophenolate mofetil (From AdvReac Severe elevated Verified 09/08/24 16:36 CellCept) liver enzymes Family History Father , age 72 Lupus COPD (chronic obstructive pulmonary disease) CAD (coronary artery disease) S/P CABG x 3, Onset Age: 68 Congestive heart failure Mother , age 78 Alzheimers disease Surgical History S/P laparoscopic colectomy thoracoscopy with lung biopsy History of left heart catheterization (07/30/15) History of coronary artery bypass graft (07/31/15) Social History Smoking Status: Never smoker alcohol intake: never substance use type: does not use caffeine: Yes Type: coffee Number of servings: 3 ROS ROS Narrative Review of Systems: Constitutional: Patient admits to low-grade fevers but she denies chills. Eyes: Patient denies changes in vision or discharge from eyes. ENT: Patient denies runny nose, sore throat or ear pain. Resp: Patient admits to SOB and cough. CV: Patient denies chest pain, palpitations or heart racing. GI: Patient admits to chronic constipation but he denies abdominal pain, nausea or vomiting. : Patient denies dysuria or hematuria. MSK: Patient admits to myalgias but denies arthralgias. Skin: Patient denies rash, abscess or jaundice. Psych: Patient denies symptoms of uncontrolled depression or anxiety. Neuro: Patient denies headache, paresthesias or focal neurologic weakness. Hematology: Patient denies easy bleeding or easy bruisability. Endocrinology: Patient denies polyuria, polydipsia or polyphagia. 14 point ROS otherwise negative except for positives noted above in HPI. Vital Signs Vital Signs Vital Signs: 09/08/24 16:37 09/08/24 16:42 09/08/24 17:14 Temperature 97.8 F Temperature Source Oral Pulse Rate 79 Respiratory Rate 18 Respiratory Effort Respiratory Depth Respiratory Pattern Blood Pressure 111/75 Blood Pressure Mean 87 Pulse Ox 94 88 90 Oxygen Delivery Method Room Air Room Air Room Air 09/08/24 17:16 09/08/24 17:35 09/08/24 17:41 Temperature Temperature Source Pulse Rate 87 Respiratory Rate 17 Respiratory Effort Normal Non-Labored Respiratory Depth Normal Respiratory Pattern Normal Normal Blood Pressure Blood Pressure Mean Pulse Ox Oxygen Delivery Method Room Air Room Air 09/08/24 19:00 09/08/24 20:07 09/08/24 20:07 Temperature 98.2 F 98.2 F Temperature Source Oral Pulse Rate 72 81 80 Respiratory Rate 18 23 H 16 Respiratory Effort Respiratory Depth Respiratory Pattern Blood Pressure 122/64 H 106/69 106/69 Blood Pressure Mean 83 81 81 Pulse Ox 94 96 95 Oxygen Delivery Method Room Air Room Air Weight Weight: 238 lb Body Mass Index (BMI) 28.2 Physical Exam Const alert, oriented x3, no apparent distress and average body habitus General Appearance: cooperative HEENT normocephalic, head/scalp atraumatic, hearing grossly normal bilaterally and moist oral mucous membranes Eyes PERRL and EOMs intact bilaterally Neck no lymphadenopathy and supple Resp Resp Narrative: Diminished breath sounds throughout - particularly over the RUL. Cardio regular rate and regular rhythm GI normal to inspection, nondistended, normoactive bowel sounds, soft to palpation, non-tender and non-distended Extremity normal to inspection and full ROM Skin Skin Narrative: Patient has no evidence of rash, abscess or jaundice. Neuro oriented x3, CN's II-XII intact bilaterally, moves all extremities and no focal motor deficits Sensorium / Orientation: awake, alert, oriented to person, oriented to place and oriented to time Speech: speech normal Psych affect normal Results Medical Records Data Attestation: I reviewed the patient's medical records Lab / Micro Data Attestation: I reviewed the patient's lab results. 09/08/24 17:34 09/08/24 17:34 Labs: Laboratory Results - last 24 hr 09/08/24 17:34: WBC 6.4, RBC 4.84, Hgb 15.0, Hct 44.3, MCV 91.5, MCH 31.0, MCHC 33.9, RDW Std Deviation 43.8, RDW Coeff of Nenita 12.9, Plt Count 237, MPV 9.6, Immature Gran % (Auto) 0.600, Neut % (Auto) 84.4 H, Lymph % (Auto) 7.6 L, [place] % (Auto) 7.2, Eos % (Auto) 0.0, Baso % (Auto) 0.2, Absolute Neuts (auto) 5.4, A bsolute Lymphs (auto) 0.49 L, Nucleated RBC % 0, D-Dimer Quant (PE/DVT) 0.84 H*, Sodium 132 L, Potassium 4.0, Chloride 100, Carbon Dioxide 24.0, Anion Gap 8, BUN 31 H, Creatinine 1.80 H, Estim Creat Clear Calc 52.94, Est GFR (MDRD) Af Amer 48 L, Est GFR (MDRD) Non-Af 40 L, BUN/Creatinine Ratio 17.2, Glucose 246 H, Calcium 9.1, Troponin I High Sens 9 Micro: Microbiology 09/08/24 17:28 Mucosa - Nose SARS-CoV-2, Influenza & RSV (PCR) - Final SARS-CoV-2 (COVID 19) Imaging Radiology Impression Chest X-Ray 09/08/24 17:55 IMPRESSION: There is pulmonary fibrosis. It is difficult to the pneumonia. Electronically Signed: Akash Almanza MD at 18:24 EDT , Chest CTA 09/08/24 18:35 IMPRESSION: No PE. Right upper lobe and lower lobe pneumonia. Electronically Signed: Akash Almanza MD at 19:42 EDT , Assessment & Plan Assessment/Plan (1) Pneumonia: QUALIFIERS: Laterality: right Lung location: upper lobe of lung Pneumonia type: due to unspecified organism Qualified Code(s): J18.9 - Pneumonia, unspecified organism (2) COVID-19: (3) Respiratory insufficiency: (4) Interstitial lung disease: (5) Autoimmune disease: PLAN: Plan 1. RUL infiltrate consistent with Pneumonia in the setting of recently diagnosed COVID-19 - Admit to PCU under droplet and contact precautions. Continue IV Rocephin and IV Azithromycin begun in the ER and await culture and sensitivity data. Check urinary antigens to Streptococcus pneumonia and Legionella. Give Tylenol prn pain or fever. 2. Mild Acute Flare of his Chronic ILD complicated by clinical evidence of respiratory insufficiency due to #1 - Resume home regimen plus steroids and prn nebulizers. 3. History of vasculitis; on Rituximab compounding #1 & #2 - Current regimen to continue for now. 4. History of Pulmonary Fibrosis; with ILD and autoimmune features adding to the medical complexity of #1 - #3 - Noted. 5. Essential hypertension - Continue home medications as previous. 6. Hyperlipidemia - Resume statin. 7. Hypothyroidism - Maintain Synthroid at current dose and check TSH. 8. Overweight; with BMI of 28.2 this admission - Weight loss will be recommended. 9. DM-2; of unknown control on Novolog, Metformin and Ozempic plus diabetic neuropathy - Continue insulin dosing plus add SSI but hold Metformin and Ozempic. ADA diet. FSBS q. AC/HS plus SSI. Check HgbA1c to objectively assess quality of diabetic control. 10. PAF; on Eliquis - Eliquis to be maintained as before. 11. CAD; s/p CABG x 4 (2014) - Noted. 12. History of ICH (2019) - Noted. 13. History of Right carotid stenosis - Stable. 14. History of osteomyelitis of the Left foot - Noted. 15. History of sigmoid volvulus; s/p laparoscopic colectomy - Noted. 16. IBS; of chronic constipation-type on Plecanatide - Stable. Resume Plecanatide as previous. 17. OA - Give Tylenol prn. 18. DVT prophylaxis - Patient on Eliquis for #10 which will be continued. Total time: Approximately 75 minutes. Charges/Coding Visit Charges Inpatient E&M: 13239 Init Hosp L3
[2024-09-08] MEDS: Azithromycin 500 MG in Dextrose 5%-Water (250mL Bag) 250 ML 250 MG IV (21:06)
[2024-09-08] MEDS: dexAMETHasone 10 MG/ML Vial 6 MG IV (21:44)
[2024-09-08] MEDS: Famotidine 20 MG Tablet PO (23:21)
[2024-09-08] MEDS: 0.9% Normal Saline (1000mL) 1,000 ML 70 ML IV (23:21)
[2024-09-08] MEDS: APIXABAN 2.5 MG TABLET (WCH) PO (23:22)
[2024-09-08] MEDS: Lactobacillis Acidophilus 1 CAP PO (23:22)
[2024-09-08] MEDS: Atorvastatin Calcium 40 MG Tablet PO (23:22)
[2024-09-08] MEDS: Insulin Lispro 100 UNIT/ML INSULN.PEN SC (23:26)
[2024-09-08 23:59] LABS: Bedside Glucose 300 mg/dL (74-106)
[2024-09-09] VITALS (7 sets, daily range): BP systolic 100–113; BP diastolic 69–98; PULSE 67–83; RESP 16–18; TEMP 36–36.6; O2SAT 93–95
[2024-09-09] MEDS: Insulin Lispro 100 UNIT/ML INSULN.PEN SC ×4 (06:37→22:14)
[2024-09-09 06:48] LABS: Absolute Lymphocyte Count 0.42 X10^3/uL (0.83-4.51); Absolute Neutrophil Count 3.4 X10^3/uL (2.0-7.7); Basophil# 0.01 X10^3/uL; Basophil% 0.2 % (0-1); Hematocrit 42.9 % (40-54); Hemoglobin 14.4 g/dL (13.0-16.5); Lymphocyte # 0.42 X10^3/ul (0.83-4.51); Lymphocyte % 10.2 % (19-41); Mean Corp Hgb Conc 33.6 g/dL (32-36); Mean Corpuscular Hgb 30.8 pg (27.0-32.0); Mean Corpuscular Volume 91.9 fL (80-94); Mean Platelet Vol. 9.8 fl (6.2-12.0); Monocyte# 0.25 X10^3/uL; Monocyte% 6.1 % (0-10); NRBC Flagged by Analyzer 0 % (0-5); Neutrophil # 3.38 X10^3/uL (2.7-7.7); Neutrophil % 82.5 % (47-70); POSITIVE DIFFERENTIAL YES; Platelet Count 222 K/mm3 (150-450); RBC Distribution Width SD 43.9 fl (35.1-43.9); Red Blood Count 4.67 M/mm3 (4.6-6.2); White Blood Count 4.1 K/mm3 (4.4-11.0)
[2024-09-09 07:03] LABS: Bedside Glucose 392 mg/dL (74-106)
[2024-09-09 08:11] LABS: ALB/GLOB Ratio 0.8 RATIO (0.9-2.4); AST(SGOT) 15 U/L (15-37); Alanine Aminotransfer ALT/SGPT 15 U/L (16-61); Albumin, Serum 2.9 g/dL (3.2-5.0); Alkaline Phosphatase 106 U/L (45-117); Anion Gap 13 (5-15); BUN 30 mg/dL (7-18); BUN/Creat Ratio 21.9 RATIO (10-20); Calcium,Total 8.6 mg/dL (8.5-10.1); Chloride 99 mmol/L (98-107); Creatinine, Serum 1.37 mg/dL (0.70-1.30); EST Glomerular Filtration Rate 55 mL/min (>60); Est Glom Filt Rate - Afr Amer 66 mL/min (>60); Estimated Creatinine Clearance 70.01 ml/min; Globulin 3.5 g/dL (2.2-4.2); Glucose 375 mg/dL (74-106); Magnesium 1.9 mg/dL (1.6-2.6); Phosphorus 4.1 mg/dL (2.5-4.9); Potassium 3.9 mmol/L (3.5-5.1); Protein, Total 6.4 g/dL (6.4-8.2); Sodium Level 132 mmol/L (136-145); Thyroid Stim Hormone (TSH) 0.626 uIU/mL (0.358-3.740)
[2024-09-09] MEDS: hydroCHLOROthiazide 12.5mg 12.5 MG PO (08:17)
[2024-09-09] MEDS: Ascorbic Acid 500 MG Tablet 1000 MG PO ×2 (08:18→17:19)
[2024-09-09] MEDS: Losartan Potassium 100 MG Tablet PO (08:18)
[2024-09-09] MEDS: Zinc Sulfate 50 mg zinc (220 mg) ORAL capsule PO (08:18)
[2024-09-09] MEDS: APIXABAN 2.5 MG TABLET (WCH) PO ×2 (08:18→21:46)
[2024-09-09] MEDS: Famotidine 20 MG Tablet PO ×2 (08:19→21:46)
[2024-09-09] MEDS: Cholecalciferol (VIT D3) 25 MCG TABLET (1,000 UNITS) 50 MCG PO (08:19)
[2024-09-09] MEDS: Lactobacillis Acidophilus 1 CAP PO ×4 (08:19→21:46)
[2024-09-09] MEDS: amLODIPine 10 MG Tablet PO (08:19)
[2024-09-09] MEDS: Aspirin E.C. 81 MG Tablet PO (08:19)
[2024-09-09] MEDS: Metoprolol(XL)Succ 50 MG Tablet 150 MG PO (08:19)
[2024-09-09] MEDS: 0.9% Saline Lock 10 ML Syringe IV ×2 (08:21→22:10)
[2024-09-09] MEDS: dexAMETHasone 10 MG/ML Vial 6 MG IV ×2 (08:21→21:47)
[2024-09-09] MEDS: Insulin Lispro 100 UNIT/ML INSULN.PEN 28 UNIT SC (09:24)
[2024-09-09 09:33] LABS: Hemoglobin A1c 7.9 % (3.8-5.6)
--- NOTE | 2024-09-09 09:48 | CASEMGMT ---
LAURA PITTMAN Assessment Face to Face with patient for initial transition planning/care coordination assessment. LAURA PITTMAN introduced self and role at [facility], pt voices understanding. Pt is A&Ox4 and is resting comfortably in bed and is calm. Care providers, pharmacy, and demographics verified. Admitting dx: [place], CARYL SAENZ Strata: 2 PCP: Mk Carpenter Specialists: Emilee (podiatry), Kareem (rheumatology), [facility] and retina specialist from [facility], crow (GI), [employer] (rn patient services) Preferred Pharmacy: [facility] Insurance: [employer] [facility] Prescription Benefit: Yes LNOK: Tessa Workman (W) Living Arrangements: Pt lives with his in a single story home with a basement and a FFSU with 2 steps to enter ADLs/IADLs: Ind Transportation: Self, DME: Continuous blood glucose monitor with sufficient supplies. Cane, shower chair, grab bars, pox, and knee scooter. Pt is currently 93% on RA and might qualify for home oxygen. Pt states that he prefers to go through [email or web address] in [facility] if he qualifies. CM to follow. HHC/SNF: Denies history Pt?s goal: Home Plan: Home no needs. follow for oxygen. 6-Click is 24. Pt refuses the need for HH, OP Tx, SNF, CCN, or pt Link. Pt states that he feels safe returning home with his with no additional needs once he is medically ready. Report given to COLLAR SEPARATOR CM. Jr Goldberg RN, CM
[2024-09-09 10:05] LABS: Bedside Glucose 368 mg/dL (74-106)
[2024-09-09 12:10] LABS: Bedside Glucose 298 mg/dL (74-106)
[2024-09-09] MEDS: Insulin Lispro 100 UNIT/ML INSULN.PEN 14 UNIT SC (12:37)
[2024-09-09] MEDS: PLECANATIDE 3 MG TABLET PO (14:19)
[2024-09-09] MEDS: FINERENONE 10 MG TABLET PO (14:19)
[2024-09-09 16:32] LABS: Bedside Glucose 308 mg/dL (74-106)
[2024-09-09] MEDS: Insulin Lispro 100 UNIT/ML INSULN.PEN 24 UNIT SC (17:22)
--- NOTE | 2024-09-09 19:04 | PCM.PN.HOSP ---
Reason for Visit Reason for Visit: Diagnoses Other specified disorders involving the immune mechanism, not elsewhere classified (09/08/24) Pneumonia, unspecified organism (09/08/24) Interstitial pulmonary disease, unspecified (09/08/24) Other abnormalities of breathing (09/08/24) COVID-19 (09/08/24) Subjective Subjective Patient was seen and examined today, I talked with his who was in the room at the time my examination. Patient is currently not hypoxic on room air, I explained to the patient that we must walk him tomorrow to make sure that he does not require oxygen on discharge from the hospital. Objective Data Objective Data Vital Signs: Vital Signs Temp Pulse Resp BP Pulse Ox O2 Del Method 97.6 F L 79 18 100/71 95 Room Air 09/09/24 17:17 09/09/24 17:17 09/09/24 17:17 09/09/24 17:17 09/09/24 17:17 09/09/24 17:17 Oxygen Delivery Method Room Air Weight: 109.5 kg Body Mass Index (BMI) 28.6 Intake & Output: Intake and Output for Last 24 Hours 09/07/24 09/08/24 09/09/24 23:59 23:59 23:59 Intake Total 1305 / 1305 1240 / 1240 Balance 1305 / 1305 1240 / 1240 Lab / Micro Data 09/09/24 05:14 09/09/24 05:14 Labs: Laboratory Results - last 24 hr 09/08/24 23:25: POC Glucose 300 H 09/09/24 05:14: WBC 4.1 L, RBC 4.67, Hgb 14.4, Hct 42.9, MCV 91.9, MCH 30.8, MCHC 33.6, RDW Std Deviation 43.9, RDW Coeff of Nenita 13.0, Plt Count 222, MPV 9.8, Immature Gran % (Auto) 1.000 H, Neut % (Auto) 82.5 H, Lymph % (Auto) 10.2 L, [place] % (Auto) 6.1, Eos % (Auto) 0.0, Baso % (Auto) 0.2, Absolute Neuts (auto) 3.4, Absolute Lymphs (auto) 0.42 L, Nucleated RBC % 0, Sodium 132 L, Potassium 3.9, Chloride 99, Carbon Dioxide 20.0 L, Anion Gap 13, BUN 30 H, Creatinine 1.37 H, Estim Creat Clear Calc 70.01, Est GFR (MDRD) Af Amer 66, Est GFR (MDRD) Non-Af 55 L, BUN/Creatinine Ratio 21.9 H, Glucose 375 H, Hemoglobin A1c 7.9 H, Calcium 8.6, Phosphorus 4.1, Magnesium 1.9, Total Bilirubin 0.50, AST 15, ALT 15 L, Alkaline Phosphatase 106, Total Protein 6.4, Albumin 2.9 L, Globulin 3.5, Albumin/Globulin Ratio 0.8 L, TSH 0.626 09/09/24 06:35: POC Glucose 392 H 09/09/24 09:23: POC Glucose 368 H 09/09/24 11:48: POC Glucose 298 H 09/09/24 16:04: POC Glucose 308 H Micro: Microbiology 09/08/24 17:28 Mucosa - Nose SARS-CoV-2, Influenza & RSV (PCR) - Final SARS-CoV-2 (COVID 19) 09/09/24 04:40 Urine, Clean Catch Legionella Antigen - Final 09/09/24 04:40 Urine, Clean Catch Streptococcus pneumoniae Antigen (M - Final Radiography Diagnostic Testing: Radiology Impression Chest CTA 09/08/24 18:35 IMPRESSION: No PE. Right upper lobe and lower lobe pneumonia. Electronically Signed: Akash Almanza MD at 19:42 EDT Reading Location ID and State: [facility] / [place] , Service support , Physical Exam Const alert, oriented x3, no apparent distress and healthy appearing General Appearance: cooperative, well kempt and well developed Orientation / Consciousness: awake, oriented to person, oriented to place and oriented to time HEENT normocephalic and moist oral mucous membranes Eyes PERRL, EOMs intact bilaterally and conjunctivae normal Neck supple, no JVD, thyroid normal and no carotid bruits General: trachea midline Resp normal respiratory effort and clear to auscultation bilaterally Auscultation: Negative for rales, rhonchi or wheezes Cardio regular rate, regular rhythm, no murmurs, no rub and no gallops GI normal to inspection, nondistended, normoactive bowel sounds, soft to palpation, non-tender and non-distended Extremity no clubbing, cyanosis or edema Skin no rashes or lesions noted General Skin Exam: no breakdown Neuro oriented x3, CN's II-XII intact bilaterally, no focal motor deficits and no sensory deficits noted Sensorium / Orientation: awake and alert Speech: speech normal Psych affect normal Assessment & Plan Assessment/Plan (1) Pneumonia: QUALIFIERS: Pneumonia type: due to unspecified organism Laterality: right Lung location: upper lobe of lung Qualified Code(s): J18.9 - Pneumonia, unspecified organism PLAN: Plan 1. 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 lung disease, he follows up with the pulmonary physician as an outpatient #4 atherosclerotic heart disease-stable at this time #5 essential hypertension-patient will remain on his present medication #6 type 2 diabetes-patient's blood sugars will be monitored, sliding scale insulin will be given as needed #7 hyperlipidemia-patient is on a statin presently Total clinical time spent by myself addressing the patient's medical issues, reviewing all of his data, and collaborating with patient's care team: 35 minutes Charges/Coding Visit Charges Inpatient E&M: 28547 Subs Hosp L2
[2024-09-09] MEDS: Atorvastatin Calcium 40 MG Tablet PO (21:46)
[2024-09-09] MEDS: Azithromycin 500 MG in Dextrose 5%-Water (250mL Bag) 250 ML 250 MG IV (21:47)
[2024-09-09 22:40] LABS: Bedside Glucose 240 mg/dL (74-106)
[2024-09-09] MEDS: Ceftriaxone 1 GM/50 ML BAG IV (23:35)
[2024-09-10 04:00] VITALS: BP 127/79; PULSE 77; RESP 17; TEMP 35.9; O2SAT 92
[2024-09-10 04:53] VITALS: BMI 27.7
[2024-09-10] MEDS: Insulin Lispro 100 UNIT/ML INSULN.PEN SC ×2 (05:58→13:15)
[2024-09-10 06:20] LABS: Bedside Glucose 347 mg/dL (74-106)
[2024-09-10 06:56] LABS: Magnesium 1.9 mg/dL (1.6-2.6)
[2024-09-10 09:04] VITALS: O2SAT 93
[2024-09-10] MEDS: Insulin Lispro 100 UNIT/ML INSULN.PEN 28 UNIT SC (09:24)
[2024-09-10] MEDS: Ascorbic Acid 500 MG Tablet 1000 MG PO (09:25)
[2024-09-10] MEDS: Cholecalciferol (VIT D3) 25 MCG TABLET (1,000 UNITS) 50 MCG PO (09:25)
[2024-09-10] MEDS: Losartan Potassium 100 MG Tablet PO (09:25)
[2024-09-10] MEDS: Aspirin E.C. 81 MG Tablet PO (09:26)
[2024-09-10] MEDS: Lactobacillis Acidophilus 1 CAP PO (09:26)
[2024-09-10] MEDS: dexAMETHasone 10 MG/ML Vial 6 MG IV (09:26)
[2024-09-10] MEDS: Zinc Sulfate 50 mg zinc (220 mg) ORAL capsule PO (09:26)
[2024-09-10] MEDS: APIXABAN 2.5 MG TABLET (WCH) PO (09:27)
[2024-09-10 09:28] VITALS: PULSE 80
[2024-09-10] MEDS: Metoprolol(XL)Succ 50 MG Tablet 150 MG PO (09:28)
[2024-09-10] MEDS: hydroCHLOROthiazide 12.5mg 12.5 MG PO (09:28)
[2024-09-10] MEDS: Famotidine 20 MG Tablet PO (09:28)
[2024-09-10] MEDS: FINERENONE 10 MG TABLET PO (09:29)
[2024-09-10] MEDS: amLODIPine 10 MG Tablet PO (09:29)
[2024-09-10] MEDS: 0.9% Saline Lock 10 ML Syringe IV (09:32)
[2024-09-10] MEDS: PLECANATIDE 3 MG TABLET PO (09:33)
[2024-09-10 10:00] VITALS: BP 121/76; PULSE 87; RESP 16; TEMP 36.6; O2SAT 94
[2024-09-10 10:34] VITALS: O2SAT 89; O2SAT 92
--- NOTE | 2024-09-10 10:52 | DCINST_ITS ---
Discharge Instructions Diet Discharge Diet: - (resume home diet) Activity Discharge Activity: Return to Normal Activity Weight Bearing Status: Full weight bearing Follow Up Care Test Results: Test results from this visit will be discussed in further detail at your follow- up appointment, if applicable. Discharge Plan Admission Admit Date/Time: 09/08/24 21:23 Primary Reason for Your Visit: pneumonia Attending Provider: Taurus Gleason Primary Care Provider: Mk Carpenter Consulting Providers: Beny Hartley; Taurus Gleason Discharge Orders/Prescriptions Prescriptions: New levofloxacin 500 mg tablet 500 mg PO DAILY Qty: 7 0RF Continued aspirin [Adult Aspirin Regimen] 81 mg tablet,delayed release (DR/EC) 81 mg PO QDAY metformin 1,000 mg tablet 500 mg PO BIDCM losartan 100 mg tablet 100 mg PO QDAY Qty: 90 3RF vitamin A 2,400 mcg capsule 7,200 mcg PO DAILY acetaminophen [Tylenol Extra Strength] 500 mg tablet 500 mg PO Q6H PRN (Reason: fever or pain) Kerendia 10 mg tablet 10 mg PO DAILY Ozempic 0.25 mg or 0.5 mg (2 mg/3 mL) pen injector 0.5 mg subcut QWEEK Trulance 3 mg tablet 3 mg PO QDAY hydrochlorothiazide 25 mg tablet 12.5 mg PO DAILY cholecalciferol (vitamin D3) 25 mcg (1,000 unit) tablet 50 mcg PO DAILY rituximab-arrx 10 mg/mL solution 10 mg IV Q9M Rx Instructions: [id number] amlodipine 10 mg tablet 10 mg PO DAILY insulin aspart U-100 [Novolog FlexPen U-100 Insulin] 100 unit/mL (3 mL) insulin pen 28 - 41 unit subcut DAILY prednisone 20 mg tablet 20 mg PO DAILY atorvastatin 40 mg tablet 40 mg PO QHS Qty: 90 3RF apixaban 2.5 mg tablet 2.5 mg PO BID Qty: 60 11RF Patient Comments: took self off on monday for surgery metoprolol succinate 100 mg tablet extended release 24 hr 150 mg PO DAILY Qty: 135 3RF Referrals / Follow Up: Mk Carepnter MD [Primary Care Provider] - Within 2 Weeks Disposition Disposition (needs filled in before D/C Order can be placed): Home, Self Care
--- NOTE | 2024-09-10 10:57 | DS.PCM_ITS ---
Providers Date of Admission: 09/08/24 Date of Discharge: 09/10/24 Primary Care Physician: Dr. Mk Carpenter MD Diagnosis Discharge Diagnosis (1) Pneumonia: Status: Acute Code(s): J18.9 - Pneumonia, unspecified organism Qualifiers: Laterality: right Lung location: upper lobe of lung Pneumonia type: d ue to unspecified organism Qualified Code(s): J18.9 - Pneumonia, unspecified organism Plan 1. 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 lung disease, he follows up with the pulmonary physician as an outpatient #4 atherosclerotic heart disease-stable at this time #5 essential hypertension-patient will remain on his present medication #6 type 2 diabetes-patient's blood sugars will be monitored, sliding scale insulin will be given as needed #7 hyperlipidemia-patient is on a statin presently Total clinical time spent by myself addressing the patient's medical issues, reviewing all of his data, and collaborating with patient's care team: 35 minutes Medications at Discharge Home Medications aspirin 81 mg tablet,delayed release (Adult Aspirin Regimen) 81 mg PO QDAY heart 12/08/17 metformin 1,000 mg tablet 500 mg PO BIDCM DM 07/27/20 losartan 100 mg tablet 100 mg PO QDAY blood pressure #90 tabs 08/30/21 atorvastatin 40 mg tablet 40 mg PO QHS CHOLESTEROL #90 tabs 02/28/22 acetaminophen 500 mg tablet (Tylenol Extra Strength) 500 mg PO Q6H PRN fever or pain 06/09/22 cholecalciferol (vitamin D3) 25 mcg (1,000 unit) tablet 50 mcg PO DAILY Vitamin D supplement 06/09/22 vitamin A 2,400 mcg capsule 7,200 mcg PO DAILY vitamin 06/09/22 finerenone 10 mg tablet (Kerendia) 10 mg PO DAILY diuretic 01/25/23 rituximab-arrx 10 mg/mL intravenous solution 10 mg IV 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 apixaban 2.5 mg tablet 2.5 mg PO BID blood thinner #60 tabs 11/01/23 hydrochlorothiazide 25 mg tablet 12.5 mg PO DAILY diuretic 03/08/24 plecanatide 3 mg tablet (Trulance) 3 mg PO QDAY constipation 03/08/24 semaglutide 0.25 mg or 0.5 mg (2 mg/3 mL) subcutaneous pen injector (Ozempic) 0.5 mg subcut QWEEK diabetes 03/08/24 metoprolol succinate 100 mg tablet,extended release 24 hr 150 mg (1.5 x 100 mg) PO DAILY for blood pressure #135 TABLETS 08/09/24 amlodipine 10 mg tablet 10 mg PO DAILY blood pressure 09/08/24 insulin aspart U-100 100 unit/mL (3 mL) subcutaneous pen (Novolog FlexPen U-100 Insulin aspart) 28 - 41 unit subcut DAILY diabetes 09/08/24 prednisone 20 mg tablet 20 mg PO DAILY inflammation 09/08/24 levofloxacin 500 mg tablet 500 mg PO DAILY #7 tabs 09/10/24 Hospital Course Operations None Procedures None Summary of Care Provided Minutes Spent on Discharge: 31 Hospital Course: This 69-year-old white male was seen in the emergency room at [facility], he had recently had COVID-19 infection, he complained of shortness of breath and he checked his pulse ox at home and his pulse ox read 88% and so he came to the emergency room for evaluation. 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 Patient had recently been placed on prednisone due to his COVID-19 positivity. Workup in the emergency room included a CBC which showed a normal white blood cell count, patient's D-dimer was elevated, chest x-ray showed evidence of pulmonary fibrosis, chest CTA was performed that showed no evidence of PE and it showed right upper lobe and right lower lobe pneumonia. Patient's pulse ox was 88 to 87% on room air. Patient was placed on IV antibiotics and admitted to PCU, patient did not require oxygen at rest. On 09/10/2024, patient underwent a ambulatory pulse ox which showed he did not require oxygen on ambulation. Patient was seen and examined on 09/10/2024: On examination he appeared in good health and spirits. Vital signs as documented. Skin warm and dry and without overt rashes. Neck without JVD, neck was supple, trachea midline, thyroid was normal. Lungs clear bilaterally, normal air movement was noted. Heart exam notable for regular rhythm, normal sounds and absence of murmurs, rubs or gallops. Abdomen unremarkable and without evidence of organomegaly, masses, or abdominal aortic enlargement. Bowel sounds are present, abdomen is not distended. Extremities nonedematous, no cyanosis was noted, no clubbing was noted. Neuro: Cranial nerves II through XII are grossly intact, no focal motor deficits were noted, sensation to light touch and pinprick intact, motor exam 5/5 throughout. Psych: Patient is alert and oriented x3, he does not appear anxious or depressed, he does not appear agitated. On 09/10/2024, patient was seen and examined and felt be in stable condition for discharge home. Weight / BMI Weight Weight: 106 kg Body Mass Index (BMI) 27.7 ABG / Lab / Microbiology Data 09/09/24 05:14 09/09/24 05:14 Laboratory: Laboratory Results - last 24 hr 09/09/24 11:48: POC Glucose 298 H 09/09/24 16:04: POC Glucose 308 H 09/09/24 22:14: POC Glucose 240 H 09/10/24 05:48: Phosphorus 4.0, Magnesium 1.9 09/10/24 05:57: POC Glucose 347 H Microbiology: Microbiology 09/08/24 17:28 Mucosa - Nose SARS-CoV-2, Influenza & RSV (PCR) - Final SARS-CoV-2 (COVID 19) 09/09/24 04:40 Urine, Clean Catch Legionella Antigen - Final 09/09/24 04:40 Urine, Clean Catch Streptococcus pneumoniae Antigen (M - Final D/C Instructions Discharge Diet: - (resume home diet) Weight Bearing Status: Full weight bearing Meaningful Use Info Meaningful Use Meaningful Use Diagnoses (Choose all that apply): None applicable Ischemic Stroke Statin Dosing Therapy Reference: STATIN DOSE THERAPY REFERENCE: * Patients > 75 years receive moderate or high dose statin therapy. * Patients 75 years or YOUNGER should receive HIGH intensity statin dose unless contraindicated. You will be required to document reason for non-treatment if statin daily dose does not meet guidelines. HIGH DOSE STATIN THERAPY DAILY Atorvastatin > than or = to 40 mg Rosuvastatin > than or = to 20 mg Amlodipine + Atorvastatin > than or = to 2.5/40 mg Ezetimibe + Simvastatin 10/80 mg Simvastatin 80mg Discharge Plan Admission Admit Date/Time: 09/08/24 21:23 Primary Reason for Your Visit: pneumonia Attending Provider: Taurus Glaeson Primary Care Provider: Mk Carpenter Consulting Providers: Beny Hartley; Taurus Gleason Discharge Orders/Prescriptions Prescriptions: New levofloxacin 500 mg tablet 500 mg PO DAILY Qty: 7 0RF Continued aspirin [Adult Aspirin Regimen] 81 mg tablet,delayed release (DR/EC) 81 mg PO QDAY metformin 1,000 mg tablet 500 mg PO BIDCM losartan 100 mg tablet 100 mg PO QDAY Qty: 90 3RF vitamin A 2,400 mcg capsule 7,200 mcg PO DAILY acetaminophen [Tylenol Extra Strength] 500 mg tablet 500 mg PO Q6H PRN (Reason: fever or pain) Kerendia 10 mg tablet 10 mg PO DAILY Ozempic 0.25 mg or 0.5 mg (2 mg/3 mL) pen injector 0.5 mg subcut QWEEK Trulance 3 mg tablet 3 mg PO QDAY hydrochlorothiazide 25 mg tablet 12.5 mg PO DAILY cholecalciferol (vitamin D3) 25 mcg (1,000 unit) tablet 50 mcg PO DAILY rituximab-arrx 10 mg/mL solution 10 mg IV Q9M Rx Instructions: [id number] amlodipine 10 mg tablet 10 mg PO DAILY insulin aspart U-100 [Novolog FlexPen U-100 Insulin] 100 unit/mL (3 mL) insulin pen 28 - 41 unit subcut DAILY prednisone 20 mg tablet 20 mg PO DAILY atorvastatin 40 mg tablet 40 mg PO QHS Qty: 90 3RF apixaban 2.5 mg tablet 2.5 mg PO BID Qty: 60 11RF Patient Comments: took self off on monday for surgery metoprolol succinate 100 mg tablet extended release 24 hr 150 mg PO DAILY Qty: 135 3RF Referrals / Follow Up: Mk Carpenter MD [Primary Care Provider] - 09/17/24 10:30 am (Appointment is with Hermelindo Holcomb N.P.) Disposition Disposition (needs filled in before D/C Order can be placed): Home, Self Care Charges/Coding Visit Charges Inpatient E&M: 51802 Disch Hosp >30min
--- NOTE | 2024-09-10 11:31 | CASEMGMT ---
Patient has order for discharge. RN CM in to discuss needs at discharge. Patient denies needs or help at discharge. Patient had no further questions or concerns.
--- NOTE | 2024-09-10 11:46 | PHA.DC_ITS ---
Pharmacy [facility] has performed discharge medication reconciliation and counseling for this patient. 1. LEVOFLOXACIN 500MG PO DAILY X 7 DAYS The patient's discharge medication list was reviewed for discrepancies and discrepancies were resolved. The patient was counseled on the following discharge medications and changes in medications for homegoing were reviewed. The Reason for Use, instructions for use, and potential side effects were reviewed for all new medications. The patient's questions regarding all of their medications were answered. The patient was able to verbally demonstrate an understanding of their discharge medications. Medications at Discharge Home Medications aspirin 81 mg tablet,delayed release (Adult Aspirin Regimen) 81 mg PO QDAY heart 12/08/17 metformin 1,000 mg tablet 500 mg PO BIDCM DM 07/27/20 losartan 100 mg tablet 100 mg PO QDAY blood pressure #90 tabs 08/30/21 atorvastatin 40 mg tablet 40 mg PO QHS CHOLESTEROL #90 tabs 02/28/22 acetaminophen 500 mg tablet (Tylenol Extra Strength) 500 mg PO Q6H PRN fever or pain 06/09/22 cholecalciferol (vitamin D3) 25 mcg (1,000 unit) tablet 50 mcg PO DAILY Vitamin D supplement 06/09/22 vitamin A 2,400 mcg capsule 7,200 mcg PO DAILY vitamin 06/09/22 finerenone 10 mg tablet (Kerendia) 10 mg PO DAILY diuretic 01/25/23 rituximab-arrx 10 mg/mL intravenous solution 10 mg IV 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 apixaban 2.5 mg tablet 2.5 mg PO BID blood thinner #60 tabs 11/01/23 hydrochlorothiazide 25 mg tablet 12.5 mg PO DAILY diuretic 03/08/24 plecanatide 3 mg tablet (Trulance) 3 mg PO QDAY constipation 03/08/24 semaglutide 0.25 mg or 0.5 mg (2 mg/3 mL) subcutaneous pen injector (Ozempic) 0.5 mg subcut QWEEK diabetes 03/08/24 metoprolol succinate 100 mg tablet,extended release 24 hr 150 mg (1.5 x 100 mg) PO DAILY for blood pressure #135 TABLETS 08/09/24 amlodipine 10 mg tablet 10 mg PO DAILY blood pressure 09/08/24 insulin aspart U-100 100 unit/mL (3 mL) subcutaneous pen (Novolog FlexPen U-100 Insulin aspart) 28 - 41 unit subcut DAILY diabetes 09/08/24 prednisone 20 mg tablet 20 mg PO DAILY inflammation 09/08/24 levofloxacin 500 mg tablet 500 mg PO DAILY #7 tabs 09/10/24
[2024-09-10] MEDS: Insulin Lispro 100 UNIT/ML INSULN.PEN 14 UNIT SC (13:17)
[2024-09-11 07:37] LABS: Bedside Glucose 452 mg/dL (74-106)
[2024-09-11 07:37] LABS: Bedside Glucose 434 mg/dL (74-106)
[2024-09-18 10:09] LABS: BNP,B-Type NATRIURETIC PEPTIDE 174.4 pg/mL (0.0-100.0)
== END 2024-09-10 13:30 | disposition home or self-care (01) | DRG 177 ==
LOC: ED 21:10 → PCU 21:46
PROVIDERS: Admitting Provider Internal Medicine; Emergency Provider Surgery; PCP Family Medicine; Visit Provider Internal Medicine
DX: U07.1 COVID-19 (principal); J18.9 Pneumonia, unspecified organism; N17.9 Acute kidney failure, unspecified; E11.42 Type 2 diabetes mellitus with diabetic polyneuropathy; E03.9 Hypothyroidism, unspecified; M35.9 Systemic involvement of connective tissue, unspecified; I48.0 Paroxysmal atrial fibrillation; I10 Essential (primary) hypertension; I77.6 Arteritis, unspecified; I25.10 Atherosclerotic heart disease of native coronary artery without angina pectoris; K58.9 Irritable bowel syndrome, unspecified; Z79.4 Long term (current) use of insulin; E78.5 Hyperlipidemia, unspecified; E66.3 Overweight; Z79.85 Long-term (current) use of injectable non-insulin antidiabetic drugs; Z79.84 Long term (current) use of oral hypoglycemic drugs; Z79.01 Long term (current) use of anticoagulants; R09.02 Hypoxemia; Z95.1 Presence of aortocoronary bypass graft; Z90.49 Acquired absence of other specified parts of digestive tract; Z79.82 Long term (current) use of aspirin; Z79.899 Other long term (current) drug therapy; R06.89 Other abnormalities of breathing; Z79.890 Hormone replacement therapy; Z68.28 Body mass index [BMI] 28.0-28.9, adult; R79.1 Abnormal coagulation profile; Z87.09 Personal history of other diseases of the respiratory system
CPT/HCPCS: 36415; 71046; 71275; 80048; 80053; 82962; 83036; 83735; 83880; 84100; 84443; 84484; 85025; 85379; 87449; 87631; 93005; 94640; 99285; J7030; Q9967; A4216

== ENCOUNTER 2024-09-14 11:36 | Inpatient (IN) | payer MEDICARE, SELFPAY ==
[2024-09-14] VITALS (14 sets, daily range): BP systolic 89–138; BP diastolic 55–96; PULSE 96–122; RESP 18–34; TEMP 36.7–37.2; O2SAT 69–99; BMI 27.9; BMI 27.7
--- NOTE | 2024-09-14 12:19 | EKG12_ITS ---
Test Reason : SOB Blood Pressure : / mmHG Vent. Rate : 111 BPM Atrial Rate : 000 BPM P-R Int : 000 ms QRS Dur : 136 ms QT Int : 348 ms P-R-T Axes : 000 -66 078 degrees QTc Int : 473 ms Atrial fibrillation with rapid ventricular response Right bundle branch block Left anterior fascicular block Bifascicular block Abnormal ECG Baseline artifact could affect interpretation Confirmed by Dwain Tong ([id number]), editor trade journal RICH AMATO ([id number]) on 09/16/2024 11:26:44 AM Referred By: ROSALBA/LAURITA Confirmed By:Dwain Tong
--- NOTE | 2024-09-14 12:30 | ED.VIS.DYS ---
HPI History of Present Illness Chief Complaint: Shortness of Breath Narrative Narrative: Chief complaint and HPI: Shortness of breath and hypoxia . 69-year-old male with history of atrial fibrillation on Eliquis, HTN, HLD, DM2, interstitial lung disease, vasculitis on rituximab every 9 months presents for evaluation of worsening shortness of breath and hypoxia. Patient was recently was diagnosed with COVID-19 infection and admitted to the hospital for acute hypoxic respiratory failure and a right sided pneumonia. Patient was discharged home on 09/10 with Levaquin. Patient states that he has been taking the Levaquin. Patient states since being discharged home he has had increased shortness of breath with decreased appetite. states that he has been hypoxic on room air at home. On arrival patient was 65% on room air. He was placed on a 15 L nonrebreather. Of note, I originally saw the patient in the emergency department when he presented for his first admission. At that time he had an elevated D-dimer which I got a CTA chest performed that showed no evidence of PE and it showed right upper lobe and right lower lobe pneumonia. Patient endorses some chest tightness and shortness of breath. He denies any abdominal pain, nausea, vomiting, dysuria, diarrhea. Denies any bilateral lower extremity pain or swelling. Review of systems: See HPI Medications: As listed on the chart Allergies: As listed on the chart PFSH: Per chart Vital signs: As listed on the chart. Reviewed. Physical exam: Gen: A&O x3, NAD Head: Normocephalic, atraumatic Eyes: No sclera icterus, conjunctiva clear ENT: Dry mucous membranes Neck: Trachea midline, No JVD CV: Tachycardic, irregular rhythm, no murmurs, no peripheral edema Resp: Lungs diminished bilateral, poor airflow, no wheezing GI: Abd soft, non-distended, non-tender, no r/r/g Musc: Full ROM, no deformity Skin: Warm, dry Neuro: Alert, oriented, grossly intact, sensation intact Psych: Cooperative, appropriate mood and affect [facility] Medical History COVID-19 Sigmoid volvulus Essential hypertension Vasculitis Intracerebral hemorrhage (01/30/19) Type 2 diabetes mellitus with diabetic polyneuropathy Hypothyroid interstitial pneumonia with autoimmune features Interstitial lung disease Diabetes mellitus type II, controlled Hyperlipidemia Hypertension 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 [employer] current use of anticoagulant Paroxysmal atrial fibrillation Home Medications ?Medication ?Instructions ?Recorded ?Last Taken ?Type aspirin 81 mg tablet,delayed 81 mg PO QDAY heart 12/08/17 01/21/21 06:30 History release (Adult Aspirin Regimen) metformin 1,000 mg tablet 500 mg PO BIDCM DM 07/27/20 01/21/21 06:30 History losartan 100 mg tablet 100 mg PO QDAY blood pressure #90 08/30/21 Unknown Rx tabs atorvastatin 40 mg tablet 40 mg PO QHS CHOLESTEROL #90 tabs 02/28/22 Unknown Rx acetaminophen 500 mg tablet 500 mg PO Q6H PRN fever or pain 06/09/22 Unknown History (Tylenol Extra Strength) cholecalciferol (vitamin D3) 25 50 mcg PO DAILY Vitamin D 06/09/22 Unknown History mcg (1,000 unit) tablet supplement vitamin A 2,400 mcg capsule 7,200 mcg PO DAILY vitamin 06/09/22 Unknown History finerenone 10 mg tablet (Kerendia) 10 mg PO DAILY diuretic 01/25/23 Unknown History rituximab-arrx 10 mg/mL 10 mg IV 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 Unknown History intravenous solution apixaban 2.5 mg tablet 2.5 mg PO BID blood thinner #60 11/01/23 Unknown Rx tabs hydrochlorothiazide 25 mg tablet 12.5 mg PO DAILY diuretic 03/08/24 Unknown History plecanatide 3 mg tablet (Trulance) 3 mg PO QDAY constipation 03/08/24 Unknown History semaglutide 0.25 mg or 0.5 mg (2 0.5 mg subcut QWEEK diabetes 03/08/24 Unknown History mg/3 mL) subcutaneous pen injector (Ozempic) metoprolol succinate 100 mg 150 mg (1.5 x 100 mg) PO DAILY for 08/09/24 Unknown Rx tablet,extended release 24 hr blood pressure #135 TABLETS amlodipine 10 mg tablet 10 mg PO DAILY blood pressure 09/08/24 Unknown History insulin aspart U-100 100 unit/mL 28 - 41 unit subcut DAILY diabetes 09/08/24 Unknown History (3 mL) subcutaneous pen (Novolog FlexPen U-100 Insulin aspart) prednisone 20 mg tablet 20 mg PO DAILY inflammation 09/08/24 Unknown History levofloxacin 500 mg tablet 500 mg PO DAILY #7 tabs 09/10/24 Unknown Rx Allergy/AdvReac Type Severity Reaction Status Date / Time adhesive tape Allergy Rash Verified 09/14/24 11:42 mycophenolate mofetil (From AdvReac Severe elevated Verified 09/14/24 11:42 CellCept) liver enzymes Family History Father , age 72 Lupus COPD (chronic obstructive pulmonary disease) CAD (coronary artery disease) S/P CABG x 3, Onset Age: 68 Congestive heart failure Mother , age 78 Alzheimers disease Surgical History S/P laparoscopic colectomy thoracoscopy with lung biopsy History of left heart catheterization (07/30/15) History of coronary artery bypass graft (07/31/15) Social History Smoking Status: Never smoker alcohol intake: never substance use type: does not use caffeine: Yes Type: coffee Number of servings: 3 EXAM Physical Exam Const Vital Signs: 09/14/24 11:36 09/14/24 11:36 09/14/24 11:37 Temperature 98.2 F Temperature Source Oral Pulse Rate 109 H Respiratory Rate 23 H Respiratory Effort Respiratory Depth Respiratory Pattern Blood Pressure 138/96 H Blood Pressure Mean 110 Pulse Ox 97 69 97 Oxygen Delivery Method Non-Rebreather Room Air Non-Rebreather Oxygen Flow Rate (L/min) 15 15 09/14/24 11:42 09/14/24 11:43 09/14/24 11:45 Temperature 98.2 F Temperature Source Oral Pulse Rate 116 H Respiratory Rate 28 H Respiratory Effort Short of Breath Labored Respiratory Depth Shallow Respiratory Pattern Tachypnea Blood Pressure 138/96 H Blood Pressure Mean 110 Pulse Ox 95 97 Oxygen Delivery Method Non-Rebreather Non-Rebreather Non-Rebreather Oxygen Flow Rate (L/min) 15 15 15 09/14/24 11:57 09/14/24 12:19 09/14/24 12:36 Temperature Temperature Source Pulse Rate 114 H Respiratory Rate 26 H Respiratory Effort Respiratory Depth Respiratory Pattern Blood Pressure 98/71 Blood Pressure Mean 80 Pulse Ox 95 93 Oxygen Delivery Method High Flow Nasal Cannula Room Air Oxygen Flow Rate (L/min) 10 09/14/24 12:36 09/14/24 12:36 09/14/24 13:19 Temperature 98.4 F Temperature Source Oral Pulse Rate 113 H 122 H Respiratory Rate 20 H 26 H Respiratory Effort Respiratory Depth Respiratory Pattern Tachypnea Blood Pressure 119/78 Blood Pressure Mean 91 Pulse Ox 99 95 Oxygen Delivery Method High Flow Nasal Cannula Oxygen Flow Rate (L/min) 6 4 09/14/24 15:00 09/14/24 15:00 Temperature 98.3 F Temperature Source Oral Pulse Rate 102 H 102 H Respiratory Rate 22 H 22 H Respiratory Effort Respiratory Depth Respiratory Pattern Blood Pressure 89/69 L 89/69 L Blood Pressure Mean 75 75 Pulse Ox 98 98 Oxygen Delivery Method Nasal Cannula Nasal Cannula Oxygen Flow Rate (L/min) 3 MDM MDM MDM Narrative Medical decision making narrative: 69-year-old male with history of atrial fibrillation on Eliquis, immunocompromise, recent diagnosis of pneumonia presents for evaluation of shortness of breath. Differential diagnosis includes but is not limited to pneumonia, viral illness, ACS, electrolyte abnormality, flare of his interstitial lung disease. On presentation patient is hypoxic on room air. 65%. He was originally placed on a 15 L nonrebreather. DuoNebs ordered and over time we were able to decrease the patient down to high flow nasal cannula. Moving more air since DuoNebs given. 500 cc NS bolus ordered. Will be judicial with fluids given patient's respiratory status. CBC with a leukocytosis of 12.7. He is hemoconcentrated at 16.6. BMP shows mild hyponatremia at 132 and hypokalemia of 3.2. Patient has KEVIN with a creatinine of 1.98. His baseline appears to be about 1.3. Lactic acid 3.8. Chest x-ray shows multifocal pneumonia. Vancomycin and Zosyn ordered given worsening pneumonia on levofloxacin as well as concern for hospital-acquired pneumonia. BNP elevated at 187.5. Troponin negative. Patient does not appear overloaded on physical exam. He is vascularly depleted. Another 500 NS bolus ordered but being digestible with fluids. Patient will warrant admission to the hospital for further antibiotics and management. Patient was discussed with Dr. Delarosa who accepted admission. EKG: Interpreted by me/EM physician: EKG shows atrial fibrillation. Right bundle branch block. Heart rate 111 Diagnostic: Interpreted by me/EM physician: Chest x-ray with worsening multifocal pneumonia. This was compared to previous chest x-ray. No effusion or pneumothorax 30 minutes of critical care time utilized in managing the patient. This is due to high probability of and deterioration of the patient based on the patient's condition and excludes any separately billable procedures. Impression: 1. Acute hypoxic respiratory failure 2. Worsening multifocal pneumonia, concern for hospital-acquired pneumonia 3. History of interstitial lung disease on immunosuppressants 4. Recent COVID-19 infection 5. KEVIN 6. Lactic acidosis 7. Mild hyponatremia 8. Hypokalemia Lab Data Labs: Laboratory Results - last 24 hr 09/14/24 09/14/24 11:39 11:42 WBC 12.7 H RBC 5.46 Hgb 16.6 H Hct 49.5 MCV 90.7 MCH 30.4 MCHC 33.5 RDW Std Deviation 45.1 H RDW Coeff of Nenita 13.3 Plt Count 256 MPV 10.4 Immature Gran % (Auto) 0.600 Neut % (Auto) 88.9 H Lymph % (Auto) 6.4 L Camp % (Auto) 3.9 Eos % (Auto) 0.0 Baso % (Auto) 0.2 Absolute Neuts (auto) 11.3 H Absolute Lymphs (auto) 0.81 L Nucleated RBC % 0 Sodium 132 L Potassium 3.2 L Chloride 99 Carbon Dioxide 20.0 L Anion Gap 13 BUN 43 H Creatinine 1.98 H Estim Creat Clear Calc 44.38 Est GFR (MDRD) Af Amer 43 L Est GFR (MDRD) Non-Af 36 L BUN/Creatinine Ratio 21.7 H Glucose 290 H Lactic Acid 3.8 H* Calcium 9.6 Total Creatine Kinase 56 Troponin I High Sens 12 B-Natriuretic Peptide 187.5 H Radiography Diagnostic Testing: Clinical Impression(s) from Imaging Studies Chest X-Ray 09/14/24 13:05 IMPRESSION: Worsening multifocal pneumonia. Electronically Signed: Alvina Azar MD at 13:38 EDT , Discharge Plan Disposition Disposition: Acute Care Hospital [facility] Discharge Date/Time: 09/14/24 16:09
[2024-09-14] MEDS: Ipratropium/Albuterol Sulfate 3 ML AMPUL.NEB 9 ML INHALATION (12:32)
[2024-09-14] MEDS: 0.9% Normal Saline (500mL Bag) 500 ML 999 ML IV ×2 (13:02→16:00)
--- NOTE | 2024-09-14 13:05 | RAD_ITS ---
INDICATION: Shortness of breath EXAMINATION/TECHNIQUE: X-RAY - XR Chest 2 Views COMPARISON: September 08, 2024 FINDINGS: LINES/DEVICES: None. LUNGS: There are bilateral patchy opacities throughout the mid and lower lungs that have progressed since the prior examination. No pneumothorax. MEDIASTINUM AND CARDIOVASCULAR STRUCTURES: There are sternotomy wires in place. Cardiac silhouette not enlarged. Central airways and mediastinal contour are unremarkable. BONES AND SOFT TISSUES: Unremarkable. RAD/Chest PA and Lateral IMPRESSION: Worsening multifocal pneumonia. Electronically Signed: Alvina Azar MD at 13:38 EDT ,
[2024-09-14 13:09] LABS: Anion Gap 13 (5-15); BUN 43 mg/dL (7-18); BUN/Creat Ratio 21.7 RATIO (10-20); Calcium,Total 9.6 mg/dL (8.5-10.1); Chloride 99 mmol/L (98-107); Creatinine, Serum 1.98 mg/dL (0.70-1.30); EST Glomerular Filtration Rate 36 mL/min (>60); Est Glom Filt Rate - Afr Amer 43 mL/min (>60); Estimated Creatinine Clearance 44.38 ml/min; Glucose 290 mg/dL (74-106); Potassium 3.2 mmol/L (3.5-5.1); Sodium Level 132 mmol/L (136-145); Troponin-I HS 12 pg/mL (3.0-78.0)
[2024-09-14 13:16] LABS: Lactic Acid 3.8 mmol/L (0.4-1.9)
[2024-09-14 13:17] LABS: Absolute Lymphocyte Count 0.81 X10^3/uL (0.83-4.51); Absolute Neutrophil Count 11.3 X10^3/uL (2.0-7.7); Basophil# 0.02 X10^3/uL; Basophil% 0.2 % (0-1); Hematocrit 49.5 % (40-54); Hemoglobin 16.6 g/dL (13.0-16.5); Lymphocyte # 0.81 X10^3/ul (0.83-4.51); Lymphocyte % 6.4 % (19-41); Mean Corp Hgb Conc 33.5 g/dL (32-36); Mean Corpuscular Hgb 30.4 pg (27.0-32.0); Mean Corpuscular Volume 90.7 fL (80-94); Mean Platelet Vol. 10.4 fl (6.2-12.0); Monocyte% 3.9 % (0-10); NRBC Flagged by Analyzer 0 % (0-5); Neutrophil # 11.33 X10^3/uL (2.7-7.7); Neutrophil % 88.9 % (47-70); Platelet Count 256 K/mm3 (150-450); RBC Distribution Width CV 13.3 % (11.6-14.6); RBC Distribution Width SD 45.1 fl (35.1-43.9); Red Blood Count 5.46 M/mm3 (4.6-6.2); White Blood Count 12.7 K/mm3 (4.4-11.0)
[2024-09-14 13:39] LABS: BNP,B-Type NATRIURETIC PEPTIDE 187.5 pg/mL (0-100)
[2024-09-14] MEDS: Piperacil/Tazobactam 4.5 GM in 0.9% Normal Saline (100mL MB+) 100 ML IV (13:56)
[2024-09-14] MEDS: Vancomycin HCl 2,000 MG in 0.9% Normal Saline (500mL Bag) 500 ML 250 MG IV (15:05)
--- NOTE | 2024-09-14 15:55 | HP.PCM.HOS_ITS ---
HPI - General General Date of Admission: 09/14/24 Date of Service: 09/14/24 Chief Complaint: Worsening of shortness of breath after discharge. HPI Narrative AZEB BAKER, is a 69 M came to ED after feeling shortness of breath, dyspnea at rest after discharge. Patient was discharged on 09/10/2024 after management of COVID-19 with superimposed bacterial pneumonia and discharged on Levaquin which he still has 3 tablets left. He also noticed hypoxia on pulse ox his pulse ox is in low 80s sometimes dropped in 70s even at rest. He is too weak and feeling no energy because of dyspnea and cannot walk.Patient denies any fever or chills. No chest pain In ED, vitals shows decreased blood pressure 89/69 with tachycardia and is requiring 6 L which is downgraded to 3 L.. Lactic acid is also high. chest x-ray was done which shows multifocal pneumonia worsening on the previous chest x-ray several days ago. Patient started on IV vancomycin and Zosyn. 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 Paroxysmal atrial fibrillation Home Medications ?Medication ?Instructions ?Recorded ?Last Taken ?Type aspirin 81 mg tablet,delayed 81 mg PO QDAY heart 12/08/17 01/21/21 06:30 History release (Adult Aspirin Regimen) metformin 1,000 mg tablet 500 mg PO BIDCM DM 07/27/20 01/21/21 06:30 History losartan 100 mg tablet 100 mg PO QDAY blood pressure #90 08/30/21 Unknown Rx tabs atorvastatin 40 mg tablet 40 mg PO QHS CHOLESTEROL #90 tabs 02/28/22 Unknown Rx acetaminophen 500 mg tablet 500 mg PO Q6H PRN fever or pain 06/09/22 Unknown History (Tylenol Extra Strength) cholecalciferol (vitamin D3) 25 50 mcg PO DAILY Vitamin D 06/09/22 Unknown History mcg (1,000 unit) tablet supplement vitamin A 2,400 mcg capsule 7,200 mcg PO DAILY vitamin 06/09/22 Unknown History finerenone 10 mg tablet (Kerendia) 10 mg PO DAILY diuretic 01/25/23 Unknown History rituximab-arrx 10 mg/mL 10 mg IV 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 Unknown History intravenous solution apixaban 2.5 mg tablet 2.5 mg PO BID blood thinner #60 11/01/23 Unknown Rx tabs hydrochlorothiazide 25 mg tablet 12.5 mg PO DAILY diuretic 03/08/24 Unknown History plecanatide 3 mg tablet (Trulance) 3 mg PO QDAY constipation 03/08/24 Unknown History semaglutide 0.25 mg or 0.5 mg (2 0.5 mg subcut QWEEK diabetes 03/08/24 Unknown History mg/3 mL) subcutaneous pen injector (Ozempic) metoprolol succinate 100 mg 150 mg (1.5 x 100 mg) PO DAILY for 08/09/24 Unknown Rx tablet,extended release 24 hr blood pressure #135 TABLETS amlodipine 10 mg tablet 10 mg PO DAILY blood pressure 09/08/24 Unknown History insulin aspart U-100 100 unit/mL 28 - 41 unit subcut DAILY diabetes 09/08/24 Unknown History (3 mL) subcutaneous pen (Novolog FlexPen U-100 Insulin aspart) prednisone 20 mg tablet 20 mg PO DAILY inflammation 09/08/24 Unknown History levofloxacin 500 mg tablet 500 mg PO DAILY #7 tabs 09/10/24 Unknown Rx Allergy/AdvReac Type Severity Reaction Status Date / Time adhesive tape Allergy Rash Verified 09/14/24 11:42 mycophenolate mofetil (From AdvReac Severe elevated Verified 09/14/24 11:42 CellCept) liver enzymes Family History Father , age 72 Lupus COPD (chronic obstructive pulmonary disease) CAD (coronary artery disease) S/P CABG x 3, Onset Age: 68 Congestive heart failure Mother , age 78 Alzheimers disease Surgical History S/P laparoscopic colectomy thoracoscopy with lung biopsy History of left heart catheterization (07/30/15) History of coronary artery bypass graft (07/31/15) Social History Smoking Status: Never smoker alcohol intake: never substance use type: does not use caffeine: Yes Type: coffee Number of servings: 3 ROS ROS Narrative Constitutional: Reports acute onset fatigue and weakness. No fever. HEENT: Reports systems reviewed and no addt'l complaints, except as documented Respiratory/Chest: As described in HPI. CVS: No chest pain. Gastrointestinal: No nausea or vomiting. Denies coffee ground emesis, hematemesis or melena. Genitourinary: Denies burning urination or new urinary tract symptoms Musculoskeletal: Denies acute joint pain or limited range of motion. No acute injury Neurologic: Denies seizure-like symptoms. skin: No ulcer. No rash Endocrinology: Reports systems reviewed and no addt'l complaints, except as documented Hematologic/Lymphatic: Reports systems reviewed and no addt'l complaints, except as documented Rest 14 ROS are negative except as mentioned in HPI Vital Signs Vital Signs Vital Signs: 09/14/24 11:36 09/14/24 11:36 09/14/24 11:37 Temperature 98.2 F Temperature Source Oral Pulse Rate 109 H Respiratory Rate 23 H Respiratory Effort Respiratory Depth Respiratory Pattern Blood Pressure 138/96 H Blood Pressure Mean 110 Pulse Ox 97 69 97 Oxygen Delivery Method Non-Rebreather Room Air Non-Rebreather Oxygen Flow Rate (L/min) 15 15 09/14/24 11:42 09/14/24 11:43 09/14/24 11:45 Temperature 98.2 F Temperature Source Oral Pulse Rate 116 H Respiratory Rate 28 H Respiratory Effort Short of Breath Labored Respiratory Depth Shallow Respiratory Pattern Tachypnea Blood Pressure 138/96 H Blood Pressure Mean 110 Pulse Ox 95 97 Oxygen Delivery Method Non-Rebreather Non-Rebreather Non-Rebreather Oxygen Flow Rate (L/min) 15 15 15 09/14/24 11:57 09/14/24 12:19 09/14/24 12:36 Temperature Temperature Source Pulse Rate 114 H Respiratory Rate 26 H Respiratory Effort Respiratory Depth Respiratory Pattern Blood Pressure 98/71 Blood Pressure Mean 80 Pulse Ox 95 93 Oxygen Delivery Method High Flow Nasal Cannula Room Air Oxygen Flow Rate (L/min) 10 09/14/24 12:36 09/14/24 12:36 09/14/24 13:19 Temperature 98.4 F Temperature Source Oral Pulse Rate 113 H 122 H Respiratory Rate 20 H 26 H Respiratory Effort Respiratory Depth Respiratory Pattern Tachypnea Blood Pressure 119/78 Blood Pressure Mean 91 Pulse Ox 99 95 Oxygen Delivery Method High Flow Nasal Cannula Oxygen Flow Rate (L/min) 6 4 09/14/24 15:00 09/14/24 15:00 Temperature 98.3 F Temperature Source Oral Pulse Rate 102 H 102 H Respiratory Rate 22 H 22 H Respiratory Effort Respiratory Depth Respiratory Pattern Blood Pressure 89/69 L 89/69 L Blood Pressure Mean 75 75 Pulse Ox 98 98 Oxygen Delivery Method Nasal Cannula Nasal Cannula Oxygen Flow Rate (L/min) 3 Weight Weight: 235 lb 6.4 oz Body Mass Index (BMI) 27.9 Physical Exam Narrative General: Alert, Oriented x3, Cooperative. BMI 27.9 kg/m? HEENT: Atraumatic, PERRLA, EOMI, Normocephalic Oral: Oral mucosa dry no Gingival or Mucosal Lesions/ Ulcerations Neck: Supple, No JVD, Negative Carotid Bruits Chest wall/Lungs: Air entry severely diminished in all lung wilder. Bilateral coarse crepitation present. Severe hypoxia and tachypnea Cardiovascular: Sinus tachycardia, Normal S1, Normal S2, No M/G/R Abdomen: Bowel Sounds Present, Soft, Non Tender, Non-Distended : No dysuria. No renal angle tenderness. No suprapubic tenderness. Extremities: No edema, Capillary Refill Less than 3 Seconds Skin: No rashes, No breakdown Musculoskeletal: No Tenderness to Palpation of Joints or Extremities. Muscle strength 4+/5 at knees and hip joints Neurological: Cranial nerves II-XII grossly intact, DTR 2+/4. No acute focal neurological deficit. Psych/Mental Status: Flat affect. Results Lab / Micro Data 09/14/24 11:39 09/14/24 11:39 Labs: Laboratory Results - last 24 hr 09/14/24 11:39: WBC 12.7 H, RBC 5.46, Hgb 16.6 H, Hct 49.5, MCV 90.7, MCH 30.4, MCHC 33.5, RDW Std Deviation 45.1 H, RDW Coeff of Nenita 13.3, Plt Count 256, MPV 10.4, Immature Gran % (Auto) 0.600, Neut % (Auto) 88.9 H, Lymph % (Auto) 6.4 L, Grand % (Auto) 3.9, Eos % (Auto) 0.0, Baso % (Auto) 0.2, Absolute Neuts (auto) 11.3 H, Absolute Lymphs (auto) 0.81 L, Nucleated RBC % 0, Sodium 132 L, P otassium 3.2 L, Chloride 99, Carbon Dioxide 20.0 L, Anion Gap 13, BUN 43 H, C reatinine 1.98 H, Estim Creat Clear Calc 44.38, Est GFR (MDRD) Af Amer 43 L, Est GFR (MDRD) Non-Af 36 L, BUN/Creatinine Ratio 21.7 H, Glucose 290 H, Calcium 9.6, Troponin I High Sens 12, B-Natriuretic Peptide 187.5 H 09/14/24 11:42: Lactic Acid 3.8 H* Micro: Microbiology 09/14/24 14:42 Mucosa - Nose SARS-CoV-2, Influenza & RSV (PCR) - Final SARS-CoV-2 (COVID 19 PCR) Imaging Radiology Impression Chest X-Ray 09/14/24 13:05 IMPRESSION: Worsening multifocal pneumonia. Electronically Signed: Alvina Azar MD at 13:38 EDT , Assessment & Plan Assessment/Plan (1) Acute hypoxemic respiratory failure: (2) Pneumonia: QUALIFIERS: Pneumonia type: due to unspecified organism L aterality: right Lung location: upper lobe of lung Qualified Code(s): J18.9 - Pneumonia, unspecified organism PLAN: Plan This is a 69-year-old gentleman being admitted for acute hypoxic respiratory failure most likely due to bilateral pneumonia 1. Acute hypoxic respiratory failure: Patient pulse ox at home was in low 80s and initially was noticed 69 on room air. Started on nonrebreather 15 L but titrated down to 4 L of oxygen high flow. ABG ordered 2. Possible sepsis due to multifocal bilateral pneumonia due to COVID-19 with superimposed suspected bacterial component: The patient presented with sepsis with clinical indicators of tachycardia, tachypnea, leukocytosis with neutrophil and severe hypoxia due to bilateral pneumonia with acute sepsis-related organ dysfunction as evidenced by mild hypotension, SBP less than 90 and lactic acidosis Patient started on broad-spectrum IV antibiotic vancomycin and Zosyn. Pneumonia workup ordered. Sepsis workup ordered. IV fluid resuscitation as per sepsis protocol. Patient COVID-19 was diagnosed on 08/29/2024 and completed a steroid. Patient is not in time window for remdesivir 3. 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 Atherosclerotic heart disease-patient does not have chest pain. Troponin is negative. 5. Essential hypertension-: Blood pressure is on lower side, mild hypotension. Hold antihypertensive medication. 6. Type 2 diabetes mellitus: Accu-Chek before meals and at bedtime with Humalog sliding scale coverage and hypoglycemia protocol. 7. Dyslipidemia: On statin continue 8. Paroxysmal A-fib: On Eliquis 2.5 mg p.o. twice daily. Continued. Patient also on baby aspirin continued DVT prophylaxis: Already on Eliquis. Living will/advanced directive/end of life care: Patient does not have living will or advanced directive. Her is power of rater associate for health after discussion of benefits/risks procedures involved with full code, DNR CC arrest and DNR CC, the patient opted for full code. Patient does want artificial life support including intubation, tube feed, ventilator and/chest compression, central venous catheter, vasopressor and DC shock if needed Total time spent in [id number] encounter in discussion of advanced directive 17 minutes. Microbiology Past 72 Hours 09/14/24 14:42 Mucosa - Nose SARS-CoV-2, Influenza & RSV (PCR) - Final SARS-CoV-2 (COVID 19 PCR) Laboratory Results 09/14/24 11:39: WBC 12.7 H, RBC 5.46, Hgb 16.6 H, Hct 49.5, MCV 90.7, MCH 30.4, MCHC 33.5, RDW Std Deviation 45.1 H, RDW Coeff of Nenita 13.3, Plt Count 256, MPV 10.4, Immature Gran % (Auto) 0.600, Neut % (Auto) 88.9 H, Lymph % (Auto) 6.4 L, Grand % (Auto) 3.9, Eos % (Auto) 0.0, Baso % (Auto) 0.2, Absolute Neuts (auto) 11.3 H, Absolute Lymphs (auto) 0.81 L, Nucleated RBC % 0, PT Pending, INR Pending, APTT Pending, Sodium 132 L, Potassium 3.2 L, Chloride 99, Carbon Dioxide 20.0 L, Anion Gap 13, BUN 43 H, Creatinine 1.98 H, Estim Creat Clear Calc 44.38, Est GFR (MDRD) Af Amer 43 L, Est GFR (MDRD) Non-Af 36 L, B UN/Creatinine Ratio 21.7 H, Glucose 290 H, Calcium 9.6, Total Creatine Kinase Pending, Troponin I High Sens 12, B-Natriuretic Peptide 187.5 H 09/14/24 11:42: Lactic Acid 3.8 H* Charges/Coding Procedures Hospitalists Procedures: 52584 Advncd Care Plan 30 Min Multi Select Codes Visit Charges Visit Charges: 35023 Init Hosp L3 Hospitalists' Procedures Procedures: 37319 Advncd Care Plan 30 Min
[2024-09-14 16:29] LABS: CPK Total, Creatine Kinase 56 U/L (39-308)
[2024-09-14 16:48] LABS: International Normalized Ratio 1.3; Prothrombin Time (Protime)PT. 15.8 SECONDS (11.7-14.9)
[2024-09-14 16:49] LABS: Partial Thromboplast Time 30.1 Seconds (24.1-36.2)
[2024-09-14 16:53] LABS: Reflex Lactate? Y
[2024-09-14 17:20] LABS: Allen Test Positive; Base Excess -8 mmol/L (-2 to +2); Bicarbonate 15.6 mmol/L (22-26); Blood Gas Specimen Type ART; Mode Not entered; O2 Delivery Device Cannula; PO2 60 mmHG (75-100); SITE R Radial; SO2 93 % (95-99); Total Carbon Dioxide 16 mmol/L; pH 7.48 (7.35-7.45)
--- NOTE | 2024-09-14 17:50 | PCM.RX.CS ---
Consult Antibiotic Management Pharmacy has been consulted to manage selected antibiotic: Vancomycin Type of Intervention Type of Consult: New start Suspected Infection Suspected Infection: Sepsis and Pneumonia Prior Doses of Antibiotics Prior Doses of Antibiotics Received/Current Regimen: had vanc 2000mg x1 in ER at 15:05 Labs Labs: Sodium 132 mmol/L (136-145) L 09/14/24 11:39 Potassium 3.2 mmol/L (3.5-5.1) L 09/14/24 11:39 Chloride 99 mmol/L (98-107) 09/14/24 11:39 Carbon Dioxide 20.0 mmol/L (21.0-32.0) L 09/14/24 11:39 Anion Gap 13 (5-15) 09/14/24 11:39 BUN 43 mg/dL (7-18) H 09/14/24 11:39 Creatinine 1.98 mg/dL (0.70-1.30) H 09/14/24 11:39 Est GFR (MDRD) Af Amer 43 mL/min (>60) L 09/14/24 11:39 Est GFR (MDRD) Non-Af 36 mL/min (>60) L 09/14/24 11:39 BUN/Creatinine Ratio 21.7 RATIO (10-20) H 09/14/24 11:39 Glucose 290 mg/dL (74-106) H 09/14/24 11:39 Microbiology Microbiology: Microbiology 09/14/24 14:42 Mucosa - Nose SARS-CoV-2, Influenza & RSV (PCR) - Final SARS-CoV-2 (COVID 19 PCR) Dosing Weight Weight used for dosin.8 kg Estimated Creatinine Clearance Estimated Creatinine Clearance: 44 ml/min Goal Trough Goal Trough: 15-20 mcg/mL Pharmacy Plan for Drug Dosing Pharmacy Plan for Drug Dosing: Starting 12 hours after the ER dose, continue with 750mg IV q12h per [facility] dosing protocol. Will order a trough before the 4th overall dose. Pharmacy Service will continue to monitor and adjust dosing as required. Follow-Up Labs Follow-Up Labs: Trough: Vancomycin Date/Time Labs Ordered Labs to be done on [date and time ordered]: 09/16 02:30
[2024-09-14] MEDS: 0.9% Saline Lock 10 ML Syringe IV (17:59)
[2024-09-14] MEDS: 0.9% Normal Saline (1000mL) 1,000 ML 999 ML IV ×2 (17:59→19:02)
[2024-09-14 18:42] LABS: Lactic Acid 1.8 mmol/L (0.4-1.9)
[2024-09-14] MEDS: Piperacil/Tazobactam 3.375 GM in 0.9% Normal Saline (50mL MB+) 50 ML IV (22:04)
[2024-09-14] MEDS: Atorvastatin Calcium 40 MG Tablet PO (22:11)
[2024-09-14] MEDS: APIXABAN 2.5 MG TABLET (WCH) PO (22:11)
[2024-09-14 22:18] LABS: Magnesium 2.1 mg/dL (1.6-2.6)
[2024-09-14] MEDS: Insulin Lispro 100 UNIT/ML INSULN.PEN SC (22:55)
[2024-09-14 23:09] LABS: Bedside Glucose 237 mg/dL (74-106)
[2024-09-15] VITALS (9 sets, daily range): BP systolic 90–113; BP diastolic 56–68; PULSE 55–134; RESP 16–19; TEMP 36.2–36.7; O2SAT 92–95
[2024-09-15] MEDS: Vancomycin HCl 750 MG in 0.9% Normal Saline (250mL Bag) 250 ML 250 MG IV ×2 (03:00→17:34)
[2024-09-15] MEDS: Piperacil/Tazobactam 3.375 GM in 0.9% Normal Saline (50mL MB+) 50 ML IV ×2 (05:49→14:46)
[2024-09-15 06:13] LABS: Absolute Lymphocyte Count 0.58 X10^3/uL (0.83-4.51); Absolute Neutrophil Count 5.8 X10^3/uL (2.0-7.7); Basophil# 0.01 X10^3/uL; Basophil% 0.1 % (0-1); Hematocrit 39.4 % (40-54); Hemoglobin 13.9 g/dL (13.0-16.5); Lymphocyte # 0.58 X10^3/ul (0.83-4.51); Lymphocyte % 8.5 % (19-41); Mean Corp Hgb Conc 35.3 g/dL (32-36); Mean Corpuscular Hgb 31.8 pg (27.0-32.0); Mean Corpuscular Volume 90.2 fL (80-94); Monocyte# 0.41 X10^3/uL; NRBC Flagged by Analyzer 0 % (0-5); Neutrophil # 5.81 X10^3/uL (2.7-7.7); Neutrophil % 84.7 % (47-70); POSITIVE DIFFERENTIAL YES; Platelet Count 220 K/mm3 (150-450); RBC Distribution Width CV 13.4 % (11.6-14.6); RBC Distribution Width SD 44.7 fl (35.1-43.9); Red Blood Count 4.37 M/mm3 (4.6-6.2); White Blood Count 6.9 K/mm3 (4.4-11.0)
[2024-09-15 06:24] LABS: ALB/GLOB Ratio 0.6 RATIO (0.9-2.4); AST(SGOT) 35 U/L (15-37); Alanine Aminotransfer ALT/SGPT 16 U/L (16-61); Albumin, Serum 2.2 g/dL (3.2-5.0); Alkaline Phosphatase 99 U/L (45-117); Anion Gap 9 (5-15); BUN 32 mg/dL (7-18); BUN/Creat Ratio 23.2 RATIO (10-20); Calcium,Total 8.4 mg/dL (8.5-10.1); Chloride 105 mmol/L (98-107); Creatinine, Serum 1.38 mg/dL (0.70-1.30); EST Glomerular Filtration Rate 54 mL/min (>60); Est Glom Filt Rate - Afr Amer 66 mL/min (>60); Estimated Creatinine Clearance 63.67 ml/min; Globulin 3.9 g/dL (2.2-4.2); Glucose 231 mg/dL (74-106); Potassium 3.4 mmol/L (3.5-5.1); Protein, Total 6.1 g/dL (6.4-8.2); Sodium Level 133 mmol/L (136-145)
[2024-09-15] MEDS: Insulin Lispro 100 UNIT/ML INSULN.PEN SC ×3 (06:27→16:23)
[2024-09-15 06:46] LABS: Bedside Glucose 242 mg/dL (74-106)
[2024-09-15] MEDS: predniSONE 20 MG Tablet PO (08:08)
[2024-09-15] MEDS: Aspirin E.C. 81 MG Tablet PO (08:08)
[2024-09-15] MEDS: PLECANATIDE 3 MG TABLET PO (08:09)
[2024-09-15] MEDS: APIXABAN 2.5 MG TABLET (WCH) PO (08:09)
[2024-09-15 12:32] LABS: Bedside Glucose 376 mg/dL (74-106)
[2024-09-15] MEDS: 0.9% Saline Lock 10 ML Syringe IV ×2 (14:43→17:35)
[2024-09-15 14:54] LABS: Bedside Glucose 419 mg/dL (74-106)
--- NOTE | 2024-09-15 17:03 | PCM.DC.SUM ---
Providers Date of Admission: 09/14/24 Primary Care Physician: Dr. Mk Carpenter MD Consultations 09/14/24 16:41 Consult: Infectious Disease Routine Consulting Provider: Juan José Servin Reason for Consult: Acute hypoxic respiratory failure due to bilateral pneumonia. EMERGENT Consult: No MD Notified: Yes Date Notified: 09/14/24 Time Notified: 16:13 Method of Notification: ED Physician Initiated Reason For Visit: MULTIFOCAL PNEUMONIA. Diagnosis Discharge Diagnosis (1) Acute hypoxemic respiratory failure: Status: Acute Code(s): J96.01 - Acute respiratory failure with hypoxia (2) Pneumonia: Status: Acute Code(s): J18.9 - Pneumonia, unspecified organism Qualifiers: Pneumonia type: due to unspecified organism Laterality: right Lung location: upper lobe of lung Qualified Code(s): J18.9 - Pneumonia, unspecified organism Plan 1. Flareup of chronic pulmonary vasculitis #2 acute hypoxic respiratory failure #3 essential hypertension #4 type 2 diabetes #5 coronary artery disease #6 paroxysmal A-fib #7 chronic interstitial lung disease Bilateral pneumonia was ruled out Medications at Discharge Home Medications aspirin 81 mg tablet,delayed release (Adult Aspirin Regimen) 81 mg PO QDAY heart 12/08/17 metformin 1,000 mg tablet 500 mg PO BIDCM DM 07/27/20 losartan 100 mg tablet 100 mg PO QDAY blood pressure #90 tabs 08/30/21 atorvastatin 40 mg tablet 40 mg PO QHS CHOLESTEROL #90 tabs 02/28/22 acetaminophen 500 mg tablet (Tylenol Extra Strength) 500 mg PO Q6H PRN fever or pain 06/09/22 cholecalciferol (vitamin D3) 25 mcg (1,000 unit) tablet 50 mcg PO DAILY Vitamin D supplement 06/09/22 vitamin A 2,400 mcg capsule 7,200 mcg PO DAILY vitamin 06/09/22 finerenone 10 mg tablet (Kerendia) 10 mg PO DAILY diuretic 01/25/23 rituximab-arrx 10 mg/mL intravenous solution 10 mg IV 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 apixaban 2.5 mg tablet 2.5 mg PO BID blood thinner #60 tabs 11/01/23 hydrochlorothiazide 25 mg tablet 12.5 mg PO DAILY diuretic 03/08/24 plecanatide 3 mg tablet (Trulance) 3 mg PO QDAY constipation 03/08/24 semaglutide 0.25 mg or 0.5 mg (2 mg/3 mL) subcutaneous pen injector (Ozempic) 0.5 mg subcut QWEEK diabetes 03/08/24 metoprolol succinate 100 mg tablet,extended release 24 hr 150 mg (1.5 x 100 mg) PO DAILY for blood pressure #135 TABLETS 08/09/24 amlodipine 10 mg tablet 10 mg PO DAILY blood pressure 09/08/24 insulin aspart U-100 100 unit/mL (3 mL) subcutaneous pen (Novolog FlexPen U-100 Insulin aspart) 28 - 41 unit subcut DAILY diabetes 09/08/24 prednisone 20 mg tablet 20 mg PO DAILY inflammation 09/08/24 levofloxacin 500 mg tablet 500 mg PO DAILY #7 tabs 09/10/24 Hospital Course Operations None Procedures None Summary of Care Provided Minutes Spent on Discharge: 32 Hospital Course: This 69-year-old white male was seen in the emergency room at [facility] with complaints of increasing shortness of breath since his discharge from the hospital approximately 5 days ago. Patient had been in the hospital for community-acquired pneumonia at that time and had been placed on oral antibiotics at the time of discharge, patient was not hypoxic at the time of discharge from the hospital recently. Workup in the emergency room included a chest x-ray which showed bilateral infiltrates in the lungs, patient required high flow oxygen to maintain his pulse ox above 90%, labs revealed a normal white blood cell count, CHEM profile showed a potassium of 3.2 and a creatinine of 1.98. Lactic acid was elevated at 3.8. BNP was 187. Patient was admitted to PCU, placed on IV antibiotics for suspected pneumonia, and his home corticosteroid dosage was continued. I evaluated the patient on 09/15/2024 and felt that he had acute vasculitis, I recommended that he be transferred to a tertiary facility be seen by pulmonary medicine and he and his agreed. Family had preferred [facility] but no bed was available. 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 On 09/15/2024, patient was seen and examined: On examination he appeared in no distress at rest. Vital signs as documented. Skin warm and dry and without overt rashes. Neck without JVD, neck was supple, trachea midline, thyroid was normal. Lungs clear bilaterally, normal air movement was noted. Heart exam notable for regular rhythm, normal sounds and absence of murmurs, rubs or gallops. Abdomen unremarkable and without evidence of organomegaly, masses, or abdominal aortic enlargement. Bowel sounds are present, abdomen is not distended. Extremities nonedematous, no cyanosis was noted, no clubbing was noted. Neuro: Cranial nerves II through XII are grossly intact, no focal motor deficits were noted, sensation to light touch and pinprick intact, motor exam 5/5 throughout. Psych: Patient is alert and oriented x3, he does not appear anxious or depressed, he does not appear agitated. Patient was transferred to [facility] for further care on 09/15/2024. Weight / BMI Weight Weight: 106.2 kg Body Mass Index (BMI) 27.7 ABG / Lab / Microbiology Data 09/15/24 05:10 09/15/24 05:10 Laboratory: Laboratory Results - last 24 hr 09/14/24 18:05: Lactic Acid 1.8, Magnesium 2.1 09/14/24 22:48: POC Glucose 237 H 09/15/24 05:10: WBC 6.9, RBC 4.37 L, Hgb 13.9, Hct 39.4 L, MCV 90.2, MCH 31.8, MCHC 35.3 D, RDW Std Deviation 44.7 H, RDW Coeff of Nenita 13.4, Plt Count 220, MPV 11.0, Immature Gran % (Auto) 0.700, Neut % (Auto) 84.7 H, Lymph % (Auto) 8.5 L, [place] % (Auto) 6.0, Eos % (Auto) 0.0, Baso % (Auto) 0.1, Absolute Neuts (auto) 5.8, Absolute Lymphs (auto) 0.58 L, Nucleated RBC % 0, Sodium 133 L, Potassium 3.4 L, Chloride 105, Carbon Dioxide 19.0 L, Anion Gap 9, BUN 32 H, Creatinine 1.38 H, Estim Creat Clear Calc 63.67, Est GFR (MDRD) Af Amer 66, Est GFR (MDRD) Non-Af 54 L, BUN/Creatinine Ratio 23.2 H, Glucose 231 H, Calcium 8.4 L, Total Bilirubin 0.70, AST 35, ALT 16, Alkaline Phosphatase 99, C-React Prot Ext Range 118.00 H, Total Protein 6.1 L, Albumin 2.2 L, Globulin 3.9, Albumin/Globulin Ratio 0.6 L 09/15/24 06:25: POC Glucose 242 H 09/15/24 12:10: POC Glucose 376 H 09/15/24 14:34: POC Glucose 419 H Microbiology: Microbiology 09/14/24 14:42 Mucosa - Nose SARS-CoV-2, Influenza & RSV (PCR) - Final SARS-CoV-2 (COVID 19 PCR) 09/15/24 01:30 Urine, Clean Catch Streptococcus pneumoniae Antigen (M - Final 09/15/24 01:30 Urine, Clean Catch Legionella Antigen - Final 09/14/24 22:45 Mucosa - Nasopharyngeal Respiratory Panel (PCR) - Final ABG: ABG 09/14/24 17:17 Specimen Type ART Sample Site R Radial pH 7.48 H Bicarbonate Actual 15.6 L Total CO2 16 Base Excess -8 L O2 Saturation 93 L O2 % 6.0 ABG pCO2 21.0 L ABG pO2 60 L Angel Test Positive O2 Delivery Device Cannula Vent Mode Not entered Meaningful Use Info Meaningful Use Meaningful Use Diagnoses (Choose all that apply): None applicable Ischemic Stroke Statin Dosing Therapy Reference: STATIN DOSE THERAPY REFERENCE: * Patients > 75 years receive moderate or high dose statin therapy. * Patients 75 years or YOUNGER should receive HIGH intensity statin dose unless contraindicated. You will be required to document reason for non-treatment if statin daily dose does not meet guidelines. HIGH DOSE STATIN THERAPY DAILY Atorvastatin > than or = to 40 mg Rosuvastatin > than or = to 20 mg Amlodipine + Atorvastatin > than or = to 2.5/40 mg Ezetimibe + Simvastatin 10/80 mg Simvastatin 80mg Discharge Plan Admission Admit Date/Time: 09/14/24 15:51 Attending Provider: Taurus Gleason Primary Care Provider: Mk Carpenter Consulting Providers: Juan José Servin; Jesse Delarosa Discharge Orders/Prescriptions Prescriptions: No Action aspirin [Adult Aspirin Regimen] 81 mg tablet,delayed release (DR/EC) 81 mg PO QDAY metformin 1,000 mg tablet 500 mg PO BIDCM losartan 100 mg tablet 100 mg PO QDAY Qty: 90 3RF vitamin A 2,400 mcg capsule 7,200 mcg PO DAILY acetaminophen [Tylenol Extra Strength] 500 mg tablet 500 mg PO Q6H PRN (Reason: fever or pain) Kerendia 10 mg tablet 10 mg PO DAILY Ozempic 0.25 mg or 0.5 mg (2 mg/3 mL) pen injector 0.5 mg subcut QWEEK Trulance 3 mg tablet 3 mg PO QDAY hydrochlorothiazide 25 mg tablet 12.5 mg PO DAILY cholecalciferol (vitamin D3) 25 mcg (1,000 unit) tablet 50 mcg PO DAILY rituximab-arrx 10 mg/mL solution 10 mg IV Q9M Rx Instructions: [id number] amlodipine 10 mg tablet 10 mg PO DAILY insulin aspart U-100 [Novolog FlexPen U-100 Insulin] 100 unit/mL (3 mL) insulin pen 28 - 41 unit subcut DAILY prednisone 20 mg tablet 20 mg PO DAILY levofloxacin 500 mg tablet 500 mg PO DAILY Qty: 7 0RF atorvastatin 40 mg tablet 40 mg PO QHS Qty: 90 3RF apixaban 2.5 mg tablet 2.5 mg PO BID Qty: 60 11RF Patient Comments: took self off on monday for surgery metoprolol succinate 100 mg tablet extended release 24 hr 150 mg PO DAILY Qty: 135 3RF Referrals / Follow Up: Mk Carpenter MD [Primary Care Provider] - Disposition Discharge Orders: Discharge Patient (Routine); Ordered 09/15/24 Ordered By: Dr. Taurus Gleason Charges/Coding Visit Charges Inpatient E&M: 65709 Disch Hosp >30min
[2024-09-15 17:31] LABS: Bedside Glucose 422 mg/dL (74-106)
--- NOTE | 2024-09-15 19:01 | NURSING ---
Called in report to [facility] and spoke with
--- NOTE | 2024-09-15 20:00 | NURSING ---
Report given to EMS, family taking all pt belongings, ATB sent with pt on dial flow
== END 2024-09-15 20:37 | disposition short-term general hospital (02) | DRG 545 ==
LOC: ED 15:11 → PCU 16:10
PROVIDERS: Family Medicine; Admitting Provider Internal Medicine; Emergency Provider Surgery; PCP Family Medicine; Visit Provider Internal Medicine
DX: I77.6 Arteritis, unspecified (principal); J96.01 Acute respiratory failure with hypoxia; J84.9 Interstitial pulmonary disease, unspecified; E87.1 Hypo-osmolality and hyponatremia; E87.20 Acidosis, unspecified; N17.9 Acute kidney failure, unspecified; I28.8 Other diseases of pulmonary vessels; E11.42 Type 2 diabetes mellitus with diabetic polyneuropathy; I10 Essential (primary) hypertension; I48.0 Paroxysmal atrial fibrillation; Z79.4 Long term (current) use of insulin; E87.6 Hypokalemia; I25.10 Atherosclerotic heart disease of native coronary artery without angina pectoris; E78.5 Hyperlipidemia, unspecified; Z51.5 Encounter for palliative care; Z66 Do not resuscitate; Z86.16 Personal history of COVID-19; Z79.84 Long term (current) use of oral hypoglycemic drugs; Z79.85 Long-term (current) use of injectable non-insulin antidiabetic drugs; Z79.01 Long term (current) use of anticoagulants; Z79.82 Long term (current) use of aspirin
CPT/HCPCS: 36415; 36600; 71046; 80048; 80053; 82550; 82803; 82962; 83605; 83735; 83880; 84484; 85025; 85610; 85730; 86140; 87040; 87086; 87449; 87631; 87633; 93005; 94640; 94762; 99284; J7030; J7040; J7050; A4216